=== PATIENT | male | born 1955 | race Caucasian/White ===

== ENCOUNTER 2023-07-14 21:04 | Inpatient (IN) | payer MEDICARE, MEDICAID, SELFPAY ==
[2023-07-14 21:06] VITALS: BP 127/60; PULSE 108; RESP 30; BMI 19.8
--- NOTE | 2023-07-14 21:19 | XRR_ITS ---
PROCEDURE INFORMATION: Exam: XR Chest Exam date and time: 07/14/2023 10:06 PM Age: 68 years old Clinical indication: Dyspnea and shortness of breath TECHNIQUE: Imaging protocol: Radiologic exam of the chest. Views: 1 view. COMPARISON: CR XR chest 1V [id number] 03/28/2018 10:10 AM FINDINGS: Lungs: Bibasilar consolidation/collapse with diffuse reticular opacities in both lungs. Pleural spaces: Small bilateral pleural effusions. Heart/Mediastinum: Mild cardiomegaly. Vasculature: Aortic arch calcifications. Bones/joints: Mild degenerative disease of the thoracic spine. XR/XR chest 1V portable [id number] IMPRESSION: Findings suggestive of interstitial pulmonary edema. Superimposed infection is not excluded.
--- NOTE | 2023-07-14 21:20 | ECG_ITS ---
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 Measurements Intervals [place] Rate: 110 P: 42 [place]: 125 QRS: 48 QRSD: 89 T: 88 QT: 316 QTc: 429 Interpretive Statements SINUS TACHYCARDIA POSSIBLE LEFT ATRIAL ENLARGEMENT [-0.1mV P-WAVE IN V1/V2] NONSPECIFIC ST & T-WAVE ABNORMALITY Compared to ECG 03/28/2018 09:29:50 T-wave abnormality now present Sinus rhythm no longer present ST (T wave) deviation no longer present Electronically Signed On 07-15-2023 9:20:42 CDT by Rambo Pierce M.D. [id number] f
[2023-07-14 21:21] VITALS: TEMP 34.8
--- NOTE | 2023-07-14 21:24 | ED_ITS ---
HPI - SOB/Dyspnea 2 General: Chief Complaint: Shortness of Breath/Dyspnea Stated Complaint: RESP. DISTRESS Time Seen by Provider: 07/14/23 21:11 History of Present Illness: HPI Narrative: Patient presents by EMS for shortness of breath and respiratory distress, EMS said they found him lying on the floor naked half inside half outside his house. They gave him 1 DuoNeb, Decadron, albuterol on route he arrived on nonrebreather and he said that he was getting O2 saturation of 98% on this. He did twelve-lead which was negative, patient denies COPD and asthma is a smoker, patient says he has no history. Patient is a very poor historian. Patient is breathing about 30 times a minute with a pulse rate of about 108 bpm with a rectal temperature of 94.7. Review of Systems 2 General: Reports: 10 or more systems reviewed and unremarkable except in HPI and below PFSH ED 2 PFSH: Medical History (Updated 07/15/23 @ 05:15 by Carlos Mckeon MD) History of COPD Social History (Updated 07/15/23 @ 05:07 by Carlos Mckeon MD) Smoking and tobacco/nicotine status: current every day tobacco/nicotine user Physical Exam 2 Const: COMMON NORMALS: average body habitus, no limitations and alert HENMT: COMMON NORMALS: normocephalic, atraumatic, hearing grossly normal bilaterally, external ears normal, Normal external nose present, moist oral mucous membranes and oropharynx normal HEAD & SCALP: normocephalic and atraumatic NOSE: Normal external nose present EXTERNAL EAR: Yes external ears normal Eye: COMMON NORMALS: Equal, round and reactive pupils present, EOMs intact bilaterally, conjunctivae normal and no scleral icterus CONJUNCTIVA: Yes conjunctivae normal PUPIL: Yes Equal, round and reactive pupils present Neck/C-Spine: COMMON NORMALS: full ROM, no lymphadenopathy, supple, no meningeal signs and no JVD Chest: COMMONS NORMALS: normal inspection of the chest and normal palpation of entire chest wall Resp: COMMON NORMALS: negative for clear to auscultation bilaterally (Decreased breath sounds bilaterally mild rhonchi tachypneic) AUSCULTATION: n ot clear to auscultation bilaterally (Decreased breath sounds bilaterally mild rhonchi tachypneic) Cardio: COMMON NORMALS: no JVD, regular rhythm, S1 normal heart sound present, S2 normal heart sound present, No gallops present (Cardio), No clicks present (Cardio), No murmurs present (Cardio) and No rub (Cardio); negative for regular rate (Mildly tachycardic) RATE: abnormal rate (Mildly tachycardic) RHYTHM: regular rhythm HEART SOUNDS: S1 normal heart sound present and S2 normal heart sound present GI: COMMON NORMALS: Normal to inspection, nondistended, normoactive bowel sounds present, Soft to palpation, non-tender, No hepatosplenomegaly present and no masses PALPATION: Yes Soft to palpation and Yes No hepatosplenomegaly present Extremity: NARRATIVE EXTREMITY EXAM: 2+ pitting edema bilateral lower extremi ties Neuro: SENSORIUM/ORIENTATION: Yes alert MENINGEAL SIGNS: Yes no meningeal signs Course 2 Vital Signs: Vital signs: Vital Signs Temperature 98 F 07/15/23 14:30 Pulse Rate 116 H 07/15/23 17:45 Respiratory Rate 33 H 07/15/23 17:45 Blood Pressure 134/81 07/15/23 17:45 Pulse Oximetry 92 07/15/23 17:45 Oxygen Delivery Me thod Nasal Cannula 07/15/23 17:45 Oxygen Flow Rate 4 07/15/23 17:45 Fraction of Inspir ed Oxygen 35 07/15/23 16:30 MDM - SOB/Dyspnea Medical Decision Making Even though patient's lactic acid was up and his white count was up he did not receive a sepsis bolus secondary to pulmonary edema on x-ray and elevated BNP, Differential Diagnosis Likely acute exacerbation of chronic obstructive airways disease and congestive heart failure; Unlikely community acquired pneumonia, asthma with exacerbation or pulmonary embolism Medical Records I reviewed the patient's medical records. Lab Data I reviewed the patient's lab results. 07/15/23 05:13 07/15/23 11:03 Labs/Radiology: Radiology Impressions Chest X-Ray 07/14/23 21:19 IMPRESSION: Findings suggestive of interstitial pulmonary edema. Superimposed infection is not excluded. Chest/Abdomen/Pelvis CTA 07/14/23 23:06 IMPRESSION: 1. Negative for pulmonary artery embolism. 2. Widespread pulmonary edema. 3. Large bilateral pleural effusions. 4. Congestive heart failure suspected. 5. No acute aortic pathology. COMMENTS: Consistent with the [place] [employer]'s Incidental Findings Committee white paper (J Am Rachel Radiol 2018): Any incidental renal lesion less than 1 cm or classified as too small to characterize, or any incidental cystic renal lesion characterized as simple-appearing, is likely benign. No follow-up imaging is recommended for these lesions per consensus recommendations based on imaging criteria. Head CT 07/15/23 12:17 IMPRESSION: 1. No acute intracranial abnormality. 2. Distal left vertebral artery is not visualized and may be developmentally diminutive. Consider correlation with CT angiography of the neck to exclude thrombosis/dissection. Laboratory Results WBC 15.51 10^3/uL (3.29-11.43) H 07/14/23 21:55 RBC 3.55 10^6/uL (3.85-5.65) L 07/14/23 21:55 Hgb 6.60 g/dL (11.27-16.99) L 07/14/23 21:55 Hct 25.7 % (37-53) L 07/14/23 21:55 MCV 72.4 fl (82-101) L 07/14/23 21:55 MCH 18.6 pg (27-33) L 07/14/23 21:55 MCHC 25.7 g/dL (30-55) L 07/14/23 21:55 RDW 20.3 % (12.1-15.1) H 07/14/23 21:55 Plt Count 457 10^3/cmm (157-399) H 07/14/23 21:55 MPV 11.0 fL (7.4-10.4) H 07/14/23 21:55 Neut % (Auto) 89.1 % 07/14/23 21:55 Lymph % (Auto) 5.9 % 07/14/23 21:55 [place] % (Auto) 4.2 % 07/14/23 21:55 Eos % (Auto) 0.1 % 07/14/23 21:55 Baso % (Auto) 0.1 % 07/14/23 21:55 Neut # (Auto) 13.82 10^3/uL (1.8-7.7) H 07/14/23 21:55 Lymph # (Auto) 0.9 10^3/uL (0.8-4.8) 07/14/23 21:55 [place] # (Auto) 0.7 10^3/uL (0.2-0.9) 07/14/23 21:55 Eos # (Auto) 0.0 10^3/uL (0.0-0.8) 07/14/23 21:55 Baso # (Auto) 0.0 10^3/uL (0.0-0.1) 07/14/23 21:55 Nucleated RBC % (auto) 0.1 % 07/14/23 21:55 Nucleated RBCs # 0.0 /100WBC 07/14/23 21:55 D-Dimer 1.90 ug/mLFEU (0-0.59) H 07/14/23 21:55 Specimen Type Arterial 07/14/23 21:45 Sample Site Radial, right 07/14/23 21:45 ABG pH 7.29 (7.35-7.45) L 07/14/23 21:45 ABG pCO2 26.7 mmHg (35-45) L 07/14/23 21:45 ABG pO2 91.8 mmHg (80.0-100.0) 07/14/23 21:45 ABG PO2/FiO2 Ratio 0 07/14/23 21:45 ABG HCO3 12.8 mmol/L (22-26) L 07/14/23 21:45 ABG O2 Saturation 97.0 07/14/23 21:45 ABG Base Excess -12.7 mmol/L (-2.0-2.0) L 07/14/23 21:45 Mathew Test Pos 07/14/23 21:45 A-a O2 Gradient 75.4 mmHg (5-10) H 07/14/23 21:45 Hematocrit 19.0 % (42-52) L 07/14/23 21:45 Hgb O2 Saturation 93.4 % (95-100) L 07/14/23 21:45 Carboxyhemoglobin 3.7 %THgb (0.4-20.1) 07/14/23 21:45 Methemoglobin 0.1 % (0.4-1.5) L 07/14/23 21:45 Total Hemoglobin 6.2 g/dL (14-18) L 07/14/23 21:45 Sodium 133.0 mmol/L (131-143) 07/14/23 21:45 Potassium 4.8 mmol/L (3.5-5.0) 07/14/23 21:45 Glucose 106.0 mg/dL (70-115) 07/14/23 21:45 Ionized Calcium 1.2 mmol/L (1.1-1.4) 07/14/23 21:45 O2 Delivery Device Nrb 07/14/23 21:45 O2 Liters/Min 15.0 % 07/14/23 21:45 FiO2 100.0 % 07/14/23 21:45 Quality Control Operator ID Alewe 07/14/23 21:45 Sodium 131 mmol/L (136-145) L 07/14/23 21:55 Potassium 5.1 mmol/L (3.5-5.1) 07/14/23 21:55 Chloride 96 mmol/L (98-107) L 07/14/23 21:55 Carbon Dioxide 13 mmol/L (22-29) L 07/14/23 21:55 Anion Gap 27.1 (5-19) H 07/14/23 21:55 BUN 25 mg/dL (8-23) H 07/14/23 21:55 Creatinine 1.1 mg/dL (0.7-1.2) 07/14/23 21:55 GFR Calculation 66.6 mL/min (90-130) L 07/14/23 21:55 Glucose 109 mg/dL (65-115) 07/14/23 21:55 Calculated Osmolality 277 mOsm/kg (285-295) L 07/14/23 21:55 Lactic Acid 9.6 mmol/L (0.5-2.2) H* 07/14/23 21:55 Lactic Acid (Sepsis) 8.8 mmol/L (0.5-2.2) H* 07/15/23 00:03 Calcium 9.3 mg/dL (8.5-10.5) 07/14/23 21:55 Magnesium 2.2 mg/dL (1.7-2.3) 07/14/23 21:55 Total Bilirubin 0.7 mg/dL (0.15-1.2) 07/14/23 21:55 AST 169 U/L (0-40) H 07/14/23 21:55 ALT 154 U/L (0-41) H 07/14/23 21:55 Alkaline Phosphatase 117 U/L (40-130) 07/14/23 21:55 Creatine Kinase 175 U/L (39-308) 07/14/23 21:55 Troponin T Baseline 42 ng/L (0-15) H 07/14/23 21:55 Troponin T 120 Minute 43.43 ng/L (0-15) H 07/15/23 00:03 Delta Troponin T 1.43 ABS# (0-10) 07/15/23 00:03 Troponin T Hi Sens 6Hr 52.50 ng/L (0-15) H 07/15/23 04:08 Troponin T Hi Sens 6Hr Delta 10.50 ng/L (0-12) 07/15/23 04:08 C-Reactive Protein 30.1 mg/L (0.0-4.9) H 07/14/23 21:55 NT-Pro-B Natriuret Pep 53890 pg/mL (0-125) H 07/14/23 21:55 Total Protein 7.3 g/dL (6.6-8.7) 07/14/23 21:55 Albumin 3.7 g/dL (3.5-5.2) 07/14/23 21:55 Globulin 3.6 g/dL (1.3-4.6) 07/14/23 21:55 Procalcitonin 0.10 ng/mL (0-0.5) 07/14/23 21:55 Urine Color Dark yellow (Yellow) 07/14/23 22:21 Urine Appearance Hazy (CLEAR) A 07/14/23 22:21 Urine pH 5 (5-7) 07/14/23 22:21 Ur Specific [place] 1.030 (1.005-1.030) 07/14/23 22:21 Urine Protein Trace (Negative) 07/14/23 22:21 Urine Glucose (UA) Norm (Normal) 07/14/23 22:21 Urine Ketones 1+ (Negative) H 07/14/23 22:21 Urine Blood Neg (Negative) 07/14/23 22:21 Urine Nitrate Positive (Negative) H 07/14/23 22:21 Urine Bilirubin Neg (Negative) 07/14/23 22:21 Urine Urobilinogen Neg mg/dL (Negative) 07/14/23 22:21 Ur Leukocyte Esterase Negative (Negative) 07/14/23 22:21 Urine RBC 10-15 /hpf (0-2) H 07/14/23 22:21 Urine WBC 15-25 /hpf (0-5) H 07/14/23 22:21 Ur Squamous Epith Cells None /hpf (0-5) 07/14/23 22:21 Amorphous Sediment Not Reportable 07/14/23 22:21 Urine Bacteria 3+ /hpf (NONE) H 07/14/23 22:21 Coarse Granular Casts 0-4 /lpf H 07/14/23 22:21 Urine Mucus 2+ /hpf 07/14/23 22:21 Urine Opiates Screen Negative ng/mL (Negative) 07/14/23 22:21 Ur Barbiturates Screen Negative ng/mL (Negative) 07/14/23 22:21 Ur Phencyclidine Scrn Negative ng/mL (Negative) 07/14/23 22:21 Ur Amphetamines Screen Positive ng/mL (Negative) H 07/14/23 22:21 U Benzodiazepines Scrn Negative ng/mL (Negative) 07/14/23 22:21 Urine Cocaine Screen Negative ng/mL (Negative) 07/14/23 22:21 U Marijuana (THC) Screen Negative ng/mL (Negative) 07/14/23 22:21 Influenza Type A Ag negative (Negative) 07/14/23 21:57 Influenza Type B Ag negative (Negative) 07/14/23 21:57 SARS-CoV-2 Ag (Rapid) negative (Negative) 07/14/23 21:57 Blood Type A Positive 07/14/23 22:45 Rho(D) Type Rh positive 07/14/23 22:45 Antibody Screen Negative 07/14/23 22:45 Crossmatch See Detail 07/14/23 22:45 All radiology interpretation(s) finalized by discharge Critical Care Time 2 Critical Care Time: Critical Care Time: Yes Total Critical Care Time: 60 Attestation: The patient was emergently evaluated this patient's presentation and case had a high probability of a clinically significant, sudden, or life-threatening deterioration of the patient's initial critical presentation or condition which required my full and direct attention, intervention and personal management. Discharge Plan Discharge Patient Disposition: Admitted As Inpatient Admit Provider: Carlos Mckeon Clinical Impression: Acute hypoxic respiratory failure, Amphetamine use, Bilateral pleural effusion CHF (congestive heart failure) Qualifiers: Heart failure type: unspecified Heart failure chronicity: acute Qualified Code(s): I50.9 - Heart failure, unspecified Anemia Qualifiers: Anemia type: unspecified type Qualified Code(s): D64.9 - Anemia, unspecified Urinary tract infection Qualifiers: Urinary tract infection type: acute cystitis Hematuria presence: without hematuria Qualified Code(s): N30.00 - Acute cystitis without hematuria Condition: Stable Coding Level of Care Code ED Agricultural Economics Teacher for Darryl Narvaez
[2023-07-14 21:55] LABS: ABG PCO2 26.7 mmHg (35-45); ABG PH Result 7.29 (7.35-7.45); Alveolar-Arterial Oxygen Gradi 75.4 mmHg (5-10); Base Excess ABG -12.7 mmol/L (-2.0-2.0); Blood Gas Allen Test Pos; Blood Gas Sample Site Radial, right; Blood Gas Sample Type Arterial; Carboxyhemoglobin 3.7 %THgb (0.4-20.1); HCO3 ABG 12.8 mmol/L (22-26); HGB O2 Sat 93.4 % (95-100); Ionized Calcium Level - ABG 1.2 mmol/L (1.1-1.4); Methemoglobin 0.1 % (0.4-1.5); Oxygen Device NRB; PO2 ABG 91.8 mmHg (80.0-100.0); PO2 FiO2 Ratio Arterial Blood 0; Potassium Level - ABG 4.8 mmol/L (3.5-5.0); Total Hemoglobin 6.2 g/dL (14-18)
[2023-07-14 22:09] VITALS: BP 193/163; PULSE 112; RESP 15
[2023-07-14 22:11] LABS: Basophils % 0.1 %; Eosinophils % 0.1 %; Hematocrit 25.7 % (37-53); Lymphocytes # 0.9 10^3/uL (0.8-4.8); Lymphocytes % 5.9 %; Mean Corpuscular HGB Conc 25.7 g/dL (30-55); Mean Corpuscular Hemoglobin 18.6 pg (27-33); Mean Corpuscular Volume 72.4 fl (82-101); Monocytes # 0.7 10^3/uL (0.2-0.9); Monocytes % 4.2 %; Neutrophils # 13.82 10^3/uL (1.8-7.7); Neutrophils % 89.1 %; Nucleated Red Blood Cells % 0.1 %; Platelet Count 457 10^3/cmm (157-399); Red Blood Count 3.55 10^6/uL (3.85-5.65); Red Cell Distribution Width 20.3 % (12.1-15.1); White Blood Count 15.51 10^3/uL (3.29-11.43)
[2023-07-14 22:28] LABS: Troponin(5th) Baseline 42 ng/L (0-15)
[2023-07-14 22:29] LABS: Influenza A by IFA negative (Negative); Influenza B by IFA negative (Negative); SARS Covid-2 Antigen negative (Negative)
[2023-07-14 22:38] LABS: NT Pro B Type Natriuretic Pept 12134 pg/mL (0-125)
[2023-07-14] MEDS: FUROsemide 10 mg/mL SDV 10mL 40 MG IVP (22:39)
[2023-07-14 22:44] LABS: Amphetamines Screen Urine Positive (Negative); Barbiturates Screen Urine Negative (Negative); Benzodiazepines Screen Urine Negative (Negative); Cocaine Screen Urine Negative (Negative); Opiate Screen Urine Negative (Negative); PCP Screen Urine Negative (Negative); THC Screen Urine Negative (Negative)
--- NOTE | 2023-07-14 22:44 | PC.NURSE ---
Patient has verbalized understanding and education regarding blood transfusion, and signed blood consent form, witnessed by this nurse.
[2023-07-14 22:49] LABS: Alanine Aminotransferase 154 U/L (0-41); Albumin Level 3.7 g/dL (3.5-5.2); Alkaline Phosphatase 117 U/L (40-130); Anion Gap 27.1 (5-19); Aspartate Amino Transferase 169 U/L (0-40); Blood Urea Nitrogen 25 mg/dL (8-23); C Reactive Protein 30.1 mg/L (0.0-4.9); Calcium 9.3 mg/dL (8.5-10.5); Carbon Dioxide 13 mmol/L (22-29); Chloride 96 mmol/L (98-107); Creatine Phosphokinase 175 U/L (39-308); Creatinine Clr Calc Pharmacy 58.7516; Globulin 3.6 g/dL (1.3-4.6); Glomerular Filtration Rate 66.6 mL/min (90-130); Glucose 109 mg/dL (65-115); Magnesium 2.2 mg/dL (1.7-2.3); Osmolality Calculated 277 mOsm/kg (285-295); Potassium 5.1 mmol/L (3.5-5.1); Sodium 131 mmol/L (136-145); Total Bilirubin 0.7 mg/dL (0.15-1.2); Total Protein 7.3 g/dL (6.6-8.7)
[2023-07-14 22:58] LABS: Lactic Sepsis W/Reflex 9.6 mmol/L (0.5-2.2)
[2023-07-14 23:03] LABS: Add Urine Microscopic? YES; Bilirubin Urine Neg (Negative); Blood Urine Neg (Negative); Glucose Urine UA Norm (Normal); Ketones Urine 1+ (Negative); Leukocyte Esterase Urine Negative (Negative); Nitrate Urine Positive (Negative); Protein Urine Trace (Negative); Urine Appearance Hazy (CLEAR); Urine Color Dark Yellow (Yellow); Urobilinogen Urine Neg (Negative); pH Urine 5 (5-7)
[2023-07-14 23:04] LABS: Add Urine Culture? Yes; Bacteria Urine 3+ /hpf; Coarse Granular Casts Urine 0-4 /lpf; Mucus Urine 2+ /hpf; WBC Urine 15-25 /hpf (0-5)
--- NOTE | 2023-07-14 23:06 | CTR_ITS ---
PROCEDURE INFORMATION: Exam: CTA Chest With Contrast CTA Abdomen and Pelvis Without And With Contrast Exam date and time: 07/15/2023 2:52 AM Age: 68 years old Clinical indication: Shortness of breath; Additional info: Elevated d dimer, hypoxia, anemia, elevated lfts, TECHNIQUE: Imaging protocol: Computed tomographic angiography of the chest with contrast. Exam focused on the arteries. Computed tomographic angiography of the abdomen and pelvis without and with contrast. Exam focused on the arteries. 3D rendering (Not supervised by radiologist): MIP and/or 3D reconstructed images were created by the technologist. Radiation optimization: All CT scans at this facility use at least one of these dose optimization techniques: automated exposure control; mA and/or kV adjustment per patient size (includes targeted exams where dose is matched to clinical indication); or iterative reconstruction. Contrast material: OMNI 350; Contrast volume: 100 ml; Contrast route: INTRAVENOUS (IV); COMPARISON: CR XR chest 1V portable [id number] 07/14/2023 10:06 PM RADIATION DOSE METRICS: Total DLP (mGy-cm): 586.9 FINDINGS: VASCULATURE: Pulmonary arteries: Normal. No pulmonary emboli. Aorta: No aortic aneurysm. No aortic dissection. Scattered atherosclerotic plaques. Celiac trunk and mesenteric arteries: Negative for occlusion. Moderate severity stenosis celiac artery origin. Mild severity SMA origin stenosis. Severe stenosis of SHIRLENE origin. Renal arteries: No occlusion or significant stenosis. Right iliac arteries: No occlusion or significant stenosis. Left iliac arteries: No occlusion or significant stenosis. CHEST: Lungs: Widespread ground-glass opacities in the lungs. Diffuse septal thickening. Lower lobe compressive atelectasis. Pleural spaces: Large volume bilateral pleural effusions. Heart: Dilated cardiac chambers. Negative for pericardial effusion. ABDOMEN AND PELVIS: Liver: No mass. Gallbladder and bile ducts: Gallbladder not seen; correlate for surgical absence. No ductal dilation. Pancreas: Unremarkable. No mass. No ductal dilation. Spleen: Unremarkable. No splenomegaly. Adrenal glands: Unremarkable. No mass. Kidneys and ureters: Simple cortical cyst inferior left kidney. Small parenchymal calcification versus nonobstructing stone anterior lower right kidney. Negative for hydronephrosis. Stomach and bowel: Unremarkable. No obstruction. No mucosal thickening. Appendix: No evidence of appendicitis. Intraperitoneal space: Unremarkable. No free air. No significant fluid collection. Urinary bladder: Unremarkable. No mass. Reproductive: Unremarkable as visualized. Lymph nodes: Unremarkable. No enlarged lymph nodes. Bones/joints: The lumbar spine demonstrates marked discogenic and apophyseal joint degenerative changes at multiple levels. No acute fracture. Soft tissues: Large right inguinal hernia which contains bowel. CT/CT [facility] [id number] IMPRESSION: 1. Negative for pulmonary artery embolism. 2. Widespread pulmonary edema. 3. Large bilateral pleural effusions. 4. Congestive heart failure suspected. 5. No acute aortic pathology. COMMENTS: Consistent with the [place] [employer]'s Incidental Findings Committee white paper (J Am Rachel Radiol 2018): Any incidental renal lesion less than 1 cm or classified as too small to characterize, or any incidental cystic renal lesion characterized as simple-appearing, is likely benign. No follow-up imaging is recommended for these lesions per consensus recommendations based on imaging criteria.
[2023-07-14 23:20] VITALS: BP 150/92; PULSE 118; O2SAT 100
--- NOTE | 2023-07-14 23:20 | ECG_ITS ---
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 Measurements Intervals [place] Rate: 119 P: 37 MT: 121 QRS: 20 QRSD: 92 T: 70 QT: 327 QTc: 460 Interpretive Statements SINUS TACHYCARDIA POSSIBLE LEFT ATRIAL ENLARGEMENT [-0.1mV P-WAVE IN V1/V2] NONSPECIFIC T-WAVE ABNORMALITY Compared to ECG 07/14/2023 22:05:11 No significant changes Electronically Signed On 07-15-2023 9:24:40 CDT by Rambo Pierce M.D. [id number]
[2023-07-14 23:33] VITALS: PULSE 117; RESP 29
[2023-07-14] MEDS: piperacillin-tazobactam 3.375 GM in sodium chloride 0.9% (plus) 50 ML IV (23:33)
[2023-07-14 23:37] VITALS: TEMP 36
[2023-07-14 23:55] LABS: Reflex Lactate Order REFLEX LACTIC ORDERD
[2023-07-15] VITALS (81 sets, daily range): BP systolic 114–181; BP diastolic 63–132; PULSE 91–134; RESP 10–33; TEMP 36.1–37.1; O2SAT 90–100; BMI 20.9
[2023-07-15 00:46] LABS: Troponin 5 2HR 43.43 ng/L (0-15); Troponin 5 2HR Delta 1.43 ABS# (0-10)
[2023-07-15 01:10] LABS: Lactic Acid level (Lactate) 8.8 mmol/L (0.5-2.2)
[2023-07-15] MEDS: LORazepam 2 mg/mL INJ 10 mL MDV 1 MG IVP ×2 (02:11→05:11)
[2023-07-15] MEDS: albuterol 2.5 mg/3 mL Neb INHALATION (02:18)
[2023-07-15] MEDS: FUROsemide 10 mg/mL SDV 4mL 40 MG IVP (02:21)
--- NOTE | 2023-07-15 02:27 | PC.NURSE ---
Patient became agitated, moaning, and stating that he couldn't breathe. Dr Rider and RT were notified. Patient's O2 saturations remained in high 90s, and order was given for Ativan. Patient now calm, resting with even and controlled breathing at this time.
[2023-07-15] MEDS: iohexol 350 mg/mL 500 mL Btl (per mL) IV (03:09)
--- NOTE | 2023-07-15 03:20 | ECG_ITS ---
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 Measurements Intervals [place] Rate: 123 P: 31 PA: 130 QRS: 21 QRSD: 86 T: 74 QT: 301 QTc: 431 Interpretive Statements SINUS TACHYCARDIA NONSPECIFIC ST & T-WAVE ABNORMALITY Compared to ECG 07/15/2023 00:06:35 No significant changes Electronically Signed On 07-15-2023 9:24:01 CDT by Rambo Pierce M.D. [email or web address] [email or web address] regional medical centerArrow[facility] Researchmount [facility].[employer]/store/[id number]
[2023-07-15] MEDS: morphine 4 mg/mL SDV 1 mL IVP ×2 (03:31→05:11)
--- NOTE | 2023-07-15 04:59 | USCV_ITS ---
Colin Carey Age: 68 Gender: M : 1955 Exam Date: 07/15/2023 11:41 Ordering Phys: Carlos Mckeon MD Technologist: [place] [facility] [place]: pulm [place] BP: 148 / 93 HR: 103 Rhythm: Sinus Technical Quality: Adequate MEASUREMENTS (Male / Female) Normal Values 2D ECHO LVOT Diameter 2.0 cm LV Ejection Fraction MOD 2C 18.7 % LV Ejection Fraction 2C AL 19.6 % LA Diameter 4.5 cm LA Sys Volume AL 41.7 cm cubed LA Sys Volume Index AL 23.3 cm cubed/m squared Aorta at Sinotubular Diameter 2.2 cm IVC Diameter 1.9 cm M-MODE LA Ao Ratio MM 2.0 AV Cusp Separation MM 0.9 cm DOPPLER AV Peak Velocity 225.0 cm/s LVOT Peak Velocity 123.0 cm/s AV Area Cont Eq vti 1.7 cm squared AV Area Cont Eq pk 1.8 cm squared MV Peak Velocity 118.0 cm/s MV Area PHT 5.6 cm squared Mitral E to A Ratio 0.9 TR Peak Velocity 91.0 cm/s TR Peak Gradient 3.3 mmHg TV Peak E Velocity 91.0 cm/s Right Atrial Pressure 3.0 mmHg Pulmonary Artery Systolic Pressu 6.3 mmHg PV Peak Velocity 85.0 cm/s FINDINGS Left Ventricle Severe diffuse hypokinesia left ventricular ejection fraction around 25%, visual. Mildly dilated LV cavity. Right Ventricle Possibly normal size ejection fraction Right Atrium Possibly of normal size Left Atrium Mildly increased left atrial size. Mitral Valve Thickened mitral valve. Mild mitral annular calcification. Mild- moderate mitral valve regurgitation. Aortic Valve Thickened aortic valve. Features of aortic valve sclerosis with a peak velocity of 2.2 m/s Tricuspid Valve No gross abnormalities noted Pulmonic Valve [id number] pulmonary valve regurgitation. Pericardium Small echo-free space. Aorta Normal aortic annulus size. IVC Normal inferior vena cava. Large left-sided pleural effusion CONCLUSIONS Severe diffuse hypokinesia left ventricular ejection fraction around 25%, visual. Mildly dilated LV cavity. Mildly increased left atrial size. Thickened mitral valve. Mild mitral annular calcification. Mild- moderate mitral valve regurgitation. Thickened aortic valve. Features of aortic valve sclerosis with a peak velocity of 2.2 m/s. [id number] pulmonary valve regurgitation. Possible small pericardial effusion Features of large left-sided pleural effusion Dr Deann Osorio MD FACC (Electronically Signed) Final Date: 15 Jul 2023 21:00 S
--- NOTE | 2023-07-15 05:03 | P.HP_ITS ---
Providers/Chief Complaint 2 Admitting Physician: Carlos Mckeon MD Chief Complaint: RESP. DISTRESS History of Present Illness Colin Carey is a 68 year old male with a past medical history of COPD, smoking, who presents to [facility] due to shortness of breath. Currently patient is alert to person, not to place, not to time, he can follow simple commands, currently on a BiPAP mask at 50%, in moderate respiratory distress, with nasal flaring intercostal retraction suprasternal retractions tachypneic, tachycardic, he is globally encephalopathic at times it is difficult to get a history from him. But he does tell me that he feels short of breath, but he feels better with the BiPAP mask on, does report chest pain, denies any abdominal pain, does report a productive cough, he tells me he has yellow sputum, he does report that he is smoking but trying to quit, denies any nausea, no vomiting, no flank pain,. According to ER provider, EMS was called out to the home as patient was found to have respiratory distress shortness of breath, he was found lying on the floor have inside, outside his home, naked, and given DuoNeb, Decadron, found to have acute hypoxic respiratory failure in the emergency room placed on BiPAP fluid overload given 2 doses of Lasix, anemic hemoglobin 6.6 getting 1 unit of blood, Review of Systems 2 Const: Reports: fatigue and malaise; Denies: fever(s) Card: Reports: chest pain Resp: Reports: dyspnea GI: Denies: abdominal pain : Denies: flank pain Medications/Allergies Allergies Allergy/AdvReac Type Severity Reaction Status Date / Time No Known Allergies Allergy Unverified 07/14/23 23:51 Additional Medication Information Cannot get adequate medical history given his shortness of breath is encephalopathy cannot get an adequate surgical history given his encephalopathy cannot get an adequate family history given his encephalopathy PFSH Acute 2 PFSH: Medical History (Updated 07/15/23 @ 05:15 by Carlos Mckeon MD) History of COPD Social History (Updated 07/15/23 @ 05:07 by Carlos Mckeon MD) Smoking and tobacco/nicotine status: current every day tobacco/nicotine user Vitals/I&O/Wt Last Vital Signs Temp 97.8 F 05/10/24 03:37 Pulse 122 H 07/15/23 04:14 Resp 26 H 07/15/23 04:14 BP 149/101 07/15/23 04:14 Pulse Ox 99 07/15/23 04:14 O2 Del Method BiPAP 07/15/23 04:14 O2 Flow Rate 15 07/15/23 02:19 FiO2 50 07/15/23 02:22 07/14/23 07/14/23 07/15/23 14:59 22:59 06:59 Intake Total 380 / 380 Balance 380 / 380 Weight last 48 hrs Weight 58.967 kg Physical Exam 2 Const: COMMON NORMALS: no acute distress EXAM LIMITATIONS: altered mental status GENERAL APPEARANCE: in distress, ill appearing and frail appearing NUTRITIONAL APPEARANCE: cachectic ORIENTATION/CONSCIOUSNESS: Yes awake, Yes oriented to person and Yes confused; not oriented to place and not oriented to time HENMT: COMMON NORMALS: normocephalic HEAD & SCALP: normocephalic Eye: COMMON NORMALS: Equal, round and reactive pupils present Neck/C-Spine: COMMON NORMALS: no lymphadenopathy Chest: COMMONS NORMALS: normal inspection of the chest Resp: EFFORT & INSPECTION: Yes abnormal respiratory pattern, Yes tachypneic, Yes respiratory distress, Yes retractions intercostal and supraclavicular and Yes uses accessory muscles AUSCULTATION: crackles and wheezes Cardio: COMMON NORMALS: S1 normal heart sound present and S2 normal heart sound present RATE: tachycardic RHYTHM: regular rhythm HEART SOUNDS: S1 normal heart sound present and S2 normal heart sound present OTHER: DP PT pulses diminished bilateral lower extremity GI: COMMON NORMALS: Normal to inspection, nondistended, normoactive bowel sounds present, Soft to palpation and non-tender PALPATION: No Tenderness to palpation present (GI), No Guarding due to palpation present (GI) and No Rigid due to palpation : COMMON NORMALS: Yes no CVA tenderness Extremity: COMMON NORMALS: no calf tenderness and no pedal edema Neuro: OTHER: Cannot perform neurologic testing Sepsis: Is patient septic: Yes Focused sepsis exam performed: Yes F ocused sepsis exam: DP PT pulses diminished, has mottling of bilateral extremities, up to the level of the knees, cap refill greater than 3 seconds Date exam was performed: 07/15/23 Time exam was performed: 05:10 Data 07/14/23 21:55 07/14/23 21:55 Micro: Microbiology 07/14/23 22:01 Blood Culture - Preliminary Blood SPECIMEN COLLECTED 07/14/23 21:55 Blood Culture - Preliminary Blood SPECIMEN COLLECTED A&P Assessment and plan (1) Acute hypoxic respiratory failure: (2) Bilateral pleural effusion: (3) Amphetamine use: (4) Urinary tract infection: Qualifiers: Hematuria presence: without hematuria Urinary tract infection type: a cute cystitis Qualified Code(s): N30.00 - Acute cystitis without hematuria (5) Sepsis: (6) Increased anion gap metabolic acidosis: (7) Lactic acidosis: (8) Pulmonary edema: (9) Pneumonia: (10) Tachycardia: (11) Respiratory distress: (12) Acute anemia: (13) NSTEMI (non-ST elevated myocardial infarction): (14) COPD exacerbation: (15) CHF exacerbation: (16) CHF (congestive heart failure): Qualifiers: Heart failure chronicity: acute Heart failure type: unspecified Qualified Code(s): I50.9 - Heart failure, unspecified (17) Anemia: Qualifiers: Anemia type: unspecified type Qualified Code(s): D64.9 - Anemia, unspecified (18) Acute encephalopathy: Plan Acute hypoxic respiratory failure ? With evidence of acute respiratory distress, nasal flaring, intercostal retraction suprasternal retractions, tachypnea, tachycardia, on 50% BiPAP ? Etiology ? Multifactorial ? Diffuse pulm edema ? Does have groundglass opacities, with elevated white blood cell count concerning for pneumonia, sepsis ? Plan ? Keep n.p.o. ? Monitor the ICU closely ? Low threshold for intubation ? Has received 80 mg of Lasix, will monitor creatinine, monitor urine output, Bumex 1 mg every 12 hours ? Vancomycin ? Zosyn ? Follow blood cultures ? Sputum culture ? Full code ? SCDs for DVT prophylaxis, Lovenox relatively contraindicated given anemia Acute encephalopathy ? Likely secondary to acute hypoxia, pneumonia, sepsis ? Neurochecks ? Aspiration precautions ? Keep n.p.o. Sepsis ? Sepsis features given acute hypoxic respiratory failure, tachypnea, tachycardia, mottling of bilateral lower extremities, diminished DP PT pulses, leukocytosis, lactic acidosis, metabolic acidosis Lactic acidosis, with increased anion gap metabolic acidosis ? Likely secondary to sepsis, pneumonia, pulmonary edema ? Will give an amp of bicarb ? Monitor electrolytes closely Lactic acidosis Transaminitis, acute hep panel, HIV NSTEMI ? Type I versus type II ? Continue telemetry monitoring ? Cardiac echo Acute anemia ? Protonix ? Carafate ? Hold all blood thinners ? Monitor hemoglobin closely ? Iron studies, ferritin, B12 Pulmonary edema ? Diuresis as above ? Cardiac echo CHF exacerbation ? Cardiac echo UTI, antibiotics as above Urine toxicology screen positive for amphetamines Attestations 2 Medical Necessity Statement*: Patient requires hospitalization, inpatient, greater than 2 midnights, for acute hypoxic respiratory failure, acute respiratory distress, sepsis, pneumonia, pulmonary edema, CHF exacerbation, UTI, sepsis Coding Level of Care Code Critical Care >/= 30 minutes Critical care time (in minutes): 50 The high probability of a clinically significant, sudden or life threatening deterioration, as referenced in this documentation, required my full and direct attention, intervention and personal management. The critical care time shown is in addition to time spent performing any reported separately billable procedures and includes the following: [x] Data and vital sign review and interpretation [x ] Patient assessment, examination and intervention [x] Medication orders and management [x] Patient/Family updates as able [x] Care Coordination and Documentation. Diagnoses Acute hypoxic respiratory failure J96.01 Bilateral pleural effusion J90 Amphetamine use F15.90 Urinary tract infection N30.00 Hematuria presence: without hematuria Urinary tract infection type: acute cystitis Sepsis A41.9 Increased anion gap metabolic acidosis E87.29 Lactic acidosis E87.20 Pulmonary edema J81.1 Pneumonia J18.9 Tachycardia R00.0 Respiratory distress R06.03 Acute anemia D64.9 NSTEMI (non-ST elevated myocardial infarction) I21.4 COPD exacerbation J44.1 CHF exacerbation I50.9 CHF (congestive heart failure) I50.9 Heart failure chronicity: acute Heart failure type: unspecified Anemia D64.9 Anemia type: unspecified type Acute encephalopathy G93.40
[2023-07-15 05:17] LABS: Basophils % 0.1 %; Hematocrit 30.5 % (37-53); Lymphocytes # 0.6 10^3/uL (0.8-4.8); Mean Corpuscular HGB Conc 27.9 g/dL (30-55); Mean Corpuscular Hemoglobin 19.5 pg (27-33); Mean Platelet Volume 10.3 fL (7.4-10.4); Monocytes # 0.3 10^3/uL (0.2-0.9); Monocytes % 2.3 %; Neutrophils # 13.57 10^3/uL (1.8-7.7); Neutrophils % 92.8 %; Nucleated Red Blood Cells % 0.2 %; Platelet Count 436 10^3/cmm (157-399); Red Blood Count 4.36 10^6/uL (3.85-5.65); Red Cell Distribution Width 20.2 % (12.1-15.1); White Blood Count 14.62 10^3/uL (3.29-11.43)
[2023-07-15 05:28] LABS: INR 1.67 (0.8-1.2)
--- NOTE | 2023-07-15 05:55 | PC.NURSE ---
Report was called MAGNOLIA Munguia in ICU. All questions and concerns were addressed at time of report.
[2023-07-15] MEDS: sodium bicarbonate 8.4% 1 mEq/mL 50mL Syr 50 MEQ IVP (06:32)
[2023-07-15] MEDS: pantoprazole 40 mg SDV IVP ×2 (06:36→17:36)
[2023-07-15] MEDS: methylPREDNISolone sod succ 125 mg/2 mL INJ IVP (06:38)
[2023-07-15] MEDS: piperacillin-tazobactam 3.375 GM in sodium chloride 0.9% (plus) 50 ML IV ×3 (06:43→23:12)
[2023-07-15] MEDS: vancomycin 1,000 MG in sodium chloride 0.9% 250 ML 250 MG IV (06:59)
[2023-07-15] MEDS: ipratropium-albuterol 3 mL Neb INHALATION ×5 (07:45→23:38)
[2023-07-15] MEDS: budesonide 0.5 mg/2 mL Neb INHALATION ×2 (07:45→20:09)
[2023-07-15 08:02] LABS: Estmated Average Glucose 100; Hemoglobin A1C 5.1 % (4.0-6.0)
[2023-07-15 08:05] LABS: Chol HDL Ratio 3.56 mg/dL (1.0-5.00); Cholesterol 114 mg/dL (0-200); Creatine Phosphokinase 250 U/L (39-308); Ferritin 43 ng/mL (30-400); HDL Cholesterol 32 mg/dL (60-100); Iron 16 ug/dL (59-158); LDL Cholesterol Calculated 69 mg/dL (50-129); LDL HDL Ratio 2.16 RATIO (0.00-3.22); Percent Saturation 5.5 % (20-50); Thyroid Stimulating Hormone 0.98 uIU/mL (0.27-4.20); Total Iron Binding Capacity 290 mcg/dl; Triglycerides 66 mg/dL (0-150); Unsaturated Iron Binding 274 ug/dL (112-347)
[2023-07-15 08:09] LABS: Hepatitis A Antibody IgM Non-Reactive (Nonreactive); Hepatitis B Core IgM Non-Reactive (Nonreactive); Hepatitis B Surface Antigen Non-Reactive (Nonreactive); Hepatitis C Virus Antibody Non-Reactive (Nonreactive)
[2023-07-15 08:14] LABS: Alcohol Level < 10 mg/dL (0-10)
[2023-07-15 08:17] LABS: Ketone (Acetest) Serum Negative (Negative)
[2023-07-15 08:26] LABS: HIV 1 & 2 Antibody Non-Reactive (Non-Reactiv); HIV 1 & 2 Antigen Non-Reactive (Non-Reactiv)
--- NOTE | 2023-07-15 08:30 | PC.NURSE ---
SCDs: Small arpita high not available, applied thigh high.
[2023-07-15] MEDS: bumetanide 0.25 mg/mL SDV 4 mL 1 MG IVP ×2 (08:48→19:39)
--- NOTE | 2023-07-15 09:29 | PC.PHAR ---
Addendum entered by Baylee Lazar 07/15/23 09:30: WILL FOLLOW UP WHEN FAMILY IS AVAILABLE. Original Note: PHONED , SON, AND PCP- NO ANSWER FOR ANY. PHONED [facility]. NO PT FOUND IN THEIR SYSTEM.
[2023-07-15 11:42] LABS: Anion Gap 20.3 (5-19); Blood Urea Nitrogen 29 mg/dL (8-23); Calcium 9.4 mg/dL (8.5-10.5); Carbon Dioxide 22 mmol/L (22-29); Chloride 96 mmol/L (98-107); Creatinine Clr Calc Pharmacy 60.0713; Glomerular Filtration Rate 66.6 mL/min (90-130); Glucose 143 mg/dL (65-115); Magnesium 2.1 mg/dL (1.7-2.3); Osmolality Calculated 286 mOsm/kg (285-295); Potassium 4.3 mmol/L (3.5-5.1); Sodium 134 mmol/L (136-145)
--- NOTE | 2023-07-15 12:17 | CTR_ITS ---
PROCEDURE INFORMATION: Exam: CT Head With Contrast Exam date and time: 07/15/2023 4:44 PM Age: 68 years old Clinical indication: Altered mental status/memory loss; Confusion or disorientation; Additional info: AMS, sepsis TECHNIQUE: Imaging protocol: Computed tomography of the head with intravenous contrast. Radiation optimization: All CT scans at this facility use at least one of these dose optimization techniques: automated exposure control; mA and/or kV adjustment per patient size (includes targeted exams where dose is matched to clinical indication); or iterative reconstruction. Contrast material: OMNI 350; Contrast volume: 80 ml; Contrast route: INTRAVENOUS (IV); COMPARISON: CT head wo/w con [id number] 01/21/2018 12:53 PM RADIATION DOSE METRICS: Total DLP (mGy-cm): 1027.2 FINDINGS: Brain: Sequela of mild-moderate chronic microvascular ischemic changes with periventricular and deep white matter hypoattenuation. Brown-white differentiation is otherwise maintained. No evidence of intra-axial or extra-axial hemorrhage. No mass effect or midline shift. Basilar cisterns are patent. No evidence of abnormal enhancement. The vessels of the [id number] are grossly patent. Dural venous sinuses are patent. The distal left vertebral artery is not visualized and may be developmentally diminutive. Consider correlation with CT angiography of the neck to exclude thrombosis/dissection. Cerebral ventricles: Unremarkable. No ventriculomegaly. Bones/joints: Unremarkable. No acute fracture. Paranasal sinuses: Visualized sinuses are unremarkable. No fluid levels. Mastoid air cells: Visualized mastoid air cells are well aerated. Soft tissues: Unremarkable. CT/CT head w con [id number] IMPRESSION: 1. No acute intracranial abnormality. 2. Distal left vertebral artery is not visualized and may be developmentally diminutive. Consider correlation with CT angiography of the neck to exclude thrombosis/dissection.
[2023-07-15 12:35] LABS: Adenovirus Not Detected (NOT DETECT); Chlamydia Pneumoniae Not Detected (NOT DETECT); Coronavirus 229E,HKU1,NL63,OC4 Not Detected (NOT DETECT); Human Metapneumovirus Not Detected (NOT DETECT); Human Rhinovirus/Enterovirus Not Detected (NOT DETECT); Influenza A Not Detected (NOT DETECT); Influenza A H1 Not Detected (NOT DETECT); Influenza A H1-2009 Not Detected (NOT DETECT); Influenza A H3 Not Detected (NOT DETECT); Influenza B Not Detected (NOT DETECT); Mycoplasma Pneumoniae Not Detected (NOT DETECT); Parainfluenza Virus Type 1 Not Detected (NOT DETECT); Parainfluenza Virus Type 2 Not Detected (NOT DETECT); Parainfluenza Virus Type 3 Not Detected (NOT DETECT); Parainfluenza Virus Type 4 Not Detected (NOT DETECT); Respiratory Syncytial Virus A Not Detected (NOT DETECT); Respiratory Syncytial Virus B Not Detected (NOT DETECT); SARS-COV-2 Not Detected (NOT DETECT)
[2023-07-15] MEDS: methylPREDNISolone sod succ 40 mg/mL INJ IVP (17:36)
[2023-07-15] MEDS: sucralfate 1 gm/10 mL Oral Liq UDC PO ×2 (17:36→23:13)
--- NOTE | 2023-07-15 17:47 | PC.NURSE ---
Shift summary: Pt rested in bed throughout shift. Mostly with eyes closed. He finally woke up enough this evening, he is alert and oriented, His speech is garbled, mostly likely due to dry mouth and no teeth. He remains in sinus tachycardia all shift. BP, respirations and temp WNL. Lungs auscultate clear. He did have a trace amount of edema on his ankles this am, not present at this time. He had a r27 beat run of VT that self converted this am. Labs rechecked and electrolytes looked good. No further arrhythmia events occurred. He received Bumex this am, and had a rader inserted. he has had 3700ml of clear very pale yellow urine output. NO BMs noted. He did have mottling on his heels and knees this am, it has improved.
--- NOTE | 2023-07-15 18:18 | P.PN_ITS ---
Subjective 2 Subjective: Lethargic. Appears to open eyes, tries to rise up to voice, shoulder touch, but overcome by lethargy. Vitals/I&O/Wt Last Vital Signs Temp 98 F 07/15/23 14:30 Pulse 116 H 07/15/23 17:45 Resp 33 H 07/15/23 17:45 BP 134/81 07/15/23 17:45 Pulse Ox 92 07/15/23 17:45 O2 Del Method Nasal Cannula 07/15/23 17:45 O2 Flow Rate 4 07/15/23 17:45 FiO2 35 07/15/23 16:30 07/15/23 07/15/23 07/15/23 06:59 14:59 22:59 Intake Total 380 / 380 300 / 300 Output Total 2750 / 2750 950 / 3700 Balance 380 / 380 -2450 / -2450 -950 / -3400 Weight last 48 hrs Weight 62.596 kg Weight 58.967 kg Physical Exam 2 Const: GENERAL APPEARANCE: not cooperative ORIENTATION/CONSCIOUSNESS: not awake HENMT: COMMON NORMALS: oropharynx normal Neck/C-Spine: COMMON NORMALS: no JVD Resp: COMMON NORMALS: normal respiratory effort and clear to auscultation bilaterally AUSCULTATION: clear to auscultation bilaterally Cardio: COMMON NORMALS: no JVD, regular rhythm, S1 normal heart sound present, S2 normal heart sound present and No murmurs present (Cardio) RHYTHM: regular rhythm HEART SOUNDS: S1 normal heart sound present and S2 normal heart sound present GI: COMMON NORMALS: Normal to inspection, nondistended, normoactive bowel sounds present, Soft to palpation and non-tender PALPATION: Yes Soft to palpation Extremity: COMMON NORMALS: no joint enlargement and no pedal edema Neuro: COMMON NORMALS: moves all extremities Skin: NARRATIVE SKIN EXAM: Pale OTHER: Few small red spots antecubital fossa? Urinary Catheter Management: Vital: Cath Placed During This Visit: no Data 07/15/23 05:13 07/15/23 11:03 Micro: Microbiology 07/14/23 22:01 Blood Culture - Preliminary Blood SPECIMEN COLLECTED 07/14/23 21:55 Blood Culture - Preliminary Blood SPECIMEN COLLECTED A&P Assessment and plan (1) Acute hypoxic respiratory failure: (2) Bilateral pleural effusion: (3) Amphetamine use: (4) Urinary tract infection: Qualifiers: Hematuria presence: without hematuria Urinary tract infection type: a cute cystitis Qualified Code(s): N30.00 - Acute cystitis without hematuria (5) Sepsis: (6) Increased anion gap metabolic acidosis: (7) Lactic acidosis: (8) Pulmonary edema: (9) Pneumonia: (10) Tachycardia: (11) Respiratory distress: (12) Acute anemia: (13) NSTEMI (non-ST elevated myocardial infarction): (14) COPD exacerbation: (15) CHF exacerbation: (16) CHF (congestive heart failure): Qualifiers: Heart failure chronicity: acute Heart failure type: unspecified Qualified Code(s): I50.9 - Heart failure, unspecified (17) Anemia: Qualifiers: Anemia type: unspecified type Qualified Code(s): D64.9 - Anemia, unspecified (18) Acute encephalopathy: Plan Acute hypoxic respiratory failure: Reviewed vitals, CBC, INR, D-dimer, ABG, CMP, lactic acid, UDS, respiratory viral panel, CTA chest. Noted metabolic acidosis. Continue treatment of pneumonia, continue Zosyn, vancomycin. Follow-up blood culture. Follow-up echocardiogram.Continue Bumex for decompensated congestive heart failure, type unknown. Large pleural effusions. BiPAP support as needed. Reduce Solu-Medrol dose. Acute encephalopathy: Reviewed UDS. Possibly amphetamine intoxication versus withdrawal. Requested amphetamine confirmation test. Requested CT head. Additionally possible UTI, follow-up urine culture. Continue empiric antibiotic coverage with Zosyn. He is waking up this afternoon. ? Aspiration precautions ? Keep n.p.o. with risk of aspiration Sepsis ? Sepsis features given acute hypoxic respiratory failure, tachypnea, tachycardia, mottling of bilateral lower extremities, diminished DP PT pulses, leukocytosis, lactic acidosis, metabolic acidosis Lactic acidosis, with increased anion gap metabolic acidosis Reviewed lactic acid level. Follow-up chemistry requested. ? Likely secondary to sepsis, pneumonia, pulmonary edema ? Will give an amp of bicarb ? Monitor electrolytes closely Lactic acidosis Transaminitis, acute hep panel, HIV Recheck CMP requested. NSTEMI ? Type I versus type II ? Continue telemetry monitoring ? Cardiac echo Acute anemia: Requesting Hemoccult Reviewed iron studies, noted iron deficiency. Likely chronic anemia. Repeat CBC tomorrow. Continue IV PPI. add B12 level Pulmonary edema ? Diuresis as above ? Cardiac echo CHF exacerbation ? Cardiac echo pending UTI, antibiotics as above Urine toxicology screen positive for amphetamines Discussed with nursing staff. Attestations 2 Medical Necessity Statement*: Continue admission for assessment and management of acute encephalopathy, acute hypoxic respiratory failure, sepsis, pneumonia, UTI, possible amphetamine intoxication versus withdrawal and anemia. Coding Level of Care Code Critical Care >/= 30 minutes Critical care time (in minutes): 35 The high probability of a clinically significant, sudden or life threatening deterioration, as referenced in this documentation, required my full and direct attention, intervention and personal management. The critical care time shown is in addition to time spent performing any reported separately billable procedures and includes the following: [x] Data and vital sign review and interpretation [x ] Patient assessment, examination and intervention [x] Medication orders and management [x] Patient/Family updates as able [x] Care Coordination and Documentation. Diagnoses Acute hypoxic respiratory failure J96.01 Bilateral pleural effusion J90 Amphetamine use F15.90 Urinary tract infection N30.00 Hematuria presence: without hematuria Urinary tract infection type: acute cystitis Sepsis A41.9 Increased anion gap metabolic acidosis E87.29 Lactic acidosis E87.20 Pulmonary edema J81.1 Pneumonia J18.9 Tachycardia R00.0 Respiratory distress R06.03 Acute anemia D64.9 NSTEMI (non-ST elevated myocardial infarction) I21.4 COPD exacerbation J44.1 CHF exacerbation I50.9 CHF (congestive heart failure) I50.9 Heart failure chronicity: acute Heart failure type: unspecified Anemia D64.9 Anemia type: unspecified type Acute encephalopathy G93.40
[2023-07-15 21:26] LABS: Basophils % 0.1 %; Hematocrit 28.9 % (37-53); Lymphocytes # 0.4 10^3/uL (0.8-4.8); Lymphocytes % 1.8 %; Mean Corpuscular HGB Conc 28.4 g/dL (30-55); Mean Corpuscular Hemoglobin 19.4 pg (27-33); Mean Corpuscular Volume 68.3 fl (82-101); Mean Platelet Volume 10.4 fL (7.4-10.4); Monocytes # 0.4 10^3/uL (0.2-0.9); Monocytes % 1.9 %; Neutrophils # 20.22 10^3/uL (1.8-7.7); Neutrophils % 95.4 %; Nucleated Red Blood Cells # 0.1 /100WBC; Nucleated Red Blood Cells % 0.3 %; Platelet Count 443 10^3/cmm (157-399); Red Blood Count 4.23 10^6/uL (3.85-5.65); Red Cell Distribution Width 20.1 % (12.1-15.1)
[2023-07-16] VITALS (50 sets, daily range): BP systolic 103–172; BP diastolic 70–107; PULSE 103–132; RESP 1–38; TEMP 36.3–36.7; O2SAT 46–100
[2023-07-16] MEDS: methylPREDNISolone sod succ 40 mg/mL INJ 20 MG IVP ×3 (00:46→16:58)
[2023-07-16] MEDS: ipratropium-albuterol 3 mL Neb INHALATION ×6 (03:03→23:39)
[2023-07-16 05:39] LABS: Hematocrit 27.4 % (37-53); Lymphocytes # 0.4 10^3/uL (0.8-4.8); Mean Corpuscular HGB Conc 27.7 g/dL (30-55); Mean Corpuscular Hemoglobin 19.3 pg (27-33); Mean Corpuscular Volume 69.7 fl (82-101); Mean Platelet Volume 10.1 fL (7.4-10.4); Monocytes # 0.4 10^3/uL (0.2-0.9); Neutrophils # 19.75 10^3/uL (1.8-7.7); Neutrophils % 94.9 %; Nucleated Red Blood Cells # 0.1 /100WBC; Nucleated Red Blood Cells % 0.2 %; Platelet Count 435 10^3/cmm (157-399); Red Blood Count 3.93 10^6/uL (3.85-5.65); Red Cell Distribution Width 20.3 % (12.1-15.1); White Blood Count 20.82 10^3/uL (3.29-11.43)
[2023-07-16] MEDS: sucralfate 1 gm/10 mL Oral Liq UDC PO ×4 (05:40→23:39)
[2023-07-16] MEDS: vancomycin 1,000 MG in sodium chloride 0.9% 250 ML 250 MG IV (05:41)
[2023-07-16] MEDS: pantoprazole 40 mg SDV IVP ×2 (05:41→17:15)
[2023-07-16] MEDS: piperacillin-tazobactam 3.375 GM in sodium chloride 0.9% (plus) 50 ML IV ×3 (05:42→23:34)
[2023-07-16 06:07] LABS: Alanine Aminotransferase 452 U/L (0-41); Albumin Level 3.1 g/dL (3.5-5.2); Alkaline Phosphatase 96 U/L (40-130); Anion Gap 16.2 (5-19); Aspartate Amino Transferase 219 U/L (0-40); Blood Urea Nitrogen 34 mg/dL (8-23); Calcium 8.6 mg/dL (8.5-10.5); Carbon Dioxide 25 mmol/L (22-29); Chloride 99 mmol/L (98-107); Creatinine Clr Calc Pharmacy 60.0713; Glomerular Filtration Rate 66.6 mL/min (90-130); Glucose 132 mg/dL (65-115); Osmolality Calculated 291 mOsm/kg (285-295); Potassium 4.2 mmol/L (3.5-5.1); Sodium 136 mmol/L (136-145); Total Bilirubin 0.4 mg/dL (0.15-1.2); Total Protein 6.1 g/dL (6.6-8.7)
[2023-07-16] MEDS: budesonide 0.5 mg/2 mL Neb INHALATION ×2 (07:30→20:16)
[2023-07-16] MEDS: bumetanide 0.25 mg/mL SDV 4 mL 1 MG IVP ×2 (07:34→19:17)
[2023-07-16 07:41] LABS: Vitamin B12 > 2000 pg/mL (232-1245)
[2023-07-16 17:18] LABS: Glucose Point of Care 115 mg/dL (70-110)
--- NOTE | 2023-07-16 17:48 | PC.NURSE ---
Addendum entered by Erwin Anderson RN 07/16/23 18:23: Shift SUmmary: Uneventful shift. Patient was up to a chair for about 5 hours. 1 person assist to the chair, slight weakness, and unsteady. Alert and oriented to person, place, time, and situation. Vital catheter removed. Started on clear liquid diet. Heart rate remains unchanged, tachycardic: usually between 115-120, occasionally lower while at rest. Original Note: Shift SUmmary: Uneventful shift. Patient was up to a chair for about 5 hours. Alert and oriented to person, place, time, and situation. Vital catheter removed. Started on clear liquid diet. Heart rate remains unchanged, tachycardic: usually between 115-120, occasionally lower while at rest.
--- NOTE | 2023-07-16 20:56 | P.PN_ITS ---
Subjective 2 Subjective: He is awake and alert, reports he is doing all right. Denies pain or discomfort, no chest pain or pressure. Vitals/I&O/Wt Last Vital Signs Temp 98.1 F 07/16/23 20:00 Pulse 115 H 07/16/23 20:20 Resp 18 07/16/23 20:00 BP 168/103 07/16/23 20:00 Pulse Ox 94 07/16/23 20:00 O2 Del Method Nasal Cannula 07/16/23 20:00 O2 Flow Rate 2.5 07/16/23 20:00 FiO2 35 07/15/23 16:30 07/16/23 07/16/23 07/16/23 06:59 14:59 22:59 Intake Total 100 / 500 700 / 700 50 / 750 Output Total 850 / 5500 875 / 875 1075 / 1950 Balance -750 / -5000 -175 / -175 -1025 / -1200 Weight last 48 hrs Weight 59.466 kg Weight 62.596 kg Weight 58.967 kg Physical Exam 2 Const: GENERAL APPEARANCE: not cooperative ORIENTATION/CONSCIOUSNESS: not awake HENMT: COMMON NORMALS: oropharynx normal Neck/C-Spine: COMMON NORMALS: no JVD Resp: COMMON NORMALS: normal respiratory effort and clear to auscultation bilaterally AUSCULTATION: clear to auscultation bilaterally Cardio: COMMON NORMALS: no JVD, regular rhythm, S1 normal heart sound present, S2 normal heart sound present and No murmurs present (Cardio) RHYTHM: regular rhythm HEART SOUNDS: S1 normal heart sound present and S2 normal heart sound present GI: COMMON NORMALS: Normal to inspection, nondistended, normoactive bowel sounds present, Soft to palpation and non-tender PALPATION: Yes Soft to palpation Extremity: COMMON NORMALS: no joint enlargement and no pedal edema Neuro: COMMON NORMALS: moves all extremities Skin: NARRATIVE SKIN EXAM: Pale OTHER: Few small red spots antecubital fossa? Urinary Catheter Management: Vital: Cath Placed During This Visit: yes, but has since been removed by the nurse Reason for Continuing Indwelling Catheter: Decision to DC Catheter Urinary Catheter Date of Insertion: 07/15/23 Urinary Catheter Time of Insertion: 08:00 Date Urinary Catheter Removed: 07/16/23 Time Urinary Catheter Discontinued: 17:48 Data 07/16/23 05:10 07/16/23 05:10 Micro: Microbiology 05/09/24 22:21 Urine Culture - Preliminary Urine,Clean Catch Gram Negative Rods 07/14/23 22:01 Blood Culture - Preliminary Blood NEGATIVE TO DATE 07/14/23 21:55 Blood Culture - Preliminary Blood NEGATIVE TO DATE A&P Assessment and plan (1) Acute hypoxic respiratory failure: (2) Bilateral pleural effusion: (3) Amphetamine use: (4) Urinary tract infection: Qualifiers: Hematuria presence: without hematuria Urinary tract infection type: a cute cystitis Qualified Code(s): N30.00 - Acute cystitis without hematuria (5) Sepsis: (6) Increased anion gap metabolic acidosis: (7) Lactic acidosis: (8) Pulmonary edema: (9) Pneumonia: (10) Tachycardia: (11) Respiratory distress: (12) Acute anemia: (13) NSTEMI (non-ST elevated myocardial infarction): (14) COPD exacerbation: (15) CHF exacerbation: (16) CHF (congestive heart failure): Qualifiers: Heart failure chronicity: acute Heart failure type: unspecified Qualified Code(s): I50.9 - Heart failure, unspecified (17) Anemia: Qualifiers: Anemia type: unspecified type Qualified Code(s): D64.9 - Anemia, unspecified (18) Acute encephalopathy: Plan Acute hypoxic respiratory failure: Improving, reviewed vitals, CBC, CMP. Noted down to 2.5 L nasal cannula. Continue treatment of pneumonia, continue Zosyn, vancomycin. Monitor for tisk of kidney injury with antibiotic combo. Reviewed blood culture. Reviewed echocardiogram. Noted EF 25%. Mildly dilated LV cavity. Mild to moderate PVR. Possible small pericardial effusion. Possibly a large left-sided pleural effusion. Continue Bumex for decompensated systolic congestive heart failure. Large pleural effusions. Noted new severe cardiomyopathy, suspect nonischemic cardiomyopathy suspected amphetamine use. Discussed with him extensively risks of arrhythmias, he states that he for sure he is going to discontinue and avoid anti-inflammatories. BiPAP support as needed. Reduce Solu-Medrol dose. Amphetamine use: As per discussion with him he states that he does sometimes use amphetamine, he states he only smokes it, never injects it. As per discussion of risks he states was not aware of the severity of the risks, states that he will pressure discontinue and not use it again. Acute encephalopathy: Resolved. Reviewed UDS. Possibly amphetamine intoxication versus withdrawal. Requested amphetamine confirmation test. Requested CT head. Additionally possible UTI, follow-up urine culture. Continue empiric antibiotic coverage with Zosyn. He is waking up this afternoon. ? Aspiration precautions Trial of clear liquid diet. Sepsis: Persistent sepsis. Leukocytosis, tachycardia. UTI, PNA. Cont treatment of pneumonia. Noted some improvement in leukocytosis today. Reviewed CMP. Reviewed blood culture, negative to date. Reviewed urine culture, noted gram- negative rods more than 100,000. Follow-up urine culture. Continue Zosyn. Persistent leukocytosis, tachycardia. ? Sepsis features given acute hypoxic respiratory failure, tachypnea, tachycardia, mottling of bilateral lower extremities, diminished DP PT pulses, leukocytosis, lactic acidosis, metabolic acidosis Lactic acidosis, with increased anion gap metabolic acidosis Reviewed lactic acid level. Follow-up chemistry requested. ? Likely secondary to sepsis, pneumonia, pulmonary edema ? Will give an amp of bicarb ? Monitor electrolytes closely Lactic acidosis Transaminitis, acute hep panel, HIV Recheck CMP requested. NSTEMI ? Type I versus type II ? Continue telemetry monitoring ? Cardiac echo Acute anemia: Reviewed hemoglobin, platelet level. Hemoglobin down to 7.6 again this morning. He did not notice outward bleeding. Recheck CBC. Cont PPI. Discussed with him regarding acute anemia. He does state that he sometimes has somewhat dark stools. Requested Hemoccult Reviewed iron studies, noted iron deficiency. Likely chronic anemia. Repeat CBC tomorrow. Continue IV PPI. add B12 level Pulmonary edema ? Diuresis as above ? Cardiac echo CHF exacerbation ? Cardiac echo pending UTI, antibiotics as above Urine toxicology screen positive for amphetamines Discussed with nursing staff. Attestations 2 Medical Necessity Statement*: Continue admission for assessment and management of anemia, acute hypoxic respiratory failure, sepsis, pneumonia, UTI, possible amphetamine intoxication versus withdrawal. and High MDM includes number and complexity of problems actively addressed during encounter and described risk of complication, morbidity or mortality of management as documented Diagnoses Acute hypoxic respiratory failure J96.01 Bilateral pleural effusion J90 Amphetamine use F15.90 Urinary tract infection N30.00 Hematuria presence: without hematuria Urinary tract infection type: acute cystitis Sepsis A41.9 Increased anion gap metabolic acidosis E87.29 Lactic acidosis E87.20 Pulmonary edema J81.1 Pneumonia J18.9 Tachycardia R00.0 Respiratory distress R06.03 Acute anemia D64.9 NSTEMI (non-ST elevated myocardial infarction) I21.4 COPD exacerbation J44.1 CHF exacerbation I50.9 CHF (congestive heart failure) I50.9 Heart failure chronicity: acute Heart failure type: unspecified Anemia D64.9 Anemia type: unspecified type Acute encephalopathy G93.40
[2023-07-16 23:22] LABS: Basophils % 0.1 %; Eosinophils % 0.1 %; Hematocrit 33.5 % (37-53); Lymphocytes # 0.6 10^3/uL (0.8-4.8); Lymphocytes % 2.4 %; Mean Corpuscular HGB Conc 26.9 g/dL (30-55); Mean Corpuscular Hemoglobin 19.3 pg (27-33); Mean Corpuscular Volume 71.7 fl (82-101); Mean Platelet Volume 10.8 fL (7.4-10.4); Monocytes # 0.6 10^3/uL (0.2-0.9); Monocytes % 2.4 %; Neutrophils # 21.22 10^3/uL (1.8-7.7); Neutrophils % 94.4 %; Nucleated Red Blood Cells % 0.1 %; Platelet Count 315 10^3/cmm (157-399); Red Blood Count 4.67 10^6/uL (3.85-5.65); Red Cell Distribution Width 20.8 % (12.1-15.1); White Blood Count 22.49 10^3/uL (3.29-11.43)
[2023-07-17] VITALS (12 sets, daily range): BP systolic 135–149; BP diastolic 70–88; PULSE 92–120; RESP 15–20; TEMP 36.3–36.8; O2SAT 92–97
[2023-07-17] MEDS: ipratropium-albuterol 3 mL Neb INHALATION ×4 (02:59→20:10)
[2023-07-17 04:42] LABS: Basophils % 0.1 %; Eosinophils % 0.1 %; Hematocrit 26.1 % (37-53); Lymphocytes # 0.6 10^3/uL (0.8-4.8); Lymphocytes % 3.1 %; Mean Corpuscular Hemoglobin 19.2 pg (27-33); Mean Corpuscular Volume 68.5 fl (82-101); Mean Platelet Volume 10.2 fL (7.4-10.4); Monocytes # 0.6 10^3/uL (0.2-0.9); Monocytes % 3.5 %; Neutrophils # 16.82 10^3/uL (1.8-7.7); Neutrophils % 92.7 %; Nucleated Red Blood Cells % 0.1 %; Platelet Count 405 10^3/cmm (157-399); Red Blood Count 3.81 10^6/uL (3.85-5.65); White Blood Count 18.14 10^3/uL (3.29-11.43)
[2023-07-17 05:08] LABS: Alanine Aminotransferase 316 U/L (0-41); Albumin Level 3.3 g/dL (3.5-5.2); Alkaline Phosphatase 91 U/L (40-130); Anion Gap 14.8 (5-19); Aspartate Amino Transferase 86 U/L (0-40); Blood Urea Nitrogen 30 mg/dL (8-23); Calcium 8.9 mg/dL (8.5-10.5); Carbon Dioxide 28 mmol/L (22-29); Chloride 99 mmol/L (98-107); Creatinine Clr Calc Pharmacy 71.9084; Glomerular Filtration Rate 83.9 mL/min (90-130); Glucose 132 mg/dL (65-115); Osmolality Calculated 294 mOsm/kg (285-295); Potassium 3.8 mmol/L (3.5-5.1); Sodium 138 mmol/L (136-145); Total Bilirubin 0.5 mg/dL (0.15-1.2); Total Protein 6.3 g/dL (6.6-8.7)
[2023-07-17] MEDS: sucralfate 1 gm/10 mL Oral Liq UDC PO ×4 (05:28→23:17)
[2023-07-17] MEDS: pantoprazole 40 mg SDV IVP ×2 (05:28→17:14)
[2023-07-17] MEDS: vancomycin 1,000 MG in sodium chloride 0.9% 250 ML 250 MG IV (05:51)
[2023-07-17] MEDS: piperacillin-tazobactam 3.375 GM in sodium chloride 0.9% (plus) 50 ML IV ×3 (07:13→23:17)
[2023-07-17] MEDS: budesonide 0.5 mg/2 mL Neb INHALATION ×2 (08:27→20:10)
[2023-07-17] MEDS: bumetanide 0.25 mg/mL SDV 4 mL 1 MG IVP ×2 (08:47→19:59)
[2023-07-17] MEDS: methylPREDNISolone sod succ 40 mg/mL INJ 10 MG IVP ×2 (12:35→20:00)
--- NOTE | 2023-07-17 20:42 | P.PN_ITS ---
Subjective 2 Subjective: Denies chest pain or pressure. Reports history of CAD. Currently has not had orthopnea, lower extremity edema. Vitals/I&O/Wt Last Vital Signs Temp 98.1 F 07/17/23 19:59 Pulse 106 H 07/17/23 20:11 Resp 20 H 07/17/23 20:11 BP 135/70 07/17/23 19:59 Pulse Ox 93 07/17/23 20:11 O2 Del Method Room Air 07/17/23 20:11 O2 Flow Rate 2 07/17/23 08:00 FiO2 35 07/15/23 16:30 07/17/23 07/17/23 07/17/23 06:59 14:59 22:59 Intake Total 50 / 800 660 / 660 290 / 950 Output Total 400 / 3125 Balance -350 / -2325 660 / 660 290 / 950 Weight last 48 hrs Weight 59.194 kg Weight 59.466 kg Physical Exam 2 Narrative: Sitting up at the side of the bed. Const: GENERAL APPEARANCE: not cooperative ORIENTATION/CONSCIOUSNESS: not awake HENMT: COMMON NORMALS: oropharynx normal Neck/C-Spine: COMMON NORMALS: no JVD Resp: COMMON NORMALS: normal respiratory effort and clear to auscultation bilaterally AUSCULTATION: clear to auscultation bilaterally Cardio: COMMON NORMALS: no JVD, regular rhythm, S1 normal heart sound present, S2 normal heart sound present and No murmurs present (Cardio) RHYTHM: regular rhythm HEART SOUNDS: S1 normal heart sound present and S2 normal heart sound present GI: COMMON NORMALS: Normal to inspection, nondistended, normoactive bowel sounds present, Soft to palpation and non-tender PALPATION: Yes Soft to palpation Extremity: COMMON NORMALS: no joint enlargement and no pedal edema Neuro: COMMON NORMALS: moves all extremities Skin: NARRATIVE SKIN EXAM: Pale OTHER: Few small red spots antecubital fossa? Urinary Catheter Management: Vital: Cath Placed During This Visit: yes, but has since been removed by the nurse Reason for Continuing Indwelling Catheter: Decision to DC Catheter Urinary Catheter Date of Insertion: 07/15/23 Urinary Catheter Time of Insertion: 08:00 Date Urinary Catheter Removed: 07/16/23 Time Urinary Catheter Discontinued: 17:48 Data 07/17/23 04:31 07/17/23 04:31 Micro: Microbiology 07/14/23 22:21 Urine Culture - Final Urine,Clean Catch Escherichia coli A&P Assessment and plan (1) Acute hypoxic respiratory failure: (2) Bilateral pleural effusion: (3) Amphetamine use: (4) Urinary tract infection: Qualifiers: Hematuria presence: without hematuria Urinary tract infection type: a cute cystitis Qualified Code(s): N30.00 - Acute cystitis without hematuria (5) Sepsis: (6) Increased anion gap metabolic acidosis: (7) Lactic acidosis: (8) Pulmonary edema: (9) Pneumonia: (10) Tachycardia: (11) Respiratory distress: (12) Acute anemia: (13) NSTEMI (non-ST elevated myocardial infarction): (14) COPD exacerbation: (15) CHF exacerbation: (16) CHF (congestive heart failure): Qualifiers: Heart failure chronicity: acute Heart failure type: unspecified Qualified Code(s): I50.9 - Heart failure, unspecified (17) Anemia: Qualifiers: Anemia type: unspecified type Qualified Code(s): D64.9 - Anemia, unspecified (18) Acute encephalopathy: Plan Acute hypoxic respiratory failure: Oxygenation improving, reviewed vitals, CBC, CMP. He is weaning down to room air. Removed Vital catheter. Discussed with him new severe cardiomyopathy, EF down to 25%, systolic congestive heart failure. Risk of sudden , life-threatening arrhythmia. Etiology at the moment is not clear, he does have history of ischemic heart disease, discussed with him additional assessment with stress testing. Requested. N.p.o. after midnight. Discussed in case nonischemic cardiomyopathy certainly high suspicion may be secondary to amphetamines. He reports he is firm he is not going to use them again. He was not aware of the risks. Additionally discussed consideration of LifeVest. Improving, reviewed vitals, CBC, CMP. Reviewed blood culture. Add MRSA PCR. Possibly a large left-sided pleural effusion. Continue Bumex for decompensated systolic congestive heart failure. Large pleural effusions. Noted new severe cardiomyopathy, suspect nonischemic cardiomyopathy suspected amphetamine use. Discussed with him extensively risks of arrhythmias, he states that he for sure he is going to discontinue and avoid anti-inflammatories. BiPAP support as needed. Reduce Solu-Medrol dose. Amphetamine use: As per discussion with him he states that he does sometimes use amphetamine, he states he only smokes it, never injects it. As per discussion of risks he states was not aware of the severity of the risks, states that he will pressure discontinue and not use it again. Acute encephalopathy: Resolved. Reviewed UDS. Possibly amphetamine intoxication versus withdrawal. Requested amphetamine confirmation test. Requested CT head. Additionally possible UTI, follow-up urine culture. Continue empiric antibiotic coverage with Zosyn. He is waking up this afternoon. ? Aspiration precautions Trial of clear liquid diet. Sepsis: Persistent sepsis. Leukocytosis, tachycardia. UTI, PNA. Cont treatment of pneumonia. Noted some improvement in leukocytosis today. Reviewed CMP. Reviewed blood culture, negative to date. Reviewed urine culture, noted gram- negative rods more than 100,000. Follow-up urine culture. Continue Zosyn. Persistent leukocytosis, tachycardia. ? Sepsis features given acute hypoxic respiratory failure, tachypnea, tachycardia, mottling of bilateral lower extremities, diminished DP PT pulses, leukocytosis, lactic acidosis, metabolic acidosis Lactic acidosis, with increased anion gap metabolic acidosis Reviewed lactic acid level. Follow-up chemistry requested. ? Likely secondary to sepsis, pneumonia, pulmonary edema ? Will give an amp of bicarb ? Monitor electrolytes closely Lactic acidosis Transaminitis, acute hep panel, HIV Recheck CMP requested. NSTEMI ? Type I versus type II ? Continue telemetry monitoring ? Cardiac echo Acute anemia: Reviewed hemoglobin, further down to 7.3 today. Appears similar evaluation posttransfusion. Recheck CBC. Reviewed platelets, not low. Discussed with him will benefit from additional endoscopic assessment. Reviewed hemoglobin, platelet level. Hemoglobin down to 7.6 again this morning. He did not notice outward bleeding. Recheck CBC. Cont PPI. Discussed with him regarding acute anemia. He does state that he sometimes has somewhat dark stools. Requested Hemoccult, so far uncollected. He has not had melena hematochezia here so far. iron deficiency. Likely chronic anemia. Repeat CBC tomorrow. Continue IV PPI. Reviewed B12 level Pulmonary edema ? Diuresis as above ? Cardiac echo reviewed with patient CHF exacerbation As above. UTI: Reviewed urine culture, noted more than 100,000 pansensitive E. coli. Continue empiric antibiotic with Zosyn. Urine toxicology screen positive for amphetamines. As above. Attestations 2 Medical Necessity Statement*: Continue admission for assessment and management of severe new cardiomyopathy, EF down to 25%, decompensated CHF, anemia, acute hypoxic respiratory failure, sepsis, pneumonia, UTI, possible amphetamine intoxication versus withdrawal. and High MDM includes number and complexity of problems actively addressed during encounter and described risk of complication, morbidity or mortality of management as documented Diagnoses Acute hypoxic respiratory failure J96.01 Bilateral pleural effusion J90 Amphetamine use F15.90 Urinary tract infection N30.00 Hematuria presence: without hematuria Urinary tract infection type: acute cystitis Sepsis A41.9 Increased anion gap metabolic acidosis E87.29 Lactic acidosis E87.20 Pulmonary edema J81.1 Pneumonia J18.9 Tachycardia R00.0 Respiratory distress R06.03 Acute anemia D64.9 NSTEMI (non-ST elevated myocardial infarction) I21.4 COPD exacerbation J44.1 CHF exacerbation I50.9 CHF (congestive heart failure) I50.9 Heart failure chronicity: acute Heart failure type: unspecified Anemia D64.9 Anemia type: unspecified type Acute encephalopathy G93.40
[2023-07-18] VITALS (12 sets, daily range): BP systolic 115–158; BP diastolic 61–85; PULSE 86–110; RESP 16–18; TEMP 36.6–36.8; O2SAT 94–100
[2023-07-18 05:10] LABS: Basophils % 0.1 %; Hematocrit 27.9 % (37-53); Lymphocytes # 0.6 10^3/uL (0.8-4.8); Lymphocytes % 4.9 %; Mean Corpuscular HGB Conc 27.6 g/dL (30-55); Mean Corpuscular Hemoglobin 19.1 pg (27-33); Mean Corpuscular Volume 69.2 fl (82-101); Monocytes # 0.5 10^3/uL (0.2-0.9); Monocytes % 4.1 %; Neutrophils # 11.92 10^3/uL (1.8-7.7); Neutrophils % 90.3 %; Nucleated Red Blood Cells % 0.3 %; Platelet Count 434 10^3/cmm (157-399); Red Blood Count 4.03 10^6/uL (3.85-5.65); Red Cell Distribution Width 20.6 % (12.1-15.1); White Blood Count 13.19 10^3/uL (3.29-11.43)
[2023-07-18 05:30] LABS: Alanine Aminotransferase 230 U/L (0-41); Albumin Level 3.4 g/dL (3.5-5.2); Alkaline Phosphatase 96 U/L (40-130); Anion Gap 15.6 (5-19); Aspartate Amino Transferase 43 U/L (0-40); Blood Urea Nitrogen 22 mg/dL (8-23); Calcium 9.1 mg/dL (8.5-10.5); Carbon Dioxide 29 mmol/L (22-29); Chloride 98 mmol/L (98-107); Creatinine Clr Calc Pharmacy 62.9989; Globulin 3.1 g/dL (1.3-4.6); Glomerular Filtration Rate 83.9 mL/min (90-130); Glucose 127 mg/dL (65-115); Osmolality Calculated 293 mOsm/kg (285-295); Potassium 3.6 mmol/L (3.5-5.1); Sodium 139 mmol/L (136-145); Total Bilirubin 0.6 mg/dL (0.15-1.2); Total Protein 6.5 g/dL (6.6-8.7)
[2023-07-18 05:32] LABS: Vancomycin Trough 6.4 ug/mL (10-15)
[2023-07-18] MEDS: methylPREDNISolone sod succ 40 mg/mL INJ 10 MG IVP (05:44)
[2023-07-18] MEDS: pantoprazole 40 mg SDV IVP ×2 (05:45→18:23)
[2023-07-18] MEDS: piperacillin-tazobactam 3.375 GM in sodium chloride 0.9% (plus) 50 ML IV (05:45)
[2023-07-18] MEDS: sucralfate 1 gm/10 mL Oral Liq UDC PO ×3 (06:03→18:23)
[2023-07-18] MEDS: vancomycin 1,000 MG in sodium chloride 0.9% 250 ML 250 MG IV ×2 (06:04→18:23)
[2023-07-18] MEDS: regadenoson 0.4 Mg/5 ml Syringe 0.400000000000000022 MG IVP (07:14)
--- NOTE | 2023-07-18 08:00 | ECG_ITS ---
[facility] Test Date: 2023-07-18 Pat Name: Colin Carey Department: Room: 251 Gender: Male Home Service Technician: : 1955 Requested By: Vick Wallis Order Number: [id number] Nadai MD: Rambo Pierce M.D. Interpretive Statements NAME OF STUDY: LEXISCAN SESTAMIBI STRESS TEST INDICATION: [NEW CARDIOMYOPATHY; CAD] Procedure: At the baseline, the blood pressure was 141/89 mmHg with a heart rate of 98 bpm. The electrocardiogram showed normal sinus rhythm, normal axis with normal ST and T's. The Lexiscan was infused over a period of 20 seconds. A total of 0.4 mg of Lexiscan was infused. The stress phase was continued for a total of 5 minutes. Heart rate was at the end of stress phase was 102 bpm and a blood pressure of 127/77 mmHg. The EKG at the peak infusion revealed normal sinus rhythm with no significant ST-T wave changes. Sestamibi was injected 20 seconds after the Lexiscan infusion. Blood pressure at the end of recovery phase was 122/82 mmHg with a heart rate of 105 bpm. Conclusion: 1. Normal EKG response to Lexiscan infusion 2. No Lexiscan induced chest pain or cardiac arrhythmia. 3. Normal blood pressure and heart rate response. 4. Sestamibi/sestamibi perfusion scan pending; see separate report. Electronically Signed On 07-26-2023 10:29:16 CDT by Rambo Pierce M.D. [id number]
[2023-07-18] MEDS: bumetanide 0.25 mg/mL SDV 4 mL 1 MG IVP (08:37)
--- NOTE | 2023-07-18 09:22 | PC.CHAP ---
Pastoral Care Encounter/Spiritual Assessment Type of Contact [] Declined document management consultant visit [] Patient/Family/Request visit [] Outpatient visit [] Follow-up visit [] Physician referral [] Code/Alert [x] Routine visit [] Staff referral [] Actively dying [] Patient sleeping [] Family support [] [] Out of room [] Palliative care [] [x] Receiving care in room [] Pre-surgical visit [] Trauma [] Long length of stay [] ICU visit [] Other: Relational/Emotional Strength [] Patient feels connected with others/family/visitors/staff [] Distress [] Loneliness/isolation [] Abandonment Spirituality of Patient [] Person of Bre [] Attends Zoroastrian of their Bre [] Believes in Prayer [] Reads Bible or Yarsani materials [] There are Spiritual issues to be addressed Tower Erector Helper Interventions [x] Prayer [] Active listening [] Non-anxious presence [] Spiritual/emotional support [] Crisis/trauma care [] Spiritual counseling [] Bereavement support [] Provided bereavement packet [] Provided Bible/devotional materials [] Provided toy/stuffed animal, coloring book to patient or family member [] Provided Communion [] Anointing/[place] [] Salvation [] Completed spiritual assessment [] Other: Impact on Illness or Injury [] Angry [] Fearful [] Anxious [] Often cries [] Exhaustion [] Unable to work [] Unable to attend sabianism [] Unable to walk/stand [] Unable to read [] Unable to drive [] Unable to eat/drink [] Unable to sleep [] Unable to be with family [] Patient intubated [] Other: Summary Time spent with patient
--- NOTE | 2023-07-18 11:08 | PC.SOCIAL ---
IMM Update pg 2 of IMM updated and reviewed w/ patient. Copy provided and copy dated, initialed and placed in chart.
--- NOTE | 2023-07-18 11:35 | P.CONIM_ITS ---
Providers/Reason For Consult 2 Consulting Physician/Specialty*: Rambo Pierce MD/ Cardiology Reason for Consult*: New onset congestive heart failure Requesting Physician: Dr Marin Attending Physician: Chito Marin MD History of Present Illness History of Present Illness Colin Carey is a 68 year old male with past medical history of COPD, possible RI who presented to hospital with worsening shortness of breath. Also found to have EF of 25%. He also has COPD exacerbation and pneumonia. Getting treatment for those. Stress test was abnormal with prior infarct in all 3 coronary artery territories. He denies chest pain however with shortness of breath feels chest tightness. His troponin was elevated at 42 and trended up to 52 at 6 hours. Review of Systems 2 Const: Reports: fatigue and malaise; Denies: fever(s) Card: Reports: dyspnea on exertion and orthopnea Resp: Reports: dyspnea GI: Denies: abdominal pain : Denies: flank pain Medications/Allergies Home Medications Medication Instructions Recorded Confirmed Last Taken Type No Known Home Medications 07/15/23 07/15/23 Unknown History Allergies Allergy/AdvReac Type Severity Reaction Status Date / Time No Known Allergies Allergy Unverified 07/14/23 23:51 Current Medications Generic Name Dose Route Start Last Admin Trade Name Freq PRN Reason Stop Dose Admin Budesonide 0.5 mg 07/15/23 08:00 07/18/23 08:23 Budesonide 0.5 Mg/2 Ml Neb INHALATION Not Given BID.RESPIRATORY MICHELLE Vancomycin HCl 1,000 mg/ 250 mls @ 250 mls/hr 07/18/23 06:00 07/18/23 08:45 Sodium Chloride IV Infused Q12H MICHELLE Infusion Pantoprazole Sodium 40 mg 07/15/23 06:14 07/18/23 05:45 Pantoprazole 40 Mg Sdv IVP 40 mg Q12H MICHELLE Administration Sucralfate 1 gm 07/15/23 06:14 07/18/23 06:03 Sucralfate 1 Gm/10 Ml Oral Liq Udc PO 1 gm Q6H MICHELLE Administration PFSH Acute 2 PFSH: Medical History History of COPD Social History Smoking and tobacco/nicotine status: current every day tobacco/nicotine user Vitals/I&O/Wt Last Vital Signs Temp 97.9 F 07/18/23 08:00 Pulse 107 H 07/18/23 08:00 Resp 16 07/18/23 08:00 BP 147/80 07/18/23 08:00 Pulse Ox 100 07/18/23 08:00 O2 Del Method Room Air 07/18/23 08:00 O2 Flow Rate 2 07/17/23 08:00 FiO2 35 07/15/23 16:30 07/17/23 07/18/23 07/18/23 22:59 06:59 14:59 Intake Total 290 / 950 535 / 1485 250 / 250 Balance 290 / 950 535 / 1485 250 / 250 Weight last 48 hrs Weight 125 lb Weight 130 lb 8 oz Physical Exam 2 Narrative: GENERAL: Patient is alert, awake and oriented x3. [] NECK: No jugular vein distension. [] HEENT: No cyanosis. No icterus. No pallor. [] HEART: Regular S1 and S2. No murmur, rub or gallop. [] LUNGS: Clear to auscultate bilaterally. [] CENTRAL NERVOUS SYSTEM: Grossly nonfocal. [] EXTREMITIES: Lower extremities with 1+ edema bilaterally. Urinary Catheter Management: Vital: Cath Placed During This Visit: yes, but has since been removed by the nurse Reason for Continuing Indwelling Catheter: Decision to DC Catheter Urinary Catheter Date of Insertion: 07/15/23 Urinary Catheter Time of Insertion: 08:00 Date Urinary Catheter Removed: 07/16/23 Time Urinary Catheter Discontinued: 17:48 Data 07/19/23 04:43 07/19/23 04:43 Micro: Microbiology 07/14/23 22:21 Urine Culture - Final Urine,Clean Catch Escherichia coli A&P Assessment and plan (1) CHF (congestive heart failure): Qualifiers: Heart failure chronicity: acute Heart failure type: unspecified Qualified Code(s): I50.9 - Heart failure, unspecified (2) CHF exacerbation: (3) Troponin level elevated: (4) Pneumonia: (5) COPD exacerbation: (6) Bilateral pleural effusion: Plan Patient has presented with new onset congestive heart failure. Stress test is abnormal. We will proceed with coronary angiogram with possible percutaneous coronary intervention and right heart cath to better assess cardiac condition. He will need LifeVest at time of discharge. Continue diuresis NPO past midnight Patient has anemia, if needs stents, will likely have him on DAPT for 2 weeks prior to PCI and get GI workup Thank you for involving us with care of this patient. We will continue to follow. please call with questions. Consult Attestations 2 Medical Necessity Statement: Care expected to cross 2 midnights. Coding Level of Care Code Acute Code for Chg Fwd Diagnoses CHF (congestive heart failure) I50.9 Heart failure chronicity: acute Heart failure type: unspecified CHF exacerbation I50.9 Troponin level elevated R79.89 Pneumonia J18.9 COPD exacerbation J44.1 Bilateral pleural effusion J90
[2023-07-18] MEDS: metoprolol succinate ER (24 HR) 25 mg Tablet PO (12:07)
[2023-07-18] MEDS: lisinopril 5 mg Tablet PO (12:07)
[2023-07-18] MEDS: levoFLOXacin 500 mg Tablet PO (12:07)
[2023-07-18] MEDS: ipratropium-albuterol 3 mL Neb INHALATION ×2 (13:59→20:55)
--- NOTE | 2023-07-18 15:05 | P.PN_ITS ---
Subjective 2 Subjective: Hospital course, labs appreciated. Seen with multiple family members at bedside. Patient sitting at the edge of the bed. Denies any nausea, vomiting, headache. Has remained hemodynamically stable and afebrile on room air. Blood pressure slightly elevated. No document urine output in last 24 hours. Vitals/I&O/Wt Last Vital Signs Temp 98.3 F 07/18/23 11:49 Pulse 96 07/18/23 13:59 Resp 18 07/18/23 13:59 BP 150/79 07/18/23 11:49 Pulse Ox 98 07/18/23 13:59 O2 Del Method Room Air 07/18/23 13:59 O2 Flow Rate 2 07/17/23 08:00 FiO2 35 07/15/23 16:30 07/18/23 07/18/23 07/18/23 06:59 14:59 22:59 Intake Total 535 / 1485 745 / 745 Output Total 350 / 350 Balance 535 / 1485 395 / 395 Weight last 48 hrs Weight 56.699 kg Weight 59.194 kg Physical Exam 2 Narrative: Sitting up at the side of the bed. Const: COMMON NORMALS: no acute distress EXAM LIMITATIONS: altered mental status GENERAL APPEARANCE: in distress, ill appearing and frail appearing; not cooperative NUTRITIONAL APPEARANCE: cachectic O RIENTATION/CONSCIOUSNESS: Yes oriented to person and Yes confused; not awake, not oriented to place and not oriented to time HENMT: COMMON NORMALS: normocephalic and oropharynx normal HEAD & SCALP: n ormocephalic Eye: COMMON NORMALS: Equal, round and reactive pupils present PUPIL: Yes Equal, round and reactive pupils present Neck/C-Spine: COMMON NORMALS: no lymphadenopathy and no JVD Chest: COMMONS NORMALS: normal inspection of the chest Resp: COMMON NORMALS: normal respiratory effort and clear to auscultation bilaterally EFFORT & INSPECTION: Yes abnormal respiratory pattern, Yes tachypneic, Yes respiratory distress, Yes retractions intercostal and supraclavicular and Yes uses accessory muscles AUSCULTATION: clear to auscultation bilaterally, crackles and wheezes Cardio: COMMON NORMALS: no JVD, regular rhythm, S1 normal heart sound present, S2 normal heart sound present and No murmurs present (Cardio) RATE: t achycardic RHYTHM: regular rhythm HEART SOUNDS: S1 normal heart sound present and S2 normal heart sound present OTHER: DP PT pulses diminished bilateral lower extremity GI: COMMON NORMALS: Normal to inspection, nondistended, normoactive bowel sounds present, Soft to palpation and non-tender PALPATION: Yes Soft to palpation, No Tenderness to palpation present (GI), No Guarding due to palpation present (GI) and No Rigid due to palpation : COMMON NORMALS: Yes no CVA tenderness BLADDER/KIDNEY EXAM: Yes no CVA tenderness Back/Pelvis: COMMON NORMALS: no CVA tenderness Extremity: COMMON NORMALS: no joint enlargement, no calf tenderness and no pedal edema Neuro: COMMON NORMALS: moves all extremities SENSORIUM/ORIENTATION: Yes oriented to person, No oriented to place and No oriented to time OTHER: Cannot perform neurologic testing Skin: NARRATIVE SKIN EXAM: Pale OTHER: Few small red spots antecubital fossa? Urinary Catheter Management: Vital: Cath Placed During This Visit: yes, but has since been removed by the nurse Reason for Continuing Indwelling Catheter: Decision to DC Catheter Urinary Catheter Date of Insertion: 07/15/23 Urinary Catheter Time of Insertion: 08:00 Date Urinary Catheter Removed: 07/16/23 Time Urinary Catheter Discontinued: 17:48 Data 07/18/23 04:32 07/18/23 04:32 A&P Assessment and plan (1) NSTEMI (non-ST elevated myocardial infarction): (2) CHF (congestive heart failure): Qualifiers: Heart failure chronicity: acute Heart failure type: unspecified Qualified Code(s): I50.9 - Heart failure, unspecified (3) Anemia: Qualifiers: Anemia type: unspecified type Qualified Code(s): D64.9 - Anemia, unspecified (4) Acute encephalopathy: (5) Acute hypoxic respiratory failure: (6) Bilateral pleural effusion: (7) Amphetamine use: (8) Urinary tract infection: Qualifiers: Hematuria presence: without hematuria Urinary tract infection type: a cute cystitis Qualified Code(s): N30.00 - Acute cystitis without hematuria (9) Sepsis: (10) Increased anion gap metabolic acidosis: (11) Pulmonary edema: (12) Pneumonia: (13) COPD exacerbation: (14) Lactic acidosis: Plan Acute hypoxic respiratory failure: Adding of congestive heart failure along with COPD exacerbation present on admission. Respiratory failure and encephalopathy for now has resolved. Echocardiogram done during hospitalization shows an EF of 25% with dilated LV cavity, moderate LA size, thickened aortic valve with velocity of 2.2, mild to moderate TR, mild pericardial effusion. Currently heart failure seems to be compensated. Switch from Bumex IV to oral Lasix 40 mg daily. Will most likely plan to discharge on 40 mg of oral Lasix. Fluid restriction up to 1500 cc. Daily weights. Strict input output charting. Will plan to start on guideline directed medical therapy. Start on metoprolol 25 mg succinate daily along with low-dose lisinopril at 5 mg oral daily. Will uptitrate aspirin blood pressure and renal functions. High concerns for ischemic cardiomyopathy given past medical history of possible [place]. Lexiscan stress test results appreciated with large area of old infarct along with mild darren-infarct ischemia. Will consult cardiology for further recommendation and possible cardiac angiogram. Patient would benefit with a LifeVest on discharge. He is agreeable. For COPD exacerbation: Continue with Pulmicort twice daily, DuoNebs every 6 hours. Steroids have been weaned off. Oxygen supplementation keeping saturation over 90%. Amphetamine use: As per discussion with him he states that he does sometimes use amphetamine, he states he only smokes it, never injects it. As per discussion of risks he states was not aware of the severity of the risks, states that he will pressure discontinue and not use it again. Acute encephalopathy: Resolved. Reviewed UDS. Possibly amphetamine intoxication versus withdrawal. CT head negative for acute traumatic. Amphetamine confirmation test requested on admission. Results awaited. Continue with aspiration and seizure precautions. Patient currently tolerating diet well. Sepsis: Leukocytosis and tachycardia on admission. Most likely in setting of UTI and pneumonia. Appreciate blood culture being negative. Urine culture growing E. coli which is pansensitive. Continue with IV vancomycin. Switch from Zosyn to Levaquin. High anion gap/lactic acidosis: Resolved. Transaminitis: Most likely in setting of congestive hepatopathy in the. Cannot rule out infective in setting of amphetamine abuse. Habitus panel and HIV negative. Monitor daily. Acute anemia: Unknown cause. Cannot rule out in setting of chronic disease. Postop 1 unit of blood transfusion. No active melena or hematochezia. Check iron panel. Start on oral iron supplementation. Monitor hemoglobin daily. Currently stable. Patient would benefit with a possible EGD and colonoscopy as an outpatient. Continue with Protonix twice daily and Carafate ACHS. Full code Start on cardiac diet. Fluid restriction. Protonix will be sufficient for PUD prophylaxis SCDs for DVT prophylaxis. Holding of medical prophylaxis Acute anemia requiring transfusion. Attestations 2 Medical Necessity Statement*: Requires further hospitalization for management of new diagnosis of congestive heart failure, ischemic cardiomyopathy while ACS is ruled out, guideline directed medical therapy is started Diagnoses NSTEMI (non-ST elevated myocardial infarction) I21.4 CHF (congestive heart failure) I50.9 Heart failure chronicity: acute Heart failure type: unspecified Anemia D64.9 Anemia type: unspecified type Acute encephalopathy G93.40 Acute hypoxic respiratory failure J96.01 Bilateral pleural effusion J90 Amphetamine use F15.90 Urinary tract infection N30.00 Hematuria presence: without hematuria Urinary tract infection type: acute cystitis Sepsis A41.9 Increased anion gap metabolic acidosis E87.29 Pulmonary edema J81.1 Pneumonia J18.9 COPD exacerbation J44.1 Lactic acidosis E87.20
[2023-07-18] MEDS: FUROsemide 40 mg Tablet PO (15:30)
[2023-07-18] MEDS: ferrous gluconate 324 mg Tablet PO (18:23)
--- NOTE | 2023-07-18 20:43 | NMCV_ITS ---
NM margaret perf SPECT r/s* [id number] Colin Carey Age: 68 Gender: M : 1955 Exam Date: 07/18/2023 20:43 Ordering Phys: Vick Wallis MD Technologist: OBED Santana Exam Location: [facility] Indications: CHEST PAIN STRESS TEST Please see separate stress test report in [facility] for full findings IMAGE PROTOCOL Rest/Stress 1 Lexiscan Day Radiopharmaceutical Dose (mCi) Administration Site Administered by Rest: Tc-99m 10.8 IV OBED Berger Sestamibi Stress:Tc-99m 32.5 IV OBED Berger Sestamibi Rest: 18-Jul-2023 60 Discovery 630 Stress: 18-Jul-2023 30 Discovery 630 0.4mg Lexiscan. Images obtained in supine and prone position. SPECT RESULTS Technical Quality: Excellent Raw Data Analysis: Normal Image Corrections: No attenuation or motion correction applied Summed Stress Score: 14 Summed Rest Score: 17 Summed Difference Score: 1 PERFUSION FINDINGS There is a large sized, fixed perfussion defect noted in the apical, apical anterior and anteroseptal dang. This is consistent with large sized area of prior infarct in LAD territory. Large area of mostly fixed perfusion defect noted in the inferior and apical inferior dang. This is consistent with large area of prior infarct in RCA territory with minimal darren-infarct ischemia. Large area of fixed perfusion defect is seen in apical lateral wall. This is consistent with large area of prior infarct in left circumflex artery territory. FUNCTIONAL RESULTS (calculated via Gated SPECT) Stress Image LV EF (%): 24 Stress EDV (mL):144 TID: 0.94 Stress ESV (mL):109 FUNCTIONAL FINDINGS: LV systolic function is severely reduced with EF of 24% IMPRESSIONS 1. Abnormal myocardial perfusion imaging with large areas of prior infarcts seen in the LAD and left circumflex artery territories. 2. Large area of prior infarct with with minimal darren-infarct ischemia seen in the RCA territory. 3. LV systolic function is severely reduced with EF of 24% Rambo Pierce MD (Electronically Signed) Final Date: 18 Jul 2023 10:45 S
[2023-07-18] MEDS: budesonide 0.5 mg/2 mL Neb INHALATION (20:53)
[2023-07-19] VITALS (41 sets, daily range): BP systolic 119–164; BP diastolic 64–101; PULSE 76–116; RESP 13–23; TEMP 36.7–36.8; O2SAT 92–100
[2023-07-19] MEDS: sucralfate 1 gm/10 mL Oral Liq UDC PO ×4 (00:23→23:33)
[2023-07-19] MEDS: pantoprazole 40 mg SDV IVP ×2 (05:19→17:37)
[2023-07-19] MEDS: vancomycin 1,000 MG in sodium chloride 0.9% 250 ML 250 MG IV ×2 (05:20→17:37)
[2023-07-19 05:26] LABS: Basophils % 0.1 %; Eosinophils % 0.3 %; Hematocrit 31.3 % (37-53); Lymphocytes # 1.7 10^3/uL (0.8-4.8); Lymphocytes % 12.2 %; Mean Corpuscular HGB Conc 26.8 g/dL (30-55); Mean Corpuscular Hemoglobin 18.8 pg (27-33); Mean Platelet Volume 9.8 fL (7.4-10.4); Monocytes # 1.2 10^3/uL (0.2-0.9); Monocytes % 8.6 %; Neutrophils # 11.11 10^3/uL (1.8-7.7); Neutrophils % 78.2 %; Nucleated Red Blood Cells % 0.2 %; Platelet Count 478 10^3/cmm (157-399); Red Blood Count 4.47 10^6/uL (3.85-5.65); Red Cell Distribution Width 20.8 % (12.1-15.1); White Blood Count 14.19 10^3/uL (3.29-11.43)
[2023-07-19 05:54] LABS: Alanine Aminotransferase 172 U/L (0-41); Albumin Level 3.5 g/dL (3.5-5.2); Alkaline Phosphatase 92 U/L (40-130); Anion Gap 15.9 (5-19); Aspartate Amino Transferase 31 U/L (0-40); Blood Urea Nitrogen 26 mg/dL (8-23); Calcium 9.6 mg/dL (8.5-10.5); Carbon Dioxide 29 mmol/L (22-29); Chloride 95 mmol/L (98-107); Creatinine Clr Calc Pharmacy 63.9576; Globulin 3.4 g/dL (1.3-4.6); Glomerular Filtration Rate 74.3 mL/min (90-130); Glucose 106 mg/dL (65-115); Osmolality Calculated 289 mOsm/kg (285-295); Sodium 137 mmol/L (136-145); Total Bilirubin 0.5 mg/dL (0.15-1.2); Total Protein 6.9 g/dL (6.6-8.7)
[2023-07-19 05:59] LABS: Potassium 2.9 mmol/L (3.5-5.1)
[2023-07-19] MEDS: potassium chloride ER 20 mEq Tablet 40 MEQ PO (06:38)
[2023-07-19] MEDS: aspirin 325 mg Tablet PO (07:28)
[2023-07-19] MEDS: diphenhydrAMINE 50 mg Capsule PO (07:28)
[2023-07-19] MEDS: sodium chloride 0.9% 1,000 ML 50 ML IV (07:33)
--- NOTE | 2023-07-19 07:57 | PC.NURSE ---
0755 to senior label specialist via bed accompanied by Brandon. Patient has bilateral groin shaved, unsuccessful attempt IV to right AC per senior label specialist request. Family is aware of procedure. Premedications given.
--- NOTE | 2023-07-19 08:00 | XACV_ITS ---
Exam Room: [facility] Ht: 173 cm Wt: 52 kg BSA: 1.57 m2 Gender: Male : 1955 Any Known Allergies: No known allergies Exam Priority: Routine Procedure(s): Procedure Description: Diagnostic procedure Procedure Description: Left Heart Catheterization Procedure Description: Right Heart Catheterization Procedure Description: O2 saturation Procedure Description: Coronary Angiography Diagnostic Cath Status: Urgent Diagnostic Findings * INDICATION: LV dysfunction/congestive heart failure. * Distal Right Coronary Artery: Chronic total occlusion, RICHELLE: 0 flow. Collateral blood supply seen from the left system. * Left Main has no disease. * Mid Left Anterior Descending: severe 90% stenosis, RICHELLE: 3 flow. * Mid Circumflex: severe 90% stenosis, RICHELLE: 3 flow. * Coronary angiography shows right dominance. Conclusions 1. Severe 2. multivessel CAD. 3. Patient has significant anemia. Will get GI workup 4. and 2 weeks of antiplatelet therapy prior to PCI of LAD and Left circumflex arteries. May require arthrectomy. 5. Severe pulmonary hypertension. Severely elevated left sided cardiac pressures. Recommendations * Recommend GI work up. We will stage PCI of LAD and Left circumflex arteries as outpatient once patient's hemoglobin stays stable post antiplatelet therapy. * Continue diuresis. * Outpatient cardiology follow up in 2 weeks. Interventional RX Recommendation: PCI w/o planned CABG Diagnostic RX Recommendation: PCI w/o planned CABG Anticoagulation: Heparin Pressures Phase:Rest AO : 145 / 85 ( 109 ) @ 9:33:00 AM 129 / 98 ( 113 ) @ 9:35:00 AM 125 / 97 ( 112 ) @ 9:35:00 AM 128 / 99 ( 115 ) @ 9:38:00 AM 155 / 84 ( 116 ) @ 9:41:00 AM 154 / 85 ( 116 ) @ 9:41:00 AM LV : 161 / 0 / 34 @ 9:41:00 AM 162 / 1 / 34 @ 9:41:00 AM RV : 63 / -1 / 8 @ 9:26:00 AM PA : 65 / 29 ( 43 ) @ 9:25:00 AM RA : a wave = 10 v wave = 9 mean = 8 @ 9:26:00 AM PCW : a wave = 35 v wave = 43 mean = 32 @ 9:24:00 AM O2 Content Phase:Rest PA : O2 Content O2: 48.7 @ 9:33:00 AM Saturations Phase:Rest AO : 98 @ 9:35:00 AM PA : 49 @ 9:33:00 AM Cardiac Output Phase:Rest Jose : 4 @ 8:52:36 AM Jose Cardiac Index: 2 @ 8:52:36 AM Flow Phase:Rest Qp : 4 @ 8:52:36 AM Qs : 4 @ 8:52:36 AM Valves Phase:DefaultPhase AV : 7.0 @ 8:52:36 AM 7.0 @ 8:52:36 AM AV Mean Gradient: 19.0 @ 8:52:36 AM 19.0 @ 8:52:36 AM AV Flow: 348 @ 8:52:36 AM AV Area: 1.8 @ 8:52:36 AM AV Area Index: 1.11 @ 8:52:36 AM Clinical Evaluation EBL: 5mL-10mL Procedural Details Procedure Consent Obtained. Current Diagnosis : Chest Pain. Pre-Procedure Time Out. Identified patient by full name and date of as verbalized by the patient/guarantor. Does the consent match the physician's order: Yes. Accurate & Complete Informed Consent: Yes. Inpatient/Outpatient History & Physical on Chart: Yes. If H&P is completed, is and addenduem needed: No; If yes, is the addendum complete: N/A. Visualize and Verify Site with Patient/Guarantor: N/A. Relevant Radiology Images available: Yes. Pre-op teaching completed and patient verbalized understanding. The risks, benefits, and alternatives of sedation and/or procedure were discussed by physician. The patient agrees to continue. Procedure started. [facility] Clinical Fraility Score: 6: Moderately Frail. Commercial Credit Analyst Indications: Other. Physician arrived. Chest Pain Symptom Assessment: Atypical Angina. Correct patient, site and procedure confirmed by cath team. Current diagnosis: Chest Pain. PERRLA. 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 Lungs clear x 5 lobes. IV Site on Arrival: 18 gauge in the right forearm. A 18 gauge IV was started in the right anticubital using aseptic technique. IV Fluids: 0.9% NaCl at KVO. 0 mL infused prior to cath lab radiology technician. right groin was prepped with chloroprep then draped in the usual sterile fashion. right radial was prepped with chloroprep then draped in the usual sterile fashion. right brachial was prepped with chloroprep then draped in the usual sterile fashion. Baseline sample Acquired. HR: 122 BPM. Lidocaine 1% infiltrated to the right brachial. Sheath wire inserted through the right brachial IV catheter. IV catheter out OTW. [place] MON catheter inserted. Biggs wire inserted through the [place] catheter. Wire out. Oximetry samples were obtained. Normal venous range: 60-85%. Normal arterial range: 95-100%. Pressure measurements obtained. [place] out. Lidocaine 1% infiltrated to the right radial. Arterial access obtained. ABG drawn and sent with respiratory therapy. Oxygen started at 4liters/min via nasal canula. A 5 chinese TIG catheter in over wire. Multiple views taken of left coronary artery. Catheter redirected to the RCA. Multiple views taken of right coronary artery. EDP Sample taken: LV 161/0,34; HR: 91 BPM; SpO2: 78%. Pullback taken: LV 162/1,34; AO 155/84(116); Mean: 19mmHg, Peak to Peak: 7mmHg, SEP: 11sec/min; HR: 91 BPM; SpO2: 76%. Catheter removed over the exchange wire. Physician scrubbed out. A TR Band was successful obtaining hemostatsis at the Right Radial artery insertion site. A Manual Compression was successful obtaining hemostatsis at the Right Brachial Vein insertion site. Vital chart was stopped. Post Procedure: Pulses reassessed and unchanged. PERRLA. 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 No VTE prophylaxis required. Medication's Wasted: Lidocaine 1% = 18 mL. Medication's Wasted: Nitro = 49.8 mcg. Medication's Wasted: Heparin = 1000 units. Medication's Wasted: Other = Fentanyl 75mcg Versed 1 mg. Total IV fluids: 40 mL. Post-op diagnosis: CAD. Complications: None. Estimated blood loss: 5mL-10mL. Responsiveness - Normal response to verbal stimuli; alert and oriented, PERRLA. Airway - Unaffected, no intervention required; spontaneous ventilation. Circulation: W/N/L, pulses unchanged. Nausea/Vomiting: No. Procedure completed. Patient transferred by bed to ICU. Access Site Site: Right Brachial Vein Sheath Size: 6 Fr Hemostasis Method: Manual Compression Hemostasis Success: Successful Site: Right Radial artery Sheath Size: 6 Fr Hemostasis Method: TR Band Hemostasis Success: Successful Procedure Medications Start: 8:10 AM Stop: 8:10 AM Medication: Fentanyl Amount: 25 mcg Route: I.V. Start: 8:31 AM Stop: 8:31 AM Medication: Nitrogylcerin Amount: 200 mcg Route: I.A. Start: 8:32 AM Stop: 8:32 AM Medication: Heparin Amount: 5000 units Route: I.V. I, the attending physician, have reviewed and verified all procedure medications. Yes, all medications given per verbal order History/Risk Factors Hypertension: No Dyslipidemia: No Peripheral Arterial Disease (PAD): No Myocardial Infarction (AR): No Obesity: No Renal Disease: No Tobacco Use: Current/Recent(w/in 1 year) Prior Interventions PCI: No CABG: No Valve Surgery: No Report Signatures Finalized by Rambo Pierce MD on 07/31/2023 11:55 AM
--- NOTE | 2023-07-19 08:14 | W.PM.OPSUD ---
Surgery/Procedure H&P Update DATE OF PROCEDURE: July 19, 2023 DATE H&P PERFORMED: 07/18/23 H&P UPDATE INFORMATION: I have reviewed H&P completed within last 30 days, I have examined patient prior to procedure and No changes to prior documentation PREOP DIAGNOSIS: LV dysfunction/congestive heart failure PRIMARY INDICATION FOR PROCEDURE: LV dysfunction/congestive heart failure PLANNED PROCEDURE: Right heart cath+Left heart cath with possible percutaneous coronary intervention PATIENT REASSESSED PRIOR TO SEDATION, WITH NO CHANGE NOTED: Yes PHYSICAL EXAM: alert, oriented x 3, clear to auscultation bilaterally and regular rate & rhythm AIRWAY EVAL/ANESTHESIA PLAN: normal airway, ASA III, Local Anesthesia, Risks, benefits & alternatives of sedation and/or procedure discussed and Patient agrees to continue as planned ADDITIONAL INFORMATION: Moderate sedation
[2023-07-19 08:43] LABS: Arterial Blood Gas Hematocrit 22.9 % (42-52); Blood Gas Operator Identificat GD; Blood Gas Sample Site Not specified; Blood Gas Sample Type Not specified; Carboxyhemoglobin 1.9 %THgb (0.4-20.1); HGB O2 Sat 95.4 % (95-100); Methemoglobin 0.5 % (0.4-1.5); Oxygen Device ROOM AIR; Total Hemoglobin 7.5 g/dL (14-18)
[2023-07-19 08:47] LABS: Blood Gas Operator Identificat GD; Blood Gas Sample Site Not specified; Blood Gas Sample Type Not specified; Carboxyhemoglobin 1.5 %THgb (0.4-20.1); HGB O2 Sat 47.7 % (95-100); Methemoglobin 0.6 % (0.4-1.5); Oxygen Device ROOM AIR; Total Hemoglobin 7.5 g/dL (14-18)
--- NOTE | 2023-07-19 09:01 | P.PN_ITS ---
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 Given patient's anemia and need for multiple stents, patient will need GI workup. Vitals/I&O/Wt Last Vital Signs Temp 98.0 F 07/19/23 03:52 Pulse 83 07/19/23 08:00 Resp 15 07/19/23 08:00 BP 152/88 07/19/23 08:00 Pulse Ox 95 07/19/23 08:00 O2 Del Method Room Air 07/19/23 08:00 O2 Flow Rate 2 07/17/23 08:00 FiO2 35 07/15/23 16:30 07/18/23 07/19/23 07/19/23 22:59 06:59 14:59 Intake Total 370 / 1115 100 / 1215 250 / 250 Output Total 300 / 650 1420 / 2070 50 / 50 Balance 70 / 465 -1320 / -855 200 / 200 Weight last 48 hrs Weight 115 lb 11.2 oz Weight 126 lb 5 oz Weight 125 lb Physical Exam 2 Narrative: GENERAL: Patient is alert, awake and oriented x3. [] NECK: No jugular vein distension. [] HEENT: No cyanosis. No icterus. No pallor. [] HEART: Regular S1 and S2. No murmur, rub or gallop. [] LUNGS: Clear to auscultate bilaterally. [] CENTRAL NERVOUS SYSTEM: Grossly nonfocal. [] EXTREMITIES: Lower extremities with 1+ edema bilaterally. Urinary Catheter Management: Vital: Cath Placed During This Visit: yes, but has since been removed by the nurse Reason for Continuing Indwelling Catheter: Decision to DC Catheter Urinary Catheter Date of Insertion: 07/15/23 Urinary Catheter Time of Insertion: 08:00 Date Urinary Catheter Removed: 07/16/23 Time Urinary Catheter Discontinued: 17:48 Data 07/20/23 04:28 07/20/23 04:28 A&P Assessment and plan (1) CHF (congestive heart failure): Qualifiers: Heart failure chronicity: acute Heart failure type: unspecified Qualified Code(s): I50.9 - Heart failure, unspecified (2) CHF exacerbation: (3) Troponin level elevated: (4) Pneumonia: (5) COPD exacerbation: (6) Bilateral pleural effusion: Plan Patient's coronary angiogram demonstrated severe multivessel CAD. He will need repeat stenting to LAD and left circumflex artery. However has significant anemia and needs GI workup. If no source of bleeding is found, we will start patient on aspirin and Plavix for 2 weeks prior to staged procedure. Continue aggressive IV diuresis as pressures were elevated. Will order LifeVest Thank you for involving us with care of this patient. We will continue to follow. please call with questions. Attestations 2 Medical Necessity Statement*: Care expected to cross 2 midnights. Coding Level of Care Code Acute Code for [facility] Fwd Diagnoses CHF (congestive heart failure) I50.9 Heart failure chronicity: acute Heart failure type: unspecified CHF exacerbation I50.9 Troponin level elevated R79.89 Pneumonia J18.9 COPD exacerbation J44.1 Bilateral pleural effusion J90
--- NOTE | 2023-07-19 09:03 | PC.NURSE ---
0872 back to room from catheter builder, awake/alert, gcs 15, TR band to right radial, pressure dressing to right AC.
[2023-07-19] MEDS: lisinopril 5 mg Tablet PO (09:34)
[2023-07-19] MEDS: tamsulosin 0.4 mg Capsule 0.400000000000000022 MG PO (09:34)
[2023-07-19] MEDS: metoprolol succinate ER (24 HR) 25 mg Tablet PO (09:34)
[2023-07-19] MEDS: FUROsemide 40 mg Tablet PO (09:34)
[2023-07-19] MEDS: magnesium citrate Btl 296 mL PO ×2 (10:13→20:56)
[2023-07-19] MEDS: bisacodyl 5 mg Tablet 10 MG PO ×2 (12:08→20:56)
--- NOTE | 2023-07-19 13:13 | P.PN_ITS ---
Subjective 2 Subjective: Events overnight. Patient has remained hemodynamically stable and afebrile. Remains on room air. Today morning seen postcardiac catheterization laying comfortably in bed, flat without difficulty in breathing. During cardiac catheterization he was found to have significant stenosis in LAD and LCx along with INJECTION OPERATOR of RCA. Complete report currently not available. LVEDP were high. Plan for staged procedure as an outpatient. Vitals/I&O/Wt Last Vital Signs Temp 98.0 F 07/19/23 03:52 Pulse 85 07/19/23 12:30 Resp 18 07/19/23 12:30 BP 143/85 07/19/23 12:30 Pulse Ox 98 07/19/23 12:30 O2 Del Method Room Air 07/19/23 12:30 O2 Flow Rate 2 07/17/23 08:00 FiO2 35 07/15/23 16:30 07/18/23 07/19/23 07/19/23 22:59 06:59 14:59 Intake Total 370 / 1115 100 / 1215 850 / 850 Output Total 300 / 650 1420 / 2070 1400 / 1400 Balance 70 / 465 -1320 / -855 -550 / -550 Weight last 48 hrs Weight 52.481 kg Weight 57.294 kg Weight 56.699 kg Physical Exam 2 Narrative: Sitting up at the side of the bed. Const: COMMON NORMALS: no acute distress EXAM LIMITATIONS: altered mental status GENERAL APPEARANCE: in distress, ill appearing and frail appearing; not cooperative NUTRITIONAL APPEARANCE: cachectic O RIENTATION/CONSCIOUSNESS: Yes oriented to person and Yes confused; not awake, not oriented to place and not oriented to time HENMT: COMMON NORMALS: normocephalic and oropharynx normal HEAD & SCALP: n ormocephalic Eye: COMMON NORMALS: Equal, round and reactive pupils present PUPIL: Yes Equal, round and reactive pupils present Neck/C-Spine: COMMON NORMALS: no lymphadenopathy and no JVD Chest: COMMONS NORMALS: normal inspection of the chest Resp: COMMON NORMALS: normal respiratory effort and clear to auscultation bilaterally EFFORT & INSPECTION: Yes abnormal respiratory pattern, Yes tachypneic, Yes respiratory distress, Yes retractions intercostal and supraclavicular and Yes uses accessory muscles AUSCULTATION: clear to auscultation bilaterally, crackles and wheezes Cardio: COMMON NORMALS: no JVD, regular rhythm, S1 normal heart sound present, S2 normal heart sound present and No murmurs present (Cardio) RATE: t achycardic RHYTHM: regular rhythm HEART SOUNDS: S1 normal heart sound present and S2 normal heart sound present OTHER: DP PT pulses diminished bilateral lower extremity GI: COMMON NORMALS: Normal to inspection, nondistended, normoactive bowel sounds present, Soft to palpation and non-tender PALPATION: Yes Soft to palpation, No Tenderness to palpation present (GI), No Guarding due to palpation present (GI) and No Rigid due to palpation : COMMON NORMALS: Yes no CVA tenderness BLADDER/KIDNEY EXAM: Yes no CVA tenderness Back/Pelvis: COMMON NORMALS: no CVA tenderness Extremity: COMMON NORMALS: no joint enlargement, no calf tenderness and no pedal edema Neuro: COMMON NORMALS: moves all extremities SENSORIUM/ORIENTATION: Yes oriented to person, No oriented to place and No oriented to time OTHER: Cannot perform neurologic testing Skin: NARRATIVE SKIN EXAM: Pale OTHER: Few small red spots antecubital fossa? Urinary Catheter Management: Vital: Cath Placed During This Visit: yes, but has since been removed by the nurse Reason for Continuing Indwelling Catheter: Decision to DC Catheter Urinary Catheter Date of Insertion: 07/15/23 Urinary Catheter Time of Insertion: 08:00 Date Urinary Catheter Removed: 07/16/23 Time Urinary Catheter Discontinued: 17:48 Data 07/19/23 04:43 07/19/23 04:43 A&P Assessment and plan (1) NSTEMI (non-ST elevated myocardial infarction): (2) CHF (congestive heart failure): Qualifiers: Heart failure chronicity: acute Heart failure type: unspecified Qualified Code(s): I50.9 - Heart failure, unspecified (3) Anemia: Qualifiers: Anemia type: unspecified type Qualified Code(s): D64.9 - Anemia, unspecified (4) Acute encephalopathy: (5) Urinary retention: (6) Acute hypoxic respiratory failure: (7) Bilateral pleural effusion: (8) Amphetamine use: (9) Urinary tract infection: Qualifiers: Hematuria presence: without hematuria Urinary tract infection type: a cute cystitis Qualified Code(s): N30.00 - Acute cystitis without hematuria (10) Sepsis: (11) Increased anion gap metabolic acidosis: (12) Pulmonary edema: (13) Pneumonia: (14) COPD exacerbation: (15) Lactic acidosis: Plan Acute hypoxic respiratory failure: Adding of congestive heart failure along with COPD exacerbation present on admission. Respiratory failure and encephalopathy for now has resolved. Echocardiogram done during hospitalization shows an EF of 25% with dilated LV cavity, moderate LA size, thickened aortic valve with velocity of 2.2, mild to moderate TR, mild pericardial effusion. Currently heart failure seems to be compensated. LVEDP though found to be high on cardiac catheterization. Patient is going to be on clear liquid diet along with bowel regimen for colonoscopy tomorrow so we will hold off on IV Lasix for now. Continue with Lasix 40 mg twice daily. Fluid restriction up to 1500 cc. Daily weights. Strict input output charting. Blood pressure stable. Continue with metoprolol 25 mg succinate daily along with low-dose lisinopril at 5 mg oral daily. Will uptitrate aspirin blood pressure and renal functions. High concerns for ischemic cardiomyopathy given past medical history of possible [place]. Underwent cardiac catheterization today. Plan for staged PCI as an outpatient. Verbally as per report stenosis high-grade found in LAD and LCx along with INJECTION OPERATOR of RCA. LifeVest to be ordered by cardiology team. Appreciate cardiology recommendations. For COPD exacerbation: Continue with Pulmicort twice daily, DuoNebs every 6 hours. Steroids have been weaned off. Oxygen supplementation keeping saturation over 90%. Acute anemia: Unknown cause. Cannot rule out in setting of chronic disease. Postop 1 unit of blood transfusion. No active melena or hematochezia. Hemoglobin stable. Appreciate iron panel. Continue with oral iron supplementation. Monitor hemoglobin daily. Given need for PCI as an outpatient will plan for EGD and colonoscopy while inpatient. Surgery consulted. Plan for bowel regimen today. Continue with Protonix twice daily and Carafate ACHS. Urinary retention: Patient having frequent small amount of urine during hospitalization. Bladder scan shows more than 500 cc. Straight catheterization. Start on Flomax 0.4 daily. Continue with bladder checks frequently. If needed we will plan for Vital catheterization. Amphetamine use: As per discussion with him he states that he does sometimes use amphetamine, he states he only smokes it, never injects it. As per discussion of risks he states was not aware of the severity of the risks, states that he will pressure discontinue and not use it again. Acute encephalopathy: Resolved. Reviewed UDS. Possibly amphetamine intoxication versus withdrawal. CT head negative for acute traumatic. Amphetamine confirmation test requested on admission. Results awaited. Continue with aspiration and seizure precautions. Patient currently tolerating diet well. Sepsis: Leukocytosis and tachycardia on admission. Most likely in setting of UTI and pneumonia. Appreciate blood culture being negative. Urine culture growing E. coli which is pansensitive. Discontinue vancomycin. Continue with Levaquin to finish a 5-day course with last dose on 07/20. High anion gap/lactic acidosis: Resolved. Transaminitis: Most likely in setting of congestive hepatopathy in the. Cannot rule out infective in setting of amphetamine abuse. Habitus panel and HIV negative. Monitor daily. Full code Clear liquid diet, n.p.o. after midnight. Fluid restriction. Protonix will be sufficient for PUD prophylaxis SCDs for DVT prophylaxis. Holding of medical prophylaxis Attestations 2 Medical Necessity Statement*: Requires further hospitalization for further management of acute hypoxic respiratory failure, acute anemia requiring blood transfusion, urinary retention in setting of new severe congestive heart failure, triple-vessel disease requiring PCI after GI bleed has been ruled out with endoscopy Diagnoses NSTEMI (non-ST elevated myocardial infarction) I21.4 CHF (congestive heart failure) I50.9 Heart failure chronicity: acute Heart failure type: unspecified Anemia D64.9 Anemia type: unspecified type Acute encephalopathy G93.40 Urinary retention R33.9 Acute hypoxic respiratory failure J96.01 Bilateral pleural effusion J90 Amphetamine use F15.90 Urinary tract infection N30.00 Hematuria presence: without hematuria Urinary tract infection type: acute cystitis Sepsis A41.9 Increased anion gap metabolic acidosis E87.29 Pulmonary edema J81.1 Pneumonia J18.9 COPD exacerbation J44.1 Lactic acidosis E87.20
--- NOTE | 2023-07-19 13:36 | PC.NURSE ---
EGD/Colonoscopy consent signed and in chart.
[2023-07-19] MEDS: ipratropium-albuterol 3 mL Neb INHALATION ×2 (14:30→20:07)
--- NOTE | 2023-07-19 15:50 | P.CONIM_ITS ---
Providers/Reason For Consult 2 Consulting Physician/Specialty*: Dr. Uche Ames, DO/General surgery Reason for Consult*: Anemia Attending Physician: Chito Marin MD History of Present Illness History of Present Illness Colin Carey is a 68 year old male who originally presented to the hospital with shortness of breath. He has a history of COPD. He underwent cardiac catheterization and was found to have significant coronary artery stenosis. Cardiology would like to stent the patient which requires heparinization. He is anemic and therefore they requested endoscopy to make sure that he is not bleeding internally. Patient denies any abdominal pain, nausea, emesis, diarrhea, constipation, hematochezia and/or melena. Review of Systems 2 General: Reports: 10 or more systems reviewed and unremarkable except in HPI and below Medications/Allergies Home Medications Medication Instructions Recorded Confirmed Last Taken Type No Known Home Medications 07/15/23 07/15/23 Unknown History Allergies Allergy/AdvReac Type Severity Reaction Status Date / Time No Known Allergies Allergy Unverified 07/14/23 23:51 Current Medications Generic Name Dose Route Start Last Admin Trade Name Freq PRN Reason Stop Dose Admin Albuterol/Ipratropium 3 ml 07/18/23 14:00 07/20/23 02:45 Ipratropium-Albuterol 3 Ml Neb INHALATION Not Given Q6H.RESP MICHELLE Bisacodyl 10 mg 07/19/23 09:28 07/19/23 12:08 Bisacodyl 5 Mg Tablet PO 10 mg DAILY PRN Administration CONSTIPATION Budesonide 0.5 mg 07/15/23 08:00 07/19/23 20:07 Budesonide 0.5 Mg/2 Ml Neb INHALATION 0.5 mg BID.RESPIRATORY MICHELLE Administration Ferrous Gluconate 324 mg 07/18/23 18:00 07/19/23 17:37 Ferrous Gluconate 324 Mg Tablet PO 324 mg BIDWM MICHELLE Administration Furosemide 40 mg 07/18/23 16:00 07/19/23 15:41 Furosemide 40 Mg Tablet PO Not Given BID@08,16 MICHELLE Vancomycin HCl 1,000 mg/ 250 mls @ 250 mls/hr 07/18/23 06:00 07/20/23 07:38 Sodium Chloride IV Infused Q12H MICHELLE Infusion Levofloxacin 500 mg 07/18/23 10:40 07/20/23 05:33 Levofloxacin 500 Mg Tablet PO 07/21/23 10:39 500 mg DAILY@0600 MICHELLE Administration Protocol Lisinopril 5 mg 07/18/23 10:40 07/19/23 09:34 Lisinopril 5 Mg Tablet PO 5 mg DAILY MICHELLE Administration Metoprolol Succinate 25 mg 07/18/23 10:40 07/19/23 09:34 Metoprolol Succinate Er (24 Hr) 25 Mg Tablet PO 25 mg DAILY MICHELLE Administration Pantoprazole Sodium 40 mg 07/15/23 06:14 07/20/23 05:32 Pantoprazole 40 Mg Sdv IVP 40 mg Q12H MICHELLE Administration Sucralfate 1 gm 07/15/23 06:14 07/20/23 05:33 Sucralfate 1 Gm/10 Ml Oral Liq Udc PO 1 gm Q6H MICHELLE Administration Tamsulosin HCl 0.4 mg 07/19/23 09:30 07/19/23 09:34 Tamsulosin 0.4 Mg Capsule PO 0.4 mg DAILY MICHELLE Administration PFSH Acute 2 PFSH: Medical History History of COPD Social History Smoking and tobacco/nicotine status: current every day tobacco/nicotine user Vitals/I&O/Wt Last Vital Signs Temp 97.9 F 07/20/23 07:43 Pulse 91 07/20/23 07:43 Resp 16 07/20/23 07:43 BP 123/82 07/20/23 07:43 Pulse Ox 98 07/20/23 07:43 O2 Del Method Room Air 07/20/23 07:43 O2 Flow Rate 2 07/17/23 08:00 FiO2 35 07/15/23 16:30 07/19/23 07/20/23 07/20/23 22:59 06:59 14:59 Intake Total 1935.833 / 2785.833 45 / 2830.833 250 / 250 Output Total 450 / 1850 150 / 2000 Balance 1485.833 / 935.833 -105 / 830.833 250 / 250 Weight last 48 hrs Weight 116 lb 7 oz Weight 115 lb 11.2 oz Weight 126 lb 5 oz Physical Exam 2 Narrative: General : Patient is well developed , no acute distress, oriented x3 Head : Normal cephalic, a-traumatic. Ears : Pinnae and external canal are normal. Hearing is normal. Eyes : PERRLA, Sclera and injection are normal. No conjunctival discharge. Nose : Mucous membranes are without erythema. Throat : buccal mucosa is normal, gums are without significant recession or hypertrophy. Lungs : Equal chest rise bilaterally, no use of accessory muscles, trachea is midline. Cor : Rate and rhythm are normal. Abdomen : Soft, ND, NT, no g/r/m Extremities : No edema, no cyanosis or clubbing, dorsalis pedis pulses are present bilaterally, non-tender to palpation of calves. Upper extremities are normal bilaterally. Back : non-tender to palpation, no CVA tenderness. Neuro : CN II - XII intact, Upper and lower extremities have equal and full strength Urinary Catheter Management: Vital: Cath Placed During This Visit: yes, but has since been removed by the nurse Reason for Continuing Indwelling Catheter: Decision to DC Catheter Urinary Catheter Date of Insertion: 07/15/23 Urinary Catheter Time of Insertion: 08:00 Date Urinary Catheter Removed: 07/16/23 Time Urinary Catheter Discontinued: 17:48 Data 07/20/23 04:28 07/20/23 04:28 Micro: Microbiology 07/14/23 22:01 Blood Culture - Final Blood NO GROWTH AFTER 5 DAYS 07/14/23 21:55 Blood Culture - Final Blood NO GROWTH AFTER 5 DAYS A&P Assessment and plan (1) Ischemic cardiomyopathy: (2) Anemia: Qualifiers: Anemia type: unspecified type Qualified Code(s): D64.9 - Anemia, unspecified Plan Bowel prep Tomorrow for EGD and colonoscopy The risks and benefits of the procedure, including bleeding, infection, intestinal perforation requiring surgery, missed lesion were explained to the patient. The patient is understanding of the risks and wishes to proceed. Coding Level of Care Code 17095 Diagnoses Ischemic cardiomyopathy I25.5 Anemia D64.9 Anemia type: unspecified type
[2023-07-19] MEDS: ferrous gluconate 324 mg Tablet PO (17:37)
--- NOTE | 2023-07-19 18:57 | PC.NURSE ---
Report called to [facility]. Patient and belongings taken to room 111-1 via wheelchair by this nurse. Patient's called and notified of room change.
[2023-07-19 19:06] LABS: Vancomycin Trough 25.9 ug/mL (10-15)
[2023-07-19] MEDS: budesonide 0.5 mg/2 mL Neb INHALATION (20:07)
[2023-07-20] VITALS (37 sets, daily range): BP systolic 106–152; BP diastolic 54–85; PULSE 69–100; RESP 4–23; TEMP 36.1–36.7; O2SAT 92–100
[2023-07-20 04:43] LABS: Basophils % 0.1 %; Eosinophils # 0.2 10^3/uL (0.0-0.8); Eosinophils % 2.3 %; Hematocrit 29.7 % (37-53); Lymphocytes # 1.4 10^3/uL (0.8-4.8); Lymphocytes % 15.5 %; Mean Corpuscular HGB Conc 26.3 g/dL (30-55); Mean Corpuscular Hemoglobin 19.2 pg (27-33); Mean Corpuscular Volume 73.2 fl (82-101); Mean Platelet Volume 9.4 fL (7.4-10.4); Monocytes % 11.7 %; Neutrophils # 6.12 10^3/uL (1.8-7.7); Neutrophils % 69.9 %; Nucleated Red Blood Cells % 0.2 %; Platelet Count 376 10^3/cmm (157-399); Red Blood Count 4.06 10^6/uL (3.85-5.65); Red Cell Distribution Width 20.6 % (12.1-15.1); White Blood Count 8.75 10^3/uL (3.29-11.43)
[2023-07-20 05:03] LABS: Vancomycin Trough 19.6 ug/mL (10-15)
[2023-07-20 05:07] LABS: Alanine Aminotransferase 102 U/L (0-41); Alkaline Phosphatase 74 U/L (40-130); Aspartate Amino Transferase 15 U/L (0-40); Blood Urea Nitrogen 21 mg/dL (8-23); Carbon Dioxide 28 mmol/L (22-29); Chloride 101 mmol/L (98-107); Creatinine Clr Calc Pharmacy 65.6013; Globulin 2.9 g/dL (1.3-4.6); Glomerular Filtration Rate 96.1 mL/min (90-130); Glucose 96 mg/dL (65-115); Osmolality Calculated 291 mOsm/kg (285-295); Sodium 139 mmol/L (136-145); Total Bilirubin 0.4 mg/dL (0.15-1.2); Total Protein 5.9 g/dL (6.6-8.7)
[2023-07-20] MEDS: pantoprazole 40 mg SDV IVP (05:32)
[2023-07-20] MEDS: levoFLOXacin 500 mg Tablet PO (05:33)
[2023-07-20] MEDS: sucralfate 1 gm/10 mL Oral Liq UDC PO ×2 (05:33→11:35)
[2023-07-20] MEDS: vancomycin 1,000 MG in sodium chloride 0.9% 250 ML 250 MG IV (05:36)
[2023-07-20] MEDS: sodium chloride 0.9% 1,000 ML 30 ML IV ×2 (08:32→11:17)
--- NOTE | 2023-07-20 08:43 | PM.PN ---
Subjective Subjective: Patient is doing well. No chest pain. Vitals/I&O/Wt Last Vital Signs Temp 98.0 F 07/20/23 08:00 Pulse 87 07/20/23 08:00 Resp 13 07/20/23 08:00 BP 152/85 07/20/23 08:00 Pulse Ox 97 07/20/23 08:00 O2 Del Method Room Air 07/20/23 08:00 O2 Flow Rate 2 07/17/23 08:00 FiO2 35 07/15/23 16:30 07/19/23 07/20/23 07/20/23 22:59 06:59 14:59 Intake Total 1935.833 / 2785.833 45 / 2830.833 250 / 250 Output Total 450 / 1850 150 / 2000 Balance 1485.833 / 935.833 -105 / 830.833 250 / 250 Weight last 48 hrs Weight 116 lb 7 oz Weight 115 lb 11.2 oz Weight 126 lb 5 oz Physical Exam Narrative: GENERAL: Patient is alert, awake and oriented x3. [] NECK: No jugular vein distension. [] HEENT: No cyanosis. No icterus. No pallor. [] HEART: Regular S1 and S2. No murmur, rub or gallop. [] LUNGS: Clear to auscultate bilaterally. [] CENTRAL NERVOUS SYSTEM: Grossly nonfocal. [] EXTREMITIES: Lower extremities with 1+ edema bilaterally. Urinary Catheter Management: Vital: Cath Placed During This Visit: yes, but has since been removed by the nurse Reason for Continuing Indwelling Catheter: Decision to DC Catheter Urinary Catheter Date of Insertion: 07/15/23 Urinary Catheter Time of Insertion: 08:00 Date Urinary Catheter Removed: 07/16/23 Time Urinary Catheter Discontinued: 17:48 Data 07/20/23 04:28 07/20/23 04:28 Micro: Microbiology 07/14/23 22:01 Blood Culture - Final Blood NO GROWTH AFTER 5 DAYS 07/14/23 21:55 Blood Culture - Final Blood NO GROWTH AFTER 5 DAYS A&P Assessment and plan (1) CHF (congestive heart failure): Qualifiers: Heart failure chronicity: acute Heart failure type: unspecified Qualified Code(s): I50.9 - Heart failure, unspecified (2) CHF exacerbation: (3) Troponin level elevated: (4) Pneumonia: (5) COPD exacerbation: (6) Bilateral pleural effusion: Plan Patient's coronary angiogram demonstrated severe multivessel CAD. He will need stenting to LAD and left circumflex artery. However has significant anemia. No active bleeding on scope. Will discharge patient Medical therapy and plan for staged PCI in 1 to 2 weeks. Lifevest ordered. Thank you for involving us with care of this patient. Patient is stable to be discharged from cardiology standpoint. please call with questions. Attestations Medical Necessity Statement*: Care expected to cross 2 midnights. Coding Level of Care Code Acute Code for [facility] Diagnoses CHF (congestive heart failure) I50.9 Heart failure chronicity: acute Heart failure type: unspecified CHF exacerbation I50.9 Troponin level elevated R79.89 Pneumonia J18.9 COPD exacerbation J44.1 Bilateral pleural effusion J90
--- NOTE | 2023-07-20 08:53 | ANES.PREANE2 ---
Pre-Anesthetic Assessment Height/Weight: Height 1.73 m Weight 52.815 kg Temp Pulse Resp BP Pulse Ox O2 Del Method O2 Flow Rate 98.0 F 87 13 152/85 97 Room Air 2 07/20/23 08:00 07/20/23 08:00 07/20/23 08:00 07/20/23 08:00 07/20/23 08:00 07/20/23 08:00 07/17/23 08:00 FiO2 35 07/15/23 16:30 Preop Diagnosis: LV dysfunction/congestive heart failure Operation Date: 07/19/23 08:00 Proposed Procedures p Cardiac Catheterization(Not Applicable) - Rambo Pierce M.D Operation Date: 07/20/23 08:45 Proposed Procedures p EGD(Not Applicable) - DO kadeem Santizo Colonoscopy(Not Applicable) - Uche Ames DO Familial anesthetic complications: None Was Beta Sheng taken within 24 hours: N/A Was Clonidine taken within 24 hours: N/A Last intake: Intake Last Liquid Date 07/19/23 Last Liquid Time 21:00 Last Solid Date 07/17/23 Last Solid Time 18:00 Social Tobacco and No alcohol (Quit 2 years ago) 4-5/day pack(s) per day Meth a few weeks ago Exam alert, oriented x 3, clear to auscultation bilaterally and regular rate & rhythm Airway Submandibular: within normal limits Cervical ROM: within normal limits Mallampati: Class II Dentition: false History/ROS No significant history except as noted and No significant complaints Pulmonary Chronic Obstructive Pulmonary Disease and Shortness of Breath Pneumonia before he came to hospital CV/HEM Anemia, Coronary Artery Disease, Congestive Heart Failure, Hypertension, Myocardial Infarction (Several years ago, no intervention) and Murmur CONCLUSIONS Severe diffuse hypokinesia left ventricular ejection fraction around 25%, visual. Mildly dilated LV cavity. Mildly increased left atrial size. Thickened mitral valve. Mild mitral annular calcification. Mild- moderate mitral valve regurgitation. Thickened aortic valve. Features of aortic valve sclerosis with a peak velocity of 2.2 m/s. [id number] pulmonary valve regurgitation. Possible small pericardial effusion Features of large left-sided pleural effusion None reported Hepatic None reported GI Gastroesophageal Reflux Disease (None this morning) Metabolic None reported Musc/skel Lower Back Pain and Osteoarthritis/DJD Right bicep injury Neuropsych Anxiety, Cerebrovascular Accident (Several years ago, no intervention, still has right sided weakness), Depression and Neuropathy Anesthetic Plan ASA status: 4 Anesthesia: Anesthesia Evaluation, General and MAC Risk of > 500 ml blood loss (7ml/kg in children): No Medications/Allergies Home Medications Medication Instructions Recorded Confirmed Last Taken Type No Known Home Medications 07/15/23 07/15/23 Unknown History Allergies Allergy/AdvReac Type Severity Reaction Status Date / Time No Known Allergies Allergy Unverified 07/14/23 23:51 Current Medications Generic Name Dose Route Start Last Admin Trade Name Freq PRN Reason Stop Dose Admin Albuterol/Ipratropium 3 ml 07/18/23 14:00 07/20/23 08:03 Ipratropium-Albuterol 3 Ml Neb INHALATION Not Given Q6H.RESP MICHELLE Bisacodyl 10 mg 07/19/23 09:28 07/19/23 12:08 Bisacodyl 5 Mg Tablet PO 10 mg DAILY PRN Administration CONSTIPATION Budesonide 0.5 mg 07/15/23 08:00 07/20/23 08:03 Budesonide 0.5 Mg/2 Ml Neb INHALATION Not Given BID.RESPIRATORY MICHELLE Ferrous Gluconate 324 mg 07/18/23 18:00 07/19/23 17:37 Ferrous Gluconate 324 Mg Tablet PO 324 mg BIDWM MICHELLE Administration Furosemide 40 mg 07/18/23 16:00 07/19/23 15:41 Furosemide 40 Mg Tablet PO Not Given BID@08,16 MICHELLE Vancomycin HCl 1,000 mg/ 250 mls @ 250 mls/hr 07/18/23 06:00 07/20/23 07:38 Sodium Chloride IV Infused Q12H MICHELLE Infusion Sodium Chloride 1,000 mls @ 30 mls/hr 07/20/23 08:30 07/20/23 08:32 Sodium Chloride 0.9% IV 30 mls/hr .Q24H MICHELLE Administration Levofloxacin 500 mg 07/18/23 10:40 07/20/23 05:33 Levofloxacin 500 Mg Tablet PO 07/21/23 10:39 500 mg DAILY@0600 MICHELLE Administration Protocol Lisinopril 5 mg 07/18/23 10:40 07/19/23 09:34 Lisinopril 5 Mg Tablet PO 5 mg DAILY MICHELLE Administration Metoprolol Succinate 25 mg 07/18/23 10:40 07/19/23 09:34 Metoprolol Succinate Er (24 Hr) 25 Mg Tablet PO 25 mg DAILY MICHELLE Administration Pantoprazole Sodium 40 mg 07/15/23 06:14 07/20/23 05:32 Pantoprazole 40 Mg Sdv IVP 40 mg Q12H MICHELLE Administration Sucralfate 1 gm 07/15/23 06:14 07/20/23 05:33 Sucralfate 1 Gm/10 Ml Oral Liq Udc PO 1 gm Q6H MICHELLE Administration Tamsulosin HCl 0.4 mg 07/19/23 09:30 07/19/23 09:34 Tamsulosin 0.4 Mg Capsule PO 0.4 mg DAILY MICHELLE Administration Additional Medication Information Cannot get adequate medical history given his shortness of breath is encephalopathy cannot get an adequate surgical history given his encephalopathy cannot get an adequate family history given his encephalopathy [facility] Anesthesia Medical History History of COPD Social History Smoking and tobacco/nicotine status: current every day tobacco/nicotine user Data Anesthesia 07/20/23 04:28 07/20/23 04:28 Short CBC 07/19/23 07/20/23 Range/Units 04:43 04:28 WBC 14.19 H 8.75 (3.29-11.43) 10^3/uL Hgb 8.40 L 7.80 L (11.27-16.99) g/dL Hct 31.3 L 29.7 L (37-53) % MCV 70.0 L 73.2 L (82-101) fl Plt Count 478 H 376 (157-399) 10^3/cmm Neut % (Auto) 78.2 69.9 % Neut # (Auto) 11.11 H 6.12 (1.8-7.7) 10^3/uL BMP 07/19/23 07/20/23 04:43 04:28 Sodium 137 139 Potassium 2.9 L 3.0 L Chloride 95 L 101 Carbon Dioxide 29 28 BUN 26 H 21 Creatinine 1.0 0.8 Glucose 106 96 Calcium 9.6 9.0 Liver Function 07/19/23 07/20/23 Range/Units 04:43 04:28 Total Bilirubin 0.5 0.4 (0.15-1.2) mg/dL AST 31 15 (0-40) U/L ALT 172 H 102 H (0-41) U/L Alkaline Phosphatase 92 74 (40-130) U/L Albumin 3.5 3.0 L (3.5-5.2) g/dL ABG 07/19/23 07/19/23 07/19/23 08:30 08:30 08:30 Specimen Type Not specified Not specified Sample Site Not specified Not specified A-a O2 Gradient Not Reportable O2 Delivery Device 07/19/23 07/19/23 08:30 08:30 Specimen Type Sample Site A-a O2 Gradient Not Reportable O2 Delivery Device Room air Room air Microbiology 07/14/23 22:01 Blood Culture - Final Blood NO GROWTH AFTER 5 DAYS 07/14/23 21:55 Blood Culture - Final Blood NO GROWTH AFTER 5 DAYS Cardiac Studies: Echocardiogram 07/15/23 Sestamibi Stress Test (Cardiology) 07/18/23
--- NOTE | 2023-07-20 09:14 | P.PN_ITS ---
Vitals/I&O/Wt Last Vital Signs Temp 98.0 F 07/20/23 08:00 Pulse 87 07/20/23 08:00 Resp 13 07/20/23 08:00 BP 152/85 07/20/23 08:00 Pulse Ox 97 07/20/23 08:00 O2 Del Method Room Air 07/20/23 08:00 O2 Flow Rate 2 07/17/23 08:00 FiO2 35 07/15/23 16:30 07/19/23 07/20/23 07/20/23 22:59 06:59 14:59 Intake Total 1935.833 / 2785.833 45 / 2830.833 250 / 250 Output Total 450 / 1850 150 / 2000 Balance 1485.833 / 935.833 -105 / 830.833 250 / 250 Weight last 48 hrs Weight 116 lb 7 oz Weight 115 lb 11.2 oz Weight 126 lb 5 oz Physical Exam 2 Urinary Catheter Management: Vital: Cath Placed During This Visit: yes, but has since been removed by the nurse Reason for Continuing Indwelling Catheter: Decision to DC Catheter Urinary Catheter Date of Insertion: 07/15/23 Urinary Catheter Time of Insertion: 08:00 Date Urinary Catheter Removed: 07/16/23 Time Urinary Catheter Discontinued: 17:48 Data 07/20/23 04:28 07/20/23 04:28 Micro: Microbiology 07/14/23 22:01 Blood Culture - Final Blood NO GROWTH AFTER 5 DAYS 07/14/23 21:55 Blood Culture - Final Blood NO GROWTH AFTER 5 DAYS A&P Assessment and plan (1) Ischemic cardiomyopathy: (2) Anemia: Qualifiers: Anemia type: unspecified type Qualified Code(s): D64.9 - Anemia, unspecified Plan EGD and colonoscopy The risks and benefits of the procedure, including bleeding, infection, intestinal perforation requiring surgery, missed lesion were explained to the patient. The patient is understanding of the risks and wishes to proceed. Attestations 2 Medical Necessity Statement*: Per primary Coding Level of Care Code Acute Code for [facility] Fwd Diagnoses Ischemic cardiomyopathy I25.5 Anemia D64.9 Anemia type: unspecified type
[2023-07-20] MEDS: ferrous gluconate 324 mg Tablet PO (11:17)
[2023-07-20] MEDS: FUROsemide 40 mg Tablet PO (11:35)
[2023-07-20 13:05] LABS: Amphetamine 1800 ng/mL; Methamphetamine >15000 ng/mL; Methylenedioxyamphetamine negative; Methylenedioxyethylamphetamine negative; Methylenedioxymethamphetamine negative
[2023-07-20] MEDS: ipratropium-albuterol 3 mL Neb INHALATION (13:33)
--- NOTE | 2023-07-20 13:59 | PM.DCS ---
Discharge Providers Date of Admission: 07/15/23 04:12 Date of Discharge: July 20, 2023 Attending Provider at Admission: Carlos Mckeon MD Attending Provider at Discharge: Chito Marin MD Consults: Cardiology: Dr. Pierce Surgery: Dr. Ames Diagnoses at Discharge Discharge Diagnosis (1) Ischemic cardiomyopathy: Status: Acute (2) Anemia: Status: Acute Qualifiers: Anemia type: unspecified type Qualified Code(s): D64.9 - Anemia, unspecified Reason for Visit Reason for Visit: RESP. DISTRESS Brief History: History as per HPI: Colin aCrey is a 68 year old male with a past medical history of COPD, smoking, who presents to [facility] due to shortness of breath. Currently patient is alert to person, not to place, not to time, he can follow simple commands, currently on a BiPAP mask at 50%, in moderate respiratory distress, with nasal flaring intercostal retraction suprasternal retractions tachypneic, tachycardic, he is globally encephalopathic at times it is difficult to get a history from him. But he does tell me that he feels short of breath, but he feels better with the BiPAP mask on, does report chest pain, denies any abdominal pain, does report a productive cough, he tells me he has yellow sputum, he does report that he is smoking but trying to quit, denies any nausea, no vomiting, no flank pain,. According to ER provider, EMS was called out to the home as patient was found to have respiratory distress shortness of breath, he was found lying on the floor have inside, outside his home, naked, and given DuoNeb, Decadron, found to have acute hypoxic respiratory failure in the emergency room placed on BiPAP fluid overload given 2 doses of Lasix, anemic hemoglobin 6.6 getting 1 unit of blood, Hospital Course Hospital Course Patient was admitted to the hospital further evaluation and management of hypoxic respiratory failure requiring BiPAP ventilation on admission. On admission he was started on treatment with diuresis, broad-spectrum antibiotics with concerns for sepsis and inhalation treatment. On admission patient was also in acute encephalopathy. Echocardiogram was done which showed continue with EF of 25%, mildly increased LA size, mild to moderate pulmonary regurgitation with small pericardial effusion with diffuse hypokinesia of LV. On admission he was found to have acute anemia with hemoglobin down to 6.6 for which she required Yant of blood transfusion after which his hemoglobin remained stable. Patient responded well to the treatment and has been on room air for last 3 to 4 days. After achieving euvolemia cardiology was consulted and he underwent cardiac angiogram to rule out ischemic cardiomyopathy. Cardiac angiogram showed severe multivessel disease CAD with heavily calcified severe stenosis of mid to proximal LAD, severe LCx stenosis along with [facility] of RCA. Given patient's anemia on admission decision was made for further GI workup before placement of multiple stents. Surgery was consulted and he underwent EGD and colonoscopy on 07/19 which was negative for any acute bleeding. Patient was started on guideline directed medical therapy for new congestive heart failure. He has been discharged in hemodynamically stable condition oral lisinopril, metoprolol succinate, aspirin and Plavix for dual antiplatelet therapy along with Carafate and Protonix. He is to follow-up with primary care provider and cardiology team as an outpatient within next 2 weeks for repeat CBC. If hemoglobin remained stable he will undergo PCI as an outpatient. LifeVest has been arranged prior to discharge. Lifestyle modification with new congestive heart failure were discussed in detail with the patient all the questions were answered. Physical Exam Narrative: Sitting up at the side of the bed. Const: COMMON NORMALS: no acute distress EXAM LIMITATIONS: altered mental status GENERAL APPEARANCE: in distress, ill appearing and frail appearing; not cooperative NUTRITIONAL APPEARANCE: cachectic ORIENTATION/CONSCIOUSNESS: Yes oriented to person and Yes confused; not awake, not oriented to place and not oriented to time HENMT: COMMON NORMALS: normocephalic and oropharynx normal HEAD & SCALP: normocephalic Eye: COMMON NORMALS: Equal, round and reactive pupils present PUPIL: Yes Equal, round and reactive pupils present Neck/C-Spine: COMMON NORMALS: no lymphadenopathy and no JVD Chest: COMMONS NORMALS: normal inspection of the chest Resp: COMMON NORMALS: normal respiratory effort and clear to auscultation bilaterally EFFORT & INSPECTION: Yes abnormal respiratory pattern, Yes tachypneic, Yes respiratory distress, Yes retractions intercostal and supraclavicular and Yes uses accessory muscles AUSCULTATION: clear to auscultation bilaterally, crackles and wheezes Cardio: COMMON NORMALS: no JVD, regular rhythm, S1 normal heart sound present, S2 normal heart sound present and No murmurs present (Cardio) RATE: tachycardic RHYTHM: regular rhythm HEART SOUNDS: S1 normal heart sound present and S2 normal heart sound present OTHER: DP PT pulses diminished bilateral lower extremity GI: COMMON NORMALS: Normal to inspection, nondistended, normoactive bowel sounds present, Soft to palpation and non-tender PALPATION: Yes Soft to palpation, No Tenderness to palpation present (GI), No Guarding due to palpation present (GI) and No Rigid due to palpation : COMMON NORMALS: Yes no CVA tenderness BLADDER/KIDNEY EXAM: Yes no CVA tenderness Back/Pelvis: COMMON NORMALS: no CVA tenderness Extremity: COMMON NORMALS: no joint enlargement, no calf tenderness and no pedal edema Neuro: COMMON NORMALS: moves all extremities SENSORIUM/ORIENTATION: Yes oriented to person, No oriented to place and No oriented to time OTHER: Cannot perform neurologic testing Skin: NARRATIVE SKIN EXAM: Pale OTHER: Few small red spots antecubital fossa? Urinary Catheter Management: Vital: Cath Placed During This Visit: yes, but has since been removed by the nurse Reason for Continuing Indwelling Catheter: Decision to DC Catheter Urinary Catheter Date of Insertion: 07/15/23 Urinary Catheter Time of Insertion: 08:00 Date Urinary Catheter Removed: 07/16/23 Time Urinary Catheter Discontinued: 17:48 Discharge Data Studies Completed and Pending Completed Studies During Hospitalization Category Date Time Status CT head w con [id number] Routine Cat Scan 07/15/23 12:17 Completed CTA chest abdomen pelvis [CT ang ches abdpel 04243/ Cat Scan 07/14/23 23:06 Completed 14122] Stat Cardiac Stress Test MIBI [Sestamibi Stress Test Request Exams 07/18/23 08:00 Draft ] Routine XR chest 1V portable [id number] Stat Exams 07/14/23 21:19 Completed NM margaret perf SPECT r/s* [id number] Routine Nuc Med 07/18/23 20:43 Completed CV. echo complete* [id number] Stat Ultrasound 07/15/23 04:59 Completed Pending at discharge Category Date Time Status [facility] request for service Routine Exams 07/19/23 08:00 Taken MRSA [Methicillin Resistant S.aureu] Routine Lab 07/17/23 20:49 Ordered Occult Blood Stool [Immunochemical Fecal OCB] Routine Lab 07/15/23 19:40 Uncollected Radiology Impressions Chest X-Ray 07/14/23 21:19 IMPRESSION: Findings suggestive of interstitial pulmonary edema. Superimposed infection is not excluded. Chest/Abdomen/Pelvis CTA 07/14/23 23:06 IMPRESSION: 1. Negative for pulmonary artery embolism. 2. Widespread pulmonary edema. 3. Large bilateral pleural effusions. 4. Congestive heart failure suspected. 5. No acute aortic pathology. COMMENTS: Consistent with the [employer]'s Incidental Findings Committee white paper (J Am Rachel Radiol 2018): Any incidental renal lesion less than 1 cm or classified as too small to characterize, or any incidental cystic renal lesion characterized as simple-appearing, is likely benign. No follow-up imaging is recommended for these lesions per consensus recommendations based on imaging criteria. Head CT 07/15/23 12:17 IMPRESSION: 1. No acute intracranial abnormality. 2. Distal left vertebral artery is not visualized and may be developmentally diminutive. Consider correlation with CT angiography of the neck to exclude thrombosis/dissection. Echocardiogram: CONCLUSIONS Severe diffuse hypokinesia left ventricular ejection fraction around 25%, visual. Mildly dilated LV cavity. Mildly increased left atrial size. Thickened mitral valve. Mild mitral annular calcification. Mild- moderate mitral valve regurgitation. Thickened aortic valve. Features of aortic valve sclerosis with a peak velocity of 2.2 m/s. [id number] pulmonary valve regurgitation. Possible small pericardial effusion Features of large left-sided pleural effusion Dr Deann Osorio MD [facility] (Electronically Signed) Myocardial perfusion scan: PERFUSION FINDINGS There is a large sized, fixed perfussion defect noted in the apical, apical anterior and anteroseptal dang. This is consistent with large sized area of prior infarct in LAD territory. Large area of mostly fixed perfusion defect noted in the inferior and apical inferior dang. This is consistent with large area of prior infarct in RCA territory with minimal darren-infarct ischemia. Large area of fixed perfusion defect is seen in apical lateral wall. This is consistent with large area of prior infarct in left circumflex artery territory. FUNCTIONAL RESULTS (calculated via Gated SPECT) Stress Image LV EF (%): 24 Stress EDV (mL):144 TID: 0.94 Stress ESV (mL):109 FUNCTIONAL FINDINGS: LV systolic function is severely reduced with EF of 24% IMPRESSIONS 1. Abnormal myocardial perfusion imaging with large areas of prior infarcts seen in the LAD and left circumflex artery territories. 2. Large area of prior infarct with with minimal darren-infarct ischemia seen in the RCA territory. 3. LV systolic function is severely reduced with EF of 24% Rambo Pierce MD (Electronically Signed) Final Date: 18 Jul 2023 10:45 Laboratory Results WBC 8.75 10^3/uL (3.29-11.43) 07/20/23 04:28 Corrected WBC Cancelled 07/16/23 22:30 RBC 4.06 10^6/uL (3.85-5.65) 07/20/23 04:28 Hgb 7.80 g/dL (11.27-16.99) L 07/20/23 04:28 Hct 29.7 % (37-53) L 07/20/23 04:28 MCV 73.2 fl (82-101) L 07/20/23 04:28 MCH 19.2 pg (27-33) L 07/20/23 04:28 MCHC 26.3 g/dL (30-55) L 07/20/23 04:28 RDW 20.6 % (12.1-15.1) H 07/20/23 04:28 Plt Count 376 10^3/cmm (157-399) 07/20/23 04:28 MPV 9.4 fL (7.4-10.4) 07/20/23 04:28 Gran % Cancelled 07/16/23 22:30 Neut % (Auto) 69.9 % 07/20/23 04:28 Lymph % (Auto) 15.5 % 07/20/23 04:28 [place] % (Auto) 11.7 % 07/20/23 04:28 Eos % (Auto) 2.3 % 07/20/23 04:28 Baso % (Auto) 0.1 % 07/20/23 04:28 Neut # (Auto) 6.12 10^3/uL (1.8-7.7) 07/20/23 04:28 Lymph # (Auto) 1.4 10^3/uL (0.8-4.8) 07/20/23 04:28 [place] # (Auto) 1.0 10^3/uL (0.2-0.9) H 07/20/23 04:28 Eos # (Auto) 0.2 10^3/uL (0.0-0.8) 07/20/23 04:28 Baso # (Auto) 0.0 10^3/uL (0.0-0.1) 07/20/23 04:28 Absolute Gran (auto) Cancelled 07/16/23 22:30 Nucleated RBC % (auto) 0.2 % 07/20/23 04: Nucleated RBCs # 0.0 /100WBC 07/20/23 04:28 PT 20.20 SECONDS (12.1-14.9) H 07/15/23 05:13 INR 1.67 (0.8-1.2) H 07/15/23 05:13 D-Dimer 1.90 ug/mLFEU (0-0.59) H 07/14/23 21:55 Specimen Type Not specified 07/19/23 08:30 Specimen Type Not specified 07/19/23 08:30 Sample Site Not specified 07/19/23 08:30 Sample Site Not specified 07/19/23 08:30 ABG pH 7.29 (7.35-7.45) L 07/14/23 21:45 ABG pCO2 26.7 mmHg (35-45) L 07/14/23 21:45 ABG pO2 91.8 mmHg (80.0-100.0) 07/14/23 21:45 ABG PO2/FiO2 Ratio 0 07/14/23 21:45 ABG HCO3 12.8 mmol/L (22-26) L 07/14/23 21:45 ABG O2 Saturation 97.0 07/14/23 21:45 ABG Base Excess -12.7 mmol/L (-2.0-2.0) L 07/14/23 21:45 Mathew Test N/a 07/19/23 08:30 Mathew Test N/a 07/19/23 08:30 A-a O2 Gradient Not Reportable 07/19/23 08:30 A-a O2 Gradient Not Reportable 07/19/23 08:30 Hematocrit 22.9 % (42-52) L 07/19/23 08:30 Hematocrit 23.0 % (42-52) L 07/19/23 08:30 Hgb O2 Saturation 47.7 % (95-100) L 07/19/23 08:30 Hgb O2 Saturation 95.4 % (95-100) 07/19/23 08:30 Carboxyhemoglobin 1.5 %THgb (0.4-20.1) 07/19/23 08:30 Carboxyhemoglobin 1.9 %THgb (0.4-20.1) 07/19/23 08:30 Methemoglobin 0.5 % (0.4-1.5) 07/19/23 08:30 Methemoglobin 0.6 % (0.4-1.5) 07/19/23 08:30 Total Hemoglobin 7.5 g/dL (14-18) L 07/19/23 08:30 Total Hemoglobin 7.5 g/dL (14-18) L 07/19/23 08:30 Sodium 133.0 mmol/L (131-143) 07/14/23 21:45 Potassium 4.8 mmol/L (3.5-5.0) 07/14/23 21:45 Glucose 106.0 mg/dL (70-115) 07/14/23 21:45 Ionized Calcium 1.2 mmol/L (1.1-1.4) 07/14/23 21:45 O2 Delivery Device Room air 07/19/23 08:30 O2 Delivery Device Room air 07/19/23 08:30 O2 Liters/Min 15.0 % 07/14/23 21:45 FiO2 100.0 % 07/14/23 21:45 Sample Room Supervisor ID Gd 07/19/23 08:30 Sample Room Supervisor ID Gd 07/19/23 08:30 Sodium 139 mmol/L (136-145) 07/20/23 04:28 Potassium 3.0 mmol/L (3.5-5.1) L 07/20/23 04:28 Chloride 101 mmol/L (98-107) 07/20/23 04:28 Carbon Dioxide 28 mmol/L (22-29) 07/20/23 04:28 Anion Gap 13.0 (5-19) 07/20/23 04:28 BUN 21 mg/dL (8-23) 07/20/23 04:28 Creatinine 0.8 mg/dL (0.7-1.2) 07/20/23 04:28 GFR Calculation 96.1 mL/min (90-130) 07/20/23 04:28 Glucose 96 mg/dL (65-115) 07/20/23 04:28 POC Glucose 115 mg/dL (70-110) H 07/16/23 17:12 Estimat Average Glucose 100 07/15/23 07:02 Hemoglobin A1c 5.1 % (4.0-6.0) 07/15/23 07:02 Calculated Osmolality 291 mOsm/kg (285-295) 07/20/23 04:28 Lactic Acid 9.6 mmol/L (0.5-2.2) H* 07/14/23 21:55 Lactic Acid (Sepsis) 8.8 mmol/L (0.5-2.2) H* 07/15/23 00:03 Calcium 9.0 mg/dL (8.5-10.5) 07/20/23 04:28 Magnesium 2.1 mg/dL (1.7-2.3) 07/15/23 11:03 Iron 16 ug/dL (59-158) L 07/15/23 07:02 TIBC 290 mcg/dl 07/15/23 07:02 % Saturation 5.5 % (20-50) L 07/15/23 07:02 Unsat Iron Binding 274 ug/dL (112-347) 07/15/23 07:02 Ferritin 43 ng/mL (30-400) 07/15/23 07:02 Total Bilirubin 0.4 mg/dL (0.15-1.2) 07/20/23 04:28 AST 15 U/L (0-40) 07/20/23 04:28 ALT 102 U/L (0-41) H 07/20/23 04:28 Alkaline Phosphatase 74 U/L (40-130) 07/20/23 04:28 Creatine Kinase 250 U/L (39-308) 07/15/23 07:02 Troponin T Baseline 42 ng/L (0-15) H 07/14/23 21:55 Troponin T 120 Minute 43.43 ng/L (0-15) H 07/15/23 00:03 Delta Troponin T 1.43 ABS# (0-10) 07/15/23 00:03 Troponin T Hi Sens 6Hr 52.50 ng/L (0-15) H 07/15/23 04:08 Troponin T Hi Sens 6Hr Delta 10.50 ng/L (0-12) 07/15/23 04:08 C-Reactive Protein 30.1 mg/L (0.0-4.9) H 07/14/23 21:55 NT-Pro-B Natriuret Pep 36178 pg/mL (0-125) H 07/14/23 21:55 Total Protein 5.9 g/dL (6.6-8.7) L 07/20/23 04:28 Albumin 3.0 g/dL (3.5-5.2) L 07/20/23 04:28 Globulin 2.9 g/dL (1.3-4.6) 07/20/23 04:28 Triglycerides 66 mg/dL (0-150) 07/15/23 07:02 Cholesterol 114 mg/dL (0-200) 07/15/23 07:02 LDL Cholesterol, Calc 69 mg/dL (50-129) 07/15/23 07:02 HDL Cholesterol 32 mg/dL (60-100) L 07/15/23 07:02 LDL/HDL Ratio 2.16 RATIO (0.00-3.22) 07/15/23 07:02 Cholesterol/HDL Ratio 3.56 mg/dL (1.0-5.00) 07/15/23 07:02 Vitamin B12 > 2000 pg/mL (232-1245) H 07/16/23 05:10 Procalcitonin 0.10 ng/mL (0-0.5) 07/14/23 21:55 TSH 0.98 uIU/mL (0.27-4.20) 07/15/23 07:02 Urine Color Dark yellow (Yellow) 07/14/23 22:21 Urine Appearance Hazy (CLEAR) A 07/14/23 22:21 Urine pH 5 (5-7) 07/14/23 22:21 Ur Specific [place] 1.030 (1.005-1.030) 07/14/23 22:21 Urine Protein Trace (Negative) 07/14/23 22:21 Urine Glucose (UA) Norm (Normal) 07/14/23 22:21 Urine Ketones 1+ (Negative) H 07/14/23 22:21 Urine Blood Neg (Negative) 07/14/23 22:21 Urine Nitrate Positive (Negative) H 07/14/23 22:21 Urine Bilirubin Neg (Negative) 07/14/23 22:21 Urine Urobilinogen Neg mg/dL (Negative) 07/14/23 22:21 Ur Leukocyte Esterase Negative (Negative) 07/14/23 22:21 Urine RBC 10-15 /hpf (0-2) H 07/14/23 22:21 Urine WBC 15-25 /hpf (0-5) H 07/14/23 22:21 Ur Squamous Epith Cells None /hpf (0-5) 07/14/23 22:21 Amorphous Sediment Not Reportable 07/14/23 22:21 Urine Bacteria 3+ /hpf (NONE) H 07/14/23 22:21 Coarse Granular Casts 0-4 /lpf H 07/14/23 22:21 Urine Mucus 2+ /hpf 07/14/23 22:21 Vancomycin Trough 19.6 ug/mL (10-15) H 07/20/23 04:28 Urine Opiates Screen Negative ng/mL (Negative) 07/14/23 22:21 Ur Barbiturates Screen Negative ng/mL (Negative) 07/14/23 22:21 Ur Phencyclidine Scrn Negative ng/mL (Negative) 07/14/23 22:21 Amphetamines 1800 ng/mL 07/14/23 11:44 Ur Amphetamines Screen Positive ng/mL (Negative) H 07/14/23 22:21 Methamphetamine GC/MS >82657 ng/mL 07/14/23 11:44 Methylenedioxyamph MDA negative 07/14/23 11:44 MDEA negative 07/14/23 11:44 Urine MDMA negative 07/14/23 11:44 U Benzodiazepines Scrn Negative ng/mL (Negative) 07/14/23 22:21 Urine Cocaine Screen Negative ng/mL (Negative) 07/14/23 22:21 U Marijuana (THC) Screen Negative ng/mL (Negative) 07/14/23 22:21 Ethyl Alcohol < 10 mg/dL (0-10) 07/15/23 07:02 Serum Ketones Negative (Negative) 07/15/23 07:02 Adenovirus (PCR) Not detected (NOT DETECT) 07/15/23 10:40 C. pneumoniae DNA (PCR) Not detected (NOT DETECT) 07/15/23 10:40 Coronavirus 229E (PCR) Not detected (NOT DETECT) 07/15/23 10:40 Hepatitis A IgM Ab Non-reactive (Nonreactive) 07/15/23 07:02 Hep Bs Antigen Non-reactive (Nonreactive) 07/15/23 07:02 Hep B Core IgM Ab Non-reactive (Nonreactive) 07/15/23 07:02 Hepatitis C Antibody Non-reactive (Nonreactive) 07/15/23 07:02 HIV 1&2 Ab & HIV 1 Ag Non-reactive (Non-Reactiv) 07/15/23 07:02 HIV 1&2 Antibody Non-reactive (Non-Reactiv) 07/15/23 07:02 Human Metapneumovir PCR Not detected (NOT DETECT) 07/15/23 10:40 Influenza A (H1) PCR Not detected (NOT DETECT) 07/15/23 10:40 Influ A (H1/09) PCR Not detected (NOT DETECT) 07/15/23 10:40 Influenza A (H3) PCR Not detected (NOT DETECT) 07/15/23 10:40 Influenza Type A Ag negative (Negative) 07/14/23 21:57 Influenza Type A (PCR) Not detected (NOT DETECT) 07/15/23 10:40 Influenza Type B Ag negative (Negative) 07/14/23 21:57 Influenza Type B (PCR) Not detected (NOT DETECT) 07/15/23 10:40 M. pneumoniae (PCR) Not detected (NOT DETECT) 07/15/23 10:40 Parainfluenza 1 (PCR) Not detected (NOT DETECT) 07/15/23 10:40 Parainfluenza 2 (PCR) Not detected (NOT DETECT) 07/15/23 10:40 Parainfluenza 3 (PCR) Not detected (NOT DETECT) 07/15/23 10:40 Parainfluenza 4 (PCR) Not detected (NOT DETECT) 07/15/23 10:40 RSV Type A (PCR) Not detected (NOT DETECT) 07/15/23 10:40 RSV Type B (PCR) Not detected (NOT DETECT) 07/15/23 10:40 Entero/Rhino (PCR) Not detected (NOT DETECT) 07/15/23 10:40 SARS-CoV-2 (PCR) Not detected (NOT DETECT) 07/15/23 10:40 SARS-CoV-2 Ag (Rapid) negative (Negative) 07/14/23 21:57 Blood Type A Positive 07/14/23 22:45 Rho(D) Type Rh positive 07/14/23 22:45 Antibody Screen Negative 07/14/23 22:45 Crossmatch See Detail 07/14/23 22:45 Vitals Last Vital Signs Temp 97.5 F L 07/20/23 10:59 Pulse 97 07/20/23 13:47 Resp 18 07/20/23 13:34 BP 124/71 07/20/23 13:00 Pulse Ox 95 07/20/23 13:34 O2 Del Method Room Air 07/20/23 13:34 O2 Flow Rate 2 07/17/23 08:00 FiO2 35 07/15/23 16:30 Discharge Plan Discharge Patient Disposition: Home Condition: Stable Prescriptions: New sucralfate 100 mg/mL Suspension 1 g PO Q6H 28 Days Qty: 1120 0RF ferrous gluconate 324 mg (37.5 mg iron) Tablet 324 mg PO BIDWM Qty: 60 0RF lisinopril 5 mg Tablet 5 mg PO DAILY Qty: 30 0RF metoprolol succinate 25 mg Tablet Extended Release 24 Hr 25 mg PO DAILY Qty: 30 0RF aspirin 81 mg capsule 81 mg PO DAILY Qty: 30 0RF clopidogrel [Plavix] 75 mg tablet 75 mg PO DAILY Qty: 30 0RF pantoprazole [Protonix] 40 mg tablet,delayed release (DR/EC) 40 mg PO DAILY Qty: 30 0RF potassium chloride 20 mEq tablet extended release 20 meq PO BID Qty: 60 0RF furosemide 40 mg Tablet 40 mg PO BID@08,16 Qty: 60 0RF levofloxacin 500 mg Tablet 500 mg PO DAILY@0600 Qty: 3 0RF tamsulosin 0.4 mg Capsule 0.4 mg PO DAILY Qty: 30 0RF No Action No Known Home Medications Discharge Orders: Discharge Order (Routine); Ordered 07/20/23 Ordered By: Chito Marin Referrals: Mick Farfan MD [Physician] - 07/27/23 10:15 am Khloe Blackburn FNP [Nurse Practitioner] - 08/08/23 3:00 pm Discharge Diet: Cardiac Discharge Activity: Resume usual activity and Increase activity as tolerated Patient Instructions: Metoprolol (By mouth) (Lopressor, Toprol XL), Lisinopril (By mouth) (Prinivil, Zestril), Furosemide (By mouth) (Lasix), Sucralfate (By mouth) (Carafate), Tamoxifen (By mouth) (Nolvadex, Soltamox), Potassium Chloride (By mouth), Levofloxacin (By mouth) (Levaquin, Levaquin Leva-saundra), Clopidogrel (By mouth) (Plavix), Pantoprazole (By mouth) (Protonix), Urinary Retention in Men (GEN), Encephalopathy (DC), CHF Stoplight, COPD Stoplight, GI Discharge Instructions, Opioid Safety Activity Restrictions/Additional Instructions: Restrict fluid intake to less than 1500 cc, salt intake to less than 2 g daily. Advised to check his weight daily at home. Is advised that weight today would be the dry weight and if body weight increases by around 5 pounds, patient is to take an extra dose of Lasix daily till body weight comes down to weight today. If not able to come down to dry body weight in 1 week, then is to call cardiology office for further recommendations. Patient was counseled in detail to take medications regularly as prescribed. Take aspirin and Plavix daily. Follow-up with a primary care provider on that appointment for repeat CBC. Follow-up with Khloe Blackburn/nurse practitioner from cardiology service on set appointment for further workup and PCI as an outpatient. Please try to avoid amphetamines as much as possible. Discharge Attestations Time Spent in Discharge Care*: greater than 30 min Specific Discharge Activities: educating patient, discussing with pcp/other providers, discussing with casework specialist/social workers/dc planners, documenting/other paperwork and evaluating patient/reviewing data Status at Discharge: Cognitive status at discharge: cognitively intact, Behavioral status at discharge: cooperative, Functional status at discharge: independent ambulation, Overall status at discharge: patient is progressing back to baseline Quality Metrics Clinical Quality Measures [ No reported AMI, CVA or VTE this stay] Coding Level of Care Code 03438 Total time (in minutes) for Discharge: 70 Diagnoses Ischemic cardiomyopathy I25.5 Anemia D64.9 Anemia type: unspecified type
[2023-07-20] MEDS: potassium chloride ER 20 mEq Tablet 40 MEQ PO ×2 (14:25→15:54)
--- NOTE | 2023-07-20 14:39 | ANE.PACU2 ---
Inpatient post-anesthesia follow up: Airway intact: Yes Vital signs: Temperature 97.5 F Pulse Rate 97 Respiratory Rate 18 Blood Pressure 124/71 Pulse Oximetry 95 Oxygen Delivery Me thod Room Air Oxygen Flow Rate 2 Fraction of Inspir ed Oxygen 35 Hydration adequate: Yes Nausea and vomiting: No Pain level: 2 Mental status: Baseline
== END 2023-07-20 16:17 | disposition home or self-care (01) | DRG 871 ==
LOC: ER 07-15 04:19 → ICU 07-15 04:49 → MEDSURG 07-16 21:08 → ICU 07-19 05:49 → CSU 07-19 18:40
PROVIDERS: Internal Medicine; Surgery; Admitting Provider Family Medicine; Emergency Provider Emergency Medicine; Visit Provider Student in an Organized Health Care Education/Training Program
PROC: B211YZZ Fluoroscopy of Multiple Coronary Arteries using Other Contrast (ICD-10-PCS; principal; 2023-07-19 08:00)
PROC: 0DJ08ZZ Inspection of Upper Intestinal Tract, Via Natural or Artificial Opening Endoscopic (ICD-10-PCS; CPT 43235; principal; 2023-07-20 08:45)
PROC: 0DJD8ZZ Inspection of Lower Intestinal Tract, Via Natural or Artificial Opening Endoscopic (ICD-10-PCS; CPT 45378; 2023-07-20 08:45)
DX: A41.9 Sepsis, unspecified organism (principal); G93.41 Metabolic encephalopathy; J18.9 Pneumonia, unspecified organism; J96.01 Acute respiratory failure with hypoxia; I21.4 Non-ST elevation (NSTEMI) myocardial infarction; I50.23 Acute on chronic systolic (congestive) heart failure; J44.1 Chronic obstructive pulmonary disease with (acute) exacerbation; J44.0 Chronic obstructive pulmonary disease with (acute) lower respiratory infection; N30.00 Acute cystitis without hematuria; E87.20 Acidosis, unspecified; I25.10 Atherosclerotic heart disease of native coronary artery without angina pectoris; F17.210 Nicotine dependence, cigarettes, uncomplicated; E87.70 Fluid overload, unspecified; F15.90 Other stimulant use, unspecified, uncomplicated; D64.9 Anemia, unspecified; R33.9 Retention of urine, unspecified; I27.20 Pulmonary hypertension, unspecified; B96.20 Unspecified Escherichia coli [E. coli] as the cause of diseases classified elsewhere; I25.5 Ischemic cardiomyopathy; Z11.52 Encounter for screening for COVID-19
CPT/HCPCS: 36415; 36416; 36430; 36600; 43235; 51702; 51798; 70460; 71045; 71275; 74174; 78452; 80048; 80051; 80053; 80061; 80074; 80202; 80306; 80307; 80324; 80359; 81001; 82009; 82330; 82550; 82607; 82728; 82805; 82810; 82962; 83036; 83540; 83550; 83605; 83735; 83880; 84145; 84443; 84484; 85018; 85025; 85378; 85610; 86140; 86850; 86900; 86920; 87040; 87077; 87086; 87186; 87426; 87486; 87581; 87633; 87804; 87806; 93005; 93017; 93306; 93460; 94640; 94660; 96365; 96374; 96375; 96376; 99152; 99153; 99291; 99292; A9500; C1751; C1769; C1887; C1894; C9113; G0121; J0171; J1644; J1940; J2060; J2250; J2270; J2543; J2704; J2785; J2919; J3010; J3370; J3490; J7030; J7050; J7613; J7626; P9016; P9045; Q0163; Q9967

== ENCOUNTER 2023-12-22 12:01 | Inpatient (IN) | payer MEDICARE, MEDICAID, SELFPAY ==
[2023-12-22] VITALS (17 sets, daily range): BP systolic 114–157; BP diastolic 63–99; PULSE 109–127; RESP 16–39; TEMP 36.4–37.1; O2SAT 90–100; BMI 20.8
--- NOTE | 2023-12-22 12:05 | XR_ITS ---
WS: [id number] Portable AP upright chest, 12/22/2023 Clinical Data: sob Comparison: Portable chest, 07/14/2023 Findings: There is a small left pleural effusion and a smaller right pleural effusion. The pulmonary vascularity is probably increased. The heart is enlarged. The aortic arch shows tortuosity. No pneumo thorax is seen. There are no nodules or masses. XR/XR chest 1V portable [id number] Impression: 1. Cardiomegaly with probable pulmonary vascular congestion and small bilateral effusions. 2. Atherosclerosis.
--- NOTE | 2023-12-22 12:05 | ECG_ITS ---
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
[2023-12-22] MEDS: ipratropium-albuterol 3 mL Neb INHALATION (12:13)
[2023-12-22 12:26] LABS: ABG PCO2 24.6 mmHg (35-45); ABG PH Result 7.48 (7.35-7.45); Arterial Blood Gas Hematocrit 16.9 % (42-52); Base Excess ABG -4.9 mmol/L (-2.0-2.0); Blood Gas Allen Test Pos; Blood Gas Operator Identificat CAK; Blood Gas Sample Site Brachial, right; Blood Gas Sample Type Arterial; Carboxyhemoglobin 3.3 %THgb (0.4-20.1); HCO3 ABG 18.3 mmol/L (22-26); HGB O2 Sat 77.3 % (95-100); Methemoglobin 0.4 % (0.4-1.5); Oxygen Device ROOM AIR; PO2 ABG 47.6 mmHg (80.0-100.0); PO2 FiO2 Ratio Arterial Blood 226; Total Hemoglobin 5.5 g/dL (14-18)
--- NOTE | 2023-12-22 12:35 | W.ED.SOB ---
HPI - SOB/Dyspnea General: Chief Complaint: Shortness of Breath/Dyspnea Stated Complaint: sob Time Seen by Provider: 12/22/23 12:02 Source: patient and EMS Mode of arrival: EMS Limitations: no limitations History of Present Illness: HPI Narrative: 68-year-old male has a history of COPD along with CHF states he is having increased shortness of breath that began this morning EMS states they arrived he was in distress his pulse ox was in the 50s they placed him on BiPAP did take his BiPAP off here his breathing has improved but still does have some dyspnea he states he has been just feeling real short of breath and weak denies any chest pain denies any fever Related Data Home Medications Medication Instructions Recorded Confirmed aspirin 81 mg tablet,delayed 81 mg PO DAILY 12/22/23 12/22/23 release Allergies Allergy/AdvReac Type Severity Reaction Status Date / Time No Known Allergies Allergy Unverified 07/14/23 23:51 [facility] ED PFSH: Medical History (Updated 12/22/23 @ 14:30 by Katie Max MD) Coronary artery disease History of COPD Social History Smoking and tobacco/nicotine status: current every day tobacco/nicotine user Physical Exam Const: GENERAL APPEARANCE: in distress and ill appearing HENMT: COMMON NORMALS: normocephalic and atraumatic HEAD & SCALP: normocephalic and atraumatic Eye: COMMON NORMALS: Equal, round and reactive pupils present and EOMs intact bilaterally PUPIL: Yes Equal, round and reactive pupils present Neck/C-Spine: COMMON NORMALS: full ROM and supple Chest: COMMONS NORMALS: normal inspection of the chest Resp: COMMON NORMALS: No retractions EFFORT & INSPECTION: Yes respiratory distress AUSCULTATION: rales and wheezes Cardio: COMMON NORMALS: regular rhythm and No murmurs present (Cardio) RATE: tachycardic RHYTHM: regular rhythm GI: COMMON NORMALS: Normal to inspection, nondistended, normoactive bowel sounds present, Soft to palpation, non-tender and no masses PALPATION: Yes Soft to palpation Extremity: COMMON NORMALS: normal to inspection and full ROM Neuro: COMMON NORMALS: moves all extremities and no focal motor deficits Psych: COMMON NORMALS: mental status grossly normal, Normal thought process present and cooperative THOUGHT PROCESS: Normal thought process present Skin: COMMON NORMALS: no rashes or lesions noted and no wounds GENERAL SKIN EXAM: no rashes or lesions noted Course Vital Signs: Vital signs: Vital Signs Temperature 98.1 F 12/22/23 12:11 Pulse Rate 114 H 12/22/23 13:45 Respiratory Rate 29 H 12/22/23 13:45 Blood Pressure 114/92 12/22/23 13:45 Pulse Oximetry 96 12/22/23 13:45 Oxygen Delivery Me thod Room Air 12/22/23 12:16 MDM - SOB/Dyspnea Medical Decision Making Patient presents here with likely CHF exacerbation he is much improved respiratory is able to take him off the BiPAP with EMS he is now on room air x-ray does show fluid overload does have edema and elevated BNP is also anemic here with a history of chronic anemia will admit at this time and will transfuse he did was given Lasix here. Medical Records I reviewed the patient's medical records. Lab Data I reviewed the patient's lab results. 12/22/23 12:54 12/22/23 12:54 Labs/Radiology: Radiology Impressions Chest X-Ray 12/22/23 12:05 Impression: 1. Cardiomegaly with probable pulmonary vascular congestion and small bilateral effusions. 2. Atherosclerosis. Laboratory Results WBC 13.91 10^3/uL (3.29-11.43) H 12/22/23 12:54 RBC 3.24 10^6/uL (3.85-5.65) L 12/22/23 12:54 Hgb 5.80 g/dL (11.27-16.99) L* 12/22/23 12:54 Hct 22.5 % (37-53) L 12/22/23 12:54 MCV 69.4 fl (82-101) L 12/22/23 12:54 MCH 17.9 pg (27-33) L 12/22/23 12:54 MCHC 25.8 g/dL (30-55) L 12/22/23 12:54 RDW 21.7 % (12.1-15.1) H 12/22/23 12:54 Plt Count 420 10^3/cmm (157-399) H 12/22/23 12:54 MPV 10.3 fL (7.4-10.4) 12/22/23 12:54 Neut % (Auto) 86.1 % 12/22/23 12:54 Lymph % (Auto) 6.7 % 12/22/23 12:54 [place] % (Auto) 6.5 % 12/22/23 12:54 Eos % (Auto) 0.0 % 12/22/23 12:54 Baso % (Auto) 0.1 % 12/22/23 12:54 Neut # (Auto) 11.98 10^3/uL (1.8-7.7) H 12/22/23 12:54 Lymph # (Auto) 0.9 10^3/uL (0.8-4.8) 12/22/23 12:54 [place] # (Auto) 0.9 10^3/uL (0.2-0.9) 12/22/23 12:54 Eos # (Auto) 0.0 10^3/uL (0.0-0.8) 12/22/23 12:54 Baso # (Auto) 0.0 10^3/uL (0.0-0.1) 12/22/23 12:54 Nucleated RBC % (auto) 0.4 % 12/22/23 12:54 Nucleated RBCs # 0.1 /100WBC 12/22/23 12:54 PT 20.90 SECONDS (12.1-14.9) H 12/22/23 12:54 INR 1.73 (0.8-1.2) H 12/22/23 12:54 Specimen Type Arterial 12/22/23 12:15 Sample Site Brachial, right 12/22/23 12:15 ABG pH 7.48 (7.35-7.45) H 12/22/23 12:15 ABG pCO2 24.6 mmHg (35-45) L 12/22/23 12:15 ABG pO2 47.6 mmHg (80.0-100.0) L 12/22/23 12:15 ABG PO2/FiO2 Ratio 226 12/22/23 12:15 ABG HCO3 18.3 mmol/L (22-26) L 12/22/23 12:15 ABG Base Excess -4.9 mmol/L (-2.0-2.0) L 12/22/23 12:15 Mathew Test Pos 12/22/23 12:15 Hematocrit 16.9 % (42-52) L 12/22/23 12:15 Hgb O2 Saturation 77.3 % (95-100) L 12/22/23 12:15 Carboxyhemoglobin 3.3 %THgb (0.4-20.1) 12/22/23 12:15 Methemoglobin 0.4 % (0.4-1.5) 12/22/23 12:15 Total Hemoglobin 5.5 g/dL (14-18) L 12/22/23 12:15 O2 Delivery Device Room air 12/22/23 12:15 FiO2 21.0 % 12/22/23 12:15 Missing Persons Investigator ID Cak 12/22/23 12:15 Sodium 133 mmol/L (136-145) L 12/22/23 12:54 Potassium 4.5 mmol/L (3.5-5.1) 12/22/23 12:54 Chloride 99 mmol/L (98-107) 12/22/23 12:54 Carbon Dioxide 18 mmol/L (22-29) L 12/22/23 12:54 Anion Gap 20.5 (5-19) H 12/22/23 12:54 BUN 32 mg/dL (8-23) H 12/22/23 12:54 Creatinine 1.0 mg/dL (0.7-1.2) 12/22/23 12:54 GFR Calculation 74.3 mL/min (90-130) L 12/22/23 12:54 Glucose 106 mg/dL (65-115) 12/22/23 12:54 Calculated Osmolality 283 mOsm/kg (285-295) L 12/22/23 12:54 Calcium 9.1 mg/dL (8.5-10.5) 12/22/23 12:54 Total Bilirubin 0.8 mg/dL (0.15-1.2) 12/22/23 12:54 AST 105 U/L (0-40) H 12/22/23 12:54 ALT 116 U/L (0-41) H 12/22/23 12:54 Alkaline Phosphatase 103 U/L (40-130) 12/22/23 12:54 Ammonia 39 umol/L (16-60) 12/22/23 12:54 NT-Pro-B Natriuret Pep 73741 pg/mL (0-125) H 12/22/23 12:54 Total Protein 7.0 g/dL (6.6-8.7) 12/22/23 12:54 Albumin 3.4 g/dL (3.5-5.2) L 12/22/23 12:54 Globulin 3.6 g/dL (1.3-4.6) 12/22/23 12:54 SARS-CoV-2 Ag (Rapid) Negative (Negative) 12/22/23 12:54 Crossmatch See Detail 12/22/23 13:49 All radiology interpretation(s) finalized by discharge EKG Data EKG 1: I personally reviewed and interpreted this EKG as follows: EKG Interpretation Date: 12/22/23 EKG interpretation time: 12:28 Interpretation: sinus tach hr [address] or t wave abnormalities qrs 97 qtc 405 Discharge Plan Discharge Patient Disposition: Admitted As Inpatient Clinical Impression: Anemia, CHF (congestive heart failure) Condition: Stable Prescriptions: No Action aspirin 81 mg tablet,delayed release (DR/EC) 81 mg PO DAILY Coding Level of Care Code ED Photographic Specialist for Darryl Narvaez
--- NOTE | 2023-12-22 12:47 | PC.PHAR ---
patient states that he got several scripts prescribed back in july, he filled and used the but since then he ran out and hasn't had any of it besides the aspirin
[2023-12-22 13:02] LABS: Basophils % 0.1 %; Hematocrit 22.5 % (37-53); Lymphocytes # 0.9 10^3/uL (0.8-4.8); Lymphocytes % 6.7 %; Mean Corpuscular HGB Conc 25.8 g/dL (30-55); Mean Corpuscular Hemoglobin 17.9 pg (27-33); Mean Corpuscular Volume 69.4 fl (82-101); Mean Platelet Volume 10.3 fL (7.4-10.4); Monocytes # 0.9 10^3/uL (0.2-0.9); Monocytes % 6.5 %; Neutrophils # 11.98 10^3/uL (1.8-7.7); Neutrophils % 86.1 %; Nucleated Red Blood Cells # 0.1 /100WBC; Nucleated Red Blood Cells % 0.4 %; Platelet Count 420 10^3/cmm (157-399); Red Blood Count 3.24 10^6/uL (3.85-5.65); Red Cell Distribution Width 21.7 % (12.1-15.1); White Blood Count 13.91 10^3/uL (3.29-11.43)
[2023-12-22 13:29] LABS: Ammonia 39 umol/L (16-60)
[2023-12-22 13:35] LABS: SARS Covid-2 Antigen Negative (Negative)
[2023-12-22] MEDS: FUROsemide 10 mg/mL SDV 10mL 60 MG IVP (13:36)
[2023-12-22] MEDS: methylPREDNISolone sod succ 125 mg/2 mL INJ IV (13:37)
[2023-12-22 13:38] LABS: Alanine Aminotransferase 116 U/L (0-41); Albumin Level 3.4 g/dL (3.5-5.2); Alkaline Phosphatase 103 U/L (40-130); Anion Gap 20.5 (5-19); Aspartate Amino Transferase 105 U/L (0-40); Blood Urea Nitrogen 32 mg/dL (8-23); Calcium 9.1 mg/dL (8.5-10.5); Carbon Dioxide 18 mmol/L (22-29); Chloride 99 mmol/L (98-107); Globulin 3.6 g/dL (1.3-4.6); Glomerular Filtration Rate 74.3 mL/min (90-130); Glucose 106 mg/dL (65-115); NT Pro B Type Natriuretic Pept 13840 pg/mL (0-125); Osmolality Calculated 283 mOsm/kg (285-295); Potassium 4.5 mmol/L (3.5-5.1); Sodium 133 mmol/L (136-145); Total Bilirubin 0.8 mg/dL (0.15-1.2)
[2023-12-22 13:39] LABS: INR 1.73 (0.8-1.2)
--- NOTE | 2023-12-22 14:35 | P.HP_ITS ---
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 Previous admission patient was discharged on LifeVest advised to follow-up with cardiology team as an outpatient in 2 weeks while being on dual antiplatelet therapy with plan for PCI as an outpatient if his hemoglobin remained stable. As per the patient he only took his medication for around 1 month but after that could not continue as he did not have the refills. He has not followed up with any doctors as he did not have a ride. He used LifeVest the last month. Now he has a car which is being fixed hence he is able to communicate better so he presented to the ER. He states he was doing fine at his baseline till few weeks ago but for last few weeks he has been having difficulty in breathing getting worse at walking around. He denies any nausea, vomiting, diarrhea, headache, dizziness, chest pain, diarrhea, melena, hematuria, hemoptysis. Review of Systems 2 General: Reports: 10 or more systems reviewed and unremarkable except in HPI and below Const: Denies: fever(s), chills, body aches, change in appetite, change in weight, malaise, night sweats, diaphoresis, change in sleep pattern, daytime sleepiness or snoring Eyes: Denies: change in vision, blurry vision, photophobia, eye discomfort or eye discharge ENMT: Denies: throat pain, enlarged tonsils, hoarseness, mouth pain, oral sores, dry mouth, tinnitus, nasal congestion or post nasal drip Card: Denies: chest pain, palpitations, irregular heart rhythm, edema, swelling of feet/ankles, lightheadedness, syncope, pre-syncope, dyspnea on exertion, orthopnea, leg pain with exertion or acrocyanosis Resp: Denies: dyspnea, productive cough, non-productive cough, wheezing, stridor, pain on inspiration, change in phlegm color, hemoptysis or chest congestion GI: Denies: abdominal pain, nausea, vomiting, hematemesis, coffee ground emesis, dysphagia, heartburn, diarrhea, constipation, bloating, GI cramping, change in bowel habits, pain on defecation, hematochezia or melena : Denies: flank pain, difficulty urinating, dysuria, urinary frequency, urinary urgency, urinary hesitancy, urinary dribbling, difficulty starting urination, change in urine stream, nocturia or hematuria Musc: Denies: neck pain, back pain, extremity pain, joint pain, joint swelling, joint redness, joint stiffness or limited range of motion Neuro: Denies: headache(s), numbness in extremities, weakness in extremities, sensory changes, lack of coordination, difficulty walking, frequent falls, dizziness, vertigo, confusion, Slurred speech present, difficulty communicating thoughts or seizure-like activity Psych: Denies: anxiety, depression, mood swings, panic attacks, hopelessness or irritability Endo: Denies: polyuria, polydipsia, tired all the time, cold intolerance, excessive sweating, flushing or heat intolerance Marito/Lymph: Denies: easy bruising or easy bleeding All/Imm: Denies: tongue swelling, facial swelling or acute wheezing Medications/Allergies Home Medications Medication Instructions Recorded Confirmed Last Taken Type aspirin 81 mg tablet,delayed 81 mg PO DAILY 12/22/23 12/22/23 12/21/23 History release Allergies Allergy/AdvReac Type Severity Reaction Status Date / Time No Known Allergies Allergy Unverified 07/14/23 23:51 PFSH Acute 2 PFSH: Medical History (Updated 12/22/23 @ 16:42 by Chito Marin MD) Triple vessel disease of the heart Urinary retention Ischemic cardiomyopathy NSTEMI (non-ST elevated myocardial infarction) Urinary tract infection Anemia CHF (congestive heart failure) Coronary artery disease History of COPD Surgical History (Updated 12/22/23 @ 14:49 by Chito Marin MD) H/O colonoscopy History of esophagogastroduodenoscopy (EGD) Social History Smoking and tobacco/nicotine status: current every day tobacco/nicotine user Vitals/I&O/Wt Last Vital Signs Temp 98.1 F 12/22/23 12:11 Pulse 114 H 12/22/23 13:45 Resp 29 H 12/22/23 13:45 BP 114/92 12/22/23 13:45 Pulse Ox 96 12/22/23 13:45 O2 Del Method Room Air 12/22/23 12:16 Physical Exam 2 Narrative: General: No acute distress, AO x3, cachectic, chronically sick appearing HEENT: PERRLA, pupils bilaterally equal and reactive Chest: Bilateral bronchial breath sounds all over lung palmer with occasional rhonchi, fine crackles bilateral lower zone Cardiac: S1-S2 regular, tachycardia, pansystolic murmur present at apex rating to anterior axillary line, JVD elevated Abdomen: Soft, nontender, no organomegaly, bowel sounds present Neuro: No focal deficits, no facial deformity, AO x3, power 5/5 in all limbs Extremities: Bilateral 2+ pitting edema to the knee Data 12/22/23 12:54 12/22/23 12:54 A&P Assessment and plan (1) Anemia: Hemoglobin of 5.8 on admission. Differential consistent with severe iron deficiency anemia. Denies any melena, mopped assist. History of anemia back in July. Underwent EGD and colonoscopy which was thought to be normal. Transfused 2 PRBC. Recheck iron panel vitamin B12 folate levels. Started on Protonix 40 mg twice daily. Check stool for occult blood. If stool for occult blood is positive will consult surgery. Qualifiers: Anemia type: unspecified type Qualified Code(s): D64.9 - Anemia, unspecified (2) Acute hypoxic respiratory failure: Most likely in setting of congestive heart failure. Does give history of COPD. Oxygen supplementation keeping saturation over 90%. Ipratropium, Xopenex every 6 hour, Pulmicort twice daily. proBNP elevated. Less concern for pneumonia. Check D-dimer. Patient does have mild hypoxia and hypocapnia on ABG with tachycardia. (3) CHF (congestive heart failure): Last echocardiogram showed a EF of 25% with diffuse hypokinesia, dilated LV, mildly increased LA size, aortic valve sclerosis with mild pericardial effusion. Exacerbation of acute on chronic systolic heart failure most likely in setting of acute anemia. Fluid restriction to less than 1500 cc. IV Lasix 40 mg daily. Will give additional dose as for fluid status. Monitor electrolytes. Strict input output charting, daily weights. Monitor for urinary retention. Patient did develop urinary retention on previous admission. Qualifiers: Heart failure chronicity: acute Heart failure type: unspecified Qualified Code(s): I50.9 - Heart failure, unspecified (4) Triple vessel disease of the heart: Angiogram on 07/28 showed severe triple-vessel disease with 90% stenosis of mid LAD, 90% severe stenosis of mid circumflex with chronic total occlusion of RCA with collateral from left system. Plan was to have staged PCI as an outpatient if hemoglobin remained stable to patient seems did not follow. Check troponin cycled. Depending on the hemoglobin and cycle troponin will consult cardiology accordingly. (5) Ischemic cardiomyopathy: (6) Coronary artery disease: Denies any active chest pain. Restart aspirin 81 mg daily, statin 20 mg daily, metoprolol 25 mg twice daily. For now we will hold off on starting Plavix or GREGORY/ARB. (7) Transaminitis: Most likely in setting of congestive heart failure. Hepatitis panel negative in July. Check alcohol level, salicylate level, acetaminophen level. Monitor LFTs daily for now. (8) Noncompliance: Plan Full code Clear liquid diet Protonix twice daily will be sufficient for PUD prophylaxis SCD for DVT prophylaxis Attestations 2 Medical Necessity Statement*: Admission for more than 2 midnights for management of acute on chronic anemia, congestive heart failure in setting of ischemic cardiomyopathy Diagnoses Anemia D64.9 Anemia type: unspecified type Acute hypoxic respiratory failure J96.01 CHF (congestive heart failure) I50.9 Heart failure chronicity: acute Heart failure type: unspecified Triple vessel disease of the heart I25.10 Ischemic cardiomyopathy I25.5 Coronary artery disease I25.10 Transaminitis R74.01 Noncompliance Z91.199
--- NOTE | 2023-12-22 15:05 | ECG_ITS ---
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
[2023-12-22 15:19] LABS: Procalcitonin 0.12 ng/mL (0-0.5)
[2023-12-22 15:38] LABS: Troponin(5th) Baseline 68 ng/L (0-15)
[2023-12-22 15:52] LABS: Salicylate 1.3 mg/dL (3-10)
[2023-12-22 15:53] LABS: Acetaminophen < 5.0 ug/mL (10-30); Alcohol Level < 10 mg/dL (0-10)
[2023-12-22] MEDS: pantoprazole 40 mg SDV IVP (18:00)
--- NOTE | 2023-12-22 18:07 | ECG_ITS ---
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
--- NOTE | 2023-12-22 19:51 | PC.NURSE ---
received from ER around 3:27 pm pt is alert, oriented, looks pale, and sob at rest, notified non-pitting edema and cyanosis and cool hands,fingernails,and toenails, bilat legs has 2-3+ pitting edema. 1 unit blood transfusing started from ER on left PIV AC. VS checked,HR-ST in 120s,provided 2 L/min for comfort. Dr Marin at bedside. received verbal order to insert rader catheter. Pt consented for blood and rader cath insertion. VS signs monitored during blood transfusion. Call light provided. Pt has glasses at bedside, no teeth,not using dentures,clothes at bedside.
[2023-12-22 20:20] LABS: Bilirubin Urine Negative (Negative); Blood Urine 2+ (Negative); Glucose Urine UA Negative (Normal); Ketones Urine Negative (Negative); Leukocyte Esterase Urine Trace (Negative); Nitrate Urine Negative (Negative); Protein Urine Negative (Negative); Specific Gravity, Urine 1.012 (1.005-1.030); Urine Appearance Clear (CLEAR); Urine Color Yellow (Yellow); Urobilinogen Urine 0.2 mg/dL (Negative); pH Urine 5.5 (5-7)
[2023-12-22 20:25] LABS: Add Urine Microscopic? YES; Bacteria Urine None Seen /hpf; Hyaline Casts Urine 9.91 /lpf; RBC Urine 21-50 /hpf (0-2); Squamous Epithelial Cell Urine 0-5 /hpf (0-5)
[2023-12-22 20:30] LABS: Amphetamines Screen Urine Positive (Negative); Barbiturates Screen Urine Negative (Negative); Benzodiazepines Screen Urine Negative (Negative); Cocaine Screen Urine Negative (Negative); Opiate Screen Urine Negative (Negative); PCP Screen Urine Negative (Negative); THC Screen Urine Negative (Negative)
--- NOTE | 2023-12-22 20:54 | ECG_ITS ---
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
[2023-12-22 20:57] LABS: Add Urine Culture? Yes
[2023-12-22] MEDS: metoprolol tartrate 25 mg Tablet PO (21:08)
[2023-12-22] MEDS: FUROsemide 10 mg/mL SDV 4mL 40 MG IVP (21:08)
[2023-12-22] MEDS: atorvastatin 40 mg Tablet 20 MG PO (21:08)
[2023-12-22] MEDS: ipratropium 0.5 mg/2.5 mL Neb INHALATION (21:29)
[2023-12-22] MEDS: budesonide 0.5 mg/2 mL Neb INHALATION (21:30)
[2023-12-22] MEDS: levalbuterol 0.63 mg/3 mL Neb INHALATION (21:30)
[2023-12-22 21:31] LABS: Troponin 5 6HR 74.26 ng/L (0-15); Troponin 5 6HR Delta 6.26 ng/L (0-12)
[2023-12-22 22:22] LABS: Lactic Sepsis W/Reflex 4.9 mmol/L (0.5-2.2)
[2023-12-22 22:48] LABS: D Dimer 0.95 ug/mLFEU (0-0.59)
[2023-12-22 23:47] LABS: Reflex Lactate Order REFLEX LACTIC ORDERD
[2023-12-23] VITALS (16 sets, daily range): BP systolic 120–160; BP diastolic 77–109; PULSE 101–122; RESP 18–32; TEMP 36.3–37; O2SAT 88–99
[2023-12-23 00:41] LABS: Lactic Acid level (Lactate) 3.4 mmol/L (0.5-2.2)
[2023-12-23 02:31] LABS: Gamma Glutamyl Transferase 29 U/L (8-61); Iron 278 ug/dL (59-158); Total Iron Binding Capacity 339 mcg/dl; Unsaturated Iron Binding 61 ug/dL (112-347)
[2023-12-23] MEDS: levalbuterol 0.63 mg/3 mL Neb INHALATION ×3 (03:03→20:09)
[2023-12-23] MEDS: ipratropium 0.5 mg/2.5 mL Neb INHALATION ×4 (03:04→20:09)
[2023-12-23 03:17] LABS: Vitamin B12 > 2000 pg/mL (232-1245)
[2023-12-23 04:17] LABS: Basophils % 0.1 %; Hematocrit 29.7 % (37-53); Lymphocytes # 0.6 10^3/uL (0.8-4.8); Lymphocytes % 4.3 %; Mean Corpuscular Hemoglobin 21.5 pg (27-33); Mean Corpuscular Volume 71.9 fl (82-101); Mean Platelet Volume 10.4 fL (7.4-10.4); Monocytes # 0.6 10^3/uL (0.2-0.9); Monocytes % 4.8 %; Neutrophils # 11.55 10^3/uL (1.8-7.7); Neutrophils % 89.9 %; Nucleated Red Blood Cells # 0.3 /100WBC; Nucleated Red Blood Cells % 2.3 %; Platelet Count 411 10^3/cmm (157-399); Red Blood Count 4.13 10^6/uL (3.85-5.65); Red Cell Distribution Width 24.8 % (12.1-15.1); White Blood Count 12.84 10^3/uL (3.29-11.43)
[2023-12-23] MEDS: pantoprazole 40 mg SDV IVP ×2 (04:39→15:49)
[2023-12-23 04:47] LABS: Alanine Aminotransferase 151 U/L (0-41); Albumin Level 3.2 g/dL (3.5-5.2); Alkaline Phosphatase 105 U/L (40-130); Anion Gap 17.9 (5-19); Aspartate Amino Transferase 114 U/L (0-40); Blood Urea Nitrogen 35 mg/dL (8-23); Calcium 8.7 mg/dL (8.5-10.5); Carbon Dioxide 20 mmol/L (22-29); Chloride 99 mmol/L (98-107); Creatinine Clr Calc Pharmacy 65.7273; Globulin 3.3 g/dL (1.3-4.6); Glomerular Filtration Rate 66.6 mL/min (90-130); Glucose 141 mg/dL (65-115); Magnesium 1.9 mg/dL (1.7-2.3); Osmolality Calculated 286 mOsm/kg (285-295); Potassium 3.9 mmol/L (3.5-5.1); Sodium 133 mmol/L (136-145); Total Bilirubin 2.9 mg/dL (0.15-1.2); Total Protein 6.5 g/dL (6.6-8.7)
[2023-12-23 04:51] LABS: Folate Level 10.3 ng/mL (4.5-32.2)
[2023-12-23] MEDS: budesonide 0.5 mg/2 mL Neb INHALATION ×2 (07:52→20:09)
[2023-12-23] MEDS: aspirin 81 mg EC Tablet PO (09:01)
[2023-12-23] MEDS: metoprolol tartrate 25 mg Tablet PO ×2 (09:01→20:19)
--- NOTE | 2023-12-23 10:55 | PC.SOCIAL ---
IMM Update Pg. 2 of IMM updated and reviewed with patient, who verbalized understanding. Copy provided.
[2023-12-23] MEDS: FUROsemide 10 mg/mL SDV 4mL 40 MG IVP ×2 (11:25→20:19)
--- NOTE | 2023-12-23 12:29 | P.PN_ITS ---
Subjective 2 Subjective: No acute vents overnight. Today morning patient seen sitting up in chair. States he is feeling slightly stronger but still having difficulty in breathing. Currently on 4 L of oxygen supplementation. Hemodynamically stable. Heart rate better controlled than yesterday. Vitals/I&O/Wt Last Vital Signs Temp 97.8 F 12/23/23 12:00 Pulse 103 H 12/23/23 12:00 Resp 20 H 12/23/23 12:00 BP 120/77 12/23/23 12:00 Pulse Ox 93 12/23/23 07:47 O2 Del Method Nasal Cannula 12/23/23 07:53 O2 Flow Rate 4 12/23/23 07:53 12/22/23 12/23/23 12/23/23 22:59 06:59 14:59 Intake Total 722 / 722 420 / 1142 240 / 240 Output Total 3300 / 3300 1700 / 5000 250 / 250 Balance -2578 / -2578 -1280 / -3858 -10 / -10 Weight last 48 hrs Weight 65.317 kg Weight 65.1 kg Weight 67.8 kg Physical Exam 2 Narrative: General: No acute distress, AO x3, cachectic, chronically sick appearing HEENT: PERRLA, pupils bilaterally equal and reactive Chest: Bilateral bronchial breath sounds all over lung palmer with occasional rhonchi, fine crackles bilateral lower zone Cardiac: S1-S2 regular, tachycardia, pansystolic murmur present at apex rating to anterior axillary line, JVD elevated Abdomen: Soft, nontender, no organomegaly, bowel sounds present Neuro: No focal deficits, no facial deformity, AO x3, power 5/5 in all limbs Extremities: Bilateral 2+ pitting edema to the knee Urinary Catheter Management: Vital: Cath Placed During This Visit: yes Reason for Continuing Indwelling Catheter: Accurate Measurement of Urinary Output in Critically Ill Patients Urinary Catheter Date of Insertion: 12/22/23 Urinary Catheter Time of Insertion: 16:00 Data 12/23/23 03:34 12/23/23 03:34 A&P Assessment and plan (1) Anemia: Hemoglobin of 5.8 on admission. Differential consistent with severe iron deficiency anemia. Denies any melena, mopped assist. History of anemia back in July. Underwent EGD and colonoscopy which was thought to be normal. Post 2 unit of blood transfusion. Appreciate iron panel. Continue Protonix 40 mg twice daily, Carafate ACHS. Check stool for occult blood. Monitor hemoglobin daily for now. If stool for occult blood is positive will consult surgery. Qualifiers: Anemia type: unspecified type Qualified Code(s): D64.9 - Anemia, unspecified (2) Acute hypoxic respiratory failure: Most likely in setting of congestive heart failure. Does give history of COPD. Oxygen supplementation keeping saturation over 90%. Ipratropium, Xopenex every 6 hour, Pulmicort twice daily. proBNP elevated. Less concern for pneumonia. D-dimer mildly elevated. Low concerns for PE for now. Patient does have mild hypoxia and hypocapnia on ABG with tachycardia. (3) CHF (congestive heart failure): Last echocardiogram showed a EF of 25% with diffuse hypokinesia, dilated LV, mildly increased LA size, aortic valve sclerosis with mild pericardial effusion. Exacerbation of acute on chronic systolic heart failure most likely in setting of acute anemia. Fluid restriction to less than 1500 cc. Patient around 3 L negative. Renal function stable. Start on IV Lasix every 8 hourly. Monitor electrolytes in afternoon for hypokalemia given aggressive diuresis.. Strict input output charting, daily weights. Monitor for urinary retention. Patient did develop urinary retention on previous admission. Qualifiers: Heart failure chronicity: acute Heart failure type: unspecified Qualified Code(s): I50.9 - Heart failure, unspecified (4) Triple vessel disease of the heart: Angiogram on 07/28 showed severe triple-vessel disease with 90% stenosis of mid LAD, 90% severe stenosis of mid circumflex with chronic total occlusion of RCA with collateral from left system. Plan was to have staged PCI as an outpatient if hemoglobin remained stable to patient seems did not follow. Appreciate troponin cycled. 2-hour troponins were never checked. Will recheck troponin level today morning. 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 Patient remains chest pain-free. For now we will hold off on cardiology follow-up. Discussed in detail with the patient. Agree discussed if his hemoglobin remained stable while being on dual antiplatelet therapy for next 2 weeks and if he is able to follow-up with his PCP and cardiology team as an outpatient can plan for possible cardiac angiogram and PCI. He is agreeable. (5) Ischemic cardiomyopathy: (6) Coronary artery disease: Denies any active chest pain. Restart aspirin 81 mg daily, statin 20 mg daily, metoprolol 25 mg twice daily. Will monitor hemoglobin. If remains stable will add Plavix. For now patient is aggressive diuresis. His renal function remained stable while being on aggressive diuresis will start on GREGORY/ARB. (7) Transaminitis: Most likely in setting of congestive heart failure. Hepatitis panel negative in July. Check alcohol level, salicylate level, acetaminophen level. Monitor LFTs daily for now. (8) Noncompliance: Plan Full code Clear liquid diet Protonix twice daily will be sufficient for PUD prophylaxis SCD for DVT prophylaxis Attestations 2 Medical Necessity Statement*: Requires further hospitalization for management of congestive heart failure in setting of ischemic cardiomyopathy EF 25%, anemia requiring blood transfusion Diagnoses Anemia D64.9 Anemia type: unspecified type Acute hypoxic respiratory failure J96.01 CHF (congestive heart failure) I50.9 Heart failure chronicity: acute Heart failure type: unspecified Triple vessel disease of the heart I25.10 Ischemic cardiomyopathy I25.5 Coronary artery disease I25.10 Transaminitis R74.01 Noncompliance Z91.199
[2023-12-23 16:01] LABS: Anion Gap 20.1 (5-19); Blood Urea Nitrogen 35 mg/dL (8-23); Carbon Dioxide 18 mmol/L (22-29); Chloride 99 mmol/L (98-107); Creatinine Clr Calc Pharmacy 79.2298; Glomerular Filtration Rate 83.9 mL/min (90-130); Glucose 128 mg/dL (65-115); Osmolality Calculated 286 mOsm/kg (285-295); Potassium 4.1 mmol/L (3.5-5.1); Sodium 133 mmol/L (136-145)
[2023-12-23] MEDS: atorvastatin 40 mg Tablet 20 MG PO (20:19)
--- NOTE | 2023-12-23 21:46 | XRR_ITS ---
PROCEDURE INFORMATION: Exam: XR Chest Exam date and time: 12/23/2023 9:56 PM Age: 68 years old Clinical indication: Shortness of breath; Patient HX: Respiratory distress; Hypoxia TECHNIQUE: Imaging protocol: Radiologic exam of the chest. Views: 1 view. COMPARISON: CR XR chest 1V portable [id number] 12/22/2023 12:35 PM FINDINGS: Lungs: Extensive diffuse interstitial opacities, worsened compared to prior study suggesting worsening pulmonary edema. Pleural spaces: Probable trace effusions, stable no pneumothorax. Heart/Mediastinum: Mild cardiomegaly. Apparent widening of the upper mediastinum, likely related to patient rotation. Bones/joints: No acute osseous abnormalities are seen. XR/XR chest 1V portable [id number] IMPRESSION: Extensive diffuse interstitial opacities, worsened compared to prior study suggesting worsening pulmonary edema.
--- NOTE | 2023-12-23 22:42 | PC.NURSE ---
Patient has been short of breath and requiring more oxygen. Dr. Marin notified, patient on 10L oxymask, o2 has been 80s to low 90s and resp. rate 30s to 40. Orders recieved for heated high flow, chest xray and ABG. RT at bedside.
[2023-12-24] VITALS (21 sets, daily range): BP systolic 119–141; BP diastolic 66–99; PULSE 91–127; RESP 19–35; TEMP 36.7–37.6; O2SAT 89–96; BMI 19.2
[2023-12-24] LABS: ABG PCO2 28.5 mmHg (35-45); ABG PH Result 7.54 (7.35-7.45); Base Excess ABG 1.9 mmol/L (-2.0-2.0); Blood Gas Allen Test Pos; Blood Gas Operator Identificat SAM; Blood Gas Sample Site Radial, right; Blood Gas Sample Type Arterial; Carboxyhemoglobin 2.4 %THgb (0.4-20.1); HCO3 ABG 24.1 mmol/L (22-26); Ionized Calcium Level - ABG 1.2 mmol/L (1.1-1.4); Oxygen Device NC; Oxygen Saturation ABG 95.1; PO2 ABG 63.4 mmHg (80.0-100.0); PO2 FiO2 Ratio Arterial Blood 79; Potassium Level - ABG 3.5 mmol/L (3.5-5.0); Total Hemoglobin 9.8 g/dL (14-18)
[2023-12-24] MEDS: ipratropium 0.5 mg/2.5 mL Neb INHALATION ×4 (02:12→20:23)
[2023-12-24] MEDS: levalbuterol 0.63 mg/3 mL Neb INHALATION ×4 (02:12→20:23)
[2023-12-24] MEDS: FUROsemide 10 mg/mL SDV 4mL 40 MG IVP ×2 (03:52→10:01)
[2023-12-24] MEDS: pantoprazole 40 mg SDV IVP ×2 (03:52→17:00)
[2023-12-24 04:35] LABS: Basophils % 0.1 %; Lymphocytes % 3.5 %; Mean Corpuscular Hemoglobin 21.4 pg (27-33); Mean Corpuscular Volume 71.3 fl (82-101); Mean Platelet Volume 9.8 fL (7.4-10.4); Monocytes # 1.7 10^3/uL (0.2-0.9); Monocytes % 5.7 %; Neutrophils # 26.36 10^3/uL (1.8-7.7); Neutrophils % 89.3 %; Nucleated Red Blood Cells # 0.2 /100WBC; Nucleated Red Blood Cells % 0.6 %; Platelet Count 457 10^3/cmm (157-399); Red Blood Count 4.49 10^6/uL (3.85-5.65); Red Cell Distribution Width 24.9 % (12.1-15.1)
[2023-12-24 04:57] LABS: Magnesium 1.7 mg/dL (1.7-2.3)
[2023-12-24 05:02] LABS: Alanine Aminotransferase 138 U/L (0-41); Albumin Level 3.3 g/dL (3.5-5.2); Alkaline Phosphatase 112 U/L (40-130); Anion Gap 17.8 (5-19); Aspartate Amino Transferase 74 U/L (0-40); Blood Urea Nitrogen 36 mg/dL (8-23); Carbon Dioxide 23 mmol/L (22-29); Chloride 99 mmol/L (98-107); Creatinine Clr Calc Pharmacy 64.3091; Glomerular Filtration Rate 66.6 mL/min (90-130); Glucose 111 mg/dL (65-115); Osmolality Calculated 291 mOsm/kg (285-295); Potassium 3.8 mmol/L (3.5-5.1); Sodium 136 mmol/L (136-145); Total Bilirubin 1.8 mg/dL (0.15-1.2); Total Protein 6.3 g/dL (6.6-8.7)
[2023-12-24] MEDS: budesonide 0.5 mg/2 mL Neb INHALATION ×2 (07:50→20:24)
[2023-12-24] MEDS: aspirin 81 mg EC Tablet PO (09:29)
[2023-12-24] MEDS: metoprolol tartrate 25 mg Tablet PO ×2 (09:29→21:03)
--- NOTE | 2023-12-24 09:30 | CTR_ITS ---
PROCEDURE INFORMATION: Exam: CT Chest Without Contrast; Diagnostic Exam date and time: 12/24/2023 12:06 PM Age: 68 years old Clinical indication: Dyspnea and shortness of breath; Additional info: Resp failure TECHNIQUE: Imaging protocol: Diagnostic computed tomography of the chest without contrast. Radiation optimization: All CT scans at this facility use at least one of these dose optimization techniques: automated exposure control; mA and/or kV adjustment per patient size (includes targeted exams where dose is matched to clinical indication); or iterative reconstruction. COMPARISON: CT ang [facility] [id number] 07/15/2023 2:52 AM RADIATION DOSE METRICS: Total DLP (mGy-cm): 330.72 FINDINGS: Lungs: There is severe diffuse bilateral pulmonary ground-glass and fine reticular opacity which is symmetric, demonstrates a lower lung predominance, and spares the lung periphery. There is mild patchy consolidation in right upper lobe. Trachea and bronchi are normal. Pleural spaces: There are moderate simple dependent bilateral pleural effusions. Heart: There is moderate cardiac enlargement. No pericardial effusion. Coronary arteries: There is severe coronary artery calcification. Lymph nodes: There are multiple prominent mediastinal and hilar lymph nodes which are similar to 07/15/2023 and may be related to CHF. Vasculature: There is mild aortic atherosclerotic disease. Adrenal glands: There is hypertrophy of the left adrenal gland. Kidneys: There is a nonobstructive 2 mm stone in the upper pole of the right kidney. Bones/joints: Bones are unremarkable. Soft tissues: The extrathoracic soft tissues are unremarkable. CT/CT chest wo con [id number] IMPRESSION: 1. Severe diffuse bilateral lung disease. Differential diagnosis includes cardiogenic pulmonary edema, acute lung injury, hypersensitivity pneumonitis and viral infection. 2. Moderate simple dependent bilateral pleural effusions. 3. Moderate cardiac enlargement. 4. Incidental findings above.
[2023-12-24 10:01] LABS: NT Pro B Type Natriuretic Pept 27089 pg/mL (0-125)
[2023-12-24] MEDS: piperacillin-tazobactam 3.375 GM in sodium chloride 0.9% (plus) 50 ML IV ×2 (10:01→16:59)
[2023-12-24 11:17] LABS: Lactic Sepsis W/Reflex 3.5 mmol/L (0.5-2.2)
[2023-12-24 11:24] LABS: MRSA PCR OZH (swab) MRSA Detected (Negative)
--- NOTE | 2023-12-24 11:37 | PHA.VACGOAL ---
Vancomycin Goal - Goal Vancomycin Goal:: 15-20 mg/L Vancomycin Indication:: Pneumonia - Therapy Day of therpy:: Day []of [] . Actual body weight (kg): 138 lb - Data Labs: WBC 29.50 10^3/uL (3.29-11.43) H 12/24/23 04:10 RBC 4.49 10^6/uL (3.85-5.65) 12/24/23 04:10 Hgb 9.60 g/dL (11.27-16.99) L 12/24/23 04:10 Hct 32.0 % (37-53) L 12/24/23 04:10 MCV 71.3 fl (82-101) L 12/24/23 04:10 MCH 21.4 pg (27-33) L 12/24/23 04:10 MCHC 30.0 g/dL (30-55) 12/24/23 04:10 RDW 24.9 % (12.1-15.1) H 12/24/23 04:10 Sodium 136 mmol/L (136-145) 12/24/23 04:10 Potassium 3.8 mmol/L (3.5-5.1) 12/24/23 04:10 Chloride 99 mmol/L (98-107) 12/24/23 04:10 Carbon Dioxide 23 mmol/L (22-29) 12/24/23 04:10 Anion Gap 17.8 (5-19) 12/24/23 04:10 BUN 36 mg/dL (8-23) H 12/24/23 04:10 Creatinine 1.1 mg/dL (0.7-1.2) 12/24/23 04:10 GFR Calculation 66.6 mL/min (90-130) L 12/24/23 04:10 Treatment plan:: new consult Regimen:: 2000 MG LOADING DOSE 750 MG Q12H MAINTENANCE
[2023-12-24 11:55] LABS: Glucose Point of Care 192 mg/dL (70-110)
[2023-12-24 11:55] LABS: Glucose Point of Care 518 mg/dL (70-110)
[2023-12-24 12:41] LABS: Reflex Lactate Order REFLEX LACTIC ORDERD
--- NOTE | 2023-12-24 13:00 | P.PN_ITS ---
Subjective 2 Subjective: Yesterday evening patient had worsening of respiratory failure requiring heated high flow. Patient states prior to the event he did have episode of choking on which he choked and aspirated on his phlegm. He denies any nausea vomiting currently. States he is feeling better. He is currently on 40 L 80% FiO2 saturating more than 95%. Seems to be having increased work of breathing. Tmax of 99.7 Fahrenheit over last 24 hours. Vitals/I&O/Wt Last Vital Signs Temp 98.7 F 12/24/23 11:26 Pulse 110 H 12/24/23 11:27 Resp 19 H 12/24/23 11:27 BP 123/80 12/24/23 11:26 Pulse Ox 92 12/24/23 11:27 O2 Del Method Heated High Flow 12/24/23 11:26 O2 Flow Rate 40 12/24/23 11:27 FiO2 65 12/24/23 11:27 12/23/23 12/24/23 12/24/23 22:59 06:59 14:59 Intake Total 342 / 342 Output Total 1950 / 3100 500 / 3600 1999 / 1999 Balance -1950 / -2860 -500 / -3360 -1658 / -1658 Weight last 48 hrs Weight 62.596 kg Weight 63.9 kg Weight 65.317 kg Weight 65.1 kg Weight 67.8 kg Physical Exam 2 Narrative: General: No acute distress, AO x3, cachectic, chronically sick appearing HEENT: PERRLA, pupils bilaterally equal and reactive Chest: Bilateral bronchial breath sounds all over lung palmer with occasional rhonchi, coarse crackles present bilaterally right more than left. Cardiac: S1-S2 regular, tachycardia, pansystolic murmur present at apex rating to anterior axillary line, JVD elevated Abdomen: Soft, nontender, no organomegaly, bowel sounds present Neuro: No focal deficits, no facial deformity, AO x3, power 5/5 in all limbs Extremities: Bilateral 2+ pitting edema to the knee Urinary Catheter Management: Vital: Cath Placed During This Visit: yes Reason for Continuing Indwelling Catheter: Acute Urinary Retention or Obstruction Urinary Catheter Date of Insertion: 12/22/23 Urinary Catheter Time of Insertion: 16:00 Data 12/24/23 04:10 12/24/23 04:10 Micro: Microbiology 12/24/23 10:30 Legionella Urinary Antigen - Final Unknown Source 12/24/23 10:30 Bacterial Antigens - Final Urine Kidney 12/22/23 19:50 Urine Culture - Final Urine,Clean Catch A&P Assessment and plan (1) Anemia: Hemoglobin of 5.8 on admission. Differential consistent with severe iron deficiency anemia. Denies any melena, mopped assist. History of anemia back in July. Underwent EGD and colonoscopy which was thought to be normal. Hemoglobin so far stable. Continue to monitor daily. Post 2 unit of blood transfusion. Appreciate iron panel. Continue Protonix 40 mg twice daily, Carafate ACHS. Check stool for occult blood. If stool for occult blood is positive will consult surgery. Qualifiers: Anemia type: unspecified type Qualified Code(s): D64.9 - Anemia, unspecified (2) Acute hypoxic respiratory failure: Most likely in setting of congestive heart failure. Does give history of COPD. Worsening overnight. High likelihood of in setting of aspiration pneumonia. Appreciate chest x-ray. Will check CT chest for further evaluation. Continue with heated high flow for now. Wean oxygen supplementation keeping saturation over 90%. Ipratropium, Xopenex every 6 hour, Pulmicort twice daily. (3) Aspiration pneumonitis: Respiratory failure preceded by an episode of aspiration. Speech therapy evaluation. Aspiration precaution. CT chest, MRSA swab positive, check sputum culture. Patient has worsening leukocytosis. Check procalcitonin. Empirically start patient on IV Zosyn and IV vancomycin. Monitor trough levels. Dose as per creatinine clearance. (4) CHF (congestive heart failure): Last echocardiogram showed a EF of 25% with diffuse hypokinesia, dilated LV, mildly increased LA size, aortic valve sclerosis with mild pericardial effusion. Exacerbation of acute on chronic systolic heart failure most likely in setting of acute anemia. Overall around 8 L negative. Fluid restriction to less than 1500 cc. Renal function stable. Monitor BMP every 12 hourly. Change Lasix to 40 mg IV twice daily. Monitor electrolytes in afternoon for hypokalemia given aggressive diuresis. Strict input output charting, daily weights. Monitor for urinary retention. Patient did develop urinary retention on previous admission. Qualifiers: Heart failure chronicity: acute Heart failure type: unspecified Qualified Code(s): I50.9 - Heart failure, unspecified (5) Triple vessel disease of the heart: Angiogram on 07/28 showed severe triple-vessel disease with 90% stenosis of mid LAD, 90% severe stenosis of mid circumflex with chronic total occlusion of RCA with collateral from left system. Plan was to have staged PCI as an outpatient if hemoglobin remained stable to patient seems did not follow. Appreciate troponin cycled. 2-hour troponins were never checked. Will recheck troponin level today morning. Slightly elevated most likely in setting of type II MO. Patient remains chest pain-free. For now we will hold off on cardiology follow-up. Discussed in detail with the patient. Agree discussed if his hemoglobin remained stable while being on dual antiplatelet therapy for next 2 weeks and if he is able to follow-up with his PCP and cardiology team as an outpatient can plan for possible cardiac angiogram and PCI. He is agreeable. (6) Ischemic cardiomyopathy: Patient has stable renal functions. Does have signs of hypoperfusion in his lower limbs. Lactate persistently elevated. In setting of severe LV dysfunction concerns for mild cardiogenic shock. Will start patient on IV dobutamine. Monitor lactate daily. (7) Coronary artery disease: Denies any active chest pain. Restart aspirin 81 mg daily, statin 20 mg daily, metoprolol 25 mg twice daily. Will monitor hemoglobin. If remains stable will add Plavix. For now patient is aggressive diuresis. His renal function remained stable while being on aggressive diuresis will start on GREGORY/ARB. (8) Transaminitis: Most likely in setting of congestive heart failure. Continues to improve. Hepatitis panel negative in July. Check alcohol level, salicylate level, acetaminophen level. Monitor LFTs daily for now. (9) Noncompliance: Plan CODE STATUS: Again discussed in detail with the patient. Discussed unfortunately in setting of severe dysfunction of the heart, respiratory failure percent with a high risk of poor outcome. Patient would want chest compressions and life support as much as possible to keep him alive. Would want his to be DPOA. Full code Advance diet as per speech evaluation. Protonix twice daily will be sufficient for PUD prophylaxis SCD for DVT prophylaxis Attestations 2 Medical Necessity Statement*: Requires further hospitalization for management of hypoxic respiratory failure in setting of aspiration pneumonitis, congestive heart failure in a patient with ischemic cardiomyopathy, concerns for early cardiogenic shock, anemia requiring blood transfusion Critical Care Time: The high probability of a clinically significant, sudden or life threatening deterioration of the patient's [cardiac, renal, pulmonary] system(s) required my full and direct attention, intervention and personal management. The critical care time is as shown. This time is in addition to time spent performing any reported procedures but includes the following: [x] Data and vital sign review and interpretation [x] Patient assessment, examination and intervention [x] Documentation [x] Medication orders and management Critical Care Time (min): 80 Coding Level of Care Code Critical Care >/= 30 minutes Critical care time (in minutes): 80 The high probability of a clinically significant, sudden or life threatening deterioration, as referenced in this documentation, required my full and direct attention, intervention and personal management. The critical care time shown is in addition to time spent performing any reported separately billable procedures and includes the following: [x] Data and vital sign review and interpretation [x ] Patient assessment, examination and intervention [x] Medication orders and management [x] Patient/Family updates as able [x] Care Coordination and Documentation. Diagnoses Anemia D64.9 Anemia type: unspecified type Acute hypoxic respiratory failure J96.01 Aspiration pneumonitis J69.0 CHF (congestive heart failure) I50.9 Heart failure chronicity: acute Heart failure type: unspecified Triple vessel disease of the heart I25.10 Ischemic cardiomyopathy I25.5 Coronary artery disease I25.10 Transaminitis R74.01 Noncompliance Z91.199
[2023-12-24] MEDS: vancomycin 2,000 MG/400 ML PIGGYBACK 200 MG IV (13:03)
[2023-12-24] MEDS: DOBUTamine drip 500 MG/250 ML PREMIX 9.39 MG IV (13:24)
--- NOTE | 2023-12-24 13:32 | PC.NURSE ---
per verbal and written order from dr murillo do be started on dobutamine drip at 5000mcg/5mg and nurse will call him at 1500.
[2023-12-24 14:18] LABS: Lactic Acid level (Lactate) 3.1 mmol/L (0.5-2.2)
--- NOTE | 2023-12-24 14:20 | PC.NURSE ---
the transfusion in the computer was not stopped so this nurse stopped it but the time documented is not the actual time the transfusion was stopped.
[2023-12-24] MEDS: methylPREDNISolone sod succ 40 mg/mL INJ IVP ×2 (14:31→23:19)
[2023-12-24 15:57] LABS: Blood Urea Nitrogen 29 mg/dL (8-23); Calcium 8.3 mg/dL (8.5-10.5); Carbon Dioxide 25 mmol/L (22-29); Chloride 98 mmol/L (98-107); Creatinine Clr Calc Pharmacy 56.9055; Glomerular Filtration Rate 66.6 mL/min (90-130); Glucose 172 mg/dL (65-115); Osmolality Calculated 290 mOsm/kg (285-295); Sodium 135 mmol/L (136-145)
[2023-12-24 16:20] LABS: Glucose Point of Care 374 mg/dL (70-110)
[2023-12-24] MEDS: potassium chloride ER 20 mEq Tablet 40 MEQ PO ×3 (17:00→18:46)
[2023-12-24] MEDS: insulin lispro 100 unit/1 mL SUBCUT (17:44)
[2023-12-24 20:50] LABS: Glucose Point of Care 110 mg/dL (70-110)
[2023-12-24] MEDS: atorvastatin 40 mg Tablet 20 MG PO (21:03)
[2023-12-24] MEDS: vancomycin 750 MG in sodium chloride 0.9% 250 ML 250 MG IV (23:21)
[2023-12-25] VITALS (18 sets, daily range): BP systolic 116–142; BP diastolic 71–82; PULSE 90–126; RESP 14–39; TEMP 36.4–37.1; O2SAT 88–97; BMI 19.1
[2023-12-25] MEDS: piperacillin-tazobactam 3.375 GM in sodium chloride 0.9% (plus) 50 ML IV ×3 (01:58→17:54)
[2023-12-25] MEDS: levalbuterol 0.63 mg/3 mL Neb INHALATION ×4 (02:16→20:56)
[2023-12-25] MEDS: ipratropium 0.5 mg/2.5 mL Neb INHALATION ×4 (02:16→20:57)
[2023-12-25 04:26] LABS: Basophils % 0.1 %; Eosinophils % 0.1 %; Hematocrit 28.9 % (37-53); Lymphocytes # 0.7 10^3/uL (0.8-4.8); Lymphocytes % 3.7 %; Mean Corpuscular HGB Conc 29.1 g/dL (30-55); Mean Corpuscular Hemoglobin 21.5 pg (27-33); Mean Corpuscular Volume 73.9 fl (82-101); Mean Platelet Volume 10.2 fL (7.4-10.4); Monocytes # 0.5 10^3/uL (0.2-0.9); Monocytes % 2.7 %; Neutrophils # 18.05 10^3/uL (1.8-7.7); Neutrophils % 92.7 %; Nucleated Red Blood Cells # 0.1 /100WBC; Nucleated Red Blood Cells % 0.3 %; Platelet Count 370 10^3/cmm (157-399); Red Blood Count 3.91 10^6/uL (3.85-5.65); Red Cell Distribution Width 25.6 % (12.1-15.1); White Blood Count 19.44 10^3/uL (3.29-11.43)
[2023-12-25 04:49] LABS: Lactate (Lactic Acid level) 3.4 mmol/L (0.5-2.2)
[2023-12-25 04:56] LABS: Alanine Aminotransferase 88 U/L (0-41); Albumin Level 2.8 g/dL (3.5-5.2); Alkaline Phosphatase 135 U/L (40-130); Anion Gap 15.1 (5-19); Aspartate Amino Transferase 38 U/L (0-40); Blood Urea Nitrogen 30 mg/dL (8-23); Calcium 8.9 mg/dL (8.5-10.5); Carbon Dioxide 25 mmol/L (22-29); Chloride 105 mmol/L (98-107); Globulin 3.3 g/dL (1.3-4.6); Glomerular Filtration Rate 74.3 mL/min (90-130); Glucose 264 mg/dL (65-115); Magnesium 1.9 mg/dL (1.7-2.3); Osmolality Calculated 307 mOsm/kg (285-295); Potassium 4.1 mmol/L (3.5-5.1); Sodium 141 mmol/L (136-145); Total Protein 6.1 g/dL (6.6-8.7)
[2023-12-25] MEDS: pantoprazole 40 mg SDV IVP ×2 (05:31→17:53)
[2023-12-25] MEDS: methylPREDNISolone sod succ 40 mg/mL INJ IVP ×2 (05:32→17:54)
[2023-12-25 06:32] LABS: Glucose Point of Care 294 mg/dL (70-110)
[2023-12-25] MEDS: budesonide 0.5 mg/2 mL Neb INHALATION ×2 (07:47→20:56)
[2023-12-25] MEDS: FUROsemide 10 mg/mL SDV 4mL 40 MG IVP ×2 (08:35→17:53)
[2023-12-25] MEDS: metoprolol tartrate 25 mg Tablet PO ×2 (08:35→21:09)
[2023-12-25] MEDS: aspirin 81 mg EC Tablet PO (08:35)
[2023-12-25] MEDS: insulin lispro 100 unit/1 mL SUBCUT ×2 (08:35→17:54)
[2023-12-25 09:58] LABS: Bilirubin Urine Negative (Negative); Blood Urine Negative (Negative); Glucose Urine UA Negative (Normal); Ketones Urine Negative (Negative); Leukocyte Esterase Urine Negative (Negative); Nitrate Urine Negative (Negative); Protein Urine Negative (Negative); Specific Gravity, Urine 1.006 (1.005-1.030); Urine Appearance Clear (CLEAR); Urine Color Yellow (Yellow); pH Urine 6.5 (5-7)
[2023-12-25 10:01] LABS: Add Urine Microscopic? YES; Bacteria Urine None Seen /hpf; RBC Urine 0-2 /hpf (0-2); Squamous Epithelial Cell Urine 0-5 /hpf (0-5); WBC Urine 0-5 /hpf (0-5)
--- NOTE | 2023-12-25 11:52 | PC.NURSE ---
pulses felt bilaterally in dorsalis pedis
--- NOTE | 2023-12-25 13:11 | P.PN_ITS ---
Subjective 2 Subjective: No acute events overnight. Today morning seen sitting up in bed. States feeling better than yesterday. Currently on 50% FiO2 saturating in low 90s. Heart rate better controlled. Denies any chest pain, nausea or vomiting. Vitals/I&O/Wt Last Vital Signs Temp 97.6 F 12/25/23 12:00 Pulse 105 H 12/25/23 12:00 Resp 28 H 12/25/23 12:00 BP 131/80 12/25/23 12:00 Pulse Ox 91 12/25/23 12:00 O2 Del Method High Flow Nasal Cannula 12/25/23 12:00 O2 Flow Rate 35 12/25/23 11:45 FiO2 48 12/25/23 11:45 12/24/23 12/25/23 12/25/23 22:59 06:59 14:59 Intake Total 890 / 1432 300 / 1732 Output Total 875 / 4375 1730 / 1730 Balance 15 / -2943 300 / -2643 -1730 / -1730 Weight last 48 hrs Weight 62.596 kg Weight 62.596 kg Weight 63.9 kg Physical Exam 2 Narrative: General: No acute distress, AO x3, cachectic, chronically sick appearing HEENT: PERRLA, pupils bilaterally equal and reactive Chest: Bilateral bronchial breath sounds all over lung palmer with occasional rhonchi, coarse crackles present bilaterally right more than left. Cardiac: S1-S2 regular, tachycardia, pansystolic murmur present at apex rating to anterior axillary line, JVD elevated Abdomen: Soft, nontender, no organomegaly, bowel sounds present Neuro: No focal deficits, no facial deformity, AO x3, power 5/5 in all limbs Extremities: Bilateral 2+ pitting edema to the knee Urinary Catheter Management: Vital: Cath Placed During This Visit: yes Reason for Continuing Indwelling Catheter: Accurate Measurement of Urinary Output in Critically Ill Patients Urinary Catheter Date of Insertion: 12/22/23 Urinary Catheter Time of Insertion: 16:00 Data 12/25/23 03:40 12/25/23 03:40 Micro: Microbiology 12/24/23 10:30 Legionella Urinary Antigen - Final Unknown Source 12/24/23 10:30 Bacterial Antigens - Final Urine Kidney 12/22/23 19:50 Urine Culture - Final Urine,Clean Catch A&P Assessment and plan (1) Anemia: Hemoglobin of 5.8 on admission. Differential consistent with severe iron deficiency anemia. Denies any melena, mopped assist. History of anemia back in July. Underwent EGD and colonoscopy which was thought to be normal. Hemoglobin so far stable. Continue to monitor daily. Post 2 unit of blood transfusion. Appreciate iron panel. Continue Protonix 40 mg twice daily, Carafate ACHS. Check stool for occult blood. If stool for occult blood is positive will consult surgery. Qualifiers: Anemia type: unspecified type Qualified Code(s): D64.9 - Anemia, unspecified (2) Acute hypoxic respiratory failure: Most likely in setting of congestive heart failure. Does give history of COPD. Worsening overnight. High likelihood of in setting of aspiration pneumonia. Appreciate chest x-ray. Will check CT chest for further evaluation. Continue with heated high flow for now. Wean oxygen supplementation keeping saturation over 90%. Ipratropium, Xopenex every 6 hour, Pulmicort twice daily. (3) Aspiration pneumonitis: Respiratory failure preceded by an episode of aspiration. Speech therapy evaluation. Aspiration precaution. CT chest, MRSA swab positive, check sputum culture. Patient has worsening leukocytosis. Check procalcitonin. Empirically start patient on IV Zosyn and IV vancomycin. Monitor trough levels. Dose as per creatinine clearance. (4) CHF (congestive heart failure): Last echocardiogram showed a EF of 25% with diffuse hypokinesia, dilated LV, mildly increased LA size, aortic valve sclerosis with mild pericardial effusion. Exacerbation of acute on chronic systolic heart failure most likely in setting of acute anemia. Overall around 8 L negative. Fluid restriction to less than 1500 cc. Renal function stable. Monitor BMP every 12 hourly. Change Lasix to 40 mg IV twice daily. Monitor electrolytes in afternoon for hypokalemia given aggressive diuresis. Strict input output charting, daily weights. Monitor for urinary retention. Patient did develop urinary retention on previous admission. Qualifiers: Heart failure chronicity: acute Heart failure type: unspecified Qualified Code(s): I50.9 - Heart failure, unspecified (5) Triple vessel disease of the heart: Angiogram on 07/28 showed severe triple-vessel disease with 90% stenosis of mid LAD, 90% severe stenosis of mid circumflex with chronic total occlusion of RCA with collateral from left system. Plan was to have staged PCI as an outpatient if hemoglobin remained stable to patient seems did not follow. Appreciate troponin cycled. 2-hour troponins were never checked. Will recheck troponin level today morning. 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 Patient remains chest pain-free. For now we will hold off on cardiology follow-up. Discussed in detail with the patient. Agree discussed if his hemoglobin remained stable while being on dual antiplatelet therapy for next 2 weeks and if he is able to follow-up with his PCP and cardiology team as an outpatient can plan for possible cardiac angiogram and PCI. He is agreeable. (6) Ischemic cardiomyopathy: Patient has stable renal functions. Does have signs of hypoperfusion in his lower limbs. Lactate persistently elevated. In setting of severe LV dysfunction concerns for mild cardiogenic shock. Will start patient on IV dobutamine. Monitor lactate daily. (7) Coronary artery disease: Denies any active chest pain. Restart aspirin 81 mg daily, statin 20 mg daily, metoprolol 25 mg twice daily. Will monitor hemoglobin. If remains stable will add Plavix. For now patient is aggressive diuresis. His renal function remained stable while being on aggressive diuresis will start on GREGORY/ARB. (8) Transaminitis: Most likely in setting of congestive heart failure. Continues to improve. Hepatitis panel negative in July. Check alcohol level, salicylate level, acetaminophen level. Monitor LFTs daily for now. (9) Noncompliance: Plan CODE STATUS: Again discussed in detail with the patient. Discussed unfortunately in setting of severe dysfunction of the heart, respiratory failure percent with a high risk of poor outcome. Patient would want chest compressions and life support as much as possible to keep him alive. Would want his to be DPOA. Full code Advance diet as per speech evaluation. Protonix twice daily will be sufficient for PUD prophylaxis SCD for DVT prophylaxis Plan for the day: Hemoglobin has remained stable. Continues to require high oxygen supplementation. Wean oxygen supplementation down keeping saturation over 90%. Currently on heated high flow. Continue with aggressive pulmonary toilet. Continue with chest vest at least once daily. Follow-up sputum culture and blood culture. Continue empirically with IV vancomycin and Zosyn. MRSA swab positive. Wean Solu-Medrol to 40 mg every 12 hourly. Patient overall 10 L negative. Continue with IV Lasix but changed to twice daily. Monitor renal functions. Repeat BMP in evening to monitor for potassium level. Discoloration of the toes improving, lactate still elevated. LFTs improving. Continue with dobutamine drip for now. Attestations 2 Medical Necessity Statement*: Requires further hospitalization for management of cardiogenic shock requiring dobutamine drip, ischemic cardiomyopathy with congestive heart failure in a patient admitted with acute anemia requiring blood transfusion, aspiration pneumonitis leading to a respiratory failure Diagnoses Anemia D64.9 Anemia type: unspecified type Acute hypoxic respiratory failure J96.01 Aspiration pneumonitis J69.0 CHF (congestive heart failure) I50.9 Heart failure chronicity: acute Heart failure type: unspecified Triple vessel disease of the heart I25.10 Ischemic cardiomyopathy I25.5 Coronary artery disease I25.10 Transaminitis R74.01 Noncompliance Z91.199
[2023-12-25 13:26] LABS: Glucose Point of Care 97 mg/dL (70-110)
[2023-12-25] MEDS: vancomycin 750 MG in sodium chloride 0.9% 250 ML 250 MG IV ×2 (14:03→23:48)
[2023-12-25 15:35] LABS: Anion Gap 14.7 (5-19); Blood Urea Nitrogen 32 mg/dL (8-23); Carbon Dioxide 25 mmol/L (22-29); Chloride 105 mmol/L (98-107); Glomerular Filtration Rate 74.3 mL/min (90-130); Glucose 182 mg/dL (65-115); Osmolality Calculated 304 mOsm/kg (285-295); Potassium 3.7 mmol/L (3.5-5.1); Sodium 141 mmol/L (136-145)
[2023-12-25 17:41] LABS: Glucose Point of Care 214 mg/dL (70-110)
[2023-12-25] MEDS: atorvastatin 40 mg Tablet 20 MG PO (21:09)
[2023-12-25] MEDS: DOBUTamine drip 500 MG/250 ML PREMIX 9.39 MG IV (21:09)
[2023-12-25 22:04] LABS: Glucose Point of Care 123 mg/dL (70-110)
[2023-12-26] VITALS (126 sets, daily range): BP systolic 115–168; BP diastolic 70–138; PULSE 65–114; RESP 9–47; TEMP 36.1–36.6; O2SAT 50–100
[2023-12-26] MEDS: piperacillin-tazobactam 3.375 GM in sodium chloride 0.9% (plus) 50 ML IV ×2 (01:34→10:49)
[2023-12-26] MEDS: ipratropium 0.5 mg/2.5 mL Neb INHALATION ×4 (02:40→20:19)
[2023-12-26] MEDS: levalbuterol 0.63 mg/3 mL Neb INHALATION ×3 (02:40→20:19)
[2023-12-26 04:58] LABS: Basophils % 0.1 %; Hematocrit 27.7 % (37-53); Lymphocytes # 0.7 10^3/uL (0.8-4.8); Lymphocytes % 3.8 %; Mean Corpuscular HGB Conc 28.5 g/dL (30-55); Mean Corpuscular Hemoglobin 22.1 pg (27-33); Mean Corpuscular Volume 77.6 fl (82-101); Mean Platelet Volume 9.8 fL (7.4-10.4); Monocytes # 0.8 10^3/uL (0.2-0.9); Neutrophils # 17.55 10^3/uL (1.8-7.7); Neutrophils % 91.3 %; Nucleated Red Blood Cells % 0.2 %; Platelet Count 303 10^3/cmm (157-399); Red Blood Count 3.57 10^6/uL (3.85-5.65); Red Cell Distribution Width 26.6 % (12.1-15.1); White Blood Count 19.22 10^3/uL (3.29-11.43)
[2023-12-26 05:22] LABS: Lactate (Lactic Acid level) 2.5 mmol/L (0.5-2.2)
[2023-12-26 05:24] LABS: Magnesium 1.7 mg/dL (1.7-2.3)
[2023-12-26 05:26] LABS: Alanine Aminotransferase 70 U/L (0-41); Albumin Level 2.7 g/dL (3.5-5.2); Alkaline Phosphatase 83 U/L (40-130); Anion Gap 12.2 (5-19); Aspartate Amino Transferase 32 U/L (0-40); Blood Urea Nitrogen 33 mg/dL (8-23); Calcium 8.6 mg/dL (8.5-10.5); Carbon Dioxide 27 mmol/L (22-29); Chloride 99 mmol/L (98-107); Creatinine Clr Calc Pharmacy 69.0978; Glomerular Filtration Rate 83.9 mL/min (90-130); Glucose 121 mg/dL (65-115); Osmolality Calculated 289 mOsm/kg (285-295); Potassium 3.2 mmol/L (3.5-5.1); Sodium 135 mmol/L (136-145); Total Bilirubin 0.9 mg/dL (0.15-1.2); Total Protein 5.7 g/dL (6.6-8.7)
[2023-12-26] MEDS: pantoprazole 40 mg SDV IVP ×2 (06:03→15:28)
[2023-12-26] MEDS: methylPREDNISolone sod succ 40 mg/mL INJ IVP ×2 (06:04→18:01)
[2023-12-26] MEDS: guaiFENesin 100 mg/5 mL UDC 10 mL 200 MG PO (06:12)
[2023-12-26 06:38] LABS: Glucose Point of Care 121 mg/dL (70-110)
[2023-12-26] MEDS: budesonide 0.5 mg/2 mL Neb INHALATION ×2 (07:41→20:19)
[2023-12-26] MEDS: FUROsemide 10 mg/mL SDV 4mL 40 MG IVP (07:58)
--- NOTE | 2023-12-26 08:11 | PC.NURSE ---
received report pt is restless, grunting, spo2 ranges from 83-90% on fio2-50, HHF-15L. RT at bedside and stated the reading on forehead is not accurate, however pt stated he can't breathe, coarse crackles. Pt able to sit up on edge of bed. DObutamine drip running at 5 mcg, IVP lasix 40 mg given early, pt refused breakfast. Dr notified.
--- NOTE | 2023-12-26 08:51 | PC.NURSE ---
pt is laying in his right side, resting, spo2 is 91% on HHF-15 L,. he drank his milk. dr lizama in room now.
--- NOTE | 2023-12-26 08:52 | PC.NURSE ---
hold off on dobutamine drip per dr lizama verbal order.
--- NOTE | 2023-12-26 08:59 | XRR_ITS ---
PROCEDURE INFORMATION: Exam: XR Chest Exam date and time: 12/26/2023 9:22 AM Age: 68 years old Clinical indication: Shortness of breath; Additional info: SOB TECHNIQUE: Imaging protocol: Radiologic exam of the chest. Views: 1 view. COMPARISON: CT chest con [id number] 12/24/2023 12:06 PM FINDINGS: Lungs: There are diffuse bilateral infiltrates findings are similar to that seen on prior exams. Pleural spaces: There may be small layering pleural effusions. No pneumothorax is identified. Heart/Mediastinum: Unremarkable. No cardiomegaly. Bones/joints: Unremarkable. XR/XR chest 1V portable [id number] IMPRESSION: 1. Bilateral infiltrates similar to that seen on prior exam. 2. Suspect small layering pleural effusions.
--- NOTE | 2023-12-26 09:00 | ECG_ITS ---
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 Administrator: : 1955 Requested By: Carlos Mckeon Order Number: [id number] Reading MD: WILLIAM HARP Measurements Intervals [place] Rate: 95 P: 29 MA: 128 QRS: 3 QRSD: 100 T: 63 QT: 371 QTc: 468 Interpretive Statements SINUS RHYTHM WITH OCCASIONAL SUPRAVENTRICULAR PREMATURE COMPLEXES POSSIBLE LEFT ATRIAL ENLARGEMENT [-0.1mV P-WAVE IN V1/V2] POSSIBLE LEFT VENTRICULAR HYPERTROPHY [VOLTAGE CRITERIA PLUS LAE OR QRS WIDENING] NONSPECIFIC ST & T-WAVE ABNORMALITY Compared to ECG 12/22/2023 21:26:01 Sinus tachycardia no longer present T-wave abnormality still present Electronically Signed On 12-27-2023 21:01:34 CDT by WILLIAM HARP [id number]
--- NOTE | 2023-12-26 09:00 | USCV_ITS ---
Colin Carey Age: 68 Gender: M : 1955 Exam Date: 12/26/2023 19:06 Ordering Phys: Carlos Mckeon MD Technologist: ROSIE Exam Location: [facility] [place] Indication: respiratory failure, TB isoloation in ICU-3, patient is non-responsive on BIPAP, COPD, CHF, hypoxia BP: 116 / 82 HR: 74 Rhythm: Atrial fibrillation Technical Quality: Adequate MEASUREMENTS (Male / Female) Normal Values 2D ECHO LV Diastolic Diameter PLAX 4.8 cm 4.2 - 5.9 / 3.9 - 5.3 cm IVS Diastolic Thickness 1.0 cm 0.6 - 1.0 / 0.6 - 0.9 cm IVS Systolic Thickness 1.3 cm LVPW Diastolic Thickness 1.4 cm 0.6 - 1.0 / 0.6 - 0.9 cm LVPW Systolic Thickness 1.1 cm LVOT Diameter 2.3 cm LV Ejection Fraction 2D Teich 17.7 % LV Ejection Fraction MOD 4C 24.2 % LV Ejection Fraction MOD 2C 33.5 % LV Ejection Fraction 2C AL 32.6 % LA Diameter 3.6 cm Aorta at Sinotubular Diameter 2.7 cm IVC Diameter 1.9 cm M-MODE LA Ao Ratio MM 1.3 AV Cusp Separation MM 0.5 cm DOPPLER AV Peak Velocity 209.0 cm/s LVOT Peak Velocity 34.0 cm/s AV Area Cont Eq vti 0.8 cm squared AV Area Cont Eq pk 0.6 cm squared MV Peak Velocity 88.0 cm/s MV Area PHT 5.6 cm squared Mitral E to A Ratio 0.0 TV Peak Velocity 371.0 cm/s TR Peak Velocity 407.0 cm/s TR Peak Gradient 66.3 mmHg TV Peak E Velocity 30.0 cm/s Right Atrial Pressure 10.0 mmHg Pulmonary Artery Systolic Pressu 76.3 mmHg PV Peak Velocity 138.0 cm/s FINDINGS Left Ventricle Moderately increased left ventricular cavity size. Severely decreased left ventricular systolic function. Left ventricular ejection fraction is estimated at 17 %. Grade IV/IV diastolic dysfunction (irreversible restrictive filling pattern), severely elevated filling pressures. Right Ventricle Normal right ventricular size. Severe pulmonary hypertension, RVSP 76.3 mmHg. Right Atrium Moderately increased right atrial size. Left Atrium Moderately increased left atrial size. Mitral Valve Severely thickened mitral valve. Moderate mitral annular calcification. No mitral valve stenosis. Severe mitral valve regurgitation. Aortic Valve Severe aortic valve calcification. Severe aortic valve stenosis, mean gradient 8.2 mmHg, AMBER 0.8 cm squared. Trace aortic valve regurgitation. Cannot rule out pseudo aortic stenosis. Tricuspid Valve Thickened tricuspid valve. Ocrkzojx-wk-ffmdny tricuspid valve regurgitation. Pulmonic Valve Mild pulmonary valve regurgitation. Pericardium Normal pericardium without effusion. Aorta Normal ascending aorta dimension. IVC The inferior vena cava appears normal. CONCLUSIONS Moderately increased left ventricular cavity size. Severely decreased left ventricular systolic function. Left ventricular ejection fraction is estimated at 17 %. Grade IV/IV diastolic dysfunction (irreversible restrictive filling pattern), severely elevated filling pressures. Normal right ventricular size. Severe pulmonary hypertension, RVSP 76.3 mmHg. Moderate biatrial enlargement Severely thickened mitral valve. Moderate mitral annular calcification. No mitral valve stenosis. Severe mitral valve regurgitation. Severe aortic valve calcification. Severe aortic valve stenosis, mean gradient 8.2 mmHg, AMBER 0.8 cm squared. Trace aortic valve regurgitation. Cannot rule out pseudo aortic stenosis. Thickened tricuspid valve. Nprnismq-br-mqqvko tricuspid valve regurgitation. There is no pericardial effusion. Right atrial pressure is around 20 mm of mercury. Fred Hamlin MD (Electronically Signed) Final Date: 26 December 2023 20:55 S
--- NOTE | 2023-12-26 09:13 | PC.SOCIAL ---
IMM Update Pg. 2 of IMM Updated and reviewed with patient. Copy provided.
[2023-12-26 09:27] LABS: ABG PCO2 33.9 mmHg (35-45); ABG PH Result 7.56 (7.35-7.45); Arterial Blood Gas Hematocrit 26.5 % (42-52); Base Excess ABG 7.8 mmol/L (-2.0-2.0); Blood Gas Allen Test Pos; Blood Gas Operator Identificat WALCI; Blood Gas Sample Site Radial, right; Blood Gas Sample Type Arterial; HCO3 ABG 30.4 mmol/L (22-26); Oxygen Device NC; PO2 ABG 44.1 mmHg (80.0-100.0); PO2 FiO2 Ratio Arterial Blood 91
--- NOTE | 2023-12-26 09:30 | USCV_ITS ---
Carey, Colin Age: 68 Gender: M : 1955 Exam Date: 12/26/2023 19:52 Ordering Phys: Chito Marin MD Technologist: ROSIE [place]am [place] [facility] [place] Indication: order says Pad Hypoxia, TB isolation, respiratory failure, History of COPD, CHF. Patient is non-responsive in ICU-3 Risk Factors: unknown Previous Vascular Surgery: unknown RIGHT LEFT BP: 116.0 / 82.00 BP: 115.0/ 80.00 0 0 Waveform Velocity (cm/s) Velocity (cm/s) Waveform Triphasic 83.0 Iliac Prox 70.0 Triphasic Triphasic 57.0 Iliac Mid 72.0 Triphasic Triphasic 60.0 Iliac Distal 71.0 Triphasic Triphasic 69.0 OUTPATIENT CODING SPECIALIST 69.0 Triphasic Triphasic 46.0 SFA Prox 45.0 Triphasic Triphasic 95.0 SFA Mid 89.0 Triphasic Triphasic 55.0 SFA Dist 67.0 Triphasic Triphasic 37.0 POP 50.0 Triphasic Biphasic 31.0 GREEN HIDE INSPECTOR 38.0 Triphasic Biphasic 41.0 DPA 88.0 Triphasic 1.3 BELLO 1.3 FINDINGS Diffuse intimal thickening in the iliac, femoral and popliteal arteries bilaterally. Near normal arterial Doppler waveforms and velocities bilaterally Resting BELLO 1.3 bilaterally CONCLUSIONS 1. Normal resting ABIs bilaterally suggesting no significant arterial obstruction 2. Diffuse intimal thickening in the iliac , femoral and popliteal arteries bilaterally. Dr Deann Osorio MD [facility] (Electronically Signed) Final Date: 27 December 2023 09:18 S
[2023-12-26 09:39] LABS: NT Pro B Type Natriuretic Pept 21507 pg/mL (0-125); Procalcitonin 0.94 ng/mL (0-0.5)
[2023-12-26 09:50] LABS: C Reactive Protein 89.7 mg/L (0.0-4.9)
[2023-12-26] MEDS: dexmedeTOMIDine 0.9 % NaCL 400 MCG/100 ML PREMIX IV (09:58)
--- NOTE | 2023-12-26 10:03 | PC.NURSE ---
Transfer pt to ICU 3 attempted to call and son x2 via phone, unable to leave a voicemail message due to not set up or working. All belongings sent with pt such as his glasses and clothes, IS. Bedside report provided to MAGNOLIA Hood.
[2023-12-26] MEDS: lidocaine 1% 5 ML in potassium chloride premix 100 ML 26.25 ML IV (10:09)
[2023-12-26 10:17] LABS: Troponin(5th) Baseline 35 ng/L (0-15)
[2023-12-26] MEDS: aspirin 81 mg EC Tablet PO (10:49)
[2023-12-26] MEDS: metoprolol tartrate 25 mg Tablet PO (10:49)
--- NOTE | 2023-12-26 10:57 | USCV_ITS ---
Colin Carey Age: 68 Gender: M : 1955 Exam Date: 12/26/2023 13:17 Ordering Phys: Carlos Mckeon MD Technologist: R Exam Location: [facility] [place]_ Indication: Swelling HISTORY: Lower extremity swelling. PROCEDURES: Venous duplex imaging was performed in bilateral lower extremities. The following venous structures were evaluated: common femoral vein, profunda vein, proximal portion of the greater saphenous vein, superficial femoral vein, and the popliteal vein. In addition, the posterior tibial and peroneal trunk were evaluated. Serial compression, augmentation maneuvers, and spectral Doppler flow evaluation were performed. FINDINGS: Normal 2-D Doppler and augmentation and compressibility throughout the lower extremity venous structures. Additional imaging through the proximal calf veins also reveals no thrombus. Limited evaluation of the greater saphenous vein is patent with no thrombus. CONCLUSIONS No DVT bilateral lower extremities. Dr. Lorelei Champagne DO (Electronically Signed) Final Date: 26 December 2023 14:40 S
[2023-12-26] MEDS: sodium chloride 0.9% 100 mL Bag 50 ML IV (11:00)
--- NOTE | 2023-12-26 11:00 | ECG_ITS ---
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: : 1955 Requested By: Carlos Mckeon Order Number: [id number] Reading MD: WILLIAM HARP Measurements Intervals [place] Rate: 100 P: 28 KS: 126 QRS: -4 QRSD: 97 T: 57 QT: 372 QTc: 482 Interpretive Statements SINUS TACHYCARDIA POSSIBLE LEFT ATRIAL ENLARGEMENT [-0.1mV P-WAVE IN V1/V2] POSSIBLE LEFT VENTRICULAR HYPERTROPHY [VOLTAGE CRITERIA PLUS LAE OR QRS WIDENING] NONSPECIFIC T-WAVE ABNORMALITY Compared to ECG 12/26/2023 09:35:29 Sinus rhythm no longer present T-wave abnormality still present Electronically Signed On 12-27-2023 21:20:41 CDT by WILLIAM HARP [id number]
[2023-12-26 11:41] LABS: Vancomycin Trough 16.2 ug/mL (10-15)
[2023-12-26 11:50] LABS: D Dimer 2.57 ug/mLFEU (0-0.59)
[2023-12-26 11:58] LABS: Troponin 5 2HR 36.45 ng/L (0-15); Troponin 5 2HR Delta 1.45 ABS# (0-10)
--- NOTE | 2023-12-26 11:59 | XR_ITS ---
WS: [id number] Exam: XR KUB portable [id number] Date/Time of Exam: 12/26/2023 12:41 PM Reason For Exam: recurrent aspiration No bowel obstruction or free air. Large amount retained stool in the colon. Calcifications in the reg ion of the splenic artery. Also questionable calcifications superimpose the RIGHT kidney. Moderate de generative change and levoscoliosis of the lumbar spine. XR/XR KUB portable [id number] IMPRESSION: 1. No acute abdominal finding. 2. Constipation. 3. Other minor incidental findings as above.
[2023-12-26 12:06] LABS: Glucose Point of Care 129 mg/dL (70-110)
[2023-12-26] MEDS: vancomycin 750 MG in sodium chloride 0.9% 250 ML 250 MG IV (12:13)
[2023-12-26] MEDS: meropenem 500 mg SDV IVP ×2 (12:19→20:43)
--- NOTE | 2023-12-26 12:46 | CTR_ITS ---
PROCEDURE INFORMATION: Exam: CTA Chest With Contrast Exam date and time: 12/26/2023 2:40 PM Age: 68 years old Clinical indication: Condition or disease; Lung condition and disease; Respiratory failure; Additional info: Resp failure TECHNIQUE: Imaging protocol: Computed tomographic angiography of the chest with contrast. Exam focused on the arteries. 3D rendering (Not supervised by radiologist): MIP and/or 3D reconstructed images were created by the technologist. Radiation optimization: All CT scans at this facility use at least one of these dose optimization techniques: automated exposure control; mA and/or kV adjustment per patient size (includes targeted exams where dose is matched to clinical indication); or iterative reconstruction. Contrast material: OMNI 350; Contrast volume: 100 ml; Contrast route: INTRAVENOUS (IV); COMPARISON: [facility] [id number] 07/15/2023 2:52 AM RADIATION DOSE METRICS: Total DLP (mGy-cm): 286.46 FINDINGS: Pulmonary arteries: Normal. No pulmonary emboli. Aorta: Mild atherosclerotic aortic calcifications. The aorta is nonaneurysmal. Veins: Reflux of contrast into the IVC. Trachea: The central airways remain patent. Lungs: Interval worsening in severe bilateral ground-glass and consolidative opacities with areas of interlobular septal thickening. As before, there is relative subpleural sparing as well as a basal gradient. Pleural spaces: Slightly decreased size moderate bilateral pleural effusions. Heart: Similar moderate cardiac enlargement. Mitral annular calcifications. No pericardial effusion. Coronary arteries: Multivessel coronary artery calcifications. Lymph nodes: Calcified mediastinal lymph nodes. Liver: Mildly nodular contour of the liver. Adrenal glands: Stable left adrenal enlargement. Kidneys: Small nonobstructing right renal calculus measuring 2 mm as before. Bones/joints: Multilevel thoracic spondylosis. Soft tissues: Unremarkable. CT/CT angio chest PE protcl [id number] IMPRESSION: 1. No evidence of pulmonary embolism. 2. Severe diffuse ground-glass and consolidative airspace disease with interlobular septal thickening. Slight interval worsening since 12/24/2023. As before, findings could represent pulmonary edema, acute lung injury, hypersensitivity pneumonitis and/or atypical infection. 3. Slightly decreased size of moderate bilateral pleural effusions. 4. Moderate cardiomegaly. 5. Reflux of contrast in the IVC can be seen with right heart failure and/or tricuspid regurgitation. 6. Additional ancillary findings as above are similar to prior.
--- NOTE | 2023-12-26 13:39 | P.CONIM_ITS ---
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 He was recommended a workup for anemia prior to staged PCI to the LAD and circ. Previous EGD and colonoscopy back in July 2023 showed no active signs of bleeding. He came to the ER with shortness of breath that began that morning. EMS He had a pulse ox in the 50s, and they placed him on BiPAP. X-ray showed difuse bilateral infiltrates. proBNP was up to just over 21,000. Troponins increased to just above 36. Currently, patient denies any chest pain. He is still on BIPAP with shortness of breath. He is negative over 2L. Anemia continues with hemaglobin of 7.9 today. Review of Systems 2 Narrative: Consitutional: denies fever, chills, body aches, or changes in appetite, denies abnormal weight loss Eyes: Denies changes in vision Card: Denies chest pain, palpitations, irregular heart rhythm, edema, syncope, shortness of breath, orthopnea, leg pain with exertion Resp: Reports shortness of breath GI: denies abdominal pain, denies nausea or voimting, denies blood in stool : denies blood in urine, denies dysuria Musc: Denies extremity pain, denies limited range of motion or recent injury Skin: Denies rash, lesions, or wounds, denies changes to skin color Neuro: Denies nubmness in extremities, h/a, s/s of stroke Marito: Denies easy bruiding/bleeding All: Denies s/s of allergies Medications/Allergies Home Medications Medication Instructions Recorded Confirmed Last Taken Type aspirin 81 mg tablet,delayed 81 mg PO DAILY 12/22/23 12/22/23 12/21/23 History release Allergies Allergy/AdvReac Type Severity Reaction Status Date / Time No Known Allergies Allergy Unverified 07/14/23 23:51 Current Medications Generic Name Dose Route Start Last Admin Trade Name Freq PRN Reason Stop Dose Admin Aspirin 81 mg 12/23/23 09:00 12/26/23 10:49 Aspirin 81 Mg Ec Tablet PO 81 mg DAILY MICHELLE Administration Atorvastatin Calcium 20 mg 12/22/23 21:00 12/25/23 21:09 Atorvastatin 40 Mg Tablet PO 20 mg BEDTIME MICHELLE Administration Budesonide 0.5 mg 12/22/23 20:00 12/26/23 07:41 Budesonide 0.5 Mg/2 Ml Neb INHALATION 0.5 mg BID.RESPIRATORY MICHELLE Administration Guaifenesin 200 mg 12/26/23 03:42 12/26/23 06:12 Guaifenesin 100 Mg/5 Ml Udc 10 Ml PO 200 mg Q4H PRN Administration COUGH AND CONGESTION Vancomycin HCl 750 mg/ Sodium 250 mls @ 250 mls/hr 12/25/23 00:00 12/26/23 12:13 Chloride IV 250 mls/hr Q12H MICHELLE Administration Protocol Dexmedetomidine/Sodium Chloride 400 mcg in 100 mls @ 0 mls/hr 12/26/23 09:15 12/26/23 10:45 Precedex IV 0.4 mcg/kg/hr .Q0M MICHELLE 6.22 mls/hr Titration Protocol Per Protocol Insulin Human Lispro 0 unit 12/24/23 18:00 12/26/23 12:05 Insulin Lispro 100 Unit/1 Ml SUBCUT Not Given WM&BEDTIME MICHELLE Protocol Ipratropium [place]ner 0.5 mg 12/22/23 20:00 12/26/23 07:41 Ipratropium 0.5 Mg/2.5 Ml Neb INHALATION 0.5 mg Q6H.RESP MICHELLE Administration Levalbuterol HCl 0.63 mg 12/22/23 20:00 12/26/23 07:43 Levalbuterol 0.63 Mg/3 Ml Neb INHALATION Not Given Q6H.RESP MICHELLE Meropenem 500 mg 12/26/23 12:00 12/26/23 12:19 Meropenem 500 Mg Sdv IVP 500 mg Q8H MICHELLE Administration Protocol Methylprednisolone Sodium Succinate 40 mg 12/25/23 18:00 12/26/23 06:04 Methylprednisolone Sod Succ 40 Mg/Ml Inj IVP 40 mg Q12H MICHELLE Administration Metoprolol Tartrate 25 mg 12/22/23 21:00 12/26/23 10:49 Metoprolol Tartrate 25 Mg Tablet PO 25 mg BID@0900,2100 MICHELLE Administration Pantoprazole Sodium 40 mg 12/22/23 16:08 12/26/23 06:03 Pantoprazole 40 Mg Sdv IVP 40 mg Q12H MICHELLE Administration Sodium Chloride 50 ml 12/26/23 09:00 12/26/23 11:00 Sodium Chloride 0.9% 100 Ml Bag IV 12/27/23 09:01 50 ml PRN PRN Administration Blood transfusion prime and flush PFSH Acute 2 PFSH: Medical History (Updated 12/26/23 @ 17:13 by Carlos Mckeon MD) Triple vessel disease of the heart Urinary retention Ischemic cardiomyopathy NSTEMI (non-ST elevated myocardial infarction) Urinary tract infection Anemia CHF (congestive heart failure) Coronary artery disease History of COPD Surgical History (Updated 12/22/23 @ 14:49 by Chito Marin MD) H/O colonoscopy History of esophagogastroduodenoscopy (EGD) Social History Smoking and tobacco/nicotine status: current every day tobacco/nicotine user Vitals/I&O/Wt Last Vital Signs Temp 97.2 F L 12/26/23 12:20 Pulse 93 12/26/23 13:05 Resp 23 H 12/26/23 13:05 BP 121/78 12/26/23 13:05 Pulse Ox 100 12/26/23 13:05 O2 Del Method BiPAP 12/26/23 12:20 O2 Flow Rate 15 12/26/23 08:07 FiO2 40 12/26/23 12:20 12/25/23 12/26/23 12/26/23 22:59 06:59 14:59 Intake Total 1090 / 1380 350 / 1730 334.248 / 334.248 Output Total 2350 / 4080 500 / 4580 1000 / 1000 Balance -1260 / -2700 -150 / -2850 -665.752 / -665.752 Weight last 48 hrs Weight 135 lb 9.349 oz Weight 137 lb 1.6 oz Weight 137 lb 1.6 oz Weight 137 lb 2.04 oz Weight 138 lb Physical Exam 2 Narrative: Conostitutional: No apparent distress, healthy appearing, well nourished HENMT: normoceophalic Eye: PERRL Muskuloskeletal: Full ROM Lymphatic: no lymphedema noted Respiratory: Patient on BIPAP, Bilateral lower lobes diminished Cardio: No JVD, regular rate, regular rhythm, S1 S2 normal, no murmurs, peripheral pulses 2+ throughout GI: Normal to inspection, nondistended Extremities: Full ROM, normal, normal capillary refill, no cyanosis or edema Neuro: Alert and oriented x4, no focal motor deficits Psych: Affect normal, denies suicidal ideation, mental status grossly normal Skin: No rashes or lesions noted, no wounds Urinary Catheter Management: Vital: Cath Placed During This Visit: yes Reason for Continuing Indwelling Catheter: Accurate Measurement of Urinary Output in Critically Ill Patients Urinary Catheter Date of Insertion: 12/22/23 Urinary Catheter Time of Insertion: 16:00 Data 12/26/23 04:37 12/26/23 04:37 Micro: Microbiology 12/24/23 19:30 Gram Stain - Final Sputum - Expectorated Sputum Sputum Culture - Preliminary Coag positive Staphylococcus Gram Negative Rods A&P Assessment and plan (1) Triple vessel disease of the heart: Patient has known multiple vessel coronary artery disease. He needs staged PCI to the LAD and circumflex. Troponins are mildly elevated. At this time patient continues with idiopathic anemia. He appears to be in demand ischemia secondary to known CAD and pulmonary infiltrates. He denies chest pain. At this time recommendation is to continue medical stabilization and optimization. No indications for urgent cardiac cath at this time. Will continue to follow . When patient's respiratory status and anemia are stabilized, patient will need staged PCI to the LAD and Circ. Thank you, for allowing us to take care of this very pleasant 68 year old gentleman. (2) CHF (congestive heart failure): Continue with goal directed medical therapy including diuretics and beta vannessa as tolerated. Qualifiers: Heart failure chronicity: acute Heart failure type: unspecified Qualified Code(s): I50.9 - Heart failure, unspecified Plan As stated above. Consult Attestations 2 Medical Necessity Statement: Patient require continuation hospitalization for above defined care. Coding Level of Care Code Acute Code for [facility] Diagnoses Triple vessel disease of the heart I25.10 CHF (congestive heart failure) I50.9 Heart failure chronicity: acute Heart failure type: unspecified
[2023-12-26] MEDS: iohexol 350 mg/mL 500 mL Btl (per mL) IV (14:47)
--- NOTE | 2023-12-26 15:00 | ECG_ITS ---
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1955 Requested By: Carlos Mckeon Order Number: [id number] Reading MD: WILLIAM HARP Measurements Intervals [place] Rate: 85 P: 27 DE: 130 QRS: -11 QRSD: 95 T: 32 QT: 405 QTc: 484 Interpretive Statements SINUS RHYTHM WITH OCCASIONAL VENTRICULAR PREMATURE COMPLEXES WITH OCCASIONAL SUPRAVENTRICULAR PREMATURE COMPLEXES POSSIBLE LEFT ATRIAL ENLARGEMENT [-0.1mV P-WAVE IN V1/V2] POSSIBLE LEFT VENTRICULAR HYPERTROPHY [VOLTAGE CRITERIA PLUS LAE OR QRS WIDENING] NONSPECIFIC T-WAVE ABNORMALITY Compared to ECG 12/26/2023 11:02:06 Ventricular premature complex(es) now present Sinus tachycardia no longer present T-wave abnormality still present Electronically Signed On 12-27-2023 21:18:45 CDT by WILLIAM HARP [id number]
[2023-12-26] MEDS: sucralfate 1 gm/10 mL Oral Liq UDC PO (15:31)
[2023-12-26 15:46] LABS: Adenovirus Not Detected (NOT DETECT); Chlamydia Pneumoniae Not Detected (NOT DETECT); Coronavirus 229E,HKU1,NL63,OC4 Not Detected (NOT DETECT); Human Metapneumovirus Not Detected (NOT DETECT); Human Rhinovirus/Enterovirus Not Detected (NOT DETECT); Influenza A Not Detected (NOT DETECT); Influenza A H1 Not Detected (NOT DETECT); Influenza A H1-2009 Not Detected (NOT DETECT); Influenza A H3 Not Detected (NOT DETECT); Influenza B Not Detected (NOT DETECT); Mycoplasma Pneumoniae Not Detected (NOT DETECT); Parainfluenza Virus Type 1 Not Detected (NOT DETECT); Parainfluenza Virus Type 2 Not Detected (NOT DETECT); Parainfluenza Virus Type 3 Not Detected (NOT DETECT); Parainfluenza Virus Type 4 Not Detected (NOT DETECT); Respiratory Syncytial Virus A Not Detected (NOT DETECT); Respiratory Syncytial Virus B Not Detected (NOT DETECT); SARS-COV-2 Not Detected (NOT DETECT)
[2023-12-26 16:49] LABS: Troponin 5 6HR 41.12 ng/L (0-15); Troponin 5 6HR Delta 6.12 ng/L (0-12)
--- NOTE | 2023-12-26 16:53 | P.PN_ITS ---
Subjective 2 Subjective: - Patient was seen earlier this morning -Currently on 15 L, in moderate respirat ory distress, nasal flaring, intercostal retractions, suprasternal retractions tachypnea, tachycardia, complaining of shortness of breath, cough -Patient does report 1 episode of hemopt ysis this morning, none since then -Patient tells me that he did drink wate r overnight and had episodes of choking and coughing -This morning, he complains of severe sh ortness of breath, during my conversation with him on 15 L his O2 sats would drop into the mid 80s -Does have mild mottling of bilateral lo wer extremities, -Currently on dobutamine drip, he is -12 L, does have diffuse wheezing in all lung palmer -We discussed the possibility of aspirat ion pneumonia, aspiration pneumonitis due to worsening respiratory failure we will move him to the ICU, he is agreeable, will likely need BiPAP therapy he does report anxiety with the BiPAP we will have to place him on Precedex -Patient was moved to ICU, examined mult iple times currently on BiPAP, on Precedex drip he is resting more comfortably, respiratory rate is 15, mild intercostal retractions, suprasternal retractions, mild nasal flaring he feels much more comfortable he is able to converse with me on BiPAP, currently on 40% -Discussed his respiratory status given that he is -12 L continues to have respiratory failure will do CT angiogram of the chest, repeat his respiratory viral panel, respiratory cultures, cardiac echo, discussed with cardiology given his recent history of multivessel CAD -Keep patient n.p.o. given his respirato ry status, aspiration event -Also discussed as his hemoglobin 7.9 gi laila his history of multivessel CAD will transfuse him 1 unit PRBC -As he is -12 L hold off on further diur esis -Spoke to cardiology given his multivess el CAD, he is elevated troponins his worsening respiratory status, concerns for worsening CAD as the etiology behind his respiratory failure, cardiology, Dr. Hamlin will consult -Reviewed CT angiogram of the chest resu lts, has diffuse groundglass opacities -Concerning for infectious etiology, WBC 19.22, neutrophilic, with elevated CRP at 89.7, Pro-Ismael 0.94, broaden antibiotic coverage to meropenem, continue vancomycin, add on azithromycin -Sputum culture showing coagulase positi ve Staphylococcus, gram-negative rods -BNP elevated at 21,000 has received [place] ix this morning hold off on further doses of Lasix as patient appears euvolemic -Spoke to patient's , over the phone , updated 's health plan, clinical status, respiratory failure secondary to bilateral pneumonia, broaden antibiotic coverage, cardiology consulted, receiving diuresis, requiring ICU monitoring on BiPAP, Precedex, Vitals/I&O/Wt Last Vital Signs Temp 97.2 F L 12/26/23 12:20 Pulse 93 12/26/23 16:00 Resp 23 H 12/26/23 14:00 BP 121/78 12/26/23 13:05 Pulse Ox 97 12/26/23 16:00 O2 Del Method BiPAP 12/26/23 14:00 O2 Flow Rate 15 12/26/23 08:07 FiO2 30 12/26/23 16:00 12/26/23 12/26/23 12/26/23 06:59 14:59 22:59 Intake Total 350 / 1730 734.248 / 734.248 280.271 / 1014.519 Output Total 500 / 4580 1000 / 1000 Balance -150 / -2850 -265.752 / -265.752 280.271 / 14.519 Weight last 48 hrs Weight 61.5 kg Weight 62.188 kg Weight 62.188 kg Weight 62.2 kg Weight 62.596 kg Physical Exam 2 Const: COMMON NORMALS: no acute distress ORIENTATION/CONSCIOUSNESS: Yes awake, Yes oriented to person, Yes oriented to place and Yes oriented to time OTHER: Evidence of protein calorie malnutrition, bilateral temporal muscle wasting, fat pad thinning bilateral clavicles, ribs Eye: COMMON NORMALS: Equal, round and reactive pupils present PUPIL: Yes Equal, round and reactive pupils present Resp: EFFORT & INSPECTION: Yes abnormal respiratory pattern, Yes tachypneic, Yes respiratory distress, Yes retractions intercostal and Yes uses accessory muscles AUSCULTATION: crackles and wheezes Cardio: COMMON NORMALS: regular rate, regular rhythm, S1 normal heart sound present and S2 normal heart sound present RATE: regular rate RHYTHM: r egular rhythm HEART SOUNDS: S1 normal heart sound present and S2 normal heart sound present GI: COMMON NORMALS: Normal to inspection, nondistended, normoactive bowel sounds present and non-tender Extremity: COMMON NORMALS: no calf tenderness and no pedal edema OTHER: DP PT pulses palpable mild mottling bilateral extremity Neuro: SENSORIUM/ORIENTATION: Yes oriented to person, Yes oriented to place and Yes oriented to time Urinary Catheter Management: Vital: Cath Placed During This Visit: yes Reason for Continuing Indwelling Catheter: Accurate Measurement of Urinary Output in Critically Ill Patients Urinary Catheter Date of Insertion: 12/22/23 Urinary Catheter Time of Insertion: 16:00 Data 12/26/23 04:37 12/26/23 04:37 Micro: Microbiology 12/24/23 19:30 Gram Stain - Final Sputum - Expectorated Sputum Sputum Culture - Preliminary Coag positive Staphylococcus Gram Negative Rods A&P Assessment and plan (1) Acute hypoxic respiratory failure: (2) Bilateral pneumonia: (3) CHF exacerbation: (4) Acute anemia: (5) Bilateral pleural effusion: (6) Pulmonary edema: (7) Respiratory distress: (8) COPD exacerbation: (9) Aspiration pneumonitis: (10) Coronary artery disease: (11) Ischemic cardiomyopathy: (12) Physical deconditioning: (13) Protein calorie malnutrition: (14) Pulmonary hypertension: Plan Acute hypoxic respiratory failure -With mild respiratory distress -Multifactorial from bilateral pneumonia -CT angiogram the chest showing - CT/CT angio chest PE protcl [id number] IMPRESSION: 1. No evidence of pulmonary embolism. 2. Severe diffuse ground-glass and consolidative airspace disease with interlobular septal thickening. Slight interval worsening since 12/24/2023. As before, findings could represent pulmonary edema, acute lung injury, hypersensitivity pneumonitis and/or atypical infection. 3. Slightly decreased size of moderate bilateral pleural effusions. 4. Moderate cardiomegaly. 5. Reflux of contrast in the IVC can be seen with right heart failure and/or tricuspid regurgitation. 6. Additional ancillary findings as above are similar to prior. -Sputum culture showing gram-negative rods, coagulase positive staphylococci -Secondary to systolic and diastolic CHF, ischemic cardiomyopathy, echocardiogram July 2023 showed an EF of 25%, with severe diffuse hypokinesis of the left ventricle -Has been diuresed -12 L so far -Secondary to COPD -With underlying severe pulmonary hypertension ? Plan ? Monitor in the ICU closely ? Continue BiPAP therapy -Discontinue Precedex ? Has received 40 mg IV Lasix this morning hold off on further doses -Dobutamine drip discontinued as it has been over 48 hours -Broaden antibiotic coverage to vancomycin, meropenem, azithromycin -Continue Solu-Medrol -Continue DuoNeb -Continue budesonide Aspiration pneumonia, aspiration pneumonitis -Has had multiple aspiration events -Will keep n.p.o. -Speech therapy eval -Will consider dysphagia level 4 diet moderately thickened based on clinical progress Bilateral pneumonia -Given diffuse groundglass opacities as above -Hemoptysis -Has been on vancomycin, Zosyn -Will order LDH -Fungitell -AFB smears x 3 -Repeat sputum studies -QuantiFERON gold -Monitor respiratory status closely -Isolation precautions Hemoptysis -Monitor closely Acute on chronic anemia -Recent hospitalization for acute anemia, EGD and colonoscopy no acute findings -hAs received 1 unit PRBC during his hospitalization thus so far -Given hemoglobin 7.9, NSTEMI, CAD, respiratory failure as above, will give 1 unit PRBC NSTEMI -Recent in our echocardiogram CONCLUSIONS Severe diffuse hypokinesia left ventricular ejection fraction around 25%, visual. Mildly dilated LV cavity. Mildly increased left atrial size. Thickened mitral valve. Mild mitral annular calcification. Mild- moderate mitral valve regurgitation. Thickened aortic valve. Features of aortic valve sclerosis with a peak velocity of 2.2 m/s. [id number] pulmonary valve regurgitation. Possible small pericardial effusion Features of large left-sided pleural effusion -Recent cardiac cath Conclusions 1. Severe 2. multivessel CAD. 3. Patient has significant anemia. Will get GI workup 4. and 2 weeks of antiplatelet therapy prior to PCI of LAD and Left circumflex arteries. May require arthrectomy. 5. Severe pulmonary hypertension. Severely elevated left sided cardiac pressures. -Continue aspirin, statin Mild mottling of bilateral lower extremities -Could be multifactorial from sepsis from bilateral pneumonia -Ischemic cardiomyopathy -Monitor -Arterial duplex ordered Physical deconditioning, protein calorie malnutrition, consult dietary Type 2 diabetes mellitus, low dose insulin sliding scale - Patient was seen earlier this morning -Currently on 15 L, in moderate respiratory distress, nasal flaring, intercostal retractions, suprasternal retractions tachypnea, tachycardia, complaining of shortness of breath, cough -Patient does report 1 episode of hemoptysis this morning, none since then -Patient tells me that he did drink water overnight and had episodes of choking and coughing -This morning, he complains of severe shortness of breath, during my conversation with him on 15 L his O2 sats would drop into the mid 80s -Does have mild mottling of bilateral lower extremities, -Currently on dobutamine drip, he is -12 L, does have diffuse wheezing in all lung palmer -We discussed the possibility of aspiration pneumonia, aspiration pneumonitis due to worsening respiratory failure we will move him to the ICU, he is agreeable, will likely need BiPAP therapy he does report anxiety with the BiPAP we will have to place him on Precedex -Patient was moved to ICU, examined multiple times currently on BiPAP, on Precedex drip he is resting more comfortably, respiratory rate is 15, mild intercostal retractions, suprasternal retractions, mild nasal flaring he feels much more comfortable he is able to converse with me on BiPAP, currently on 40% -Discussed his respiratory status given that he is -12 L continues to have respiratory failure will do CT angiogram of the chest, repeat his respiratory viral panel, respiratory cultures, cardiac echo, discussed with cardiology given his recent history of multivessel CAD -Keep patient n.p.o. given his respiratory status, aspiration event -Also discussed as his hemoglobin 7.9 given his history of multivessel CAD will transfuse him 1 unit PRBC -As he is -12 L hold off on further diuresis -Spoke to cardiology given his multivessel CAD, he is elevated troponins his worsening respiratory status, concerns for worsening CAD as the etiology behind his respiratory failure, cardiology, Dr. Hamlin will consult -Reviewed CT angiogram of the chest results, has diffuse groundglass opacities -Concerning for infectious etiology, WBC 19.22, neutrophilic, with elevated CRP at 89.7, Pro-Ismael 0.94, broaden antibiotic coverage to meropenem, continue vancomycin, add on azithromycin -Sputum culture showing coagulase positive Staphylococcus, gram-negative rods -BNP elevated at 21,000 has received Lasix this morning hold off on further doses of Lasix as patient appears euvolemic -Spoke to patient's , over the phone, updated 's health plan, clinical status, respiratory failure secondary to bilateral pneumonia, broaden antibiotic coverage, cardiology consulted, receiving diuresis, requiring ICU monitoring on BiPAP, Precedex, Attestations 2 Medical Necessity Statement*: Patient requires hospitalization, inpatient, greater than 2 midnights, for acute hypoxic respiratory failure secondary to bilateral pneumonia, CHF, acute anemia, NSTEMI Coding Level of Care Code Critical Care >/= 30 minutes Critical care time (in minutes): 45 The high probability of a clinically significant, sudden or life threatening deterioration, as referenced in this documentation, required my full and direct attention, intervention and personal management. The critical care time shown is in addition to time spent performing any reported separately billable procedures and includes the following: [x] Data and vital sign review and interpretation [x ] Patient assessment, examination and intervention [x] Medication orders and management [x] Patient/Family updates as able [x] Care Coordination and Documentation. Diagnoses Acute hypoxic respiratory failure J96.01 Bilateral pneumonia J18.9 CHF exacerbation I50.9 Acute anemia D64.9 Bilateral pleural effusion J90 Pulmonary edema J81.1 Respiratory distress R06.03 COPD exacerbation J44.1 Aspiration pneumonitis J69.0 Coronary artery disease I25.10 Ischemic cardiomyopathy I25.5 Physical deconditioning R53.81 Protein calorie malnutrition E46 Pulmonary hypertension I27.20
[2023-12-26 17:24] LABS: Glucose Point of Care 130 mg/dL (70-110)
[2023-12-26] MEDS: azithromycin 500 MG in sodium chloride 0.9% 250 ML 250 MG IV (18:00)
[2023-12-26] MEDS: LORazepam 2 mg/mL INJ 1 mL 1 MG IVP (18:04)
[2023-12-26 18:05] LABS: Lactate Dehydrogenase 458 U/L (135-225)
--- NOTE | 2023-12-26 18:10 | PC.NURSE ---
At approximately 1745, patient became suddenly became very agitated and agressive. No precipitating factors noted. pulling off bipap, nurse placed patient on nasal cannula as this was all the patient agreed too. Howevr, patient's xygen levels continued to drop into the low 80's/high 70's. Patient became agressive, attempting to strike nursing staff. Attempting to get out of bed, but he lacks coordination and was unable to safely do so, sliding out of jose r towards the floor when attempting to stand. Nursing staff assisted him back up into his bed. Patient is demanding the [employer] and shank boner. Patient's oxygen levels are now in the low 70's, he resists any attempts to put supplemental oxygen on. 1mg dose of ativan given per Dr lizama orders. After ativan was given patient became more calm and allowed nasal cannula to be placed back. As oxugen levels incrased he then allowed us to place him on a non rebreather and eventually back on bipap. Patient is now resting comfortably in bed. Event last approximately 15 minute from initial removal of bipap to resting comfortably in bed again.
--- NOTE | 2023-12-26 19:12 | PC.NURSE ---
Shift SUmmary: since arrival in ICU patient was calm, cooperative, alert and oriented almost the entire day. Patient suddenly became very agitated near end of shift requring ativan administration (see previous nurse note). COntact precautions for MRSA Airborne precautions for TB rule out.
[2023-12-26 20:53] LABS: Glucose Point of Care 126 mg/dL (70-110)
--- NOTE | 2023-12-26 21:40 | PC.NURSE ---
Hold meds Dr. Cortes contacted about patient being not alert enough to take PO metoprolol and atorvastatin. Reported a HR of 82 and a BP of 153/[address] Cortes. Received order to hold both meds for now and to continue on telemetry. No further orders received. Medications held and telemetry continued.
[2023-12-26] MEDS: haloperidol inj 5 mg/mL INJ 1 mL 1 MG IM (23:07)
--- NOTE | 2023-12-26 23:20 | PC.NURSE ---
Agitation Patient became agitated, removed and disassembled Bipap mask. Placed nonrebreather on patient until calm enough to replace Bipap. When attempting to adjust Bipap mask, patient became agitated again and attempted to pull mask off. 1 mg haldol given IM.
[2023-12-27] VITALS (52 sets, daily range): BP systolic 122–151; BP diastolic 76–116; PULSE 62–99; RESP 12–43; TEMP 36.1–36.4; O2SAT 88–100; BMI 17.8
[2023-12-27] MEDS: dexmedeTOMIDine 0.9 % NaCL 400 MCG/100 ML PREMIX IV (00:08)
[2023-12-27] MEDS: LORazepam 2 mg/mL INJ 1 mL 1 MG IVP ×2 (00:08→08:38)
--- NOTE | 2023-12-27 00:19 | PC.NURSE ---
Agitation Patient once again became agitated and tore Bipap off. Dr. Cortes contacted and received order for 1 mg lorazepam ONCE NOW. No further orders.
--- NOTE | 2023-12-27 00:27 | PC.NURSE ---
Hold medication Contacted Dr. Cortes regarding patient's decreased mental status and inability to tolerate PO medication. Received order to hold 0100 dose of carafate.
[2023-12-27] MEDS: vancomycin 750 MG in sodium chloride 0.9% 250 ML 250 MG IV ×2 (00:49→12:06)
[2023-12-27] MEDS: ipratropium 0.5 mg/2.5 mL Neb INHALATION ×4 (01:54→20:02)
[2023-12-27] MEDS: levalbuterol 0.63 mg/3 mL Neb INHALATION ×4 (01:54→20:03)
[2023-12-27] MEDS: meropenem 500 mg SDV IVP (04:00)
[2023-12-27] MEDS: pantoprazole 40 mg SDV IVP ×2 (04:02→16:43)
[2023-12-27 04:08] LABS: Basophils % 0.1 %; Eosinophils % 0.3 %; Hematocrit 31.6 % (37-53); Lymphocytes # 0.7 10^3/uL (0.8-4.8); Lymphocytes % 5.4 %; Mean Corpuscular HGB Conc 29.7 g/dL (30-55); Mean Corpuscular Volume 77.3 fl (82-101); Mean Platelet Volume 10.3 fL (7.4-10.4); Monocytes # 0.5 10^3/uL (0.2-0.9); Monocytes % 4.3 %; Neutrophils # 10.77 10^3/uL (1.8-7.7); Neutrophils % 89.3 %; Nucleated Red Blood Cells # 0.1 /100WBC; Nucleated Red Blood Cells % 0.4 %; Platelet Count 255 10^3/cmm (157-399); Red Blood Count 4.09 10^6/uL (3.85-5.65); Red Cell Distribution Width 26.6 % (12.1-15.1); White Blood Count 12.06 10^3/uL (3.29-11.43)
[2023-12-27 04:30] LABS: Alanine Aminotransferase 49 U/L (0-41); Albumin Level 2.8 g/dL (3.5-5.2); Alkaline Phosphatase 85 U/L (40-130); Anion Gap 13.7 (5-19); Aspartate Amino Transferase 17 U/L (0-40); Blood Urea Nitrogen 36 mg/dL (8-23); C Reactive Protein 49.2 mg/L (0.0-4.9); Calcium 8.5 mg/dL (8.5-10.5); Carbon Dioxide 28 mmol/L (22-29); Chloride 103 mmol/L (98-107); Globulin 2.7 g/dL (1.3-4.6); Glomerular Filtration Rate 112.1 mL/min (90-130); Glucose 133 mg/dL (65-115); Magnesium 1.9 mg/dL (1.7-2.3); Osmolality Calculated 302 mOsm/kg (285-295); Phosphorus 4.5 mg/dL (2.5-4.5); Potassium 3.7 mmol/L (3.5-5.1); Sodium 141 mmol/L (136-145); Total Protein 5.5 g/dL (6.6-8.7)
[2023-12-27 04:32] LABS: Lactate (Lactic Acid level) 1.4 mmol/L (0.5-2.2)
[2023-12-27 04:34] LABS: NT Pro B Type Natriuretic Pept 15020 pg/mL (0-125); Procalcitonin 0.53 ng/mL (0-0.5)
[2023-12-27 05:03] LABS: ABG PCO2 39.9 mmHg (35-45); Arterial Blood Gas Hematocrit 33.7 % (42-52); Base Excess ABG 7.2 mmol/L (-2.0-2.0); Blood Gas Allen Test Pos; Blood Gas Operator Identificat JDB; Blood Gas Sample Site Radial, right; Blood Gas Sample Type Arterial; Oxygen Device BIPAP; PO2 ABG 76.1 mmHg (80.0-100.0); PO2 FiO2 Ratio Arterial Blood 253
[2023-12-27] MEDS: methylPREDNISolone sod succ 40 mg/mL INJ IVP ×2 (06:37→18:14)
[2023-12-27 07:12] LABS: Glucose Point of Care 149 mg/dL (70-110)
[2023-12-27] MEDS: insulin lispro 100 unit/1 mL SUBCUT ×2 (07:25→12:21)
[2023-12-27] MEDS: dexmedeTOMIDine 0.9 % NaCL 400 MCG/100 ML PREMIX 10.88 MCG IV (08:29)
[2023-12-27] MEDS: budesonide 0.5 mg/2 mL Neb INHALATION ×2 (08:41→20:02)
[2023-12-27] MEDS: FUROsemide 10 mg/mL SDV 4mL 40 MG IVP (09:12)
--- NOTE | 2023-12-27 09:20 | PC.NURSE ---
0762 Patient aroused when I spoke with him, to answer with head nod and mumbles yes or no. I did note when not talking with him has periods of apnea for approx 10-14 seconds, then has spontanous breath. Noted again with dr. Rosas while he was in room. O2 sats in lower 90's.
--- NOTE | 2023-12-27 10:39 | PC.NURSE ---
1000 Attempted to give po meds, but patient not alert enough, and not opening mouth or take a sip but dose answer questions with a yes or no.
[2023-12-27] MEDS: meropenem 1,000 mg SDV 1000 MG IVP ×2 (12:03→19:56)
[2023-12-27 12:21] LABS: Glucose Point of Care 160 mg/dL (70-110)
[2023-12-27] MEDS: water for injection-sterile 20 ML 100 ML (12:24)
[2023-12-27] MEDS: azithromycin 500 MG in sodium chloride 0.9% 250 ML 250 MG IV (15:09)
--- NOTE | 2023-12-27 15:32 | P.PN_ITS ---
Subjective 2 Subjective: - Patient was seen this morning -He is alert to person, not to place, no t to time he can follow some commands but easily falls back asleep -He did tolerated BiPAP overnight, curre ntly on heated high flow -He appears ill, and does have nasal fla ring, intercostal retractions, suprasternal retractions, has mild respiratory distress compared to yesterday -Has global encephalopathy, likely relat ed to hypoxia, pneumonia -Sputum cultures growing MRSA, likely MR SA pneumonia continue IV antibiotics -Will give 1 dose IV Lasix -Spoke to patient's , discussed willard ent's status is critical from respiratory failure, prognosis is guarded -Discussed his severe MRSA pneumonia, hi s severe respiratory failure, his encephalopathy he has a high risk of worsening respiratory failure intubation, and morbidity or mortality associated given his underlying COPD, ischemic cardiomyopathy -We discussed his prior hospitalization his history of LAD and left circumflex lesions that could not be intervened on given his anemia, with plans on outpatient intervention however patient did not follow-up -My worry is is with his respiratory zita lure he has a high risk of cardiac event, and morbidity and mortality associated, cardiology has been consulted, his EF is down to 17% -After discussing risk and benefits of a ll options, she is understanding, all consents are, agreed to proceed with plan -Reexamined in the afternoon he is a bit more alert awake, but easily falls back asleep O2 sats in the low 90s, Vitals/I&O/Wt Last Vital Signs Temp 97.1 F L 12/27/23 12:00 Pulse 94 12/27/23 15:17 Resp 18 12/27/23 15:17 BP 151/95 12/27/23 09:00 Pulse Ox 92 12/27/23 15:17 O2 Del Method Heated High Flow 12/27/23 14:00 O2 Flow Rate 40 12/27/23 15:17 FiO2 45 12/27/23 15:17 12/27/23 12/27/23 12/27/23 06:59 14:59 22:59 Intake Total 318.091 / 1600.318 46.578 / 46.578 Output Total 650 / 1650 950 / 950 Balance -331.909 / -49.682 -903.422 / -903.422 Weight last 48 hrs Weight 58 kg Weight 58 kg Weight 61.5 kg Weight 62.188 kg Weight 62.188 kg Physical Exam 2 Const: EXAM LIMITATIONS: altered mental status GENERAL APPEARANCE: ill appearing and frail appearing ORIENTATION/CONSCIOUSNESS: Yes awake, Yes oriented to person and Yes confused; not oriented to place and not oriented to time Eye: COMMON NORMALS: Equal, round and reactive pupils present PUPIL: Yes Equal, round and reactive pupils present Resp: AUSCULTATION: crackles and wheezes OTHER: Does have nasal flaring, intercostal retractions suprasternal retractions although mild does have tachypnea, at times tachycardia, mild respiratory distress Cardio: COMMON NORMALS: regular rate, regular rhythm, S1 normal heart sound present and S2 normal heart sound present RATE: regular rate RHYTHM: r egular rhythm HEART SOUNDS: S1 normal heart sound present and S2 normal heart sound present GI: COMMON NORMALS: Normal to inspection, nondistended, normoactive bowel sounds present, Soft to palpation and non-tender PALPATION: Yes Soft to palpation Extremity: COMMON NORMALS: no pedal edema Neuro: SENSORIUM/ORIENTATION: Yes oriented to person, No oriented to place and No oriented to time Urinary Catheter Management: Vital: Cath Placed During This Visit: yes Reason for Continuing Indwelling Catheter: Accurate Measurement of Urinary Output in Critically Ill Patients Urinary Catheter Date of Insertion: 12/22/23 Urinary Catheter Time of Insertion: 16:00 Data 12/27/23 02:56 12/27/23 02:56 Micro: Microbiology 12/24/23 19:30 Gram Stain - Final Sputum - Expectorated Sputum Sputum Culture - Final Methicillin Resis Staph Aureus Jenny maciel) A&P Assessment and plan (1) Acute hypoxic respiratory failure: (2) Bilateral pneumonia: (3) CHF exacerbation: (4) Acute anemia: (5) Bilateral pleural effusion: (6) Pulmonary edema: (7) Respiratory distress: (8) COPD exacerbation: (9) Aspiration pneumonitis: (10) Coronary artery disease: (11) Ischemic cardiomyopathy: (12) Physical deconditioning: (13) Protein calorie malnutrition: (14) Pulmonary hypertension: (15) ARDS (adult respiratory distress syndrome): (16) MRSA pneumonia: Plan Acute hypoxic respiratory failure -With respiratory distress syndrome -Multifactorial from bilateral pneumonia, MRSA pneumonia -Sputum cultures growing MRSA species -CT angiogram the chest showing - CT/CT angio chest PE protcl [id number] IMPRESSION: 1. No evidence of pulmonary embolism. 2. Severe diffuse ground-glass and consolidative airspace disease with interlobular septal thickening. Slight interval worsening since 12/24/2023. As before, findings could represent pulmonary edema, acute lung injury, hypersensitivity pneumonitis and/or atypical infection. 3. Slightly decreased size of moderate bilateral pleural effusions. 4. Moderate cardiomegaly. 5. Reflux of contrast in the IVC can be seen with right heart failure and/or tricuspid regurgitation. 6. Additional ancillary findings as above are similar to prior. -Sputum culture showing gram-negative rods, coagulase positive staphylococci -Secondary to systolic and diastolic CHF, ischemic cardiomyopathy, echocardiogram July 2023 showed an EF of 25%, with severe diffuse hypokinesis of the left ventricle -Has been diuresed -13 L so far -Secondary to COPD -With underlying severe pulmonary hypertension ? Plan -Patient is in mild respiratory distress, with acute encephalopathy, low threshold for intubation ? Monitor in the ICU closely ? Continue BiPAP therapy, can use heated high flow during the day -continue Precedex ? Has received 40 mg IV Lasix this morning -Dobutamine drip discontinued as it has been over 48 hours -Broaden antibiotic coverage to vancomycin, meropenem, azithromycin -Continue Solu-Medrol -Continue DuoNeb -Continue budesonide MRSA pneumonia as above Acute encephalopathy -Likely secondary to acute hypoxia, respiratory failure Aspiration pneumonia, aspiration pneumonitis -Has had multiple aspiration events -Will keep n.p.o. -Speech therapy eval -Will consider dysphagia level 4 diet moderately thickened based on clinical progress Bilateral pneumonia, MRSA pneumonia -With positive sputum cultures of MRSA -Given diffuse groundglass opacities as above -Hemoptysis -Has been on vancomycin, Zosyn -Will order LDH -Fungitell -AFB smears x 3 -Repeat sputum studies -QuantiFERON gold -Monitor respiratory status closely -Isolation precautions Hemoptysis -Monitor closely Acute on chronic anemia -Recent hospitalization for acute anemia, EGD and colonoscopy no acute findings -Status post units PRBC NSTEMI -Recent in our echocardiogram CONCLUSIONS Severe diffuse hypokinesia left ventricular ejection fraction around 25%, visual. Mildly dilated LV cavity. Mildly increased left atrial size. Thickened mitral valve. Mild mitral annular calcification. Mild- moderate mitral valve regurgitation. Thickened aortic valve. Features of aortic valve sclerosis with a peak velocity of 2.2 m/s. [id number] pulmonary valve regurgitation. Possible small pericardial effusion Features of large left-sided pleural effusion -Recent cardiac cath Conclusions 1. Severe 2. multivessel CAD. 3. Patient has significant anemia. 4. and 2 weeks of antiplatelet therapy prior to PCI of LAD and Left circumflex arteries. May require arthrectomy. 5. Severe pulmonary hypertension. Severely elevated left sided cardiac pressures. -Continue aspirin, statin -Did not follow-up with cardiology as outpatient -Repeat cardiac echocardiogram CONCLUSIONS Moderately increased left ventricular cavity size. Severely decreased left ventricular systolic function. Left ventricular ejection fraction is estimated at 17 %. Grade IV/IV diastolic dysfunction (irreversible restrictive filling pattern), severely elevated filling pressures. Normal right ventricular size. Severe pulmonary hypertension, RVSP 76.3 mmHg. Moderate biatrial enlargement Severely thickened mitral valve. Moderate mitral annular calcification. No mitral valve stenosis. Severe mitral valve regurgitation. Severe aortic valve calcification. Severe aortic valve stenosis, mean gradient 8.2 mmHg, AMBER 0.8 cm squared. Trace aortic valve regurgitation. Cannot rule out pseudo aortic stenosis. Thickened tricuspid valve. Riwcmeql-dg-otrork tricuspid valve regurgitation. There is no pericardial effusion. Right atrial pressure is around 20 mm of mercury. -Cardiology consulted -Currently being medically managed Mild mottling of bilateral lower extremities -Could be multifactorial from sepsis from bilateral pneumonia -Ischemic cardiomyopathy -Monitor -Arterial duplex ordered FINDINGS Diffuse intimal thickening in the iliac, femoral and popliteal arteries bilaterally. Near normal arterial Doppler waveforms and velocities bilaterally Resting BELLO 1.3 bilaterally CONCLUSIONS 1. Normal resting ABIs bilaterally suggesting no significant arterial obstruction 2. Diffuse intimal thickening in the iliac , femoral and popliteal arteries bilaterally. Physical deconditioning, protein calorie malnutrition, consult dietary Type 2 diabetes mellitus, low dose insulin sliding scale Urine toxicology screen positive for amphetamine Full code Status critical, prognosis guarded - Patient was seen this morning -He is alert to person, not to place, not to time he can follow some commands but easily falls back asleep -He did tolerated BiPAP overnight, currently on heated high flow -He appears ill, and does have nasal flaring, intercostal retractions, suprasternal retractions, has mild respiratory distress compared to yesterday -Has global encephalopathy, likely related to hypoxia, pneumonia -Sputum cultures growing MRSA, likely MRSA pneumonia continue IV antibiotics -Will give 1 dose IV Lasix -Spoke to patient's , discussed patient's status is critical from respiratory failure, prognosis is guarded -Discussed his severe MRSA pneumonia, his severe respiratory failure, his encephalopathy he has a high risk of worsening respiratory failure intubation, and morbidity or mortality associated given his underlying COPD, ischemic cardiomyopathy -We discussed his prior hospitalization his history of LAD and left circumflex lesions that could not be intervened on given his anemia, with plans on outpatient intervention however patient did not follow-up -My worry is is with his respiratory failure he has a high risk of cardiac event, and morbidity and mortality associated, cardiology has been consulted, his EF is down to 17% -After discussing risk and benefits of all options, she is understanding, all consents are, agreed to proceed with plan -Reexamined in the afternoon he is a bit more alert awake, but easily falls back asleep O2 sats in the low 90s, -Spoke to cardiology Attestations 2 Medical Necessity Statement*: Patient requires hospitalization acute respiratory failure, MRSA pneumonia, acute respiratory distress, NSTEMI, ischemic cardiomyopathy Coding Level of Care Code Critical Care >/= 30 minutes Critical care time (in minutes): 45 The high probability of a clinically significant, sudden or life threatening deterioration, as referenced in this documentation, required my full and direct attention, intervention and personal management. The critical care time shown is in addition to time spent performing any reported separately billable procedures and includes the following: [x] Data and vital sign review and interpretation [x ] Patient assessment, examination and intervention [x] Medication orders and management [x] Patient/Family updates as able [x] Care Coordination and Documentation. Diagnoses Acute hypoxic respiratory failure J96.01 Bilateral pneumonia J18.9 CHF exacerbation I50.9 Acute anemia D64.9 Bilateral pleural effusion J90 Pulmonary edema J81.1 Respiratory distress R06.03 COPD exacerbation J44.1 Aspiration pneumonitis J69.0 Coronary artery disease I25.10 Ischemic cardiomyopathy I25.5 Physical deconditioning R53.81 Protein calorie malnutrition E46 Pulmonary hypertension I27.20 ARDS (adult respiratory distress syndrome) J80 MRSA pneumonia J15.212
--- NOTE | 2023-12-27 16:38 | P.PN_ITS ---
Subjective 2 Subjective: Patient is sedated today. He is now on heated high flow nasal cannula. Oxygen saturation hovering around 90%. Lungs sound coarse throughout all lung palmer. Patient has sternal retractions present. Now on airborne and contact precautions. Ruling out possible TB. MRSA of the nares and sputum positive. Vitals/I&O/Wt Last Vital Signs Temp 97.1 F L 12/27/23 12:00 Pulse 74 12/27/23 16:00 Resp 15 12/27/23 16:00 BP 140/90 12/27/23 16:00 Pulse Ox 90 12/27/23 16:00 O2 Del Method Heated High Flow 12/27/23 14:00 O2 Flow Rate 40 12/27/23 15:17 FiO2 45 12/27/23 15:17 12/27/23 12/27/23 12/27/23 06:59 14:59 22:59 Intake Total 318.091 / 1600.318 46.578 / 46.578 Output Total 650 / 1650 950 / 950 Balance -331.909 / -49.682 -903.422 / -903.422 Weight last 48 hrs Weight 127 lb 13.89 oz Weight 127 lb 13.89 oz Weight 135 lb 9.349 oz Weight 137 lb 1.6 oz Weight 137 lb 1.6 oz Physical Exam 2 Narrative: Conostitutional: Ill appearing Lymphatic: no lymphedema noted Respiratory: Course lung sounds throughout all lung palmer, use of accessory muscles present Cardio: No JVD, regular rate, regular rhythm, S1 S2 normal, no murmurs Extremities: Full ROM, normal, normal capillary refill, no cyanosis or edema Neuro: sedated Urinary Catheter Management: Vital: Cath Placed During This Visit: yes Reason for Continuing Indwelling Catheter: Accurate Measurement of Urinary Output in Critically Ill Patients Urinary Catheter Date of Insertion: 12/22/23 Urinary Catheter Time of Insertion: 16:00 Data 12/27/23 02:56 12/27/23 02:56 Micro: Microbiology 12/24/23 19:30 Gram Stain - Final Sputum - Expectorated Sputum Sputum Culture - Final Methicillin Resis Staph Aureus Jenny vazquez(monse maciel) A&P Assessment and plan (1) Triple vessel disease of the heart: Patient has known multiple vessel coronary artery disease. Given his multi FAILURE involvement COPD renal function anemia he is not a candidate for invasive strategy therefore we will continue to manage him medically (2) CHF (congestive heart failure): Continue with goal directed medical therapy including diuretics and beta vannessa as tolerated. Qualifiers: Heart failure chronicity: acute Heart failure type: unspecified Qualified Code(s): I50.9 - Heart failure, unspecified Plan As stated above. Attestations 2 Medical Necessity Statement*: Patient has acute respiratory distress with NSTEMI and is expected to cross 2 midnights due to this as well as the above-named comorbidities Coding Level of Care Code Acute Code for [facility] Diagnoses Triple vessel disease of the heart I25.10 CHF (congestive heart failure) I50.9 Heart failure chronicity: acute Heart failure type: unspecified
[2023-12-27 18:24] LABS: Glucose Point of Care 137 mg/dL (70-110)
[2023-12-27 21:30] LABS: Glucose Point of Care 121 mg/dL (70-110)
[2023-12-28] VITALS (53 sets, daily range): BP systolic 117–183; BP diastolic 67–115; PULSE 74–118; RESP 13–33; TEMP 36.4–36.6; O2SAT 86–100
[2023-12-28] MEDS: morphine 4 mg/mL SDV 1 mL 2 MG IVP (00:02)
[2023-12-28] MEDS: vancomycin 750 MG in sodium chloride 0.9% 250 ML 250 MG IV ×2 (00:46→13:18)
--- NOTE | 2023-12-28 01:08 | PC.NURSE ---
Contacted Dr. Cortes in reference to this patient's next carafate dose with some concerns of confusion, weakness, and ability to swallow safely. A bedside RN swallow test was not conducted. Received orders to hold carafate for now.
[2023-12-28] MEDS: levalbuterol 0.63 mg/3 mL Neb INHALATION ×4 (02:01→19:59)
[2023-12-28] MEDS: ipratropium 0.5 mg/2.5 mL Neb INHALATION ×4 (02:01→19:59)
[2023-12-28] MEDS: meropenem 1,000 mg SDV 1000 MG IVP ×3 (04:13→19:39)
[2023-12-28] MEDS: pantoprazole 40 mg SDV IVP ×2 (04:13→17:17)
[2023-12-28 04:18] LABS: Basophils % 0.1 %; Eosinophils % 0.1 %; Hematocrit 35.3 % (37-53); Lymphocytes # 0.6 10^3/uL (0.8-4.8); Mean Corpuscular HGB Conc 29.2 g/dL (30-55); Mean Corpuscular Hemoglobin 22.5 pg (27-33); Mean Corpuscular Volume 77.2 fl (82-101); Mean Platelet Volume 10.1 fL (7.4-10.4); Monocytes # 0.7 10^3/uL (0.2-0.9); Monocytes % 5.6 %; Neutrophils # 11.21 10^3/uL (1.8-7.7); Neutrophils % 88.6 %; Nucleated Red Blood Cells # 0.1 /100WBC; Nucleated Red Blood Cells % 0.6 %; Platelet Count 284 10^3/cmm (157-399); Red Blood Count 4.57 10^6/uL (3.85-5.65); Red Cell Distribution Width 27.4 % (12.1-15.1); White Blood Count 12.64 10^3/uL (3.29-11.43)
[2023-12-28 04:21] LABS: ABG PCO2 46.6 mmHg (35-45); ABG PH Result 7.46 (7.35-7.45); Arterial Blood Gas Hematocrit 31.9 % (42-52); Base Excess ABG 8.4 mmol/L (-2.0-2.0); Blood Gas Allen Test Pos; Blood Gas Sample Site Radial, right; Blood Gas Sample Type Arterial; HCO3 ABG 33.2 mmol/L (22-26); Oxygen Device BIPAP; PO2 FiO2 Ratio Arterial Blood 364
[2023-12-28 04:35] LABS: Alanine Aminotransferase 36 U/L (0-41); Albumin Level 2.7 g/dL (3.5-5.2); Alkaline Phosphatase 81 U/L (40-130); Anion Gap 12.9 (5-19); Aspartate Amino Transferase 12 U/L (0-40); Blood Urea Nitrogen 43 mg/dL (8-23); C Reactive Protein 29.7 mg/L (0.0-4.9); Calcium 8.5 mg/dL (8.5-10.5); Carbon Dioxide 30 mmol/L (22-29); Chloride 106 mmol/L (98-107); Globulin 2.5 g/dL (1.3-4.6); Glomerular Filtration Rate 96.1 mL/min (90-130); Glucose 131 mg/dL (65-115); Magnesium 2.1 mg/dL (1.7-2.3); Osmolality Calculated 313 mOsm/kg (285-295); Phosphorus 4.3 mg/dL (2.5-4.5); Potassium 3.9 mmol/L (3.5-5.1); Sodium 145 mmol/L (136-145); Total Bilirubin 0.8 mg/dL (0.15-1.2); Total Protein 5.2 g/dL (6.6-8.7)
[2023-12-28 04:37] LABS: Lactate (Lactic Acid level) 1.3 mmol/L (0.5-2.2)
[2023-12-28 04:40] LABS: NT Pro B Type Natriuretic Pept 17175 pg/mL (0-125)
[2023-12-28] MEDS: methylPREDNISolone sod succ 40 mg/mL INJ IVP ×2 (06:02→17:17)
[2023-12-28 07:58] LABS: Glucose Point of Care 164 mg/dL (70-110)
[2023-12-28] MEDS: metoprolol tartrate 25 mg Tablet PO ×2 (08:12→21:11)
[2023-12-28] MEDS: aspirin 81 mg EC Tablet PO (08:12)
[2023-12-28] MEDS: insulin lispro 100 unit/1 mL SUBCUT ×2 (08:12→21:23)
[2023-12-28] MEDS: budesonide 0.5 mg/2 mL Neb INHALATION ×2 (09:00→19:59)
--- NOTE | 2023-12-28 09:26 | PC.SOCIAL ---
IMM Update Pg. 2 of IMM updated and reviewed with patient, who verbalized understanding. Copy provided.
--- NOTE | 2023-12-28 11:36 | P.PN_ITS ---
Subjective 2 Subjective: Patient is more responsive. He is still on heated high flow nasal cannula. Oxygen saturation improved to 96%. Lungs sounds remain coarse throughout all lung palmer. He seems better today. Medications: Reviewed: Yes Vitals/I&O/Wt Last Vital Signs Temp 97.6 F 12/28/23 04:00 Pulse 85 12/28/23 09:20 Resp 17 12/28/23 09:18 BP 152/97 12/28/23 08:30 Pulse Ox 96 12/28/23 09:18 O2 Del Method Heated High Flow 12/28/23 09:01 O2 Flow Rate 40 12/28/23 09:18 FiO2 45 12/28/23 09:18 12/27/23 12/28/23 12/28/23 22:59 06:59 14:59 Intake Total 100 / 396.578 250 / 646.578 Output Total 900 / 1850 250 / 2100 Balance -800 / -1453.422 0 / -1453.422 Weight last 48 hrs Weight 128 lb Weight 128 lb 1.164 oz Weight 127 lb 13.89 oz Weight 127 lb 13.89 oz Physical Exam 2 Narrative: General: No apparent distress at this time Respiratory: Normal respiratory effort, course lung sounds throughout all lung palmer, unchanged Cardio: No JVD, regular rate, regular rhythm, S1 S2 normal, no murmurs Neuro: more alert this AM Skin: No rashes or lesions noted, no wounds Urinary Catheter Management: Vital: Cath Placed During This Visit: yes Reason for Continuing Indwelling Catheter: Accurate Measurement of Urinary Output in Critically Ill Patients Urinary Catheter Date of Insertion: 12/22/23 Urinary Catheter Time of Insertion: 16:00 Data 12/28/23 03:43 12/28/23 03:43 Micro: Microbiology 12/24/23 19:30 Gram Stain - Final Sputum - Expectorated Sputum Sputum Culture - Final Methicillin Resis Staph Aureus Jenny vazquez(monse maciel) A&P Assessment and plan (1) Triple vessel disease of the heart: Patient has known multiple vessel coronary artery disease. Given his multi FAILURE involvement COPD renal function anemia he is not a candidate for invasive strategy therefore we will continue to manage him medically (2) CHF (congestive heart failure): Continue with goal directed medical therapy including diuretics and beta vannessa as tolerated. Qualifiers: Heart failure chronicity: acute Heart failure type: unspecified Qualified Code(s): I50.9 - Heart failure, unspecified Plan As stated above. Attestations 2 Medical Necessity Statement*: Patient require continuation hospitalization for above defined care Coding Level of Care Code Acute Code for [facility] Diagnoses Triple vessel disease of the heart I25.10 CHF (congestive heart failure) I50.9 Heart failure chronicity: acute Heart failure type: unspecified
[2023-12-28 12:44] LABS: Glucose Point of Care 132 mg/dL (70-110)
[2023-12-28] MEDS: sucralfate 1 gm/10 mL Oral Liq UDC PO (13:23)
--- NOTE | 2023-12-28 14:57 | PC.NURSE ---
Last vanc trough 12/25 16.2, Rx approved administering dose
[2023-12-28 16:15] LABS: Glucose Point of Care 146 mg/dL (70-110)
[2023-12-28] MEDS: azithromycin 500 MG in sodium chloride 0.9% 250 ML 250 MG IV (16:15)
--- NOTE | 2023-12-28 16:28 | P.PN_ITS ---
Subjective 2 Subjective: - Patient was seen this morning -He is alert to person, to place, not to time -Overnight he did use BiPAP -This morning he is on heated high flow at 40 L, 45% FiO2, urine output 1650 -Continues to have poor appetite, episod es of encephalopathy -He tells me that he wants to try to eat something sweet Vitals/I&O/Wt Last Vital Signs Temp 97.6 F 12/28/23 04:00 Pulse 108 H 12/28/23 16:00 Resp 19 H 12/28/23 16:00 BP 174/107 12/28/23 16:00 Pulse Ox 92 12/28/23 16:00 O2 Del Method Heated High Flow 12/28/23 14:05 O2 Flow Rate 40 12/28/23 14:05 FiO2 45 12/28/23 14:05 12/28/23 12/28/23 12/28/23 06:59 14:59 22:59 Intake Total 250 / 896.578 Output Total 250 / 2100 Balance 0 / -1203.422 Weight last 48 hrs Weight 58.06 kg Weight 58.093 kg Weight 58 kg Weight 58 kg Physical Exam 2 Const: COMMON NORMALS: no acute distress EXAM LIMITATIONS: altered mental status GENERAL APPEARANCE: ill appearing and frail appearing O RIENTATION/CONSCIOUSNESS: Yes awake, Yes oriented to person and Yes oriented to place; not oriented to time Resp: COMMON NORMALS: normal respiratory effort, No retractions and No use of accessory muscles AUSCULTATION: crackles and wheezes Cardio: COMMON NORMALS: regular rhythm, S1 normal heart sound present and S2 normal heart sound present RATE: tachycardic RHYTHM: regular rhythm H EART SOUNDS: S1 normal heart sound present and S2 normal heart sound present GI: COMMON NORMALS: Normal to inspection, nondistended, normoactive bowel sounds present and non-tender Extremity: COMMON NORMALS: no pedal edema Neuro: SENSORIUM/ORIENTATION: Yes oriented to person, Yes oriented to place and No oriented to time Urinary Catheter Management: Vital: Cath Placed During This Visit: yes Reason for Continuing Indwelling Catheter: Accurate Measurement of Urinary Output in Critically Ill Patients Urinary Catheter Date of Insertion: 12/22/23 Urinary Catheter Time of Insertion: 16:00 Data 12/28/23 03:43 12/28/23 03:43 Micro: Microbiology 12/24/23 19:30 Gram Stain - Final Sputum - Expectorated Sputum Sputum Culture - Final Methicillin Resis Staph Aureus Jenny vazquez(monse maciel) A&P Assessment and plan (1) Acute hypoxic respiratory failure: (2) Bilateral pneumonia: (3) CHF exacerbation: (4) Acute anemia: (5) Bilateral pleural effusion: (6) Pulmonary edema: (7) Respiratory distress: (8) COPD exacerbation: (9) Aspiration pneumonitis: (10) Coronary artery disease: (11) Ischemic cardiomyopathy: (12) Physical deconditioning: (13) Protein calorie malnutrition: (14) Pulmonary hypertension: (15) ARDS (adult respiratory distress syndrome): (16) MRSA pneumonia: Plan Acute hypoxic respiratory failure -With respiratory distress syndrome -Multifactorial from bilateral pneumonia, MRSA pneumonia -Sputum cultures growing MRSA species -CT angiogram the chest showing - CT/CT angio chest PE protcl [id number] IMPRESSION: 1. No evidence of pulmonary embolism. 2. Severe diffuse ground-glass and consolidative airspace disease with interlobular septal thickening. Slight interval worsening since 12/24/2023. As before, findings could represent pulmonary edema, acute lung injury, hypersensitivity pneumonitis and/or atypical infection. 3. Slightly decreased size of moderate bilateral pleural effusions. 4. Moderate cardiomegaly. 5. Reflux of contrast in the IVC can be seen with right heart failure and/or tricuspid regurgitation. 6. Additional ancillary findings as above are similar to prior. -Sputum culture showing gram-negative rods, coagulase positive staphylococci -Secondary to systolic and diastolic CHF, ischemic cardiomyopathy, echocardiogram July 2023 showed an EF of 25%, with severe diffuse hypokinesis of the left ventricle -Has been diuresed -13 L so far -Secondary to COPD -With underlying severe pulmonary hypertension ? Plan -Patient is in mild respiratory distress, with acute encephalopathy, low threshold for intubation ? Monitor in the ICU closely ? Continue BiPAP therapy, can use heated high flow during the day -continue Precedex ? Has received 40 mg IV Lasix this morning -Dobutamine drip discontinued as it has been over 48 hours -Broaden antibiotic coverage to vancomycin, meropenem, azithromycin -Continue Solu-Medrol -Continue DuoNeb -Continue budesonide MRSA pneumonia as above Acute encephalopathy -Likely secondary to acute hypoxia, respiratory failure Aspiration pneumonia, aspiration pneumonitis -Has had multiple aspiration events -Will keep n.p.o. -Speech therapy eval -Will consider dysphagia level 4 diet moderately thickened based on clinical progress Bilateral pneumonia, MRSA pneumonia -With positive sputum cultures of MRSA -Given diffuse groundglass opacities as above -Hemoptysis -Has been on vancomycin, Zosyn -Will order LDH -Fungitell -AFB smears x 3 -Repeat sputum studies -QuantiFERON gold -Monitor respiratory status closely -Isolation precautions Hemoptysis -Monitor closely Acute on chronic anemia -Recent hospitalization for acute anemia, EGD and colonoscopy no acute findings -Status post units PRBC NSTEMI -Recent in our echocardiogram CONCLUSIONS Severe diffuse hypokinesia left ventricular ejection fraction around 25%, visual. Mildly dilated LV cavity. Mildly increased left atrial size. Thickened mitral valve. Mild mitral annular calcification. Mild- moderate mitral valve regurgitation. Thickened aortic valve. Features of aortic valve sclerosis with a peak velocity of 2.2 m/s. [id number] pulmonary valve regurgitation. Possible small pericardial effusion Features of large left-sided pleural effusion -Recent cardiac cath Conclusions 1. Severe 2. multivessel CAD. 3. Patient has significant anemia. 4. and 2 weeks of antiplatelet therapy prior to PCI of LAD and Left circumflex arteries. May require arthrectomy. 5. Severe pulmonary hypertension. Severely elevated left sided cardiac pressures. -Continue aspirin, statin -Did not follow-up with cardiology as outpatient -Repeat cardiac echocardiogram CONCLUSIONS Moderately increased left ventricular cavity size. Severely decreased left ventricular systolic function. Left ventricular ejection fraction is estimated at 17 %. Grade IV/IV diastolic dysfunction (irreversible restrictive filling pattern), severely elevated filling pressures. Normal right ventricular size. Severe pulmonary hypertension, RVSP 76.3 mmHg. Moderate biatrial enlargement Severely thickened mitral valve. Moderate mitral annular calcification. No mitral valve stenosis. Severe mitral valve regurgitation. Severe aortic valve calcification. Severe aortic valve stenosis, mean gradient 8.2 mmHg, AMBER 0.8 cm squared. Trace aortic valve regurgitation. Cannot rule out pseudo aortic stenosis. Thickened tricuspid valve. [id number] tricuspid valve regurgitation. There is no pericardial effusion. Right atrial pressure is around 20 mm of mercury. -Cardiology consulted -Currently being medically managed Mild mottling of bilateral lower extremities -Could be multifactorial from sepsis from bilateral pneumonia -Ischemic cardiomyopathy -Monitor -Arterial duplex ordered FINDINGS Diffuse intimal thickening in the iliac, femoral and popliteal arteries bilaterally. Near normal arterial Doppler waveforms and velocities bilaterally Resting BELLO 1.3 bilaterally CONCLUSIONS 1. Normal resting ABIs bilaterally suggesting no significant arterial obstruction 2. Diffuse intimal thickening in the iliac , femoral and popliteal arteries bilaterally. Physical deconditioning, protein calorie malnutrition, consult dietary Type 2 diabetes mellitus, low dose insulin sliding scale Urine toxicology screen positive for amphetamine Hypertension ? On metoprolol 25 mg twice daily ? Add Norvasc 10 mg Full code Status critical, prognosis guarded Plan for today speech therapy eval, advance diet as tolerated, continue IV antibiotics, monitor blood pressure rule out of blood pressure medications, monitor respiratory status closely wean oxygen as tolerated, will see if he can be tolerated to get up to the side of the bed or even to a chair, de-escalate steroid therapy Attestations 2 Medical Necessity Statement*: Patient requires hospitalization for acute respiratory distress syndrome, MRSA pneumonia, respiratory failure, severe deconditioning, ischemic cardiomyopathy Diagnoses Acute hypoxic respiratory failure J96.01 Bilateral pneumonia J18.9 CHF exacerbation I50.9 Acute anemia D64.9 Bilateral pleural effusion J90 Pulmonary edema J81.1 Respiratory distress R06.03 COPD exacerbation J44.1 Aspiration pneumonitis J69.0 Coronary artery disease I25.10 Ischemic cardiomyopathy I25.5 Physical deconditioning R53.81 Protein calorie malnutrition E46 Pulmonary hypertension I27.20 ARDS (adult respiratory distress syndrome) J80 MRSA pneumonia J15.212
[2023-12-28] MEDS: amlodipine 10 mg Tablet PO (17:17)
[2023-12-28] MEDS: dexmedeTOMIDine 0.9 % NaCL 400 MCG/100 ML PREMIX IV (17:34)
--- NOTE | 2023-12-28 19:10 | PC.NURSE ---
Contacted inpatient pharmacy in reference to this patient's overnight dose of vancomycin and trough results. Pharmacy advised to give the dose as his range is still good from a test yesterday, however, those results are not visible by this nurse. Clarified with pharmacy who advised the dose is good to give tonight.
[2023-12-28] MEDS: atorvastatin 40 mg Tablet 20 MG PO (21:10)
[2023-12-28 21:21] LABS: Glucose Point of Care 143 mg/dL (70-110)
[2023-12-29] VITALS (48 sets, daily range): BP systolic 74–159; BP diastolic 46–106; PULSE 64–117; RESP 14–32; TEMP 36.4–36.8; O2SAT 85–100
[2023-12-29] MEDS: levalbuterol 0.63 mg/3 mL Neb INHALATION ×4 (01:25→20:16)
[2023-12-29] MEDS: ipratropium 0.5 mg/2.5 mL Neb INHALATION ×4 (01:25→20:16)
[2023-12-29] MEDS: sucralfate 1 gm/10 mL Oral Liq UDC PO ×2 (01:30→12:08)
[2023-12-29] MEDS: vancomycin 750 MG in sodium chloride 0.9% 250 ML 250 MG IV ×2 (01:30→12:09)
[2023-12-29] MEDS: pantoprazole 40 mg SDV IVP ×2 (03:44→14:54)
[2023-12-29] MEDS: meropenem 1,000 mg SDV 1000 MG IVP ×3 (03:45→19:41)
[2023-12-29 04:23] LABS: Basophils % 0.1 %; Hematocrit 40.5 % (37-53); Lymphocytes # 0.8 10^3/uL (0.8-4.8); Lymphocytes % 4.9 %; Mean Corpuscular HGB Conc 28.1 g/dL (30-55); Mean Corpuscular Hemoglobin 22.1 pg (27-33); Mean Corpuscular Volume 78.5 fl (82-101); Mean Platelet Volume 9.7 fL (7.4-10.4); Monocytes # 0.8 10^3/uL (0.2-0.9); Monocytes % 4.5 %; Neutrophils # 15.31 10^3/uL (1.8-7.7); Neutrophils % 89.9 %; Nucleated Red Blood Cells % 0.1 %; Platelet Count 286 10^3/cmm (157-399); Red Blood Count 5.16 10^6/uL (3.85-5.65); Red Cell Distribution Width 28.2 % (12.1-15.1); White Blood Count 17.05 10^3/uL (3.29-11.43)
[2023-12-29 04:46] LABS: Lactate (Lactic Acid level) 1.7 mmol/L (0.5-2.2)
[2023-12-29 04:54] LABS: Alanine Aminotransferase 33 U/L (0-41); Alkaline Phosphatase 87 U/L (40-130); Anion Gap 13.5 (5-19); Aspartate Amino Transferase 18 U/L (0-40); Blood Urea Nitrogen 43 mg/dL (8-23); C Reactive Protein 19.2 mg/L (0.0-4.9); Calcium 8.7 mg/dL (8.5-10.5); Carbon Dioxide 29 mmol/L (22-29); Chloride 105 mmol/L (98-107); Globulin 2.9 g/dL (1.3-4.6); Glomerular Filtration Rate 96.1 mL/min (90-130); Glucose 128 mg/dL (65-115); Magnesium 2.3 mg/dL (1.7-2.3); Osmolality Calculated 310 mOsm/kg (285-295); Phosphorus 2.9 mg/dL (2.5-4.5); Potassium 3.5 mmol/L (3.5-5.1); Sodium 144 mmol/L (136-145); Total Bilirubin 1.2 mg/dL (0.15-1.2); Total Protein 5.9 g/dL (6.6-8.7)
[2023-12-29 05:00] LABS: NT Pro B Type Natriuretic Pept 24780 pg/mL (0-125); Procalcitonin 0.17 ng/mL (0-0.5)
[2023-12-29] MEDS: methylPREDNISolone sod succ 40 mg/mL INJ IVP (06:24)
[2023-12-29 07:36] LABS: Glucose Point of Care 118 mg/dL (70-110)
[2023-12-29] MEDS: budesonide 0.5 mg/2 mL Neb INHALATION ×2 (07:41→20:16)
[2023-12-29] MEDS: aspirin 81 mg EC Tablet PO (08:11)
[2023-12-29] MEDS: amlodipine 10 mg Tablet PO (08:11)
[2023-12-29] MEDS: metoprolol tartrate 25 mg Tablet PO ×2 (08:11→20:14)
[2023-12-29] MEDS: lidocaine 1% 5 ML in potassium chloride premix 100 ML 52.5 ML IV (09:30)
[2023-12-29] MEDS: FUROsemide 10 mg/mL SDV 4mL 40 MG IVP (09:30)
[2023-12-29] MEDS: ALPRAZolam 0.5 mg Tablet PO (10:45)
[2023-12-29] MEDS: dexmedeTOMIDine 0.9 % NaCL 400 MCG/100 ML PREMIX 10.88 MCG IV (10:45)
--- NOTE | 2023-12-29 10:53 | PC.NURSE ---
Patient having verbal aggression towards staff members about food and being in the hospital. Patient educated on risk of aspiration and his condition.
--- NOTE | 2023-12-29 11:50 | PM.PN ---
Subjective Subjective: Patient is doing much better this morning. He is sitting up in bed and ready to eat breakfast. His lungs are much clearer than yesterday. His lungs are much clearer than yesterday. Pleural effusions decreased in size from diuresis. Still on high flow nasal cannula. Denies any chest pain. Reports improvement in his breathing. He is a little agitated this morning and is still on Precedex. Medications: Reviewed: Yes Vitals/I&O/Wt Last Vital Signs Temp 97.6 F 12/29/23 08:00 Pulse 91 12/29/23 08:00 Resp 21 H 12/29/23 08:00 BP 144/90 12/29/23 08:00 Pulse Ox 100 12/29/23 08:00 O2 Del Method High Flow Nasal Cannula 12/29/23 08:00 O2 Flow Rate 45 12/29/23 08:00 FiO2 50 12/29/23 08:00 12/28/23 12/29/23 12/29/23 22:59 06:59 14:59 Intake Total 0 / 250 841.451 / 841.451 Output Total 1000 / 1000 Balance -1000 / -750 841.451 / 841.451 Weight last 48 hrs Weight 127 lb 13.89 oz Weight 128 lb Weight 128 lb 1.164 oz Physical Exam Narrative: General: No apparent distress, healthy appearing, well nourished HENMT: normoceophalic Muskuloskeletal: Full ROM Lymphatic: no lymphedema noted Respiratory: Normal respiratory effort, clear to auscultation bilaterally throughout all lung palmer, slightly diminished in bilateral lower lobes, no use of accessory muscles Cardio: No JVD, regular rate, regular rhythm, S1 S2 normal, no murmurs, peripheral pulses 2+ throughout Extremities: Full ROM, normal, no edema Neuro: alert, oriented to person, place and situation Psych: slightly agitated Skin: No rashes or lesions noted, no wounds Urinary Catheter Management: Vital: Cath Placed During This Visit: yes Reason for Continuing Indwelling Catheter: Accurate Measurement of Urinary Output in Critically Ill Patients Urinary Catheter Date of Insertion: 12/22/23 Urinary Catheter Time of Insertion: 16:00 Data 12/29/23 03:44 12/29/23 03:44 A&P Assessment and plan (1) Triple vessel disease of the heart: Patient has known multi vessel coronary artery disease. Due to underlying comorbidities and high risk for bleeding contrast induced nephropathy and multiorgan failure he is not a candidate for percutaneous angioplasty/left heart catheterization. Recommend continue current care. (2) CHF (congestive heart failure): Continue with goal directed medical therapy. Patient has improved with diuretics. Qualifiers: Heart failure chronicity: acute Heart failure type: unspecified Qualified Code(s): I50.9 - Heart failure, unspecified Plan Continue current care. Patient continues to improve. Hemaglobin stable. Patient will need intervention in the future when he has recovered. Attestations Medical Necessity Statement*: Patient require continuation hospitalization for above defined care Coding Level of Care Code Acute Code for [facility] Fwd Diagnoses Triple vessel disease of the heart I25.10 CHF (congestive heart failure) I50.9 Heart failure chronicity: acute Heart failure type: unspecified
[2023-12-29 12:30] LABS: Glucose Point of Care 248 mg/dL (70-110)
[2023-12-29] MEDS: insulin lispro 100 unit/1 mL SUBCUT (12:40)
--- NOTE | 2023-12-29 13:48 | PC.NURSE ---
Patient asking nurse to put a little dope in his sprite.
[2023-12-29] MEDS: azithromycin 500 MG in sodium chloride 0.9% 250 ML 250 MG IV (14:54)
--- NOTE | 2023-12-29 16:04 | PM.PN ---
Subjective Subjective: - Patient was seen this morning he is alert to person, not to place, not to time, he can follow some commands, but other times he is quite confused -His complaint is that he is very thirsty he want something to drink, he is very hungry -He did use BiPAP overnight, on 45 L 45% this morning, afebrile overnight, did normotensive, -Does report shortness of breath, no chest pain complaints -I had a detailed discussion with patient about his respiratory failure, MRSA pneumonia, acute respiratory distress syndrome, his hypoxia he is likely going to need prolonged hospitalization, he is likely going to need to go to [facility] or similar facility for long-term care as his oxygen requirements remain profound, he is need IV antibiotics for at least 2 weeks, after discussing the risk and benefits of all options, I do not get any clear indication that Colin understands what I am talking to him about, although he keeps repeating is I am thirsty please let me drink -I discussed that he has had 2 aspiration events here in the hospital, both associate with severe respiratory failure episodes, will have speech therapy see him, but nonetheless I am going to keep him on a thickened liquid diet, and have supervised feeds, has a high risk of aspiration however it is not clear if he understands any, he keeps telling me I am thirsty let me drink -Is not exactly clear if Colin understands the gravity of situation, I do not feel that right now he can make decisions for himself, does not have the capacity to make decisions -I was able to speak to Colin's , Leidy Carey who is patient's next of kin, discussed with her detail about his MRSA pneumonia, his acute respiratory distress syndrome, his ischemic cardiomyopathy, his anemia, his deconditioning, his protein calorie malnutrition, his severe respiratory failure his encephalopathy -We discussed that for his MRSA pneumonia he is getting better however he is going need at least 2 weeks of IV antibiotics ? For his acute respiratory distress syndrome he is still requiring 45 L 45% FiO2, given that trajectory of his pneumonia and his respiratory failure he is going to have high oxygen requirements for a prolonged period of time, the this amount of oxygen cannot be given at home or at a nursing home facility unless he wants to go on hospice, it only can be given at a long-term care facility such as [facility] in [place], this facility in [place] would be able to give him his oxygen requirements, would have lung doctors and have the long-term care that he would need ? Colin needs exceed that that can be provided at a group home or at home, he is going to need long-term care especially from his respiratory failure and his acute respiratory distress, hopefully over time his oxygen needs will decrease ? In terms of his ischemic cardiomyopathy, he if he can clinically improved from his respiratory failure will eventually need cardiac intervention for his LAD and left circumflex lesions, however given his respiratory failure currently he is not a good candidate ? For his anemia, his hemoglobin has been stable we will continue to monitor ? For his deconditioning he is going to require speech therapy eval, dietary eval, PT OT, respiratory therapy eval, this extensive evaluation can only really be done at effectively in a long-term care facility ? We also discussed his high risk of aspiration he is already had 2 significant aspiration events, I do not want him to aspirate again as he has a high risk of morbidity and mortality, will have speech therapy evaluate him, I will have to keep him on a dysphagia level diet ? She tells me that she wants us to do what ever to keep Colin alive, to get Colin better, she is agreeable for him to go to a long-term care facility such as [facility] in [place], she tells me that he has been noncompliant and not going to the doctor for a long time and she says it has caught up with him but she wants him to get better, she wants us to do everything to get him better ? We discussed that currently as Colin is encephalopathic likely secondary to hypoxia, prolonged hospitalization, ICU delirium, he cannot make effective decisions for himself I do not feel that he has a capacity to understand the complexity of the situation, and come to a reasonable decision based upon the risk and benefits of all options, that is why his next of kin Leidy will make decisions ? Discussed with her the risk and benefits of all options, shared decision making, all questions answered, agreed to proceed with placement at long-term care facility Vitals/I&O/Wt Last Vital Signs Temp 97.6 F 12/29/23 08:00 Pulse 72 12/29/23 14:24 Resp 22 H 12/29/23 14:24 BP 96/56 12/29/23 12:30 Pulse Ox 97 12/29/23 14:24 O2 Del Method Heated High Flow 12/29/23 14:24 O2 Flow Rate 35 12/29/23 14:24 FiO2 45 12/29/23 14:24 12/29/23 12/29/23 12/29/23 06:59 14:59 22:59 Intake Total 1473.912 / 1473.912 27.513 / 1501.425 Balance 1473.912 / 1473.912 27.513 / 1501.425 Weight last 48 hrs Weight 58 kg Weight 58.06 kg Weight 58.093 kg Physical Exam Const: COMMON NORMALS: no acute distress EXAM LIMITATIONS: altered mental status ORIENTATION/CONSCIOUSNESS: Yes awake, Yes oriented to person and Yes confused; not oriented to place and not oriented to time OTHER: Ill-appearing, Eye: COMMON NORMALS: Equal, round and reactive pupils present PUPIL: Yes Equal, round and reactive pupils present Neck/C-Spine: COMMON NORMALS: no JVD Resp: COMMON NORMALS: normal respiratory effort, No retractions and No use of accessory muscles AUSCULTATION: crackles and wheezes Cardio: COMMON NORMALS: no JVD, regular rate, regular rhythm, S1 normal heart sound present and S2 normal heart sound present RATE: regular rate RHYTHM: regular rhythm HEART SOUNDS: S1 normal heart sound present and S2 normal heart sound present GI: COMMON NORMALS: Normal to inspection, nondistended, normoactive bowel sounds present and non-tender Extremity: COMMON NORMALS: no pedal edema Neuro: SENSORIUM/ORIENTATION: Yes oriented to person, No oriented to place and No oriented to time OTHER: Difficult to follow neurologic testing due to encephalopathy but is able to smile for me, able to squeeze my fingers bilaterally, does not follow any other commands keeps repeating that he is thirsty but he wants to drink Urinary Catheter Management: Vital: Cath Placed During This Visit: yes Reason for Continuing Indwelling Catheter: Accurate Measurement of Urinary Output in Critically Ill Patients Urinary Catheter Date of Insertion: 12/22/23 Urinary Catheter Time of Insertion: 16:00 Data 12/29/23 03:44 12/29/23 03:44 A&P Assessment and plan (1) Acute hypoxic respiratory failure: (2) Bilateral pneumonia: (3) CHF exacerbation: (4) Acute anemia: (5) Bilateral pleural effusion: (6) Pulmonary edema: (7) Respiratory distress: (8) COPD exacerbation: (9) Aspiration pneumonitis: (10) Coronary artery disease: (11) Ischemic cardiomyopathy: (12) Physical deconditioning: (13) Protein calorie malnutrition: (14) Pulmonary hypertension: (15) ARDS (adult respiratory distress syndrome): (16) MRSA pneumonia: (17) Acute encephalopathy: Plan Acute encephalopathy -Likely secondary to MRSA pneumonia ? Secondary to hypoxia -Secondary to ICU delirium ? He is on Precedex drip for agitation ? Is on Xanax for agitation as needed Acute hypoxic respiratory failure -With respiratory distress syndrome -Multifactorial from bilateral pneumonia, MRSA pneumonia -Sputum cultures growing MRSA species -CT angiogram the chest showing - CT/CT angio chest PE protcl [id number] IMPRESSION: 1. No evidence of pulmonary embolism. 2. Severe diffuse ground-glass and consolidative airspace disease with interlobular septal thickening. Slight interval worsening since 12/24/2023. As before, findings could represent pulmonary edema, acute lung injury, hypersensitivity pneumonitis and/or atypical infection. 3. Slightly decreased size of moderate bilateral pleural effusions. 4. Moderate cardiomegaly. 5. Reflux of contrast in the IVC can be seen with right heart failure and/or tricuspid regurgitation. 6. Additional ancillary findings as above are similar to prior. -Sputum culture showing gram-negative rods, coagulase positive staphylococci -Secondary to systolic and diastolic CHF, ischemic cardiomyopathy, echocardiogram July 2023 showed an EF of 25%, with severe diffuse hypokinesis of the left ventricle -Has been diuresed -14 L so far -Secondary to COPD -With underlying severe pulmonary hypertension -Requiring heated high flow, requiring BiPAP at night ? Plan -Patient is not in respiratory distress this morning, is on 45 L 45% FiO2 ? Monitor in the ICU closely ? Continue BiPAP therapy during the night, can use heated high flow during the day -continue Precedex ? Looks euvolemic hold off on Lasix -Dobutamine drip discontinued as it has been over 48 hours -Broaden antibiotic coverage to vancomycin, meropenem, azithromycin -Continue Solu-Medrol -Continue DuoNeb -Continue budesonide Elevated LDH -Has no risk factors for PJP pneumonia -However does have a history of phentermine use, has reported in the past that he smokes it, amphetamines were positive during this hospitalization -However CT of the chest does show diffuse groundglass airspace disease -Will await beta D glucan -No pulmonary available here at [facility] for bronchoscopy -Ordered DFA and PCR of sputum MRSA pneumonia -Will likely require 2 weeks of IV antibiotics, IV vancomycin Aspiration pneumonia, aspiration pneumonitis -Has had multiple aspiration events during this hospitalization -He keeps asking for drain, but have discussed with nursing staff that he is on strict aspiration precautions, thickened liquids -for now we will keep him dysphagia level 4 diet, extremely thickened -Speech therapy eval -Will consider dysphagia level 4 diet moderately thickened based on clinical progress Bilateral pneumonia, MRSA pneumonia -With positive sputum cultures of MRSA -Given diffuse groundglass opacities as above -Hemoptysis, resolved -Has been on vancomycin -LDH 458, no risk factors for PJP, but will await if beta D glucan -Fungitell -AFB smears x 3 -Repeat sputum studies -QuantiFERON gold -Monitor respiratory status closely -Isolation precautions Hemoptysis -Monitor closely Acute on chronic anemia, hemoglobin stable -Recent hospitalization for acute anemia, EGD and colonoscopy no acute findings -Status post units PRBC NSTEMI -Recent in our echocardiogram CONCLUSIONS Severe diffuse hypokinesia left ventricular ejection fraction around 25%, visual. Mildly dilated LV cavity. Mildly increased left atrial size. Thickened mitral valve. Mild mitral annular calcification. Mild- moderate mitral valve regurgitation. Thickened aortic valve. Features of aortic valve sclerosis with a peak velocity of 2.2 m/s. [id number] pulmonary valve regurgitation. Possible small pericardial effusion Features of large left-sided pleural effusion -Recent cardiac cath Conclusions 1. Severe 2. multivessel CAD. 3. Patient has significant anemia. 4. and 2 weeks of antiplatelet therapy prior to PCI of LAD and Left circumflex arteries. May require arthrectomy. 5. Severe pulmonary hypertension. Severely elevated left sided cardiac pressures. -Continue aspirin, statin -Did not follow-up with cardiology as outpatient -Repeat cardiac echocardiogram CONCLUSIONS Moderately increased left ventricular cavity size. Severely decreased left ventricular systolic function. Left ventricular ejection fraction is estimated at 17 %. Grade IV/IV diastolic dysfunction (irreversible restrictive filling pattern), severely elevated filling pressures. Normal right ventricular size. Severe pulmonary hypertension, RVSP 76.3 mmHg. Moderate biatrial enlargement Severely thickened mitral valve. Moderate mitral annular calcification. No mitral valve stenosis. Severe mitral valve regurgitation. Severe aortic valve calcification. Severe aortic valve stenosis, mean gradient 8.2 mmHg, AMBER 0.8 cm squared. Trace aortic valve regurgitation. Cannot rule out pseudo aortic stenosis. Thickened tricuspid valve. [id number] tricuspid valve regurgitation. There is no pericardial effusion. Right atrial pressure is around 20 mm of mercury. -Cardiology consulted -Currently being medically managed -Certainly his cardiac lesions will need to be intervened on once patient's rest per [place] status has stabilized Mild mottling of bilateral lower extremities -Could be multifactorial from sepsis from bilateral pneumonia -Ischemic cardiomyopathy -Monitor -Arterial duplex ordered FINDINGS Diffuse intimal thickening in the iliac, femoral and popliteal arteries bilaterally. Near normal arterial Doppler waveforms and velocities bilaterally Resting BELLO 1.3 bilaterally CONCLUSIONS 1. Normal resting ABIs bilaterally suggesting no significant arterial obstruction 2. Diffuse intimal thickening in the iliac , femoral and popliteal arteries bilaterally. Physical deconditioning, protein calorie malnutrition, consult dietary Type 2 diabetes mellitus, low dose insulin sliding scale Urine toxicology screen positive for amphetamine Hypertension ? On metoprolol 25 mg twice daily ? Add Norvasc 10 mg Severe deconditioning, protein calorie malnutrition, muscle wasting ? Likely secondary to underlying COPD, ischemic cardiomyopathy -Dietary consulted Full code Status stable, prognosis guarded Plan for today \- Patient was seen this morning he is alert to person, not to place, not to time, he can follow some commands, but other times he is quite confused -His complaint is that he is very thirsty he want something to drink, he is very hungry -He did use BiPAP overnight, on 45 L 45% this morning, afebrile overnight, did normotensive, -Does report shortness of breath, no chest pain complaints -I had a detailed discussion with patient about his respiratory failure, MRSA pneumonia, acute respiratory distress syndrome, his hypoxia he is likely going to need prolonged hospitalization, he is likely going [facility] need [facility] to [facility] similar facility for [facility]-term care as his oxygen requirements remain profound, he is need IV antibiotics for at least 2 weeks, after discussing the risk and benefits of all options, I do not get any clear indication that Colin understands what I am talking to him about, although he keeps repeating is I am thirsty please let me drink -I discussed that he has had 2 aspiration events here in the hospital, both associate with severe respiratory failure episodes, will have speech therapy see him, but nonetheless I am going to keep him on a thickened liquid diet, and have supervised feeds, has a high risk of aspiration however it is not clear if he understands any, he keeps telling me I am thirsty let me drink -Is not exactly clear if Colin understands the gravity of situation, I do not feel that right now he can make decisions for himself, does not have the capacity to make decisions -I was able to speak to Colin's , Leidy Carey who is patient's next of kin, discussed with her detail about his MRSA pneumonia, his acute respiratory distress syndrome, his ischemic cardiomyopathy, his anemia, his deconditioning, his protein calorie malnutrition, his severe respiratory failure his encephalopathy -We discussed that for his MRSA pneumonia he is getting better however he is going need at least 2 weeks of IV antibiotics ? For his acute respiratory distress syndrome he is still requiring 45 L 45% FiO2, given that trajectory of his pneumonia and his respiratory failure he is going to have high oxygen requirements for a prolonged period of time, the this amount of oxygen cannot be given at home or at a nursing home facility unless he wants to go on hospice, it only can be given at a long-term care facility such as [facility] in [place], this facility in [place] would be able to give him his oxygen requirements, would have lung doctors and have the long-term care that he would need ? Colin needs exceed that that can be provided at a group home or at home, he is going to need long-term care especially from his respiratory failure and his acute respiratory distress, hopefully over time his oxygen needs will decrease ? In terms of his ischemic cardiomyopathy, he if he can clinically improved from his respiratory failure will eventually need cardiac intervention for his LAD and left circumflex lesions, however given his respiratory failure currently he is not a good candidate ? For his anemia, his hemoglobin has been stable we will continue to monitor ? For his deconditioning he is going to require speech therapy eval, dietary eval, PT OT, respiratory therapy eval, this extensive evaluation can only really be done at effectively in a long-term care facility ? We also discussed his high risk of aspiration he is already had 2 significant aspiration events, I do not want him to aspirate again as he has a high risk of morbidity and mortality, will have speech therapy evaluate him, I will have to keep him on a dysphagia level diet ? She tells me that she wants us to do what ever to keep Colin alive, to get Colin better, she is agreeable for him to go to a long-term care facility such as [facility] in [place], she tells me that he has been noncompliant and not going to the doctor for a long time and she says it has caught up with him but she wants him to get better, she wants us to do everything to get him better ? We discussed that currently as Colin is encephalopathic likely secondary to hypoxia, prolonged hospitalization, ICU delirium, he cannot make effective decisions for himself I do not feel that he has a capacity to understand the complexity of the situation, and come to a reasonable decision based upon the risk and benefits of all options, that is why his next of kin Leidy will make decisions ? Discussed with her the risk and benefits of all options, shared decision making, all questions answered, agreed to proceed with placement at long-term care facility -Spoke to patient, spoke to patient's , spoke to case management, spoke to nursing staff, spoke to cardiology Attestations Medical Necessity Statement*: Patient requires hospitalization for acute respiratory distress syndrome, acute hypoxic respiratory failure, MRSA pneumonia, acute encephalopathy, high aspiration risk, Diagnoses Acute hypoxic respiratory failure J96.01 Bilateral pneumonia J18.9 CHF exacerbation I50.9 Acute anemia D64.9 Bilateral pleural effusion J90 Pulmonary edema J81.1 Respiratory distress R06.03 COPD exacerbation J44.1 Aspiration pneumonitis J69.0 Coronary artery disease I25.10 Ischemic cardiomyopathy I25.5 Physical deconditioning R53.81 Protein calorie malnutrition E46 Pulmonary hypertension I27.20 ARDS (adult respiratory distress syndrome) J80 MRSA pneumonia J15.212 Acute encephalopathy G93.40
[2023-12-29 18:12] LABS: Glucose Point of Care 120 mg/dL (70-110)
[2023-12-29 19:49] LABS: Glucose Point of Care 87 mg/dL (70-110)
[2023-12-29] MEDS: atorvastatin 40 mg Tablet 20 MG PO (20:14)
[2023-12-29] MEDS: dexmedeTOMIDine 0.9 % NaCL 400 MCG/100 ML PREMIX 6.22 MCG IV (20:16)
[2023-12-30] VITALS (47 sets, daily range): BP systolic 109–148; BP diastolic 58–100; PULSE 71–110; RESP 14–29; TEMP 36.4; O2SAT 87–100
[2023-12-30] MEDS: sucralfate 1 gm/10 mL Oral Liq UDC PO ×2 (00:29→12:20)
[2023-12-30] MEDS: vancomycin 750 MG in sodium chloride 0.9% 250 ML 250 MG IV ×2 (00:29→12:20)
[2023-12-30] MEDS: ALPRAZolam 0.5 mg Tablet PO ×2 (00:30→13:46)
[2023-12-30] MEDS: haloperidol inj 5 mg/mL INJ 1 mL 1 MG IM (01:44)
[2023-12-30] MEDS: levalbuterol 0.63 mg/3 mL Neb INHALATION ×4 (02:47→20:52)
[2023-12-30] MEDS: ipratropium 0.5 mg/2.5 mL Neb INHALATION ×4 (02:47→20:52)
--- NOTE | 2023-12-30 02:50 | PC.NURSE ---
At 0130 this nurse went in to check patient and patient became very agitated. Patient making verbal threats stating I'm going to knock you in the face, I'm going to slit your throat, I hope you . Patient trying to get up and swing at this nurse. This nurse called out for assistance and security was called. Patient was given PRN Haldol as ordered, security at bedside. Patient was then verbally de-escalated and is now resting in bed.
[2023-12-30 04:04] LABS: Basophils % 0.1 %; Eosinophils # 0.4 10^3/uL (0.0-0.8); Eosinophils % 1.8 %; Hematocrit 34.9 % (37-53); Lymphocytes % 8.7 %; Mean Corpuscular HGB Conc 28.9 g/dL (30-55); Mean Corpuscular Hemoglobin 22.6 pg (27-33); Mean Corpuscular Volume 78.3 fl (82-101); Mean Platelet Volume 9.5 fL (7.4-10.4); Monocytes # 1.2 10^3/uL (0.2-0.9); Monocytes % 5.2 %; Neutrophils # 18.74 10^3/uL (1.8-7.7); Neutrophils % 83.6 %; Nucleated Red Blood Cells % 0 %; Platelet Count 236 10^3/cmm (157-399); Red Blood Count 4.46 10^6/uL (3.85-5.65); Red Cell Distribution Width 27.6 % (12.1-15.1); White Blood Count 22.41 10^3/uL (3.29-11.43)
[2023-12-30] MEDS: meropenem 1,000 mg SDV 1000 MG IVP ×3 (04:15→19:30)
[2023-12-30] MEDS: pantoprazole 40 mg SDV IVP ×2 (04:16→15:35)
[2023-12-30 04:30] LABS: Alanine Aminotransferase 28 U/L (0-41); Albumin Level 2.9 g/dL (3.5-5.2); Alkaline Phosphatase 76 U/L (40-130); Anion Gap 10.9 (5-19); Aspartate Amino Transferase 17 U/L (0-40); Blood Urea Nitrogen 40 mg/dL (8-23); C Reactive Protein 12.3 mg/L (0.0-4.9); Calcium 8.6 mg/dL (8.5-10.5); Carbon Dioxide 28 mmol/L (22-29); Chloride 100 mmol/L (98-107); Globulin 2.3 g/dL (1.3-4.6); Glucose 96 mg/dL (65-115); Magnesium 1.9 mg/dL (1.7-2.3); Osmolality Calculated 292 mOsm/kg (285-295); Phosphorus 1.4 mg/dL (2.5-4.5); Sodium 136 mmol/L (136-145); Total Bilirubin 0.9 mg/dL (0.15-1.2); Total Protein 5.2 g/dL (6.6-8.7)
[2023-12-30 04:34] LABS: NT Pro B Type Natriuretic Pept 12153 pg/mL (0-125)
[2023-12-30 04:39] LABS: Potassium 2.9 mmol/L (3.5-5.1)
[2023-12-30] MEDS: methylPREDNISolone sod succ 40 mg/mL INJ IVP (05:06)
[2023-12-30] MEDS: potassium chloride ER 20 mEq Tablet 40 MEQ PO (05:06)
--- NOTE | 2023-12-30 07:00 | XR_ITS ---
WS: [id number] Exam: XR chest 1V portable [id number] Date/Time of Exam: 12/30/2023 6:53 AM Reason For Exam: sob Comparison 12/26/2023. Extensive interstitial and alveolar infiltrates noted throughout both lungs. Very little change since the last study. No pneumothorax or obvious pleural effusion. Cardiomediastinal silhouette is unremar kable for technique. Bony structures are intact. XR/XR chest 1V portable [id number] IMPRESSION: 1. Extensive bilateral pulmonary infiltrates showing no significant change.
[2023-12-30] MEDS: amlodipine 10 mg Tablet PO (08:11)
[2023-12-30] MEDS: aspirin 81 mg EC Tablet PO (08:11)
[2023-12-30] MEDS: metoprolol tartrate 25 mg Tablet PO ×2 (08:11→20:17)
[2023-12-30 08:27] LABS: Glucose Point of Care 116 mg/dL (70-110)
--- NOTE | 2023-12-30 08:42 | PC.SOCIAL ---
IMM Update Pg. 2 of IMM updated. Copy provided at bedside.
[2023-12-30] MEDS: budesonide 0.5 mg/2 mL Neb INHALATION ×2 (08:55→20:52)
[2023-12-30 13:05] LABS: Glucose Point of Care 94 mg/dL (70-110)
--- NOTE | 2023-12-30 13:10 | P.PN_ITS ---
Subjective 2 Subjective: Patient more alert today. Sitting up in bed. Still on high flow nasal cannula. FiO2 45%. Lungs are fairly clear. His affect is better today. Still on Precedex. Vital signs stable. Medications: Reviewed: Yes Vitals/I&O/Wt Last Vital Signs Temp 97.5 F L 12/30/23 04:00 Pulse 86 12/30/23 12:30 Resp 20 H 12/30/23 12:30 BP 129/63 12/30/23 12:00 Pulse Ox 97 12/30/23 12:30 O2 Del Method High Flow Nasal Cannula 12/30/23 12:00 O2 Flow Rate 9 12/30/23 12:00 FiO2 45 12/29/23 16:30 12/29/23 12/30/23 12/30/23 22:59 06:59 14:59 Intake Total 550.176 / 2024.088 271.563 / 2295.651 318.437 / 318.437 Output Total 1300 / 1300 750 / 2050 1000 / 1000 Balance -749.824 / 724.088 -478.437 / 245.651 -681.563 / -681.563 Weight last 48 hrs Weight 128 lb 9.6 oz Weight 127 lb 13.89 oz Physical Exam 2 Narrative: GENERAL: Patient is alert, awake and oriented x3 NECK: No jugular vein distension. HEART: Regular S1 and S2. No murmur, rub or gallop. LUNGS: Clear to auscultate bilaterally. CENTRAL NERVOUS SYSTEM: Grossly nonfocal. EXTREMITIES: Lower extremities with out edema bilaterally. 2+ radial palpated bilaterally Urinary Catheter Management: Vital: Cath Placed During This Visit: yes Reason for Continuing Indwelling Catheter: Accurate Measurement of Urinary Output in Critically Ill Patients Urinary Catheter Date of Insertion: 12/22/23 Urinary Catheter Time of Insertion: 16:00 Data 12/31/23 04:44 12/31/23 04:44 A&P Assessment and plan (1) Triple vessel disease of the heart: Patient has known multi vessel coronary artery disease. Due to underlying comorbidities and high risk for bleeding contrast induced nephropathy and multiorgan failure he is not a candidate for percutaneous angioplasty/left heart catheterization. Recommend continue current care with medical therapy. Continue to add guideline medical therapy for heart failure. We will add Entresto to the regimen. (2) CHF (congestive heart failure): Continue with goal directed medical therapy. Patient has improved with diuretics. Potassium low today. This is being replaced. Entresto has been added, will recheck BMP in the morning Qualifiers: Heart failure chronicity: acute Heart failure type: unspecified Qualified Code(s): I50.9 - Heart failure, unspecified Plan Continue current care. Patient continues to improve. Due to underlying comorbidities and high risk for bleeding contrast induced nephropathy and multiorgan failure he is not a candidate for percutaneous angioplasty/left heart catheterization. Attestations 2 Medical Necessity Statement*: Patient require continuation hospitalization for above defined care Coding Level of Care Code Acute Code for Chg Fwd Diagnoses Triple vessel disease of the heart I25.10 CHF (congestive heart failure) I50.9 Heart failure chronicity: acute Heart failure type: unspecified
[2023-12-30] MEDS: nicotine 21 mg Patch 1 PATCH TRANSDERMA (13:45)
--- NOTE | 2023-12-30 14:46 | P.PN_ITS ---
Subjective 2 Subjective: - Patient was seen this morning -He is alert to person, to place, not to time he does follow commands -He is more alert and awake -Currently on 10 L, high flow nasal benjamin jignesh, BiPAP during the night -I did detailed discussion with him he i s much more understanding much more receptive this morning -I had a detailed discussion with him ab out his respiratory failure, his ischemic cardiomyopathy his MRSA pneumonia is acute respiratory distress syndrome -He is going to have a protracted medica l course, given his profound oxygen requirements ? He is going to require care at a long-term care facility such as [facility] that can help with his increased needs, specifically oxygen, respiratory needs, PT OT, dietary needs, -Currently certainly home and nursing ho me is an option however his oxygen requirements are so significant these cannot be done at home safely or a done at a long-term safely his needs are too great -I had a detailed discussion with him th at in order for him to do well he is going to have to go to a special facility such as [facility] to get all the needs that he requires, is getting IV antibiotics for at least 2 weeks, PT OT, speech therapy eval, dietary eval, pulmonary eval, respiratory therapy eval, he requires BiPAP during the night -Eventually once his respiratory status improves we can certainly then intervene or consider intervening on his ischemic cardiomyopathy -After discussing risk and benefits of a ll options, he tells me yes he wants to do everything that will help him, he is agreeable to go to [facility] in [place], nursing staff are at bedside during this discussion -But he tells me that he also wants to t alk to his I discussed with him that I spoke to his last night, but will have the nursing staff bring in a phone so he can talk to his Vitals/I&O/Wt Last Vital Signs Temp 97.5 F L 12/30/23 04:00 Pulse 93 12/30/23 14:36 Resp 17 12/30/23 13:12 BP 129/63 12/30/23 12:00 Pulse Ox 99 12/30/23 13:12 O2 Del Method High Flow Nasal Cannula 12/30/23 13:12 O2 Flow Rate 9 12/30/23 13:12 FiO2 45 12/29/23 16:30 12/29/23 12/30/23 12/30/23 22:59 06:59 14:59 Intake Total 550.176 / 2024.088 271.563 / 2295.651 318.437 / 318.437 Output Total 1300 / 1300 750 / 2050 1000 / 1000 Balance -749.824 / 724.088 -478.437 / 245.651 -681.563 / -681.563 Weight last 48 hrs Weight 58.332 kg Weight 58 kg Physical Exam 2 Const: COMMON NORMALS: no acute distress and patient oriented x3 O RIENTATION/CONSCIOUSNESS: Yes awake, Yes oriented to person and Yes oriented to place; not oriented to time Resp: COMMON NORMALS: normal respiratory effort, No retractions and No use of accessory muscles AUSCULTATION: crackles and wheezes Cardio: COMMON NORMALS: regular rate, regular rhythm, S1 normal heart sound present and S2 normal heart sound present RATE: regular rate RHYTHM: r egular rhythm HEART SOUNDS: S1 normal heart sound present and S2 normal heart sound present GI: COMMON NORMALS: Normal to inspection, nondistended, normoactive bowel sounds present and non-tender Extremity: COMMON NORMALS: no pedal edema Neuro: COMMON NORMALS: patient oriented x3 SENSORIUM/ORIENTATION: Yes oriented to person, Yes oriented to place and No oriented to time Psych: COMMON NORMALS: mental status grossly normal Urinary Catheter Management: Vital: Cath Placed During This Visit: yes Reason for Continuing Indwelling Catheter: Accurate Measurement of Urinary Output in Critically Ill Patients Urinary Catheter Date of Insertion: 12/22/23 Urinary Catheter Time of Insertion: 16:00 Data 12/30/23 03:36 12/30/23 03:36 A&P Assessment and plan (1) Acute hypoxic respiratory failure: (2) Bilateral pneumonia: (3) CHF exacerbation: (4) Acute anemia: (5) Bilateral pleural effusion: (6) Pulmonary edema: (7) Respiratory distress: (8) COPD exacerbation: (9) Aspiration pneumonitis: (10) Coronary artery disease: (11) Ischemic cardiomyopathy: (12) Physical deconditioning: (13) Protein calorie malnutrition: (14) Pulmonary hypertension: (15) ARDS (adult respiratory distress syndrome): (16) MRSA pneumonia: (17) Acute encephalopathy: Plan Acute encephalopathy, resolving -Likely secondary to MRSA pneumonia ? Secondary to hypoxia -Secondary to ICU delirium ? He is on Precedex drip for agitation ? Is on Xanax for agitation as needed Acute hypoxic respiratory failure -With respiratory distress syndrome -Multifactorial from bilateral pneumonia, MRSA pneumonia -Sputum cultures growing MRSA species -CT angiogram the chest showing - CT/CT angio chest PE protcl [id number] IMPRESSION: 1. No evidence of pulmonary embolism. 2. Severe diffuse ground-glass and consolidative airspace disease with interlobular septal thickening. Slight interval worsening since 12/24/2023. As before, findings could represent pulmonary edema, acute lung injury, hypersensitivity pneumonitis and/or atypical infection. 3. Slightly decreased size of moderate bilateral pleural effusions. 4. Moderate cardiomegaly. 5. Reflux of contrast in the IVC can be seen with right heart failure and/or tricuspid regurgitation. 6. Additional ancillary findings as above are similar to prior. -Sputum culture showing gram-negative rods, coagulase positive staphylococci -Secondary to systolic and diastolic CHF, ischemic cardiomyopathy, echocardiogram July 2023 showed an EF of 25%, with severe diffuse hypokinesis of the left ventricle -Has been diuresed -14 L so far -Secondary to COPD -With underlying severe pulmonary hypertension -Requiring heated high flow, requiring BiPAP at night ? Plan -Patient is not in respiratory distress this morning, is on 10 L heated high flow ? Monitor in the ICU closely ? Continue BiPAP therapy during the night, can use heated high flow during the day -continue Precedex ? Looks euvolemic hold off on Lasix -Dobutamine drip discontinued as it has been over 48 hours -Broaden antibiotic coverage to vancomycin, meropenem, azithromycin -Continue Solu-Medrol -Continue DuoNeb -Continue budesonide Elevated LDH -Has no risk factors for PJP pneumonia -However does have a history of phentermine use, has reported in the past that he smokes it, amphetamines were positive during this hospitalization -However CT of the chest does show diffuse groundglass airspace disease -Will await beta D glucan -No pulmonary available here at [facility] for bronchoscopy -Ordered DFA and PCR of sputum MRSA pneumonia -Will likely require 2 weeks of IV antibiotics, IV vancomycin Aspiration pneumonia, aspiration pneumonitis -Has had multiple aspiration events during this hospitalization -He keeps asking for drain, but have discussed with nursing staff that he is on strict aspiration precautions, thickened liquids -for now we will keep him dysphagia level 4 diet, extremely thickened -Speech therapy eval -Will consider dysphagia level 4 diet moderately thickened based on clinical progress Bilateral pneumonia, MRSA pneumonia -With positive sputum cultures of MRSA -Given diffuse groundglass opacities as above -Hemoptysis, resolved -Has been on vancomycin -LDH 458, no risk factors for PJP, but will await if beta D glucan -Fungitell -AFB smears x 3 -Repeat sputum studies -QuantiFERON gold -Monitor respiratory status closely -Isolation precautions Hemoptysis -Monitor closely Acute on chronic anemia, hemoglobin stable -Recent hospitalization for acute anemia, EGD and colonoscopy no acute findings -Status post units PRBC NSTEMI -Recent in our echocardiogram CONCLUSIONS Severe diffuse hypokinesia left ventricular ejection fraction around 25%, visual. Mildly dilated LV cavity. Mildly increased left atrial size. Thickened mitral valve. Mild mitral annular calcification. Mild- moderate mitral valve regurgitation. Thickened aortic valve. Features of aortic valve sclerosis with a peak velocity of 2.2 m/s. [id number] pulmonary valve regurgitation. Possible small pericardial effusion Features of large left-sided pleural effusion -Recent cardiac cath Conclusions 1. Severe 2. multivessel CAD. 3. Patient has significant anemia. 4. and 2 weeks of antiplatelet therapy prior to PCI of LAD and Left circumflex arteries. May require arthrectomy. 5. Severe pulmonary hypertension. Severely elevated left sided cardiac pressures. -Continue aspirin, statin -Did not follow-up with cardiology as outpatient -Repeat cardiac echocardiogram CONCLUSIONS Moderately increased left ventricular cavity size. Severely decreased left ventricular systolic function. Left ventricular ejection fraction is estimated at 17 %. Grade IV/IV diastolic dysfunction (irreversible restrictive filling pattern), severely elevated filling pressures. Normal right ventricular size. Severe pulmonary hypertension, RVSP 76.3 mmHg. Moderate biatrial enlargement Severely thickened mitral valve. Moderate mitral annular calcification. No mitral valve stenosis. Severe mitral valve regurgitation. Severe aortic valve calcification. Severe aortic valve stenosis, mean gradient 8.2 mmHg, AMBER 0.8 cm squared. Trace aortic valve regurgitation. Cannot rule out pseudo aortic stenosis. Thickened tricuspid valve. [id number] tricuspid valve regurgitation. There is no pericardial effusion. Right atrial pressure is around 20 mm of mercury. -Cardiology consulted -Currently being medically managed -Certainly his cardiac lesions will need to be intervened on once patient's rest per [place] status has stabilized Mild mottling of bilateral lower extremities -Could be multifactorial from sepsis from bilateral pneumonia -Ischemic cardiomyopathy -Monitor -Arterial duplex ordered FINDINGS Diffuse intimal thickening in the iliac, femoral and popliteal arteries bilaterally. Near normal arterial Doppler waveforms and velocities bilaterally Resting BELLO 1.3 bilaterally CONCLUSIONS 1. Normal resting ABIs bilaterally suggesting no significant arterial obstruction 2. Diffuse intimal thickening in the iliac , femoral and popliteal arteries bilaterally. Physical deconditioning, protein calorie malnutrition, consult dietary Type 2 diabetes mellitus, low dose insulin sliding scale Urine toxicology screen positive for amphetamine Hypertension ? On metoprolol 25 mg twice daily ? Add Norvasc 10 mg Severe deconditioning, protein calorie malnutrition, muscle wasting ? Likely secondary to underlying COPD, ischemic cardiomyopathy -Dietary consulted Full code Status stable, prognosis guarded - Patient was seen this morning -He is alert to person, to place, not to time he does follow commands -He is more alert and awake -Currently on 10 L, high flow nasal cannula, BiPAP during the night -I did detailed discussion with him he is much more understanding much more receptive this morning -I had a detailed discussion with him about his respiratory failure, his ischemic cardiomyopathy his MRSA pneumonia is acute respiratory distress syndrome -He is going to have a protracted medical course, given his profound oxygen requirements ? He is going to require care at a long-term care facility such as [facility] that can help with his increased needs, specifically oxygen, respiratory needs, PT OT, dietary needs, -Currently certainly home and long-term is an option however his oxygen requirements are so significant these cannot be done at home safely or a done at a long-term safely his needs are too great -I had a detailed discussion with him that in order for him to do well he is going to have to go to a special facility such as [facility] to get all the needs that he requires, is getting IV antibiotics for at least 2 weeks, PT OT, speech therapy eval, dietary eval, pulmonary eval, respiratory therapy eval, he requires BiPAP during the night -Eventually once his respiratory status improves we can certainly then intervene or consider intervening on his ischemic cardiomyopathy -After discussing risk and benefits of all options, he tells me yes he wants to do everything that will help him, he is agreeable to go to [facility] in [place], nursing staff are at bedside during this discussion -But he tells me that he also wants to talk to his I discussed with him that I spoke to his last night, but will have the nursing staff bring in a phone so he can talk to his Attestations 2 Medical Necessity Statement*: Patient requires hospitalization for acute hypoxic respiratory failure secondary acute respiratory distress syndrome, MRSA pneumonia with pulmonary hypertension, ischemic cardiomyopathy, severe deconditioning, Diagnoses Acute hypoxic respiratory failure J96.01 Bilateral pneumonia J18.9 CHF exacerbation I50.9 Acute anemia D64.9 Bilateral pleural effusion J90 Pulmonary edema J81.1 Respiratory distress R06.03 COPD exacerbation J44.1 Aspiration pneumonitis J69.0 Coronary artery disease I25.10 Ischemic cardiomyopathy I25.5 Physical deconditioning R53.81 Protein calorie malnutrition E46 Pulmonary hypertension I27.20 ARDS (adult respiratory distress syndrome) J80 MRSA pneumonia J15.212 Acute encephalopathy G93.40
[2023-12-30] MEDS: lactulose oral liq 20 gm/30 mL UDC 10 GM PO (15:35)
[2023-12-30 15:58] LABS: Quantiferon Mitogen 0.15 IU/mL; Quantiferon Nil 0.01 IU/mL; Quantiferon TB Gold INDETERMINATE (NEGATIVE)
[2023-12-30 16:52] LABS: Glucose Point of Care 73 mg/dL (70-110)
[2023-12-30] MEDS: atorvastatin 40 mg Tablet 20 MG PO (20:17)
--- NOTE | 2023-12-30 23:22 | PC.NURSE ---
Called to room at 1040 pm by RT staff passing by door. Patient noted to be sitting on floor at side of bed with legs stretched out. Denies injury states slipper / gripper socks don't work and I lost my balance and slipped to floor. Denies hitting head, states caught self with hands . Only area of redness noted on right knee. Patient states not new. Denies pain. States bed was flat in center. Noted bed alarm not sounding. previously on. Call andersen was attached to opposite side rail. Also noted CPR port on right side of bed/ same side patient left bed to be open. Patient reports didn't call for help as he was sitting on side and happened to slipped. RT had been in room post breathing treatment prior. Patient on airborne isolation with additional air filter in room and both doors closed. No sedation medications or pain medications previously given. No spills/ obstacles noted on floor. Patient had been watching tv with room light on. bp 143/74 HR 82 RR 18 on 9L hfnc, saturation 98%. Dr. Cole notified. no further orders requested. Staff to continue to monitor and call if any concerns noted or complaints of patient pain.
[2023-12-31] VITALS (31 sets, daily range): BP systolic 95–158; BP diastolic 47–113; PULSE 79–113; RESP 16–33; TEMP 36.4–37.1; O2SAT 89–100
[2023-12-31] MEDS: VANCOMYCIN ADD-Vantage 750 MG in 0.9% NaCl ADD-Vantage 250 ML 250 MG IV ×2 (00:19→13:42)
[2023-12-31] MEDS: sucralfate 1 gm/10 mL Oral Liq UDC PO ×2 (00:19→13:39)
[2023-12-31 01:08] LABS: Glucose Point of Care 98 mg/dL (70-110)
[2023-12-31 01:39] LABS: Fungitell 1-3-B Glucan Assay 45 pg/ml; Interpretation Negative (Negative)
[2023-12-31] MEDS: ipratropium 0.5 mg/2.5 mL Neb INHALATION ×4 (03:15→20:51)
[2023-12-31] MEDS: levalbuterol 0.63 mg/3 mL Neb INHALATION ×4 (03:15→20:51)
[2023-12-31] MEDS: pantoprazole 40 mg SDV IVP ×2 (04:19→17:21)
[2023-12-31] MEDS: meropenem 1,000 mg SDV 1000 MG IVP ×3 (04:19→21:27)
[2023-12-31 04:53] LABS: Basophils % 0.1 %; Eosinophils # 0.3 10^3/uL (0.0-0.8); Eosinophils % 1.7 %; Hematocrit 37.8 % (37-53); Lymphocytes # 1.2 10^3/uL (0.8-4.8); Lymphocytes % 6.3 %; Mean Corpuscular Hemoglobin 22.4 pg (27-33); Mean Corpuscular Volume 79.9 fl (82-101); Monocytes # 0.9 10^3/uL (0.2-0.9); Monocytes % 4.8 %; Neutrophils # 16.57 10^3/uL (1.8-7.7); Neutrophils % 86.3 %; Nucleated Red Blood Cells % 0 %; Platelet Count 237 10^3/cmm (157-399); Red Blood Count 4.73 10^6/uL (3.85-5.65); Red Cell Distribution Width 28.2 % (12.1-15.1)
[2023-12-31 05:13] LABS: Alanine Aminotransferase 32 U/L (0-41); Albumin Level 3.1 g/dL (3.5-5.2); Alkaline Phosphatase 91 U/L (40-130); Aspartate Amino Transferase 29 U/L (0-40); Blood Urea Nitrogen 26 mg/dL (8-23); C Reactive Protein 19.9 mg/L (0.0-4.9); Calcium 8.5 mg/dL (8.5-10.5); Carbon Dioxide 26 mmol/L (22-29); Chloride 102 mmol/L (98-107); Globulin 2.5 g/dL (1.3-4.6); Glucose 112 mg/dL (65-115); Magnesium 1.9 mg/dL (1.7-2.3); Osmolality Calculated 292 mOsm/kg (285-295); Phosphorus 1.3 mg/dL (2.5-4.5); Sodium 138 mmol/L (136-145); Total Bilirubin 1.1 mg/dL (0.15-1.2); Total Protein 5.6 g/dL (6.6-8.7)
[2023-12-31 05:19] LABS: Anion Gap 13.7 (5-19); NT Pro B Type Natriuretic Pept 12939 pg/mL (0-125); Potassium 3.7 mmol/L (3.5-5.1); Procalcitonin 0.09 ng/mL (0-0.5)
[2023-12-31] MEDS: methylPREDNISolone sod succ 40 mg/mL INJ IVP (05:29)
[2023-12-31 07:23] LABS: Glucose Point of Care 58 mg/dL (70-110)
[2023-12-31] MEDS: sacubitril/valsartan 24-26 mg Tablet 1 EACH PO ×2 (08:00→17:21)
[2023-12-31] MEDS: nicotine 21 mg Patch 1 PATCH TRANSDERMA (08:00)
[2023-12-31] MEDS: aspirin 81 mg EC Tablet PO (08:00)
[2023-12-31] MEDS: metoprolol tartrate 25 mg Tablet PO ×2 (08:00→21:34)
[2023-12-31] MEDS: ALPRAZolam 0.5 mg Tablet PO (08:05)
[2023-12-31] MEDS: budesonide 0.5 mg/2 mL Neb INHALATION ×2 (08:12→20:51)
[2023-12-31] MEDS: predniSONE 20 mg Tablet 40 MG PO ×2 (09:11→17:21)
[2023-12-31] MEDS: OLANZapine 5 mg ODT 2.5 MG PO (09:48)
[2023-12-31 10:56] LABS: Glucose Point of Care 102 mg/dL (70-110)
[2023-12-31] MEDS: LORazepam 2 mg/mL INJ 1 mL 1 MG IVP (13:07)
--- NOTE | 2023-12-31 15:10 | P.PN_ITS ---
Subjective 2 Subjective: Continue to feel better. Medications: Reviewed: Yes Vitals/I&O/Wt Last Vital Signs Temp 98.3 F 12/31/23 14:00 Pulse 85 12/31/23 14:18 Resp 22 H 12/31/23 14:10 BP 126/78 12/31/23 14:00 Pulse Ox 98 12/31/23 14:10 O2 Del Method Nasal Cannula 12/31/23 14:10 O2 Flow Rate 3 12/31/23 14:10 FiO2 45 12/29/23 16:30 12/31/23 12/31/23 12/31/23 06:59 14:59 22:59 Intake Total 490 / 1398.437 850 / 850 Output Total 1300 / 3100 Balance -810 / -1701.563 850 / 850 Weight last 48 hrs Weight 128 lb 15.527 oz Weight 128 lb 9.6 oz Physical Exam 2 Narrative: GENERAL: Patient is alert, awake and oriented x3 NECK: No jugular vein distension. HEART: Regular S1 and S2. No murmur, rub or gallop. LUNGS: Reduced breath sounds but clear bilaterally. CENTRAL NERVOUS SYSTEM: Grossly nonfocal. EXTREMITIES: Lower extremities with out edema bilaterally. 2+ radial palpated bilaterally Urinary Catheter Management: Vital: Cath Placed During This Visit: yes Reason for Continuing Indwelling Catheter: Accurate Measurement of Urinary Output in Critically Ill Patients Urinary Catheter Date of Insertion: 12/22/23 Urinary Catheter Time of Insertion: 16:00 Data 12/31/23 04:44 12/31/23 04:44 A&P Assessment and plan (1) Triple vessel disease of the heart: Patient has known multi vessel coronary artery disease. Due to underlying comorbidities and high risk for bleeding contrast induced nephropathy and multiorgan failure he is not a candidate for percutaneous angioplasty/left heart catheterization. Recommend continue current care with medical therapy. Continue to add guideline medical therapy for heart failure. We will add Entresto to the regimen. Patient tolerating Entresto, blood pressure remained stable. (2) CHF (congestive heart failure): Appear to be well compensated continue to optimize guideline medical therapy for heart failure with Qualifiers: Heart failure chronicity: acute Heart failure type: unspecified Qualified Code(s): I50.9 - Heart failure, unspecified Plan Continue current care. Patient continues to improve. Due to underlying comorbidities and high risk for bleeding contrast induced nephropathy and multiorgan failure he is not a candidate for percutaneous angioplasty/left heart catheterization. Will continue guideline medical therapy will assess patient in the clinic after the discharge see how he responded to the treatment further plan be devised then., Attestations 2 Medical Necessity Statement*: As per medicine Coding Level of Care Code Acute Code for g Fwd Diagnoses Triple vessel disease of the heart I25.10 CHF (congestive heart failure) I50.9 Heart failure chronicity: acute Heart failure type: unspecified
[2023-12-31 17:29] LABS: Glucose Point of Care 73 mg/dL (70-110)
--- NOTE | 2023-12-31 18:11 | P.PN_ITS ---
Subjective 2 Subjective: - Patient was examined earlier this morn ing, he is alert to person, to place, not to time he can follow commands -He is also requirements have decreased to 3 L -He is coughing up any blood, denies any exposure to tuberculosis, no consumption of raw milk -As he has not had any significant cough ing episodes, he is not producing much sputum, although his TBI QuantiFERON gold is indeterminate I will take him off TB precautions as he is clinically improving with IV antibiotics for his MRSA pneumonia -We discussed options are available to h im -He continues to be significantly decond itioned, malnourished, severe respiratory deconditioning, cachexia, he is on 3 L overall clinically improving he will need prolonged respiratory therapy monitoring, he needs like nightly BiPAP I still would recommend for him to go to [facility] in [place] -He is to need a total of 2 weeks of IV antibiotics, starting from 12/26/2023 -For his heart he is going to need medic al optimization and eventually once he is clinically stable eventually outpatient follow-up for consideration of cardiovascular intervention -Over in order for us to do this he need s to get extensive rehab, -However patient is adamant about going home -He is when he needs to go home he needs to do a lot of things at home -I did discuss with him the morbidity an d mortality associated with going home, he has a high risk of high risk of suffering, high risk of reintubation, high risk of worsening respiratory failure, -I discussed with him the morbidity and mortality of leaving the hospital AGAINST MEDICAL ADVICE -I also discussed with him options if he wants to go home he has 2 options -We can medically optimize him here, amanda ntually get him over to a facility to get him the extensive rehab that he needs, and eventually from the rehab facility he can eventually be discharged home this might take a few weeks might take a few months depending on his clinical progress, I would recommend this option as he has voiced that he wants to continue to live in, continue to do everything -The other option is him going home on h ospice, the goal with him going home on hospice to ease his pain easily suffering allow him to pass away comfortably -The other option for him is leaving the hospital AGAINST MEDICAL ADVICE, I would advise against this given the morbidity, mortality, suffering -However he is adamant about going home he tells me he has not talked to his since he is come here in the hospital, he wants to talk to her I advised patient that I will try to reach out to his many times throughout the last few days and I am unable to reach her -After speaking with patient he is agree able to stay here in the hospital however he wants to talk to his -I have tried to call patient's mul tiple times throughout the day however the call is not going through -Finally patient's did call -I again had a detailed discussion with Colin's Leidy about his clinical progress discussed his MRSA pneumonia his overall clinical improvement, plans on aggressive rehab, pulm rehab, working on getting him over to a facility [facility] is in need IV antibiotics for another week, he is and eventually need medical optimization to eventually stand the chance of having cardiac intervention for his CAD, after discussing the risk benefits all options, she voiced understanding, all questions answered Leidy says that Colin should do everything to get better she wants him to get better, he wants us to do everything for him -Will have nursing staff call her using a portable phone to take the phone into the room so he can talk to her, she does tell me that where she lives services difficult, that is why she has not been picking up at times Vitals/I&O/Wt Last Vital Signs Temp 98.3 F 12/31/23 14:00 Pulse 84 12/31/23 16:00 Resp 28 H 12/31/23 16:00 BP 105/56 12/31/23 16:00 Pulse Ox 95 12/31/23 16:00 O2 Del Method Nasal Cannula 12/31/23 14:10 O2 Flow Rate 3 12/31/23 14:10 FiO2 45 12/29/23 16:30 12/31/23 12/31/23 12/31/23 06:59 14:59 22:59 Intake Total 490 / 1398.437 850 / 850 120 / 970 Output Total 1300 / 3100 950 / 950 Balance -810 / -1701.563 850 / 850 -830 / 20 Weight last 48 hrs Weight 58.5 kg Weight 58.332 kg Physical Exam 2 Const: COMMON NORMALS: no acute distress and patient oriented x3 Resp: COMMON NORMALS: normal respiratory effort, No retractions and No use of accessory muscles AUSCULTATION: crackles and wheezes Cardio: COMMON NORMALS: regular rate, regular rhythm, S1 normal heart sound present and S2 normal heart sound present RATE: regular rate RHYTHM: r egular rhythm HEART SOUNDS: S1 normal heart sound present and S2 normal heart sound present GI: COMMON NORMALS: Normal to inspection, nondistended, normoactive bowel sounds present and non-tender Extremity: COMMON NORMALS: no pedal edema Neuro: COMMON NORMALS: patient oriented x3 Psych: COMMON NORMALS: mental status grossly normal Urinary Catheter Management: Vital: Cath Placed During This Visit: yes Reason for Continuing Indwelling Catheter: Accurate Measurement of Urinary Output in Critically Ill Patients Urinary Catheter Date of Insertion: 12/22/23 Urinary Catheter Time of Insertion: 16:00 Data 12/31/23 04:44 12/31/23 04:44 A&P Assessment and plan (1) Acute hypoxic respiratory failure: (2) Bilateral pneumonia: (3) CHF exacerbation: (4) Acute anemia: (5) Bilateral pleural effusion: (6) Pulmonary edema: (7) Respiratory distress: (8) COPD exacerbation: (9) Aspiration pneumonitis: (10) Coronary artery disease: (11) Ischemic cardiomyopathy: (12) Physical deconditioning: (13) Protein calorie malnutrition: (14) Pulmonary hypertension: (15) ARDS (adult respiratory distress syndrome): (16) MRSA pneumonia: (17) Acute encephalopathy: Plan Acute encephalopathy, resolving -Likely secondary to MRSA pneumonia ? Secondary to hypoxia -Secondary to ICU delirium ? He is on Precedex drip for agitation ? Is on Xanax for agitation as needed Acute hypoxic respiratory failure -With respiratory distress syndrome -Multifactorial from bilateral pneumonia, MRSA pneumonia -Sputum cultures growing MRSA species -CT angiogram the chest showing - CT/CT angio chest PE protcl [id number] IMPRESSION: 1. No evidence of pulmonary embolism. 2. Severe diffuse ground-glass and consolidative airspace disease with interlobular septal thickening. Slight interval worsening since 12/24/2023. As before, findings could represent pulmonary edema, acute lung injury, hypersensitivity pneumonitis and/or atypical infection. 3. Slightly decreased size of moderate bilateral pleural effusions. 4. Moderate cardiomegaly. 5. Reflux of contrast in the IVC can be seen with right heart failure and/or tricuspid regurgitation. 6. Additional ancillary findings as above are similar to prior. -Sputum culture showing gram-negative rods, coagulase positive staphylococci -Secondary to systolic and diastolic CHF, ischemic cardiomyopathy, echocardiogram July 2023 showed an EF of 25%, with severe diffuse hypokinesis of the left ventricle -Has been diuresed -14 L so far -Secondary to COPD -With underlying severe pulmonary hypertension -Requiring Nasal cannula, requiring BiPAP at night ? Plan ? Monitor in the ICU closely ? Continue BiPAP therapy during the night, can use heated high flow during the day -continue Precedex as needed ? Looks euvolemic hold off on Lasix -Dobutamine drip discontinued as it has been over 48 hours -Broaden antibiotic coverage to vancomycin, meropenem, -Continue prednisone -Continue DuoNeb -Continue budesonide Elevated LDH -Has no risk factors for PJP pneumonia -However does have a history of phentermine use, has reported in the past that he smokes it, amphetamines were positive during this hospitalization -However CT of the chest does show diffuse groundglass airspace disease -Beta D glucan within normal limits, low probability for PJP will remove isolation precautions -Ordered PCR of sputum MRSA pneumonia -Will likely require 2 weeks of IV antibiotics, IV vancomycin Aspiration pneumonia, aspiration pneumonitis -Has had multiple aspiration events during this hospitalization -He keeps asking for drain, but have discussed with nursing staff that he is on strict aspiration precautions, thickened liquids -for now we will keep him dysphagia level 4 diet, extremely thickened -Speech therapy eval -Will consider dysphagia level 4 diet moderately thickened based on clinical progress Bilateral pneumonia, MRSA pneumonia -With positive sputum cultures of MRSA -Given diffuse groundglass opacities as above -Hemoptysis, resolved -No hemoptysis, no cough, afebrile clinically improving, afebrile, likely MRSA pneumonia -Has been on vancomycin -AFB smears x 3, unable to acquire as patient does not have any more cough or sputum production or hemoptysis -QuantiFERON gold indeterminate -Will remove isolation precautions for TB as low risk, no significant history of exposure, no other significant risk factors -Monitor respiratory status closely -Isolation precautions Hemoptysis -Monitor closely Acute on chronic anemia, hemoglobin stable -Recent hospitalization for acute anemia, EGD and colonoscopy no acute findings -Status post units PRBC NSTEMI -Recent in our echocardiogram CONCLUSIONS Severe diffuse hypokinesia left ventricular ejection fraction around 25%, visual. Mildly dilated LV cavity. Mildly increased left atrial size. Thickened mitral valve. Mild mitral annular calcification. Mild- moderate mitral valve regurgitation. Thickened aortic valve. Features of aortic valve sclerosis with a peak velocity of 2.2 m/s. [id number] pulmonary valve regurgitation. Possible small pericardial effusion Features of large left-sided pleural effusion -Recent cardiac cath Conclusions 1. Severe 2. multivessel CAD. 3. Patient has significant anemia. 4. and 2 weeks of antiplatelet therapy prior to PCI of LAD and Left circumflex arteries. May require arthrectomy. 5. Severe pulmonary hypertension. Severely elevated left sided cardiac pressures. -Continue aspirin, statin -Did not follow-up with cardiology as outpatient -Repeat cardiac echocardiogram CONCLUSIONS Moderately increased left ventricular cavity size. Severely decreased left ventricular systolic function. Left ventricular ejection fraction is estimated at 17 %. Grade IV/IV diastolic dysfunction (irreversible restrictive filling pattern), severely elevated filling pressures. Normal right ventricular size. Severe pulmonary hypertension, RVSP 76.3 mmHg. Moderate biatrial enlargement Severely thickened mitral valve. Moderate mitral annular calcification. No mitral valve stenosis. Severe mitral valve regurgitation. Severe aortic valve calcification. Severe aortic valve stenosis, mean gradient 8.2 mmHg, AMBER 0.8 cm squared. Trace aortic valve regurgitation. Cannot rule out pseudo aortic stenosis. Thickened tricuspid valve. [id number] tricuspid valve regurgitation. There is no pericardial effusion. Right atrial pressure is around 20 mm of mercury. -Cardiology consulted -Currently being medically managed -Certainly his cardiac lesions will need to be intervened on once patient's rest per Hernesto status has stabilized Mild mottling of bilateral lower extremities -Could be multifactorial from sepsis from bilateral pneumonia -Ischemic cardiomyopathy -Monitor -Arterial duplex ordered FINDINGS Diffuse intimal thickening in the iliac, femoral and popliteal arteries bilaterally. Near normal arterial Doppler waveforms and velocities bilaterally Resting BELLO 1.3 bilaterally CONCLUSIONS 1. Normal resting ABIs bilaterally suggesting no significant arterial obstruction 2. Diffuse intimal thickening in the iliac , femoral and popliteal arteries bilaterally. Physical deconditioning, protein calorie malnutrition, consult dietary Type 2 diabetes mellitus, low dose insulin sliding scale Urine toxicology screen positive for amphetamine Hypertension ? On metoprolol 25 mg twice daily ? Add Norvasc 10 mg Severe deconditioning, protein calorie malnutrition, muscle wasting ? Likely secondary to underlying COPD, ischemic cardiomyopathy -Dietary consulted Full code Status stable, prognosis guarded - Patient was seen this morning -He is alert to person, to place, not to time he does follow commands -He is more alert and awake -Currently on 10 L, high flow nasal cannula, BiPAP during the night -I did detailed discussion with him he is much more understanding much more receptive this morning -I had a detailed discussion with him about his respiratory failure, his ischemic cardiomyopathy his MRSA pneumonia is acute respiratory distress syndrome -He is going to have a protracted medical course, given his profound oxygen requirements ? He is going to require care at a long-term care facility such as [place] that can help with his increased needs, specifically oxygen, respiratory needs, PT OT, dietary needs, -Currently certainly home and shelter is an option however his oxygen requirements are so significant these cannot be done at home safely or a done at a shelter safely his needs are too great -I had a detailed discussion with him that in order for him to do well he is going to have to go to a special facility such as [facility] to get all the needs that he requires, is getting IV antibiotics for at least 2 weeks, PT OT, speech therapy eval, dietary eval, pulmonary eval, respiratory therapy eval, he requires BiPAP during the night -Eventually once his respiratory status improves we can certainly then intervene or consider intervening on his ischemic cardiomyopathy -After discussing risk and benefits of all options, he tells me yes he wants to do everything that will help him, he is agreeable to go to [facility] in [place], nursing staff are at bedside during this discussion -But he tells me that he also wants to talk to his I discussed with him that I spoke to his last night, but will have the nursing staff bring in a phone so he can talk to his Attestations 2 Medical Necessity Statement*: Patient requires hospitalization for acute respiratory failure secondary MRSA pneumonia, deconditioning, ischemic cardiomyopathy Diagnoses Acute hypoxic respiratory failure J96.01 Bilateral pneumonia J18.9 CHF exacerbation I50.9 Acute anemia D64.9 Bilateral pleural effusion J90 Pulmonary edema J81.1 Respiratory distress R06.03 COPD exacerbation J44.1 Aspiration pneumonitis J69.0 Coronary artery disease I25.10 Ischemic cardiomyopathy I25.5 Physical deconditioning R53.81 Protein calorie malnutrition E46 Pulmonary hypertension I27.20 ARDS (adult respiratory distress syndrome) J80 MRSA pneumonia J15.212 Acute encephalopathy G93.40
[2023-12-31 18:55] LABS: HIV 1 & 2 Antibody Non-Reactive (Non-Reactiv); HIV 1 & 2 Antigen Non-Reactive (Non-Reactiv)
[2023-12-31] MEDS: OLANZapine 5 mg ODT PO (19:05)
[2023-12-31] MEDS: morphine 4 mg/mL SDV 1 mL 2 MG IVP (20:33)
[2023-12-31 20:36] LABS: Hepatitis A Antibody IgM Non-Reactive (Nonreactive); Hepatitis B Core IgM Non-Reactive (Nonreactive); Hepatitis B Surface Antigen Non-Reactive (Nonreactive); Hepatitis C Virus Antibody Non-Reactive (Nonreactive)
[2023-12-31] MEDS: guaiFENesin 100 mg/5 mL UDC 10 mL 200 MG PO (21:32)
[2023-12-31] MEDS: atorvastatin 40 mg Tablet 20 MG PO (21:33)
[2023-12-31 21:44] LABS: Glucose Point of Care 108 mg/dL (70-110)
[2024-01-01] VITALS (20 sets, daily range): BP systolic 111–172; BP diastolic 55–97; PULSE 76–125; RESP 16–35; TEMP 36.7–36.8; O2SAT 89–100
[2024-01-01] MEDS: VANCOMYCIN ADD-Vantage 750 MG in 0.9% NaCl ADD-Vantage 250 ML 250 MG IV ×2 (00:20→12:01)
[2024-01-01] MEDS: sucralfate 1 gm/10 mL Oral Liq UDC PO ×2 (00:21→12:02)
[2024-01-01] MEDS: ipratropium 0.5 mg/2.5 mL Neb INHALATION ×4 (02:34→20:14)
[2024-01-01] MEDS: levalbuterol 0.63 mg/3 mL Neb INHALATION ×4 (02:34→20:14)
[2024-01-01 04:50] LABS: Basophils % 0.1 %; Hematocrit 35.8 % (37-53); Lymphocytes # 0.7 10^3/uL (0.8-4.8); Lymphocytes % 3.6 %; Mean Corpuscular HGB Conc 28.5 g/dL (30-55); Mean Corpuscular Hemoglobin 22.7 pg (27-33); Mean Corpuscular Volume 79.7 fl (82-101); Mean Platelet Volume 10.4 fL (7.4-10.4); Monocytes # 0.7 10^3/uL (0.2-0.9); Monocytes % 3.8 %; Neutrophils # 16.52 10^3/uL (1.8-7.7); Neutrophils % 91.7 %; Nucleated Red Blood Cells % 0 %; Platelet Count 303 10^3/cmm (157-399); Red Blood Count 4.49 10^6/uL (3.85-5.65); Red Cell Distribution Width 28.7 % (12.1-15.1); White Blood Count 18.03 10^3/uL (3.29-11.43)
[2024-01-01] MEDS: meropenem 1,000 mg SDV 1000 MG IVP ×3 (04:55→20:45)
[2024-01-01] MEDS: pantoprazole 40 mg SDV IVP ×2 (04:55→17:16)
[2024-01-01 05:06] LABS: Alanine Aminotransferase 22 U/L (0-41); Albumin Level 2.6 g/dL (3.5-5.2); Alkaline Phosphatase 83 U/L (40-130); Anion Gap 10.9 (5-19); Aspartate Amino Transferase 16 U/L (0-40); Blood Urea Nitrogen 24 mg/dL (8-23); C Reactive Protein 17.1 mg/L (0.0-4.9); Calcium 7.9 mg/dL (8.5-10.5); Carbon Dioxide 26 mmol/L (22-29); Chloride 106 mmol/L (98-107); Globulin 2.7 g/dL (1.3-4.6); Glucose 245 mg/dL (65-115); Osmolality Calculated 300 mOsm/kg (285-295); Phosphorus 2.4 mg/dL (2.5-4.5); Potassium 3.9 mmol/L (3.5-5.1); Sodium 139 mmol/L (136-145); Total Bilirubin 0.6 mg/dL (0.15-1.2); Total Protein 5.3 g/dL (6.6-8.7)
[2024-01-01 05:19] LABS: NT Pro B Type Natriuretic Pept 15327 pg/mL (0-125); Procalcitonin 0.07 ng/mL (0-0.5)
[2024-01-01] MEDS: LORazepam 2 mg/mL INJ 1 mL 1 MG IVP (05:19)
--- NOTE | 2024-01-01 05:22 | PC.NURSE ---
Agitation/Anxiety: Entered room to clean rader at pt was screaming into BiPAP mask and hitting bed rail, eyes closed. Woke pt up and he ripped off BiPAP mask and swung arms at nurses. Security called for assistance. Unable to redirect pt. See MAR for administration of Ativan. SpO2 91% RA, pt continues to rip NC off.
[2024-01-01] MEDS: predniSONE 20 mg Tablet 40 MG PO (06:31)
[2024-01-01 07:54] LABS: Glucose Point of Care 108 mg/dL (70-110)
[2024-01-01] MEDS: nicotine 21 mg Patch 1 PATCH TRANSDERMA (08:02)
[2024-01-01] MEDS: aspirin 81 mg EC Tablet PO (08:02)
[2024-01-01] MEDS: sacubitril/valsartan 24-26 mg Tablet 1 EACH PO ×2 (08:02→17:15)
[2024-01-01] MEDS: OLANZapine 5 mg ODT PO ×2 (08:02→17:16)
[2024-01-01] MEDS: metoprolol tartrate 25 mg Tablet PO ×2 (08:02→20:45)
[2024-01-01] MEDS: budesonide 0.5 mg/2 mL Neb INHALATION ×2 (09:37→20:14)
[2024-01-01] MEDS: FUROsemide 40 mg Tablet PO (12:02)
[2024-01-01] MEDS: potassium chloride ER 20 mEq Tablet PO (12:02)
[2024-01-01 12:10] LABS: Glucose Point of Care 110 mg/dL (70-110)
[2024-01-01 12:13] LABS: Vancomycin Trough 15.5 ug/mL (10-15)
--- NOTE | 2024-01-01 15:11 | P.PN_ITS ---
Subjective 2 Subjective: Patient was seen this morning, he is alert to person, to place, not to time, he follows commands currently on 2 L, he does report shortness of breath and a cough but overall improving the cough is nonproductive, no fevers, chills he is adamant that he wants to try to go home, but recognizes that he is quite weak, that he is lost a lot of weight, he wants to go home and see his he tells me, we discussed his MRSA pneumonia, his ischemic cardiomyopathy his respiratory failure his deconditioning he is going to require rehab, he tells me he will consider it but he wants to talk to his , Vitals/I&O/Wt Last Vital Signs Temp 98.2 F 01/01/24 04:00 Pulse 92 01/01/24 14:16 Resp 18 01/01/24 14:05 BP 146/76 01/01/24 12:00 Pulse Ox 94 01/01/24 14:05 O2 Del Method Room Air 01/01/24 14:05 O2 Flow Rate 1 01/01/24 00:00 FiO2 24 01/01/24 05:00 01/01/24 01/01/24 01/01/24 06:59 14:59 22:59 Intake Total 250 / 1460 930 / 930 Output Total 750 / 1700 Balance -500 / -240 930 / 930 Weight last 48 hrs Weight 58.5 kg Physical Exam 2 Const: COMMON NORMALS: no acute distress ORIENTATION/CONSCIOUSNESS: Yes awake, Yes oriented to person and Yes oriented to place; not oriented to time Resp: COMMON NORMALS: normal respiratory effort, No retractions and No use of accessory muscles AUSCULTATION: crackles and wheezes Cardio: COMMON NORMALS: regular rate, regular rhythm, S1 normal heart sound present and S2 normal heart sound present RATE: regular rate RHYTHM: r egular rhythm HEART SOUNDS: S1 normal heart sound present and S2 normal heart sound present GI: COMMON NORMALS: Normal to inspection, nondistended, normoactive bowel sounds present and non-tender Extremity: COMMON NORMALS: no pedal edema Neuro: SENSORIUM/ORIENTATION: Yes oriented to person, Yes oriented to place and No oriented to time Psych: COMMON NORMALS: mental status grossly normal Urinary Catheter Management: Vital: Cath Placed During This Visit: yes Reason for Continuing Indwelling Catheter: Accurate Measurement of Urinary Output in Critically Ill Patients Urinary Catheter Date of Insertion: 12/22/23 Urinary Catheter Time of Insertion: 16:00 Data 01/01/24 04:13 01/01/24 04:13 A&P Assessment and plan (1) Acute hypoxic respiratory failure: (2) Bilateral pneumonia: (3) CHF exacerbation: (4) Acute anemia: (5) Bilateral pleural effusion: (6) Pulmonary edema: (7) Respiratory distress: (8) COPD exacerbation: (9) Aspiration pneumonitis: (10) Coronary artery disease: (11) Ischemic cardiomyopathy: (12) Physical deconditioning: (13) Protein calorie malnutrition: (14) Pulmonary hypertension: (15) ARDS (adult respiratory distress syndrome): (16) MRSA pneumonia: (17) Acute encephalopathy: Plan Acute encephalopathy, resolving -Likely secondary to MRSA pneumonia ? Secondary to hypoxia -Secondary to ICU delirium ? He is on Precedex drip for agitation ? Is on Xanax for agitation as needed Acute hypoxic respiratory failure -With respiratory distress syndrome -Multifactorial from bilateral pneumonia, MRSA pneumonia -Sputum cultures growing MRSA species -CT angiogram the chest showing - CT/CT angio chest PE protcl [id number] IMPRESSION: 1. No evidence of pulmonary embolism. 2. Severe diffuse ground-glass and consolidative airspace disease with interlobular septal thickening. Slight interval worsening since 12/24/2023. As before, findings could represent pulmonary edema, acute lung injury, hypersensitivity pneumonitis and/or atypical infection. 3. Slightly decreased size of moderate bilateral pleural effusions. 4. Moderate cardiomegaly. 5. Reflux of contrast in the IVC can be seen with right heart failure and/or tricuspid regurgitation. 6. Additional ancillary findings as above are similar to prior. -Sputum culture showing gram-negative rods, coagulase positive staphylococci -Secondary to systolic and diastolic CHF, ischemic cardiomyopathy, echocardiogram July 2023 showed an EF of 25%, with severe diffuse hypokinesis of the left ventricle -Has been diuresed -14 L so far -Secondary to COPD -With underlying severe pulmonary hypertension -Requiring Nasal cannula, requiring BiPAP at night ? Plan ? Monitor in the ICU closely ? Continue BiPAP therapy during the night, can use heated high flow during the day -continue Precedex as needed ? Looks euvolemic hold off on Lasix -Dobutamine drip discontinued as it has been over 48 hours -Broaden antibiotic coverage to vancomycin, meropenem, -Continue prednisone -Continue DuoNeb -Continue budesonide Elevated LDH -Has no risk factors for PJP pneumonia -However does have a history of phentermine use, has reported in the past that he smokes it, amphetamines were positive during this hospitalization -However CT of the chest does show diffuse groundglass airspace disease -Beta D glucan within normal limits, low probability for PJP will remove isolation precautions -Ordered PCR of sputum MRSA pneumonia -Will likely require 2 weeks of IV antibiotics, IV vancomycin Aspiration pneumonia, aspiration pneumonitis -Has had multiple aspiration events during this hospitalization -He keeps asking for drain, but have discussed with nursing staff that he is on strict aspiration precautions, thickened liquids -for now we will keep him dysphagia level 4 diet, extremely thickened -Speech therapy eval -Will consider dysphagia level 4 diet moderately thickened based on clinical progress Bilateral pneumonia, MRSA pneumonia -With positive sputum cultures of MRSA -Given diffuse groundglass opacities as above -Hemoptysis, resolved -No hemoptysis, no cough, afebrile clinically improving, afebrile, likely MRSA pneumonia -Has been on vancomycin -AFB smears x 3, unable to acquire as patient does not have any more cough or sputum production or hemoptysis -QuantiFERON gold indeterminate -Will remove isolation precautions for TB as low risk, no significant history of exposure, no other significant risk factors -Monitor respiratory status closely -Isolation precautions Hemoptysis -Monitor closely Acute on chronic anemia, hemoglobin stable -Recent hospitalization for acute anemia, EGD and colonoscopy no acute findings -Status post units PRBC NSTEMI -Recent in our echocardiogram CONCLUSIONS Severe diffuse hypokinesia left ventricular ejection fraction around 25%, visual. Mildly dilated LV cavity. Mildly increased left atrial size. Thickened mitral valve. Mild mitral annular calcification. Mild- moderate mitral valve regurgitation. Thickened aortic valve. Features of aortic valve sclerosis with a peak velocity of 2.2 m/s. [id number] pulmonary valve regurgitation. Possible small pericardial effusion Features of large left-sided pleural effusion -Recent cardiac cath Conclusions 1. Severe 2. multivessel CAD. 3. Patient has significant anemia. 4. and 2 weeks of antiplatelet therapy prior to PCI of LAD and Left circumflex arteries. May require arthrectomy. 5. Severe pulmonary hypertension. Severely elevated left sided cardiac pressures. -Continue aspirin, statin -Did not follow-up with cardiology as outpatient -Repeat cardiac echocardiogram CONCLUSIONS Moderately increased left ventricular cavity size. Severely decreased left ventricular systolic function. Left ventricular ejection fraction is estimated at 17 %. Grade IV/IV diastolic dysfunction (irreversible restrictive filling pattern), severely elevated filling pressures. Normal right ventricular size. Severe pulmonary hypertension, RVSP 76.3 mmHg. Moderate biatrial enlargement Severely thickened mitral valve. Moderate mitral annular calcification. No mitral valve stenosis. Severe mitral valve regurgitation. Severe aortic valve calcification. Severe aortic valve stenosis, mean gradient 8.2 mmHg, AMBER 0.8 cm squared. Trace aortic valve regurgitation. Cannot rule out pseudo aortic stenosis. Thickened tricuspid valve. [id number] tricuspid valve regurgitation. There is no pericardial effusion. Right atrial pressure is around 20 mm of mercury. -Cardiology consulted -Currently being medically managed -Certainly his cardiac lesions will need to be intervened on once patient's rest per Hernesto status has stabilized Mild mottling of bilateral lower extremities -Could be multifactorial from sepsis from bilateral pneumonia -Ischemic cardiomyopathy -Monitor -Arterial duplex ordered FINDINGS Diffuse intimal thickening in the iliac, femoral and popliteal arteries bilaterally. Near normal arterial Doppler waveforms and velocities bilaterally Resting BELLO 1.3 bilaterally CONCLUSIONS 1. Normal resting ABIs bilaterally suggesting no significant arterial obstruction 2. Diffuse intimal thickening in the iliac , femoral and popliteal arteries bilaterally. Physical deconditioning, protein calorie malnutrition, consult dietary Type 2 diabetes mellitus, low dose insulin sliding scale Urine toxicology screen positive for amphetamine Hypertension ? On metoprolol 25 mg twice daily ? Add Norvasc 10 mg Severe deconditioning, protein calorie malnutrition, muscle wasting ? Likely secondary to underlying COPD, ischemic cardiomyopathy -Dietary consulted Full code Status stable, prognosis guarded -Plan for today, will move to cardiac stepdown unit, start p.o. Lasix, continue IV antibiotics for MRSA pneumonia, de-escalate oxygen therapy as tolerated, PT OT, speech therapy eval, spoke to cardiology, recommended medical management outpatient follow-up with cardiology for ischemic cardiomyopathy Attestations 2 Medical Necessity Statement*: Patient requires hospitalization for acute hypoxic respiratory failure secondary to MRSA pneumonia Diagnoses Acute hypoxic respiratory failure J96.01 Bilateral pneumonia J18.9 CHF exacerbation I50.9 Acute anemia D64.9 Bilateral pleural effusion J90 Pulmonary edema J81.1 Respiratory distress R06.03 COPD exacerbation J44.1 Aspiration pneumonitis J69.0 Coronary artery disease I25.10 Ischemic cardiomyopathy I25.5 Physical deconditioning R53.81 Protein calorie malnutrition E46 Pulmonary hypertension I27.20 ARDS (adult respiratory distress syndrome) J80 MRSA pneumonia J15.212 Acute encephalopathy G93.40
[2024-01-01 17:34] LABS: Glucose Point of Care 135 mg/dL (70-110)
[2024-01-01 19:35] LABS: MTB Complex Respiratory PCR NOT DETECTED; MTB Source SPUTUM
[2024-01-01 20:28] LABS: Glucose Point of Care 91 mg/dL (70-110)
[2024-01-01] MEDS: atorvastatin 40 mg Tablet 20 MG PO (20:45)
--- NOTE | 2024-01-01 22:11 | PM.PN ---
Subjective Subjective: Patient is doing much better combing his hair in the bed. Denies any complain Medications: Reviewed: Yes Vitals/I&O/Wt Last Vital Signs Temp 98.0 F 01/01/24 20:34 Pulse 119 H 01/01/24 20:34 Resp 16 01/01/24 20:34 BP 169/97 01/01/24 20:34 Pulse Ox 93 01/01/24 20:17 O2 Del Method Room Air 01/01/24 20:17 O2 Flow Rate 1 01/01/24 00:00 FiO2 24 01/01/24 05:00 01/01/24 01/01/24 01/01/24 06:59 14:59 22:59 Intake Total 250 / 1460 930 / 930 Output Total 750 / 1700 2700 / 2700 Balance -500 / -240 930 / 930 -2700 / -1770 Physical Exam Narrative: GENERAL: Patient is alert, awake and oriented x3 NECK: No jugular vein distension. HEART: Regular S1 and S2. No murmur, rub or gallop. LUNGS: Reduced breath sounds but clear bilaterally. CENTRAL NERVOUS SYSTEM: Grossly nonfocal. EXTREMITIES: Lower extremities with out edema Urinary Catheter Management: Vital: Cath Placed During This Visit: yes Reason for Continuing Indwelling Catheter: Accurate Measurement of Urinary Output in Critically Ill Patients Urinary Catheter Date of Insertion: 12/22/23 Urinary Catheter Time of Insertion: 16:00 Data 01/01/24 04:13 01/01/24 04:13 A&P Assessment and plan (1) Triple vessel disease of the heart: Patient has known multi vessel coronary artery disease. Due to underlying comorbidities and high risk for bleeding contrast induced nephropathy and multiorgan failure he is not a candidate for percutaneous angioplasty/left heart catheterization. Recommend continue current care with medical therapy. Continue to add guideline medical therapy for heart failure. We will add Entresto to the regimen. Patient tolerating Entresto, blood pressure remained stable. On today's visit dated 01/01/2024 patient is doing fine from a cardiac perspective, continue guideline medical therapy for heart failure, will reassess in cardiology clinic (2) CHF (congestive heart failure): Appear to be well compensated continue we will continue guideline medical therapy for heart failure and optimized as an output Qualifiers: Heart failure chronicity: acute Heart failure type: unspecified Qualified Code(s): I50.9 - Heart failure, unspecified Plan Continue current care. Patient continues to improve. Due to underlying comorbidities and high risk for bleeding contrast induced nephropathy and multiorgan failure he is not a candidate for percutaneous angioplasty/left heart catheterization. Will continue guideline medical therapy will assess patient in the clinic after the discharge see how he responded to the treatment further plan be devised then., Attestations Medical Necessity Statement*: From cardiovascular perspective patient can be discharged by tomorrow Coding Level of Care Code Acute Code for [facility] Diagnoses Triple vessel disease of the heart I25.10 CHF (congestive heart failure) I50.9 Heart failure chronicity: acute Heart failure type: unspecified
[2024-01-02] VITALS (7 sets, daily range): BP systolic 150–174; BP diastolic 79–88; PULSE 92–108; RESP 14–22; TEMP 36.5–36.6; O2SAT 82–99
[2024-01-02] MEDS: VANCOMYCIN ADD-Vantage 750 MG in 0.9% NaCl ADD-Vantage 250 ML 250 MG IV (01:02)
[2024-01-02] MEDS: sucralfate 1 gm/10 mL Oral Liq UDC PO (01:02)
[2024-01-02] MEDS: levalbuterol 0.63 mg/3 mL Neb INHALATION ×2 (02:16→09:23)
[2024-01-02] MEDS: ipratropium 0.5 mg/2.5 mL Neb INHALATION ×2 (02:16→09:23)
[2024-01-02 03:15] LABS: Basophils # 0.1 10^3/uL (0.0-0.1); Basophils % 0.2 %; Eosinophils # 0.1 10^3/uL (0.0-0.8); Eosinophils % 0.3 %; Hematocrit 37.3 % (37-53); Lymphocytes # 2.4 10^3/uL (0.8-4.8); Lymphocytes % 8.4 %; Mean Corpuscular Hemoglobin 23.2 pg (27-33); Mean Corpuscular Volume 80.2 fl (82-101); Mean Platelet Volume 10.2 fL (7.4-10.4); Monocytes # 1.5 10^3/uL (0.2-0.9); Monocytes % 5.3 %; Neutrophils % 84.7 %; Nucleated Red Blood Cells % 0 %; Platelet Count 332 10^3/cmm (157-399); Red Blood Count 4.65 10^6/uL (3.85-5.65); Red Cell Distribution Width 29.3 % (12.1-15.1)
[2024-01-02 03:52] LABS: Anion Gap 10.3 (5-19); Blood Urea Nitrogen 27 mg/dL (8-23); Calcium 8.4 mg/dL (8.5-10.5); Carbon Dioxide 30 mmol/L (22-29); Chloride 104 mmol/L (98-107); Glomerular Filtration Rate 112.1 mL/min (90-130); Glucose 91 mg/dL (65-115); NT Pro B Type Natriuretic Pept 11584 pg/mL (0-125); Osmolality Calculated 297 mOsm/kg (285-295); Potassium 3.3 mmol/L (3.5-5.1); Sodium 141 mmol/L (136-145)
[2024-01-02] MEDS: meropenem 1,000 mg SDV 1000 MG IVP (03:56)
[2024-01-02] MEDS: predniSONE 20 mg Tablet 40 MG PO (06:21)
[2024-01-02] MEDS: pantoprazole 40 mg SDV IVP (06:21)
[2024-01-02 06:46] LABS: Glucose Point of Care 114 mg/dL (70-110)
[2024-01-02] MEDS: OLANZapine 5 mg ODT PO (08:42)
[2024-01-02] MEDS: FUROsemide 40 mg Tablet PO (08:42)
[2024-01-02] MEDS: potassium chloride ER 20 mEq Tablet 40 MEQ PO (08:42)
[2024-01-02] MEDS: sacubitril/valsartan 24-26 mg Tablet 1 EACH PO (08:42)
[2024-01-02] MEDS: aspirin 81 mg EC Tablet PO (08:42)
[2024-01-02] MEDS: nicotine 21 mg Patch 1 PATCH TRANSDERMA (08:42)
[2024-01-02] MEDS: metoprolol tartrate 25 mg Tablet PO (08:45)
[2024-01-02] MEDS: budesonide 0.5 mg/2 mL Neb INHALATION (09:22)
[2024-01-02 09:38] LABS: C Reactive Protein 9.5 mg/L (0.0-4.9)
[2024-01-02 09:45] LABS: Procalcitonin 0.06 ng/mL (0-0.5)
--- NOTE | 2024-01-02 10:06 | PC.SOCIAL ---
IMM Update Pg. 2 of IMM updated. Copy provided at bedside.
--- NOTE | 2024-01-02 10:13 | PM.PN ---
Subjective Medications: Reviewed: Yes Vitals/I&O/Wt Last Vital Signs Temp 97.7 F 01/02/24 08:00 Pulse 108 H 01/02/24 09:25 Resp 22 H 01/02/24 09:25 BP 153/88 01/02/24 08:00 Pulse Ox 99 01/02/24 09:25 O2 Del Method Nasal Cannula 01/02/24 09:25 O2 Flow Rate 3 01/02/24 09:25 FiO2 24 01/01/24 05:00 01/01/24 01/02/24 01/02/24 22:59 06:59 14:59 Intake Total 250 / 1180 240 / 240 Output Total 2700 / 2700 1500 / 4200 Balance -2700 / -1770 -1250 / -3020 240 / 240 Physical Exam Urinary Catheter Management: Vital: Cath Placed During This Visit: yes Reason for Continuing Indwelling Catheter: Other Urinary Catheter Date of Insertion: 12/22/23 Urinary Catheter Time of Insertion: 16:00 Data 01/02/24 02:25 01/02/24 02:25 A&P Assessment and plan (1) Triple vessel disease of the heart: (2) CHF (congestive heart failure): Qualifiers: Heart failure chronicity: acute Heart failure type: unspecified Qualified Code(s): I50.9 - Heart failure, unspecified Coding Level of Care Code Acute Code for [facility] Diagnoses Triple vessel disease of the heart I25.10 CHF (congestive heart failure) I50.9 Heart failure chronicity: acute Heart failure type: unspecified
--- NOTE | 2024-01-02 10:52 | P.PN_ITS ---
Subjective 2 Subjective: Patient sitting up in bed this morning. He has no complaints. He is not wearing any oxygen. Vital signs are stable. Blood pressure is still little elevated in the 150s to 160s. Patient has started Entresto and is tolerating this well. Does seem to have some lower extremity edema this morning. He is still somewhat confused, but otherwise is doing well. Medications: Reviewed: Yes Vitals/I&O/Wt Last Vital Signs Temp 97.7 F 01/02/24 08:00 Pulse 108 H 01/02/24 09:25 Resp 22 H 01/02/24 09:25 BP 153/88 01/02/24 08:00 Pulse Ox 99 01/02/24 09:25 O2 Del Method Nasal Cannula 01/02/24 09:25 O2 Flow Rate 3 01/02/24 09:25 FiO2 24 01/01/24 05:00 01/01/24 01/02/24 01/02/24 22:59 06:59 14:59 Intake Total 250 / 1180 240 / 240 Output Total 2700 / 2700 1500 / 4200 Balance -2700 / -1770 -1250 / -3020 240 / 240 Physical Exam 2 Narrative: General: No apparent distress, healthy appearing, well nourished Muskuloskeletal: Full ROM Respiratory: Normal respiratory effort, clear to auscultation bilaterally throughout all lung palmer, no use of accessory muscles Cardio: No JVD, regular rate, regular rhythm, S1 S2 normal, no murmurs, peripheral pulses 2+ throughout Extremities: Full ROM, normal, normal capillary refill, no cyanosis, 1+ edema bilateral lower extremities Neuro: Alert and oriented x2 to person and place but not time and situation Psych: Affect normal, denies suicidal ideation, confused Skin: No rashes or lesions noted, no wounds Urinary Catheter Management: Vital: Cath Placed During This Visit: yes Reason for Continuing Indwelling Catheter: Other Urinary Catheter Date of Insertion: 12/22/23 Urinary Catheter Time of Insertion: 16:00 Data 01/02/24 02:25 01/02/24 02:25 A&P Assessment and plan (1) Triple vessel disease of the heart: Patient has known multi vessel coronary artery disease. Due to underlying comorbidities and high risk for bleeding contrast induced nephropathy and multiorgan failure he is not a candidate for percutaneous angioplasty/left heart catheterization. Recommend continue current care with medical therapy. Continue to add guideline medical therapy for heart failure. He is tolerating Entresto. Appear to be well compensated continue we will continue guideline medical therapy for heart failure and optimized Continue current care. Patient continues to improve. Due to underlying comorbidities and high risk for bleeding contrast induced nephropathy and multiorgan failure he is not a candidate for percutaneous angioplasty/left heart catheterization. Will continue guideline medical therapy will assess patient in the clinic after the discharge see how he responded to the treatment further plan be devised then., (2) CHF (congestive heart failure): Appear to be well compensated continue we will continue guideline medical therapy for heart failure and optimized as an output Qualifiers: Heart failure chronicity: acute Heart failure type: unspecified Qualified Code(s): I50.9 - Heart failure, unspecified Plan Continue current care. Patient continues to improve. Due to underlying comorbidities and high risk for bleeding contrast induced nephropathy and multiorgan failure he is not a candidate for percutaneous angioplasty/left heart catheterization. Will continue guideline medical therapy will assess patient in the clinic after the discharge see how he responded to the treatment further plan be devised then Coding Level of Care Code Acute Code for [facility] Diagnoses Triple vessel disease of the heart I25.10 CHF (congestive heart failure) I50.9 Heart failure chronicity: acute Heart failure type: unspecified
--- NOTE | 2024-01-02 10:52 | PC.NURSE ---
pt refused to use his oxygen cannula
--- NOTE | 2024-01-02 11:31 | PC.NURSE ---
pt getting agitated and restless. he keeps telling his family that he's been in the hospital for too long now. pt denies any SOB and pain. He refused to be put on oxygen and tele. I explain to pt and that doctor suggested for him to stay another night. pt refused to stay and refused oxygen eval. dr lizama in room now talking to pt and in regards to the importance of compliance to take his home med.
--- NOTE | 2024-01-02 11:44 | PC.NURSE ---
RT is able to get pt's home o2 eval after discussion. per RT he requires 3 L/min. Notified case mgt.
--- NOTE | 2024-01-02 11:44 | PM.DCS ---
Discharge Providers Date of Admission: 12/22/23 14:59 Date of Discharge: January 02, 2024 Attending Provider at Admission: Chito Marin MD Attending Provider at Discharge: Carlos Mckeon MD Diagnoses at Discharge Discharge Diagnosis (1) Triple vessel disease of the heart: Status: Acute (2) CHF (congestive heart failure): Status: Acute Qualifiers: Heart failure chronicity: acute Heart failure type: unspecified Qualified Code(s): I50.9 - Heart failure, unspecified Reason for Visit Reason for Visit: sob Hospital Course Hospital Course This is a 68-year-old male with a past medical history of COPD, smoking, ischemic cardiomyopathy with known EF of 25%, angiogram in July showed multivessel CAD, with lesions in proximal LAD, left circumflex, with anemia underwent transfusion units PRBC, who presents [facility] shortness of breath Please look at my last progress note for further details patient had a prolonged and complicated hospital course Patient was hospitalized for acute hypoxic respiratory failure initially secondary to fluid overload, CHF exacerbation, concerns for pneumonia, COPD. He was initially managed in cardiac stepdown unit, received steroid therapy, antibiotic therapy, diuretic therapy with dobutamine, diuresed significantly. However on 12/26/2023, patient went into significant respiratory failure likely a combination of MRSA pneumonia, aspiration pneumonia, aspiration pneumonitis, CHF, requiring ICU admission. Patient was admitted to the ICU, placed on BiPAP therapy CT showing evidence of acute respiratory distress syndrome, sputum cultures growing MRSA and yokonel regen. Patient required BiPAP therapy, high flow oxygen therapy, broad-spectrum antibiotic therapy, diuretic therapy, steroid therapy and clinically monitored in the ICU. Due to his increased oxygen requirements, increased respiratory therapy needs, deconditioning there is plans on him going [facility] [place]. However patient has declined going to [facility], declined going to rehab facility, declined going to [facility]. His oxygen requirements improved, down to 2 L on discharge. For his MRSA pneumonia I have recommended a total of 2 weeks of IV antibiotics, however patient refused inpatient stay, refused IV antibiotics as outpatient, after discussing with him the morbidity and mortality associated, risk of recurrence of MRSA pneumonia, not effectively treating MRSA pneumonia, he voiced understanding, all questions answered, adamant about going home, declining outpatient or inpatient IV antibiotic therapy. Discharged on p.o. Zyvox, amoxicillin, prednisone burst, prednisone burst, Lasix therapy albuterol, Advair with close follow-up with primary care provider as outpatient For ischemic cardiomyopathy, systolic and diastolic CHF, diuresed over 14 L, discharged on Lasix with potassium replacement therapy as outpatient follow with cardiology For his severe COPD, discharged on prednisone burst, albuterol, Advair. Patient was strongly advised to quit smoking, morbidity and mortality associated discussed, risk of COPD, pneumonia, CAD, strokes, have had extensive discussions with him about quitting smoking. For patient's methamphetamine use, advised for him to quit methamphetamine use Initially there was concerns for PJP pneumonia, CT of the chest showing diffuse groundglass disease, however felt to be unlikely, however his beta D glucan is low, LDH is high ordered PJP PCR however patient has declined further inpatient stay There was also concern for tuberculosis pneumonia, due to his initial complaints of hemoptysis, CT of the chest showing groundglass disease, no recurrent hemoptysis during his hospitalization, no known risk factors for TB, no known exposures, his TB QuantiFERON gold was indeterminate. As he remains afebrile, clinically oxygen requirements have improved, clinically improving with medical therapy, no recurrent hemoptysis, no recurrent cough to provide sputum for AFB smears, I think the likelihood of TB pneumonia is very unlikely. Patient was advised if there is any concerns please come back to the hospital. During his hospitalization he was concerns for aspiration pneumonia, aspiration pneumonitis, he has had multiple aspiration events during his hospitalization. He was seen by speech therapy, he was slowly advanced on his diet, kept on aspiration precautions. On discharge I have advised him to adhere with aspiration precautions, dysphagia diet, follow-up with primary care provider as outpatient. Had a detailed discussion with him morbidity and mortality associated with recurrent aspiration pneumonia, aspiration pneumonitis, aspiration events For his bilateral pneumonia, MRSA pneumonia as above For his acute on chronic anemia, patient did require transfusion of PRBC during his hospitalization, hemoglobin has remained stable on discharge For his ischemic cardiomyopathy, NSTEMI NSTEMI -Recent in our echocardiogram CONCLUSIONS Severe diffuse hypokinesia left ventricular ejection fraction around 25%, visual. Mildly dilated LV cavity. Mildly increased left atrial size. Thickened mitral valve. Mild mitral annular calcification. Mild- moderate mitral valve regurgitation. Thickened aortic valve. Features of aortic valve sclerosis with a peak velocity of 2.2 m/s. [id number] pulmonary valve regurgitation. Possible small pericardial effusion Features of large left-sided pleural effusion -Recent cardiac cath Conclusions 1. Severe 2. multivessel CAD. 3. Patient has significant anemia. 4. and 2 weeks of antiplatelet therapy prior to PCI of LAD and Left circumflex arteries. May require arthrectomy. 5. Severe pulmonary hypertension. Severely elevated left sided cardiac pressures. -Continue aspirin, statin, plavix on discharge -Did not follow-up with cardiology as outpatient -Repeat cardiac echocardiogram CONCLUSIONS Moderately increased left ventricular cavity size. Severely decreased left ventricular systolic function. Left ventricular ejection fraction is estimated at 17 %. Grade IV/IV diastolic dysfunction (irreversible restrictive filling pattern), severely elevated filling pressures. Normal right ventricular size. Severe pulmonary hypertension, RVSP 76.3 mmHg. Moderate biatrial enlargement Severely thickened mitral valve. Moderate mitral annular calcification. No mitral valve stenosis. Severe mitral valve regurgitation. Severe aortic valve calcification. Severe aortic valve stenosis, mean gradient 8.2 mmHg, AMBER 0.8 cm squared. Trace aortic valve regurgitation. Cannot rule out pseudo aortic stenosis. Thickened tricuspid valve. [id number] tricuspid valve regurgitation. There is no pericardial effusion. Right atrial pressure is around 20 mm of mercury. -Cardiology consulted -Currently being medically managed -Certainly his cardiac lesions will need to be intervened on once patient's medical condition as above improve -Patient was advised if he has any chest pain or shortness of breath to go immediately go to emergency room -After multiple discussion with cardiology, recommended medical management for now given his complicated hospitalization, complicated medical history as above, currently has a high risk of morbidity and mortality with cardiac intervention, recommend outpatient follow-up optimization of medical therapy -Follow-up with cardiology as outpatient -At some point his cardiac lesions will need to be intervened on, his LAD, left circumflex -He is a high risk of morbidity or mortality associate with CAD, -Would recommend for him to stay as inpatient continued inpatient monitoring discharge to [facility], however patient is adamant about going home -Discussed morbidity mortality associate with his CAD, he voiced understanding, all questions answered, wants to go home -Discharged on aspirin, statin, Plavix, beta-vannessa -Discharged with close follow-up cardiology outpatient -Nitro as needed for chest pain -If any recurrent chest pain or shortness of breath please go to the emergency room -But ultimately discussed with patient that overall he is a poor prognosis, high risk of morbidity and mortality given his complicated medical history as above with his CHF, his COPD, his MRSA pneumonia, his overall deconditioned state -Patient voices understanding, all questions answered, wants to remain a full code, wants to go home, understands the morbidity and mortality associated CAD For his ischemic cardiomyopathy, secondary CHF, discharged on Lasix, potassium Mottling of bilateral lower extremity, likely secondary to ischemic cardiomyopathy, continue to monitor Severe deconditioning, protein, malnutrition, muscle wasting. Secondary COPD, ischemic cardiomyopathy, recommended discharge to [facility] or [facility] or inpatient [facility]hab however patient has declined, wants to discharge home During his hospitalization I had multiple discussions with him, and multiple discussions with his summarized as below -I had a detailed discussion with him and his at bedside on 01/02/2024, just before his discharge -During his hospitalization we had multiple discussions with him about his complicated medical history and hospitalization -Patient is EF is 17% -Has evidence of ischemic cardiomyopathy, has significant LAD and left circumflex lesions that need to be intervened on sooner rather than later -He is acute on chronic anemia requiring PRBC, with recent EGD and colonoscopy that had no acute findings that complicates stent placement they will need to be followed up as outpatient, follow-up primary care provider consider referral for capsule endoscopy as outpatient -His advanced COPD, continues smoking, -His methamphetamine use -He has MRSA pneumonia requiring IV antibiotics his refusal to receive IV antibiotics as inpatient or outpatient -His ischemic cardiomyopathy his fluid overload,requiring diuresis -His overall deconditioned state, severe protein calorie malnutrition, his refusal to go to [facility] or receive [facility] PT OT -I believe his overall prognosis is poor at this point, especially as he is wanting to go home, he has a high risk of morbidity and mortality, high risk of suffering, high risk of deconditioning, high risk of rehospitalization, high risk of aggressive interventions -I have strongly recommended for him to stay as inpatient, continue to receive IV antibiotic therapy optimization for treatment of his pneumonia his white blood cell count is increased to 28,000 and we need to monitor him closely for this, follow his cultures, consider further interventions, further testing, we will have to watch his kidney function, continue to diurese him, continue to give him steroids -I have strongly recommended for him to allow me to optimize his medical therapy, his diuresis, his steroid regimen, his antibiotic regimen, PT OT, speech therapy eval, further interventions as outlined above, and strongly recommended for him to go to [facility] or to a [facility] for [facility] -My concern is is that if he goes home he has a high risk of morbidity and mortality, high risk of suffering, high risk of aggressive interventions, overall poor prognosis given his multiple medical problems -The other option I discussed with him multiple times and his was the possibility of home hospice, understanding that he has severe COPD, ischemic cardiomyopathy, CAD, MRSA pneumonia, severe significant deconditioning, protein jennifer malnutrition. The goal of hospice would be to treat his suffering, would allow more help at home, and would emphasize discomfort -after discussing with him the risks and benefits of all options, is at bedside, patient and voiced understanding, all questions answered, patient wants to go home -Thus on discharge for his MRSA pneumonia I am going to have to discharge him on p.o. antibiotics which is less effective, increased risk of a reoccurrence, increase in worsening respiratory failure, morbidity and mortality associated, he needs pulmonary rehab, he needs aggressive pulmonary interventions/therapy -His white blood cell count is increased to 28,000, I cannot work this up any further -For his CAD at discharge him on aspirin, Plavix, statin, metoprolol -Understanding he has significant LAD, left circumflex lesions, that carries significant morbidity and mortality, at any time he has a high risk of , high risk of suffering, high risk of aggressive interventions -For his ischemic cardiomyopathy, my worry would be for worsening respiratory failure requiring further diuresis he is -14 L so far but I feel he needs further optimization -We have discharged him on Entresto -I have recommended for LifeVest, however patient has declined -For his COPD, needs further optimization, -I also suspect he has severe pulmonary hypertension -Severe deconditioning, protein jennifer malnutrition, muscle wasting, needs to go to [facility], needs to go to rehab # Overall I was honest with patient he has a high risk of morbidity and mortality as he is leaving the hospital, he has a high risk of suffering, high risk of poor outcome, overall his prognosis is poor -After discussing risk and benefits of all options, patient and voiced understanding, all questions answered patient wants to go home -I have discharged him with 1 month of refills follow-up with primary care follow-up with cardiology -If for any recurrent shortness of breath, chest pain, fevers, please come back to the hospital Physical Exam Const: COMMON NORMALS: no acute distress and patient oriented x3 GENERAL APPEARANCE: ill appearing and frail appearing NUTRITIONAL APPEARANCE: cachectic and thin Eye: COMMON NORMALS: Equal, round and reactive pupils present and EOMs intact bilaterally PUPIL: Yes Equal, round and reactive pupils present Resp: COMMON NORMALS: normal respiratory effort, No retractions and No use of accessory muscles AUSCULTATION: crackles and wheezes Cardio: COMMON NORMALS: regular rate, regular rhythm, S1 normal heart sound present and S2 normal heart sound present RATE: regular rate RHYTHM: regular rhythm HEART SOUNDS: S1 normal heart sound present and S2 normal heart sound present GI: COMMON NORMALS: Normal to inspection, nondistended, normoactive bowel sounds present and non-tender Extremity: COMMON NORMALS: no pedal edema Neuro: COMMON NORMALS: patient oriented x3 Psych: COMMON NORMALS: mental status grossly normal Urinary Catheter Management: Vital: Cath Placed During This Visit: yes Reason for Continuing Indwelling Catheter: Other Urinary Catheter Date of Insertion: 12/22/23 Urinary Catheter Time of Insertion: 16:00 Discharge Data Studies Completed and Pending Completed Studies During Hospitalization Category Date Time Status CT angio chest PE protcl [id number] Routine Cat Scan 12/26/23 12:[address] chest wo con [id number] Routine Cat Scan 12/24/23 09:30 Completed XR KUB portable [id number] Routine Exams 12/26/23 11:59 Completed XR chest 1V portable [id number] Routine Exams 12/26/23 08:59 Completed XR chest 1V portable [id number] Routine Exams 12/30/23 07:00 Completed XR chest 1V portable [id number] Stat Exams 12/22/23 12:05 Completed XR chest 1V portable [id number] Stat Exams 12/23/23 21:46 [place] [id number] Routine Ultrasound 12/26/23 09:30 [place] [id number] Routine Ultrasound 12/26/23 10:57 Completed CV. echo limited [id number] Routine Ultrasound 12/26/23 09:00 Completed Pending at discharge Category Date Time Status AFB [Mycobacteria, Culture w/Fluor] Stat Lab 12/26/23 17:01 Uncollected AFB [Mycobacteria, Culture w/Fluor] Stat Lab 12/26/23 17:04 Uncollected AFB [Mycobacteria, Culture w/Fluor] Stat Lab 12/26/23 17:05 Uncollected Basic Metabolic Panel AM LABS Lab 01/03/24 04:00 Ordered Basic Metabolic Panel AM LABS Lab 01/04/24 04:00 Ordered C.Diff PCR (Lab) Routine Lab 01/02/24 08:30 Uncollected Complete Blood Count w/Auto AM LABS Lab 01/03/24 04:00 Ordered Complete Blood Count w/Auto AM LABS Lab 01/04/24 04:00 Ordered NT Pro B Type Natriuretic Pept QAM Lab 01/03/24 06:00 Ordered NT Pro B Type Natriuretic Pept QAM Lab 01/04/24 06:00 Ordered Occult Blood Stool [Immunochemical Fecal OCB] Routine Lab 12/22/23 16:08 Uncollected Pneumocystis jiroveci Qual PCR Routine Lab 12/30/23 09:10 Received Pneumocystis jirovecii, DFA Routine Lab 12/30/23 15:43 Ordered Sputum Culture and Gram Stain Stat Lab 12/26/23 08:59 Uncollected Radiology Impressions Chest CT 12/24/23 09:30 IMPRESSION: 1. Severe diffuse bilateral lung disease. Differential diagnosis includes cardiogenic pulmonary edema, acute lung injury, hypersensitivity pneumonitis and viral infection. 2. Moderate simple dependent bilateral pleural effusions. 3. Moderate cardiac enlargement. 4. Incidental findings above. KUB X-Ray 12/26/23 11:59 IMPRESSION: 1. No acute abdominal finding. 2. Constipation. 3. Other minor incidental findings as above. Chest CTA 12/26/23 12:46 IMPRESSION: 1. No evidence of pulmonary embolism. 2. Severe diffuse ground-glass and consolidative airspace disease with interlobular septal thickening. Slight interval worsening since 12/24/2023. As before, findings could represent pulmonary edema, acute lung injury, hypersensitivity pneumonitis and/or atypical infection. 3. Slightly decreased size of moderate bilateral pleural effusions. 4. Moderate cardiomegaly. 5. Reflux of contrast in the IVC can be seen with right heart failure and/or tricuspid regurgitation. 6. Additional ancillary findings as above are similar to prior. Chest X-Ray 12/30/23 07:00 IMPRESSION: 1. Extensive bilateral pulmonary infiltrates showing no significant change. Laboratory Results WBC 28.80 10^3/uL (3.29-11.43) H 01/02/24 02:25 RBC 4.65 10^6/uL (3.85-5.65) 01/02/24 02:25 Hgb 10.80 g/dL (11.27-16.99) L 01/02/24 02:25 Hct 37.3 % (37-53) 01/02/24 02:25 MCV 80.2 fl (82-101) L 01/02/24 02:25 MCH 23.2 pg (27-33) L 01/02/24 02:25 MCHC 29.0 g/dL (30-55) L 01/02/24 02:25 RDW 29.3 % (12.1-15.1) H 01/02/24 02:25 Plt Count 332 10^3/cmm (157-399) 01/02/24 02:25 MPV 10.2 fL (7.4-10.4) 01/02/24 02:25 Neut % (Auto) 84.7 % 01/02/24 02:25 Lymph % (Auto) 8.4 % 01/02/24 02:25 [place] % (Auto) 5.3 % 01/02/24 02:25 Eos % (Auto) 0.3 % 01/02/24 02:25 Baso % (Auto) 0.2 % 01/02/24 02:25 Neut # (Auto) 24.40 10^3/uL (1.8-7.7) H 01/02/24 02:25 Lymph # (Auto) 2.4 10^3/uL (0.8-4.8) 01/02/24 02:25 [place] # (Auto) 1.5 10^3/uL (0.2-0.9) H 01/02/24 02:25 Eos # (Auto) 0.1 10^3/uL (0.0-0.8) 01/02/24 02:25 Baso # (Auto) 0.1 10^3/uL (0.0-0.1) 01/02/24 02:25 Nucleated RBC % (auto) 0 % 01/02/24 02:25 Nucleated RBCs # 0.0 /100WBC 01/02/24 02:25 PT 20.90 SECONDS (12.1-14.9) H 12/22/23 12:54 INR 1.73 (0.8-1.2) H 12/22/23 12:54 D-Dimer 2.57 ug/mLFEU (0-0.59) H 12/26/23 11:05 Specimen Type Arterial 12/28/23 04:15 Sample Site Radial, right 12/28/23 04:15 ABG pH 7.46 (7.35-7.45) H 12/28/23 04:15 ABG pCO2 46.6 mmHg (35-45) H 12/28/23 04:15 ABG pO2 164.0 mmHg (80.0-100.0) H 12/28/23 04:15 ABG PO2/FiO2 Ratio 364 12/28/23 04:15 ABG HCO3 33.2 mmol/L (22-26) H 12/28/23 04:15 ABG O2 Saturation 95.1 12/23/23 23:48 ABG Base Excess 8.4 mmol/L (-2.0-2.0) H 12/28/23 04:15 Mathew Test Pos 12/28/23 04:15 A-a O2 Gradient 62.0 mmHg (5-10) H 12/23/23 23:48 Hematocrit 31.9 % (42-52) L 12/28/23 04:15 Hgb O2 Saturation 92.0 % (95-100) L 12/23/23 23:48 Carboxyhemoglobin 2.4 %THgb (0.4-20.1) 12/23/23 23:48 Methemoglobin 1.0 % (0.4-1.5) 12/23/23 23:48 Total Hemoglobin 9.8 g/dL (14-18) L 12/23/23 23:48 Sodium 135.0 mmol/L (131-143) 12/23/23 23:48 Potassium 3.5 mmol/L (3.5-5.0) 12/23/23 23:48 Glucose 126.0 mg/dL (70-115) H 12/23/23 23:48 Ionized Calcium 1.2 mmol/L (1.1-1.4) 12/23/23 23:48 O2 Delivery Device Bipap 12/28/23 04:15 O2 Liters/Min 35.0 % 12/26/23 09:15 FiO2 45.0 % 12/28/23 04:15 PEEP 10.0 cmH20 12/28/23 04:15 High Voltage Electrician ID [email or web address] 12/28/23 04:15 Sodium 141 mmol/L (136-145) 01/02/24 02:25 Potassium 3.3 mmol/L (3.5-5.1) L 01/02/24 02:25 Chloride 104 mmol/L (98-107) 01/02/24 02:25 Carbon Dioxide 30 mmol/L (22-29) H 01/02/24 02:25 Anion Gap 10.3 (5-19) 01/02/24 02:25 BUN 27 mg/dL (8-23) H 01/02/24 02:25 Creatinine 0.7 mg/dL (0.7-1.2) 01/02/24 02:25 GFR Calculation 112.1 mL/min (90-130) 01/02/24 02:25 Glucose 91 mg/dL (65-115) 01/02/24 02:25 POC Glucose 114 mg/dL (70-110) H 01/02/24 06:43 Calculated Osmolality 297 mOsm/kg (285-295) H 01/02/24 02:25 Lactic Acid 3.5 mmol/L (0.5-2.2) H 12/24/23 10:50 Lactic Acid (Sepsis) 3.1 mmol/L (0.5-2.2) H 12/24/23 13:55 Lactate 1.7 mmol/L (0.5-2.2) 12/29/23 03:44 Calcium 8.4 mg/dL (8.5-10.5) L 01/02/24 02:25 Phosphorus 2.4 mg/dL (2.5-4.5) L D 01/01/24 04:13 Magnesium 2.0 mg/dL (1.7-2.3) 01/01/24 04:13 Iron 278 ug/dL (59-158) H 12/22/23 21:51 TIBC 339 mcg/dl 12/22/23 21:51 % Saturation 82.0 % (20-50) H 12/22/23 21:51 Unsat Iron Binding 61 ug/dL (112-347) L 12/22/23 21:51 Total Bilirubin 0.6 mg/dL (0.15-1.2) 01/01/24 04:13 GGT 29 U/L (8-61) 12/22/23 21:51 AST 16 U/L (0-40) 01/01/24 04:13 ALT 22 U/L (0-41) 01/01/24 04:13 Alkaline Phosphatase 83 U/L (40-130) 01/01/24 04:13 Ammonia 39 umol/L (16-60) 12/22/23 12:54 Lactate Dehydrogenase 458 U/L (135-225) H 12/26/23 09:25 Troponin T Baseline 35 ng/L (0-15) H 12/26/23 09:25 Troponin T 120 Minute 36.45 ng/L (0-15) H 12/26/23 11:05 Delta Troponin T 1.45 ABS# (0-10) 12/26/23 11:05 Troponin T Hi Sens 6Hr 41.12 ng/L (0-15) H 12/26/23 16:05 Troponin T Hi Sens 6Hr Delta 6.12 ng/L (0-12) 12/26/23 16:05 C-Reactive Protein 9.5 mg/L (0.0-4.9) H 01/02/24 02:25 NT-Pro-B Natriuret Pep 59687 pg/mL (0-125) H 01/02/24 02:25 Total Protein 5.3 g/dL (6.6-8.7) L 01/01/24 04:13 Albumin 2.6 g/dL (3.5-5.2) L 01/01/24 04:13 Globulin 2.7 g/dL (1.3-4.6) 01/01/24 04:13 Vitamin B12 > 2000 pg/mL (232-1245) H 12/22/23 21:51 Folate 10.3 ng/mL (4.5-32.2) 12/23/23 03:34 Procalcitonin 0.06 ng/mL (0-0.5) 01/02/24 02:25 Urine Color Yellow (Yellow) 12/25/23 09:34 Urine Appearance Clear (CLEAR) 12/25/23 09:34 Urine pH 6.5 (5-7) 12/25/23 09:34 Ur Specific [place] 1.006 (1.005-1.030) 12/25/23 09:34 Urine Protein Negative (Negative) 12/25/23 09:34 Urine Glucose (UA) Negative (Normal) 12/25/23 09:34 Urine Ketones Negative (Negative) 12/25/23 09:34 Urine Blood Negative (Negative) 12/25/23 09:34 Urine Nitrate Negative (Negative) 12/25/23 09:34 Urine Bilirubin Negative (Negative) 12/25/23 09:34 Urine Urobilinogen 1.0 mg/dL (Negative) 12/25/23 09:34 Ur Leukocyte Esterase Negative (Negative) 12/25/23 09:34 Urine RBC 0-2 /hpf (0-2) 12/25/23 09:34 Urine WBC 0-5 /hpf (0-5) 12/25/23 09:34 Ur Squamous Epith Cells 0-5 /hpf (0-5) 12/25/23 09:34 Amorphous Sediment Not Reportable 12/25/23 09:34 Urine Bacteria None seen /hpf (NONE) 12/25/23 09:34 Hyaline Casts 0.40 /lpf 12/25/23 09:34 Nasal MRSA (PCR) Mrsa detected (Negative) A 12/24/23 10:09 Vancomycin Trough 15.5 ug/mL (10-15) H 01/01/24 11:35 Salicylates 1.3 mg/dL (3-10) L 12/22/23 12:54 Urine Opiates Screen Negative ng/mL (Negative) 12/22/23 19:50 Acetaminophen < 5.0 ug/mL (10-30) L 12/22/23 12:54 Ur Barbiturates Screen Negative ng/mL (Negative) 12/22/23 19:50 Ur Phencyclidine Scrn Negative ng/mL (Negative) 12/22/23 19:50 Ur Amphetamines Screen Positive ng/mL (Negative) H 12/22/23 19:50 U Benzodiazepines Scrn Negative ng/mL (Negative) 12/22/23 19:50 Urine Cocaine Screen Negative ng/mL (Negative) 12/22/23 19:50 U Marijuana (THC) Screen Negative ng/mL (Negative) 12/22/23 19:50 Ethyl Alcohol < 10 mg/dL (0-10) 12/22/23 12:54 Adenovirus (PCR) Not detected (NOT DETECT) 12/26/23 13:45 C. pneumoniae DNA (PCR) Not detected (NOT DETECT) 12/26/23 13:45 Coronavirus 229E (PCR) Not detected (NOT DETECT) 12/26/23 13:45 Hepatitis A IgM Ab Non-reactive (Nonreactive) 12/31/23 04:44 Hep Bs Antigen Non-reactive (Nonreactive) 12/31/23 04:44 Hep B Core IgM Ab Non-reactive (Nonreactive) 12/31/23 04:44 Hepatitis C Antibody Non-reactive (Nonreactive) 12/31/23 04:44 HIV 1&2 Ab & HIV 1 Ag Non-reactive (Non-Reactiv) 12/31/23 04:44 HIV 1&2 Antibody Non-reactive (Non-Reactiv) 12/31/23 04:44 Human Metapneumovir PCR Not detected (NOT DETECT) 12/26/23 13:45 Influenza A (H1) PCR Not detected (NOT DETECT) 12/26/23 13:45 Influ A (H1/09) PCR Not detected (NOT DETECT) 12/26/23 13:45 Influenza A (H3) PCR Not detected (NOT DETECT) 12/26/23 13:45 Influenza Type A (PCR) Not detected (NOT DETECT) 12/26/23 13:45 Influenza Type B (PCR) Not detected (NOT DETECT) 12/26/23 13:45 Myco Comp PCR Spec Srce Sputum 12/28/23 14:10 M. pneumoniae (PCR) Not detected (NOT DETECT) 12/26/23 13:45 Parainfluenza 1 (PCR) Not detected (NOT DETECT) 12/26/23 13:45 Parainfluenza 2 (PCR) Not detected (NOT DETECT) 12/26/23 13:45 Parainfluenza 3 (PCR) Not detected (NOT DETECT) 12/26/23 13:45 Parainfluenza 4 (PCR) Not detected (NOT DETECT) 12/26/23 13:45 RSV Type A (PCR) Not detected (NOT DETECT) 12/26/23 13:45 RSV Type B (PCR) Not detected (NOT DETECT) 12/26/23 13:45 Entero/Rhino (PCR) Not detected (NOT DETECT) 12/26/23 13:45 SARS-CoV-2 (PCR) Not detected (NOT DETECT) 12/26/23 13:45 SARS-CoV-2 Ag (Rapid) Negative (Negative) 12/22/23 12:54 TB (QFT) Gold In Tube Indeterminate (NEGATIVE) A 12/27/23 06:51 TB Test (QFT) Nil 0.01 IU/mL 12/27/23 06:51 TB Test (QFT) Mitogen 0.15 IU/mL 12/27/23 06:51 TB Test Mitogen - Nil 0.00 IU/mL 12/27/23 06:51 TB Test TB -Nil 0.00 IU/mL 12/27/23 06:51 Beta-(1,3)-D-Glucan 45 pg/ml 12/27/23 02:56 B-(1,3)-D-Glucan Intrp Negative (Negative) 12/27/23 02:56 M.tuberculosis Cmplx PCR Not detected 12/28/23 14:10 Misc Test Reference Cancelled 12/30/23 09:10 Blood Type A Positive 12/26/23 09:25 Rho(D) Type Rh positive 12/26/23 09:25 Antibody Screen Negative 12/26/23 09:25 Crossmatch See Detail 12/26/23 09:25 Vitals Last Vital Signs Temp 97.7 F 01/02/24 08:00 Pulse 108 H 01/02/24 09:25 Resp 22 H 01/02/24 09:25 BP 153/88 01/02/24 08:00 Pulse Ox 99 01/02/24 09:25 O2 Del Method Nasal Cannula 01/02/24 09:25 O2 Flow Rate 3 01/02/24 09:25 FiO2 24 01/01/24 05:00 Discharge Plan Discharge Patient Disposition: Home Condition: Stable Prescriptions: New furosemide 40 mg Tablet 40 mg PO DAILY@0800 30 Days Qty: 30 0RF atorvastatin 40 mg Tablet 40 mg PO BEDTIME 30 Days Qty: 30 0RF nicotine 21 mg/24 hr Patch 24 Hour 1 patch transdermal DAILY 28 Days Qty: 28 0RF metoprolol tartrate 25 mg Tablet 25 mg PO BID@0900,2100 30 Days Qty: 30 0RF prednisone 20 mg Tablet 40 mg PO Q24H 5 Days Qty: 10 0RF potassium chloride [Klor-Con M20] 20 mEq Tablet,Er Particles/Crystals 40 meq PO DAILY 30 Days Qty: 30 0RF Entresto 24-26 mg Tablet 1 tab PO BID 30 Days Qty: 60 0RF linezolid [Zyvox] 600 mg tablet 600 mg PO BID 10 Days Qty: 20 0RF amoxicillin-pot clavulanate 875-125 mg tablet 1 tab PO BID 10 Days Qty: 20 0RF clopidogrel [Plavix] 75 mg tablet 75 mg PO DAILY 30 Days Qty: 30 0RF albuterol sulfate 90 mcg/actuation aero powdr breath act w/sensor 1 inh inhalation Q6H PRN (Reason: shortness of breath or wheezing) Qty: 1 0RF fluticasone propion-salmeterol [Advair Diskus] 250-50 mcg/dose blister with device 1 inh inhalation BID 30 Days Qty: 60 0RF sucralfate 100 mg/mL Suspension 1 g PO Q12H 30 Days Qty: 600 0RF pantoprazole [Protonix] 40 mg tablet,delayed release (DR/EC) 40 mg PO BID 30 Days Qty: 60 0RF nitroglycerin 0.4 mg tablet, sublingual 0.4 mg sublingual Q5M 30 Days Qty: 30 0RF Rx Instructions: do not exceed 3 doses per episode Continued aspirin 81 mg tablet,delayed release (DR/EC) 81 mg PO DAILY 30 Days Qty: 30 0RF Discharge Orders: Discharge Order (Routine); Ordered 01/02/24 Ordered By: Carlos Mckeon Other Ambulatory Orders: DME: Oxygen (Order) Location: None Selected Ordered By: Carlos Mckeon DME: Walker (Order) Location: None Selected Ordered By: Carlos Mckeon Referrals: Fred Hamlin MD [Physician] - 01/11/24 3:00 pm (This appointment is with Khloe JOE. Thank you.) Discharge Diet: Cardiac Discharge Activity: Resume usual activity Patient Instructions: Metoprolol (By mouth) (Lopressor, Toprol XL), Nitroglycerin (By mouth), Furosemide (By mouth) (Lasix), Sucralfate (By mouth) (Carafate), Albuterol (By breathing), Prednisone (By mouth), Nicotine (Into the mouth), Potassium Chloride (By mouth), Amoxicillin (By mouth) (Amoxicot, Amoxil, Amoxil Pediatric, Trimox,..., Atorvastatin (By mouth) (Lipitor, Atorvaliq), Clopidogrel (By mouth) (Plavix), Pantoprazole (By mouth) (Protonix), Linezolid (By mouth) (Zyvox), Fluticasone/Salmeterol (By breathing), Sacubitril/Valsartan (By mouth) (Entresto, Entresto Sprinkle), Coronary Artery Disease (DC), Mitral Regurgitation (DC), Aortic Stenosis (DC), How to Stop Smoking (DC), CHF Stoplight, COPD Stoplight, Opioid Safety, Pneumonia Stoplight Activity Restrictions/Additional Instructions: - If you have any chest pain or shortness of breath please go to emergency room -Please have your primary care provider recheck your kidney function and your hemoglobin sometime this week -If you have any falls please go to the emergency room -Please antibiotics as prescribed -Please abstain from smoking, -Please abstain from alcohol use -Please abstain from drug use -I have discharged on aspirin and Plavix these are strong blood thinners, if you notice that your blood or black stools or feel weak, please email or come the emergency room -For your multivessel CAD if you have chest pain please immediately go to the emergency room or call 911 -For your pneumonia please take antibiotics as prescribed, if you have any worsening shortness of breath please go to the emergency room Discharge Attestations Time Spent in Discharge Care*: greater than 30 min Time Spent in Smoking Cessation: more than 10 minutes Status at Discharge: Cognitive status at discharge: cognitively intact, Behavioral status at discharge: cooperative, Quality Metrics Clinical Quality Measures [ No reported AMI, CVA or VTE this stay] Coding Level of Care Code 10386 Total time (in minutes) for Discharge: 60 Diagnoses Triple vessel disease of the heart I25.10 CHF (congestive heart failure) I50.9 Heart failure chronicity: acute Heart failure type: unspecified
--- NOTE | 2024-01-02 12:20 | PC.NURSE ---
Pt stated he has walker and wheelchair and a oxygen at home? pt don't know what company he uses. and friends just left for lunch. informed that it will take 30 mins for the medications to get ready and be delivered. Pt mentioned that his does not help much at home. they don't have any car at home. I asked the case mgt to do a wellness check at home.
--- NOTE | 2024-01-02 12:43 | PC.NURSE ---
called case mgt in regards to pt's oxygen they said, they are waiting on the company to deliver it and will take 2 hrs. Informed pt and he will not wait for it.
--- NOTE | 2024-01-02 12:44 | PC.NURSE ---
meds to bed delivered called [facility] and they said they will deliver it pretty soon.
--- NOTE | 2024-01-02 13:02 | PC.NURSE ---
I informed the pt and that case mglinda stated that the oxygen company will take about 2 hrs to deliver his oxygen. I asked the pt if he can wait for 2 hrs for them to deliver the portable oxygen. Pt stated that he will not wait for that. I explained that case mgt stated that the company will set up the oxygen at home and deliver it to his place. Pt stated that he wants to leave to smoke, just once. i educated him to stop smoking. discharge papers provided to pt. meds delivered to pt.
== END 2024-01-02 13:10 | disposition home or self-care (01) | DRG 280 ==
LOC: ER 14:33 → CSU 14:59 → ICU 12-26 09:43 → CSU 01-01 10:29
PROVIDERS: Internal Medicine; Admitting Provider Student in an Organized Health Care Education/Training Program; Emergency Provider Emergency Medicine; Visit Provider Family Medicine
DX: I11.0 Hypertensive heart disease with heart failure (principal); A41.9 Sepsis, unspecified organism; I21.4 Non-ST elevation (NSTEMI) myocardial infarction; I50.43 Acute on chronic combined systolic (congestive) and diastolic (congestive) heart failure; J15.212 Pneumonia due to Methicillin resistant Staphylococcus aureus; J15.8 Pneumonia due to other specified bacteria; J69.0 Pneumonitis due to inhalation of food and vomit; J96.01 Acute respiratory failure with hypoxia; E43 Unspecified severe protein-calorie malnutrition; R57.0 Cardiogenic shock; J44.0 Chronic obstructive pulmonary disease with (acute) lower respiratory infection; Z68.1 Body mass index [BMI] 19.9 or less, adult; R04.2 Hemoptysis; G93.1 Anoxic brain damage, not elsewhere classified; G93.49 Other encephalopathy; D50.9 Iron deficiency anemia, unspecified; F17.200 Nicotine dependence, unspecified, uncomplicated; I25.5 Ischemic cardiomyopathy; I25.10 Atherosclerotic heart disease of native coronary artery without angina pectoris; I27.20 Pulmonary hypertension, unspecified; R74.01 Elevation of levels of liver transaminase levels; Z91.148 Patient's other noncompliance with medication regimen for other reason; R23.8 Other skin changes; Z79.82 Long term (current) use of aspirin; I25.2 Old myocardial infarction
CPT/HCPCS: 36415; 36416; 36430; 36600; 51702; 71045; 71250; 71275; 74018; 80048; 80051; 80053; 80074; 80202; 80306; 80307; 81001; 82140; 82330; 82607; 82746; 82803; 82805; 82962; 82977; 83540; 83550; 83605; 83615; 83735; 83880; 84100; 84145; 84484; 85025; 85378; 85610; 86140; 86403; 86480; 86850; 86900; 86920; 87070; 87077; 87086; 87186; 87205; 87426; 87449; 87486; 87556; 87581; 87633; 87798; 87806; 92507; 92526; 92610; 93005; 93308; 93925; 93970; 94640; 94660; 94669; 94760; 96372; 96374; 96375; 96376; 97116; 97161; 97166; 99285; A9270; J0456; J1250; J1630; J1815; J1940; J2060; J2185; J2270; J2470; J2543; J2919; J3370; J3372; J3480; J7050; J7512; J7614; J7626; J7644; P9016; P9040

== ENCOUNTER → 2024-01-11 14:42 | Outpatient (BNVA) | payer MEDICARE, MEDICAID, SELFPAY | PROVIDERS: Visit Provider Nurse Practitioner Family | DX: B59 Pneumocystosis (principal); I50.9 Heart failure, unspecified; I25.10 Atherosclerotic heart disease of native coronary artery without angina pectoris; I25.5 Ischemic cardiomyopathy; F17.200 Nicotine dependence, unspecified, uncomplicated | CPT/HCPCS: 99214 ==